=== PATIENT | male | born 1955 | race Caucasian/White ===

== ENCOUNTER 2021-11-28 10:53 | Outpatient (RCR) | payer OTHER, SELFPAY ==
--- NOTE | 2021-11-28 12:01 | HP.PTEVAL_ITS ---
"Patient's Visit Information PITER MOSS is a 66 year old M referred to Physical Therapy by YUKI GRANDA with a diagnosis of L hip pain. Date of Evaluation: 11/28/21 Physical Therapist: JOSE Gallo - Visit Plan Frequency: 2x /Week Duration: 3 Weeks Plan: 2X/ week for 3 weeks for L hip strengthening, L hip ROM, gait training with HEP. HEP: bridges, SLR, S/L hip abd, LAQ - Subjective Pt had X-ray of L HIP. He has no blood flow to the center of the hip bone. This has been going on for 4-5 months. L is progressive getting worse. Dr wants Pt for 4-5 visits and get blood work for surgery. They will do the surgery but he has to have A1C below 7.5 before they do surgery. His L hurts all the time. It hurts with sitting and standing. He has to try and weight shift onto the R leg to get pain out of the joint. He reports that he has weakness in the hip. He struggles to get out of a car and does better sliding out of a higher car like an e|tab. Stairs: he has a lot of pain doing the steps. If he has to go up the steps he uses a railing or a can and leads with his R leg. He has steps at home to get into the trailer with a railing. He does not sleep well at all due to the pain and up most of the night. He does not think that he got an hour sleep last night. He is on gabapetitin. Pt does not leave his trailor much because of the pain. He goes outside [facility] with a 3 weelher and can get around his trailor ok cause things are close. - Pain L hip pain Pain Intensity (Out of 10): 8 Comment: it can go up to 10 or greater - Objective Gait: pt had to sit on the way back to the treatment rooms twice due to pain in the L hip. He walks with decrease stance time on the L LE the stance time gets less and less on the L the farther he walks. Sit to stand: he needs to use his arms to be able to get out of a chair. L hip flex approx 120 degrees but painful. Pt also has limited IR and ER with pain. Pt has tight L HS and gastroc as well and struggles to lift his L leg up onto the mat table. Bridge: able to do 1/2 normal ROM bridge. LE MMT: L hip flex 3+/5 and R 4/5, L hip abd 3+/5 and R 4/5, Prone hip ext B 3-/5, L knee flex 4-/5 and R 4/5, L knee ext 4- /5 and R knee 4/5. Pt struggled with SLR, S/L hip abd, Bridges (could only tolerate 5-10 and the pain increased). - Balance/Special Test Scores Lower Extremity Functional Score: 8 - Goals Goal 1:: I HEP Goal Time Frame: 2-4 Weeks Goal 2:: Decrease L hip pain to 6/10 pain during the day with ADL's Goal Time Frame: 2-4 Weeks Goal 3:: Increase L hip strength by 1/2 muscle grade (at time of the eval: LE MMT: L hip flex 3+/5 and R 4/5, L hip abd 3+/5 and R 4/5, Prone hip ext B 3-/5, L knee flex 4-/5 and R 4/5, L knee ext 4-/5 and R knee 4/5). Goal Time Frame: 2-4 Weeks Goal 4:: Be able to walk back to the treatment room without having to stop (had to stop twice on the way back to the treatment room) Goal Time Frame: 2-4 Weeks - Rehabilitation Potential Rehabilitation Potential: Fair - Anticipated Interventions Patient/Client Instruction: Educate patient on: Condition, Plan of Care For the Purpose of:: To decrease pain, To increase ROM, To improve nutrient delivery to tissue, To improve muscle performance and motor function, To improve ability to perform ADL's, To increase tolerance to activity/condition/position, To improve performance and independence with ADL's, To decrease level of supervision to perform tasks, To improve ability of physical actions for home/community/work/leisure, To improve gait and locomotor functions, To improve health of tissue, To decrease soft tissue restriction, To increase flexibility/ROM Therapeutic Exercise to Include: Strength training, Body mechanics, Flexibilty training, Gait and locomotor training, Neuromotor development, Passive ROM, Active ROM For the Purpose of:: To decrease pain, To increase ROM, To improve nutrient delivery to tissue, To improve muscle performance and motor function, To improve ability to perform ADL's, To improve ability of physical actions for home/community/work/leisure, To improve gait and locomotor functions, To improve health of tissue, To decrease soft tissue restriction, To increase flexibility/ROM Functional Training to Include: Gait training For the Purpose of:: To improve gait and locomotor functions Thank you for the opportunity to evaluate your patient. For Medicare and Medicare HMO plans, please review the plan of care and approve it. It will need to be FAXED BACK to us at [phone] for Medicare purposes. For Medicare only, by signing this I certify the plan of care. Please let me know if there are questions or concerns regarding this plan of care. Physician Signature: Date: "
--- NOTE | 2022-04-18 08:36 | HP.PTDCSUM ---
It has been my pleasure to treat PITER MOSS referred by YUKI GRANDA, with the diagnosis of L hip pain for a total of 1 visit(s). Discharge Date: Please see the following information for a summary of their discharge status. L hip pain Pain Intensity (Out of 10): 8 Goal 1:: I HEP Goal 2:: Decrease L hip pain to 6/10 pain during the day with ADL's Goal 3:: Increase L hip strength by 1/2 muscle grade (at time of the eval: LE MMT: L hip flex 3+/5 and R 4/5, L hip abd 3+/5 and R 4/5, Prone hip ext B 3-/5, L knee flex 4-/5 and R 4/5, L knee ext 4-/5 and R knee 4/5). Goal 4:: Be able to walk back to the treatment room without having to stop (had to stop twice on the way back to the treatment room) Plan: 2X/ week for 3 weeks for L hip strengthening, L hip ROM, gait training with HEP. HEP: MAGO gallardo, S/L hip abd, LAQ If there are questions or concerns regarding this patient's physical therapy, please feel free to call me at [phone]. Thank you for the referral of this patient. Sincerely, Laurie Hilliard, JOSE Balance/Gait/Functional tests - Balance/Special Test Scores Lower Extremity Functional Score: 8
== END 2021-11-28 19:00 | disposition home or self-care (01) ==
LOC: PT 10:53
DX: M25.552 Pain in left hip (principal)
CPT/HCPCS: 97161

== ENCOUNTER → 2021-11-28 12:01 | Outpatient (CLI) | payer OTHER, SELFPAY ==
[2021-11-28 15:25] LABS: Hemoglobin A1c 8.2 % (3.8-5.6)
== END ==
DX: R73.09 Other abnormal glucose (principal)
CPT/HCPCS: 36415; 83036

== ENCOUNTER → 2022-08-11 | Outpatient (CLI) | payer OTHER, SELFPAY ==
--- NOTE | 2022-08-11 13:56 | CT_ITS ---
STUDY: CTA NECK WITH CONTRAST REASON FOR EXAM: Male, 67 years old. Mental status change, possible carotid stenosis RADIATION DOSAGE (If Supplied By Facility): CTDIvol = ( 17.92 ) mGy, DLP = ( 561.26 ) mGycm TECHNIQUE: CT angiography with multi-detector data acquisition was performed from the aortic arch to the skull base following intravenous administration of IV 100mL Isovue-370. MIP images were reconstructed from the axial data set. Post-processing of the angiographic images was performed, with multiplanar reformation and 3D reconstruction. Individualized dose optimization techniques were used for this CT. COMPARISON: None. FINDINGS: AORTIC ARCH: There is atherosclerotic calcific plaque formation of the aortic arch and great vessels arising from the aortic arch, without a hemodynamically significant stenosis. There is a normal origin of the brachiocephalic, left common carotid, and left subclavian arteries. Normal origins of the brachiocephalic, left common carotid, and left subclavian arteries. RIGHT CAROTID ARTERIES: Normal right common carotid artery (CCA). Normal right common carotid bulb. Normal origin of the right internal carotid (ICA) artery without a hemodynamically significant stenosis. Normal visualized cervical portion of the right internal carotid artery. Normal origin of the right external carotid artery (ECA). LEFT CAROTID ARTERIES: Normal left common carotid artery (CCA. There is a 70% stenosis due to noncalcified plaque in the common carotid artery bulb. There is extensive atherosclerotic plaque formation of the origin of the left internal carotid artery with an estimated stenosis of greater than 70%. Normal visualized cervical portion of the left internal carotid artery. Normal origin of the left external carotid artery (ECA). VERTEBRAL ARTERIES: There is enhancement within the bilateral vertebral arteries with a small right vertebral artery, and a dominant left vertebral artery. CT/CTA Neck W/WO Contrast IMPRESSION: Hemodynamically significant stenosis in the left common carotid artery bulb, and proximal left ICA. Stenosis in the common carotid artery bulb measured at 70%, stenosis in the proximal left ICA measured at 80%. No significant stenosis in the right CCA or ICA Small right vertebral artery along its entire course Electronically Signed: Canelo Buchanan MD at 15:21 EDT ,
[2022-08-14 08:35] LABS: CREATININE FINGERSTICK < 0.90 mg/dL (0.70-1.30); EGFR FINGERSTICK > 60 mL/min (>60)
== END | disposition home or self-care (01) ==
DX: I65.22 Occlusion and stenosis of left carotid artery (principal)
CPT/HCPCS: 70498; Q9967; A4216

== ENCOUNTER 2023-03-17 16:09 | Emergency (ER) | payer OTHER, SELFPAY ==
[2023-03-17 16:10] VITALS: BP 121/68; PULSE 76; RESP 17; TEMP 36.4; O2SAT 93; BMI 25.6
--- NOTE | 2023-03-17 16:21 | ED.VIS.CHEST ---
HPI History of Present Illness Chief Complaint: Chest Pain Informant: patient Onset/Context/Timing Onset: Days Activity at onset: gradual Timing: Continuous Quality: Positive for Aching and Burning Location: Left Chest Worsened By: Exertion Relieved By: Rest Associated Symptoms: Positive for Dyspnea and Lightheadedness; Negative for Nausea, Vomiting, Diaphoresis, Cough, Fever, Acid Reflux or Palpitations Narrative Narrative: Patient presents with chest pain and weakness that has been getting worse over the past few days. Patient states it has gradually gotten worse. Patient states that whenever he tries to stand up he feels real shaky and has to sit back down. Patient states that he has pain in his left upper chest when this occurs. Patient states it gets better with rest. Patient admits to some shortness of breath. Patient admits to some lightheadedness with this. Patient denies any cough or fever. Patient denies any nausea or vomiting. Patient denies any diaphoresis. Patient has a history of coronary artery disease with cardiac stents. Patient also has a history of peripheral vascular disease with femoral stents bilaterally. CVD Risk Factors: Positive for Hypertension and Diabetes; Negative for Hypercholesterolemia, Family History 1' </=55 or Smoking PE Risk Factors: Negative for Recent Travel/Surgery, Recent Immobilization, Prior DVT or PE, Cancer or OCP + Smoking + >/=35 PFSH PFSH Medical History Coronary artery disease Diabetes Hypertension Allergy/AdvReac Type Severity Reaction Status Date / Time No Known Allergies Allergy Verified 03/17/23 16:16 Surgical History History of coronary artery stent placement Social History (Updated 03/17/23 @ 16:[address] Pedro Gallardo DO) Smoking Status: Never smoker substance use type: marijuana ROS ROS ED Constitutional Constitutional ED: Denies chills or fever(s) Eyes Eyes: Denies blurry vision or change in vision ENT ENT ED: Reports rhinorrhea; Denies sore throat Cardiovascular Cardiovascular: Reports chest pain; Denies palpitations Respiratory/Chest Respiratory/Chest: Reports dyspnea; Denies cough Gastrointestinal Gastrointestinal: Denies abdominal pain, nausea or vomiting Genitourinary Genitourinary ED: Denies dysuria or hematuria Musculoskeletal Musculoskeletal: Denies back pain or neck pain Integumentary Denies abscess or rash Neurologic Neurologic: Reports weakness; Denies headache(s) Allergic/Immunologic Allergic/Immunologic ED: Denies mouth swelling or urticaria EXAM Physical Exam Const Vital Signs: 03/17/23 16:10 03/17/23 16:34 03/17/23 18:42 Temperature 97.6 F L Temperature Source Temporal Pulse Rate 76 89 Respiratory Rate 17 14 Blood Pressure 121/68 H 138/66 H Blood Pressure Mean 85 90 Pulse Ox 93 93 96 Oxygen Delivery Method Room Air Room Air Positive well nourished and well developed General Appearance ED: well developed and NAD HEENT normocephalic and atraumatic Eyes PERRL and EOMs intact bilaterally Neck supple and no JVD Chest Wall palpation of chest normal Resp normal respiratory effort and clear to auscultation bilaterally Effort and Inspection: Negative for respiratory distress Cardio regular rate and regular rhythm GI normal to inspection, nondistended, normoactive bowel sounds, soft to palpation, non-tender and non-distended Extremity normal to inspection General Extremety ED: Negative for edema or tenderness General Extremity: Negative for edema Neuro oriented x3, CN's II-XII intact bilaterally and no sensory deficits noted Sensorium / Orientation: awake and alert Motor Exam: strength 5/5 throughout Psych mental status grossly normal Heart Score History: Moderately Suspicious ECG: Nonspecific Repolarization Age: >/= 65 years Risk Factors: >/= 3 Risk Factors or History of CAD Troponin: </= Normal Limit Score: 6 MDM MDM MDM Narrative Medical decision making narrative: Functional diagnosis includes cardiac dysrhythmia, cardiac ischemia, pneumonia, pneumothorax, pulmonary embolism, and musculoskeletal pain. EKG will be obtained to assess for cardiac dysrhythmia and cardiac ischemia. Chest x-ray will be obtained to assess for pneumonia, pneumothorax, congestive heart failure. CBC will be obtained to assess for leukocytosis and anemia. Basic metabolic profile will be obtained to assess for electrolyte abnormality and renal function. High-sensitivity troponin will be obtained to assess for cardiac ischemia. D-dimer will be obtained to assess for pulmonary embolism. Lab Data Attestation: I reviewed the patient's lab results. Lab results narrative: CBC was reviewed and was within normal limits. Basic metabolic profile was reviewed and was normal. Initial high-sensitivity troponin was reviewed and was normal at 4. D-dimer was reviewed and was normal at 0.27. 2-hour repeat high-sensitivity troponin was reviewed and was normal at 6. Labs: Laboratory Results - last 24 hr 03/17/23 03/17/23 03/17/23 16:15 16:15 16:15 WBC 7.0 RBC 4.56 L Hgb 14.1 Hct 42.4 MCV 93.0 MCH 30.9 MCHC 33.3 RDW Std Deviation 45.7 H RDW Coeff of Rafa 13.4 Plt Count 148 L MPV 10.2 Immature Gran % (Auto) 0.600 Neut % (Auto) 50.1 Lymph % (Auto) 37.7 Pitt % (Auto) 8.3 Eos % (Auto) 2.9 Baso % (Auto) 0.4 Absolute Neuts (auto) 3.5 Absolute Lymphs (auto) 2.64 Nucleated RBC % 0 D-Dimer Quant (PE/DVT) 0.27 Sodium 138 Potassium 4.0 Chloride 108 H Carbon Dioxide 25.0 Anion Gap 5 BUN 11 Creatinine 0.86 Estim Creat Clear Calc 86.06 Est GFR (MDRD) Af Amer 113 Est GFR (MDRD) Non-Af 94 BUN/Creatinine Ratio 12.7 Glucose 110 H Calcium 8.9 Troponin I High Sens 4 03/17/23 18:35 WBC RBC Hgb Hct MCV MCH MCHC RDW Std Deviation RDW Coeff of Rafa Plt Count MPV Immature Gran % (Auto) Neut % (Auto) Lymph % (Auto) Pitt % (Auto) Eos % (Auto) Baso % (Auto) Absolute Neuts (auto) Absolute Lymphs (auto) Nucleated RBC % D-Dimer Quant (PE/DVT) Sodium Potassium Chloride Carbon Dioxide Anion Gap BUN Creatinine Estim Creat Clear Calc Est GFR (MDRD) Af Amer Est GFR (MDRD) Non-Af BUN/Creatinine Ratio Glucose Calcium Troponin I High Sens 6 Radiography Chest X-Ray - ED: 1 View, Read by ED Physician, Read by Radiologist and No Acute Disease Diagnostic Testing: Clinical Impression(s) from Imaging Studies Chest X-Ray 03/17/23 16:40 IMPRESSION: Normal x-ray examination of the chest. Electronically Signed: Keanu Roca MD at 17:37 EDT , Portable 1 view chest x-ray was obtained. On my independent interpretation, lung vaca are clear. There is normal cardiac silhouette. Bony thorax is normal. There is no acute process noted. Radiologist also interpreted the x-ray and agrees. EKG Initial EKG: Attestation: I personally reviewed and interpreted this EKG as follows: Interpretation: Sinus Rhythm (67) and Non-Specific ST Changes Comments: EKG was obtained. On my independent interpretation, it showed a normal sinus rhythm with a rate of 67 with an occasional PVC. OK interval, QRS interval, and QTc intervals were all normal. [place] was normal. There are no acute ST or T wave changes. Prior EKG tracings: not available for review Prior: No Prior Management Discussion w/another healthcare provider: Hospitalist Treatment and Re-Evaluation :: Patient was given aspirin here. Patient had no further episodes of pain here. Patient has a HEART score of 6. Patient states that it has been more than a few years since he has had a stress test. Because of this, I recommended admission to the hospital for further evaluation of his chest pain. Case was discussed with the hospitalist. She stated that the patient would not be able to get a stress test until Sunday or Sunday. She recommended obtaining a repeat troponin. If this is normal the patient can be discharged and follow-up as an outpatient for a stress test. If this is abnormal, the patient will need to be admitted as an inpatient. Patient stated he did not want to wait in the hospital until Sunday for the stress test. Therefore, we will proceed with delta troponin testing. Patient and spouse are agreeable with the plan. 2-hour repeat high-sensitivity troponin was normal at 6. Patient will be discharged home. Patient will be instructed to follow-up with his primary care physician for further evaluation. Patient understood and was agreeable with the plan. All questions were answered. Discharge Plan Triage Chief Complaint: Chest Pain ED Provider: Pedro Gallardo Dx/Rx/DC Orders Clinical Impression: Chest pain Instructions: ED Chest Pain, Uncertain Cause Other Ambulatory Orders: Nuclear Stress Test - Chemical (Routine) Timeframe: 3 Days Facility: [facility] - Location: [facility] Ordered By: Dr. Pedro Gallardo Primary Care Provider: [facility] [facility] [Primary Care Provider] - 3-5 Days Disposition Disposition: Home, Self Care
[2023-03-17 16:34] VITALS: O2SAT 93
--- NOTE | 2023-03-17 16:40 | RAD_ITS ---
STUDY: X-RAY CHEST REASON FOR EXAM: Male, 67 years old. chest pain TECHNIQUE: Single AP portable view of the chest. COMPARISON: None. FINDINGS: The lungs are clear and expanded. There is no demonstrated pleural abnormality. Normal size heart. Normal mediastinum and anish. Normal visualized pulmonary arteries. Normal visualized aortic arch and descending thoracic aorta. Normal visualized thoracic spine. Normal visualized ribs, clavicles, and shoulders. There is no demonstrated abnormality of the visualized soft tissue structures of the upper abdomen. RAD/Chest 1 View (Portable) IMPRESSION: Normal x-ray examination of the chest. Electronically Signed: Keanu Roca MD at 17:37 EDT ,
[2023-03-17 16:41] LABS: Absolute Lymphocyte Count 2.64 X10^3/uL (0.83-4.51); Absolute Neutrophil Count 3.5 X10^3/uL (2.0-7.7); Basophil# 0.03 X10^3/uL; Basophil% 0.4 % (0-1); Eosinophils% 2.9 % (0-5); Hematocrit 42.4 % (40-54); Hemoglobin 14.1 g/dL (13.0-16.5); Lymphocyte # 2.64 X10^3/ul (0.83-4.51); Lymphocyte % 37.7 % (19-41); Mean Corp Hgb Conc 33.3 g/dL (32-36); Mean Corpuscular Hgb 30.9 pg (27.0-32.0); Mean Platelet Vol. 10.2 fl (6.2-12.0); Monocyte# 0.58 X10^3/uL; Monocyte% 8.3 % (0-10); NRBC Flagged by Analyzer 0 % (0-5); Neutrophil # 3.51 X10^3/uL (2.7-7.7); Neutrophil % 50.1 % (47-70); Platelet Count 148 K/mm3 (150-450); RBC Distribution Width CV 13.4 % (11.6-14.6); RBC Distribution Width SD 45.7 fl (35.1-43.9); Red Blood Count 4.56 M/mm3 (4.6-6.2)
[2023-03-17 17:05] LABS: Anion Gap 5 (5-15); BUN 11 mg/dL (7-18); BUN/Creat Ratio 12.7 RATIO (10-20); Calcium,Total 8.9 mg/dL (8.5-10.1); Chloride 108 mmol/L (98-107); Creatinine, Serum 0.86 mg/dL (0.70-1.30); D-Dimer Quantitative (DVT/PE) 0.27 FEU/ug/m (0.27-0.49); EST Glomerular Filtration Rate 94 mL/min (>60); Est Glom Filt Rate - Afr Amer 113 mL/min (>60); Estimated Creatinine Clearance 86.06 ml/min; Glucose 110 mg/dL (74-106); Sodium Level 138 mmol/L (136-145); Troponin-I HS (w/2H Reflex) 4 pg/mL (3.0-78.0)
[2023-03-17 18:32] LABS: Reflex Troponin-HS? (from REC) Y
[2023-03-17 18:42] VITALS: BP 138/66; PULSE 89; RESP 14; O2SAT 96
[2023-03-17 19:01] LABS: Troponin-I HS 6 pg/mL (3.0-78.0)
[2023-03-17 19:33] VITALS: BP 138/67; PULSE 74; RESP 18; O2SAT 95
== END 2023-03-17 19:36 | disposition home or self-care (01) ==
PROVIDERS: Emergency Provider Emergency Medicine; Visit Provider Emergency Medicine
DX: R07.9 Chest pain, unspecified (principal); E11.51 Type 2 diabetes mellitus with diabetic peripheral angiopathy without gangrene; I73.9 Peripheral vascular disease, unspecified; I10 Essential (primary) hypertension; I25.10 Atherosclerotic heart disease of native coronary artery without angina pectoris; Z95.5 Presence of coronary angioplasty implant and graft; R06.00 Dyspnea, unspecified
CPT/HCPCS: 71045; 80048; 84484; 85025; 85379; 93005; 99285

== ENCOUNTER → 2023-05-04 | Outpatient (CLI) | payer MEDICARE, SELFPAY ==
--- NOTE | 2023-05-04 14:24 | STRESSREP ---
Stress Test Report Pharmacologic myocardial perfusion stress test. 68-year-old lady with history of chest pain Resting EKG demonstrates sinus bradycardia with a rate of 55 bpm. Resting blood pressure is 112/62 mmHg. 0.4 mg of regadenoson was infused per usual protocol followed by rapid intravenous saline flush injection. Continuous EKG monitoring was performed. The maximum heart rate was 111 bpm which was 73% of max impacted heart rate the maximum workload was 1 metabolic equivalent. At rest there were no ST or T wave changes noted to suggest ischemia and at peak infusion nonspecific ST changes were noted which did not meet the criteria for ischemia. No clinical angina is noted. The final blood pressure was 110/70 mmHg. Myocardial perfusion protocol. 11.7 mCi of technetium 99m sestamibi was injected at rest. 0.4 mg of regadenoson was infused per usual protocol. At peak infusion 34.2 mCi of technetium 99m sestamibi was injected stress images were obtained stress and rest images were reconstructed and compared in the short axis vertical long and horizontal long axis. Gated images were also obtained. Perfusion SPECT analysis: Review of the stress images demonstrate normal uptake of tracer noted in all areas of the myocardium. The resting images similar demonstrated normal uptake of tracer noted in all areas of the myocardium. No areas of reversibility are noted to suggest ischemia and no previous infarct is noted. Gated SPECT analysis: The gated ejection fraction is 66%. Conclusion: Normal pharmacologic myocardial perfusion stress test. Preserved ejection fraction.
== END | disposition home or self-care (01) ==
PROVIDERS: Referring Provider Emergency Medicine; Visit Provider Emergency Medicine
DX: R07.9 Chest pain, unspecified (principal)
CPT/HCPCS: 78452; 93017; A9500; A4216; J2785

== ENCOUNTER → 2025-03-20 | Outpatient (CLI) | payer OTHER, SELFPAY ==
--- NOTE | 2025-03-20 16:23 | CT_ITS ---
PROCEDURE: CTA HEAD AND NECK W/ CONTRAST 03/20/2025 REASON FOR EXAM: PERIPHERAL VASCULAR ANGIOPLASTY STATUS WITH IMPLANTS AND GRAFTS TECHNIQUE: CTA imaging of the head and neck from the aortic arch to the skull vertex with out contrast and with intravenous contrast. Multiplanar and multisequence images were obtained. CONTRAST: 75 cc Isovue One or more dose reduction techniques were used (e.g., Automated exposure control, adjustment of the mA and/or kV according to patient size, use of iterative reconstruction technique). COMPARISON: 08/11/2022 FINDINGS: Prior study is 08/11/2022. Prior study demonstrated significant stenosis of the left common carotid artery and left internal carotid artery. Initial noncontrast images of the brain demonstrate no abnormality. Angiographic study demonstrates normal caliber of the aortic arch. No proximal subclavian stenosis. No cervical vertebral narrowing. No distal vertebral dissection. No basilar stenosis. Patent basilar tip. There is no narrowing of the right common carotid artery or the right carotid bifurcation. On the left, there is irregular hypodense plaque of the left carotid bifurcation and this results in a significant degree of proximal left ICA stenosis. This is measured on the current study at 66%. This is improved in comparison to the prior study by measurement. Visually, the appearance is similar. Distal cervical internal carotid arteries are patent. Normal cavernous carotid vessels. Negative for intracranial aneurysm. Negative for large vessel occlusion. Negative for dural sinus thrombosis. CT/CTA Head AND Neck W/ Contrast IMPRESSION: Subjectively similar appearance to the prior study. However, on the current [facility], the proximal left ICA stenosis is measured approximately 66% Reading Location: [facility]
--- NOTE | 2025-03-20 16:23 | CT_ITS ---
PROCEDURE: CTA ABD W/RUNOFF W/WO CONTRAST 03/20/2025 REASON FOR EXAM: OCCLUSION AND STENOSIS OF LEFT CAROTID ARTERY TECHNIQUE: CTA imaging of the abdomen and pelvis with intravenous contrast. Multiplanar and multisequence images were obtained. CONTRAST: 75 cc Isovue 370 One or more dose reduction techniques were used (e.g., Automated exposure control, adjustment of the mA and/or kV according to patient size, use of iterative reconstruction technique). CONTRAST: 75 cc Isovue 370 FINDINGS: Fatty infiltration of the liver. Normal gallbladder. Normal spleen. No pancreatic abnormality. Distal thoracic aorta normal in caliber. Patent superior mesenteric artery. 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 Left and right renal arteries are patent with mild narrowing of the proximal left renal artery. Atherosclerotic irregularity of the distal abdominal aorta. On the right, patent external iliac artery, common femoral artery and superficial femoral artery. Atherosclerotic irregularity distal right SFA. Patent popliteal artery on the right. Three-vessel runoff initially. The contrast bolus becomes faint bilaterally at the level of the ankle. A repeat set of images was performed demonstrating three-vessel runoff proximally with two-vessel runoff distally. On the left, there is partial occlusion of the anterior tibial artery. No popliteal stenosis on the left. Patent left common iliac artery. Moderate irregular stenosis at the junction of the internal iliac and external iliac artery. Patent left superficial femoral artery and popliteal artery. No free-fluid. No free air. No bowel obstruction. CT/CTA Abd w/Runoff W/WO Contrast IMPRESSION: Mild infrapopliteal atherosclerosis. Mild superficial femoral artery atheroscl erosis without stenosis or occlusion. Atherosclerotic irregularity of the abdominal aorta as well as stenosis of the origin of the celiac artery Reading [facility]
[2025-03-20 16:56] LABS: CREATININE FINGERSTICK < 1.0 mg/dL (0.70-1.30); EGFR FINGERSTICK > 60.0000 mL/min (>60)
== END | disposition home or self-care (01) ==
LOC: CT 16:15
DX: Z95.820 Peripheral vascular angioplasty status with implants and grafts (principal); I65.22 Occlusion and stenosis of left carotid artery
CPT/HCPCS: 70496; 70498; 75635; Q9967; A4216

== ENCOUNTER → 2025-04-15 13:32 | Outpatient (CLI) | payer OTHER, SELFPAY ==
--- NOTE | 2025-04-15 14:02 | PCM.PR.HP ---
History of Present Illness General Arrival date:: 04/15/25 Arrival time:: 14:02 Date of Referral:: 03/23/25 Date of Evaluation: 04/15/25 Referring Physician: OVIDIO Primary Diagnosis: COPD History of Present Pulmonary Event [facility] Breathless Scale: When is the patient short of breath? Y/N Grade: Description of Breathlessness: 0 I only get breathless with strenuous exercise. 1 I get short of breath when hurrying on level ground or walking up a slight hill. 2 On level ground, I walk slower than people of the same age because of breathless, or have to stop for breath when walking at my own pace. 3 I stop for breath after walking 100 yards or after a few minutes on level ground. 4 I am too breathless to leave the house or I am breathless when dressing. Respiratory Problems: Yes Retain Secretions, Chest Pain, Fatigue, Wheezing, Dizziness, Hoarseness, Anxiety, Dyspnea at Rest, Dyspnea with Activity, Dyspnea Lying Down Flat and Cough with Secretions; No Limited Range of Motion, Able to Speak in Full Sentences, Ankle Swelling or Panic Allergies Allergies No Known Allergies Allergy (Verified 03/17/23 16:16) Secretions Thick:: Yes Amount/Day:: 2 TBSP (20 TBSP per pt.) AM: Yes PM: Yes Sleep Disorder Evaluation Hx of Sleep Apnea: No Do you snore loudly (louder than talking or can be heard through closed doors)?: No Do you often feel tired/ fatigued/ sleepy during daytime?: No Has anyone observed you stop breathing during sleep?: No History of Hypertension (for STOP score): Yes STOP Results: Negative Medical Utilization Medical Devices Do you use a peak flow meter at home?: No Do you use a spacer device with your inhalers?: No Medical Utilization Number of hospital visits in the last year?: 2 Number of emergency room visits in the last year?: 2 Do you see your physician on a regular schedule?: Yes How often?: 6-7 Advanced Directives Advanced Directives Do you have a Healthcare Power of Wet Chemistry Analyst?: Yes Living Will: Yes Advance Directives Information Provided: No Advance Directives on File: No DNR Order?:: No Past Medical History Covid-19 Screening Physicial Symptoms Other Clinical Concerns Exposure Risk Pertinent Comorbidities 65 years or older:: Yes Has a chronic lung disease or moderate to severe asthma:: Yes Diabetic:: Yes Medical History Medical History Coronary artery disease Diabetes Hypertension Surgical History Surgical History History of coronary artery stent placement Social History Smoking History Smoking Status: Former smoker Years Smokin Packs Smoked per Day: 1 (stopped when he was 21 yrs old) Alcohol Use Alcohol Usage: No Substance Abuse Hx Substance Use: No Occupation Occupation (List type of work in comments):: Retired Functioning ADL/IADL Current Ability Current Ability: Dependent: Ambulation and Dependent: Household tasks (e.g., light meal prep, laundry, shopping) and Independent: Self-Care (e.g.,grooming, dressing, & bathing) and Independent: Transfer Pt Functioning Prior to Problem Prior Functioning: Self-Care (e.g.,grooming, dressing, & bathing): Independent, Ambulation: Independent, Transfer: Independent and Household tasks (e.g., light meal prep, laundry, shopping): Independent Social Environment Status Marital Status: Current Living Arrangements Living Environment:: Spouse Children How many children do you have?: 4 Do any of your children live nearby?: Yes Safety Do you feel safe in your surroundings?: Yes Assistance Do you need any assistance at home?: no Review of Systems Review of Systems Review of Systems Respiratory: Reports Cough, Hemoptysis, Pleuritic Pain, SOB at Rest, SOB upon Exertion, Sputum production, Wheezing, Dizziness/Lightheadedness, Fatigue, PVD and Sleep, Normal; Denies Appetite, Normal or Sexual changes Pain Is Patient Pain Free?: No Pain Location: lower extremity Pain Level: 04/30 Risk Factor Assessment Chief Complaint Chief Complaint: COPD Vital Signs Pulse Rate: 63 Pulse Ox: 92 (on 3L) Blood Pressure: 110/56 Diabetes Diabetic History: Type II Obesity Height: 5 ft 10 in Weight:: 164 lb Weight in Pounds: 164.0 lbs Body Mass Index (BMI): 23.5 Physical Activity Physical Inactivity: None Risk Stratification Risk Guidelines: Moderate Risk: Risk Factor for Obesity and Highest Risk: Risk Factor for Smoking, Risk Factor for Dyslipidemia, Risk Factor for Diabetes, Risk Factor for Obesity, Risk Factor for Hypertension, Risk Factor for Sedentary Lifestyle and Risk Factor for Depression For Smoking Smoking Risk Guidelines For Dyslipidemia Dyslipidemia Risk Guidelines For Diabetes Mellitus Diabetes Risk Guidelines For Obesity/Overweight Obesity/Overweight Risk Guidelines For Hypertension Hypertension Risk Guidelines For Sedentary Lifestyle Sedentary Lifestyle Risk Guidelines For Depression Depression Risk Guidelines Motivation Motivation to Participate On a scale of 1 to 10, how prepared are you to commit to attending program?: 10 What do you see as barriers to successfully being able to complete the program?: nothing What do you see as the benefits of succesfully completing the program? In other words, what do you hope to get out of participating in the program?: more energy, less SOB Are there issues you are dealing with that will interfere with completing the program?: no Do you have a spouse or signficant other, family or friends who will help support you to complete the program?: yes Diagnostic Data Review Pulmonary Function Test FEV1:: 27
--- NOTE | 2025-04-15 14:12 | PCM.PR.TP ---
General Information2 General Information Admitting Diagnosis: COPD PFT FEV1:: 27 Personal Learning Style/Barriers Personal Learning Style:: Audio/Visual Barriers to Learning: None Stage of change r/t lifestyle modifications: Contemplation Education/Goals [place] Patient Goals: Increase muscle strength: Initial Assessment, Experience less dyspnea: Initial Assessment, Improve energy level: Initial Assessment, Participate in home exercise: Initial Assessment, Improve the ability to cope with ADLs: Initial Assessment, Improve knowledge of lung disease: Initial Assessment, Increase knowledge of oxygen use: Initial Assessment, Control panic/anxiety: Initial Assessment, Improve diet and nutrition: Initial Assessment and Other:: Initial Assessment Exercise - Initial Assessment Visit Date of Eval: 04/15/25 (initial eval ) Problem/Goals Problems: Deconditioning Goals:: Aerobic exercise 30-60 mins x 12 weeks [36 sessions] Physician Prescribed Exercise Modalities: Lisa Gore AD-7, SigmascreeningFit Stepper, Cliptone Pro-II Ergometer and Cliptone Lateral Director Of Elementary Education Frequency (days/week): 3 Duration (Minutes):: 30-45 Intensity: 60-80% of age predicted maximum heart rate reserve Current METSs:: 2 Target HR:: 113 (90-113) Minimum SpO2 with exercise: 92 (on 3L) Plan Plan and Plan to Review:: Benefits of exercise, Core components of exercise, How to measure dyspnea level, How to monitor dyspnea level, Exercise intensity, Home exercise guidelines and David: 3-4/11-13 Nutrition/Wt Mgmt - Initial Visit Date of Eval: 04/15/25 (initial eval ) Weight Management Admit Height:: 5 ft 10 in Admit Weight:: 164 lb Admit BMI:: 23.5 Intervention Referral to dietitian:: No Will attend diet classes:: Yes Intervention/Plan: Instruct on ideal BMI & set weight loss goal w/patient, Assist pt to ID & incorporate diet changes for weight loss by S9, Refer to Structured Weight Loss program as appropriate, Encourage goal of using 250-300dcal per session for weight loss and Other additional plan/interventions Plan Nutrition Plan: Yes: Review BMI or WC & identify target wt & strategies for wt control, Yes: Nutrition education class:, Yes: Medication education class [Prednisone]:, Yes: Weight control education class:, Yes: Education re: Need for ongoing weight monitoring, Yes: Food diary: and Yes: Physical activity log: Nutrition/Wt [facility] - 30-Day Weight Management Height: 5 ft 10 in Weight:: 164 lb BMI: 23.5 Nutrition/Wt Mgmt - 60-Day Weight Management Height: 5 ft 10 in Weight:: 164 lb BMI: 23.5 Nutrition/Wt Mgmt - 90-Day Weight Management Height: 5 ft 10 in Weight:: 164 lb BMI: 23.5 Nutrition/Wt Mgmt - Final Weight Management Height: 5 ft 10 in Weight:: 164 lb BMI: 23.5 Psychosocial - Initial Assess Visit Date of Eval: 04/15/25 (initial eval ) Problems/Goals History of Emotional Disorders: Anxious (Pt denies anxiety at this time.) Psychosocial Goals: 1. Patient is free from overwhelming symtoms of depression (or anxiety, 2. Identifies personal stressors & states the strategies for managing, 3. Identifies activities to decrease isolation and/or symptoms of, 4. Improved psychosocial coping skills., 5. Verbalizes coping strategies., 6. Adequate treatment of depression. and 7. Improved Q.O.L. Psychosocial Test Tool Used:: PHQ-9 Questionnaire PHQ-9 Score: 11 Referral to Behavioral Health PS - Interventions: Yes: Attend Stress Management Classes Intervention/Plan: See List Interventions/Plan:: Assess stressors,coping strategies & signs of derpression on admission, Instruct/assist pt to develop coping & personal stress Mgt strategies, Refer to Behavioral Health if appropriate, Refer to Physician if appropriate, Instruct patient to recognize signs & symptoms of depression and Instruct patient to recog Psychosocial - 30-Day Problems/Goals History of Emotional Disorders: Anxious (Pt denies anxiety at this time.) Psychosocial Goals: 1. Patient is free from overwhelming symtoms of depression (or anxiety, 2. Identifies personal stressors & states the strategies for managing, 3. Identifies activities to decrease isolation and/or symptoms of, 4. Improved psychosocial coping skills., 5. Verbalizes coping strategies., 6. Adequate treatment of depression. and 7. Improved Q.O.L. Psychosocial Test Tool Used:: PHQ-9 Questionnaire PHQ-9 Score: 11 Referral to Behavioral Health PS - Interventions: Yes: Attend Stress Management Classes Plan Interventions/Plan:: Assess stressors,coping strategies & signs of derpression on admission, Instruct/assist pt to develop coping & personal stress Mgt strategies, Refer to Behavioral Health if appropriate, Refer to Physician if appropriate, Instruct patient to recognize signs & symptoms of depression and Instruct patient to recog Psychosocial - 60-Day Problems/Goals History of Emotional Disorders: Anxious (Pt denies anxiety at this time.) Psychosocial Goals: 1. Patient is free from overwhelming symtoms of depression (or anxiety, 2. Identifies personal stressors & states the strategies for managing, 3. Identifies activities to decrease isolation and/or symptoms of, 4. Improved psychosocial coping skills., 5. Verbalizes coping strategies., 6. Adequate treatment of depression. and 7. Improved Q.O.L. Psychosocial Test Tool Used:: PHQ-9 Questionnaire PHQ-9 Score: 11 Referral to Behavioral [facility] PS - Interventions: Yes: Attend Stress Management Classes Plan Interventions/Plan:: Assess stressors,coping strategies & signs of derpression on admission, Instruct/assist pt to develop coping & personal stress Mgt strategies, Refer to Behavioral Health if appropriate, Refer to Physician if appropriate, Instruct patient to recognize signs & symptoms of depression and Instruct patient to recog Psychosocial - 90-Day Problems/Goals History of Emotional Disorders: Anxious (Pt denies anxiety at this time.) Psychosocial Goals: 1. Patient is free from overwhelming symtoms of depression (or anxiety, 2. Identifies personal stressors & states the strategies for managing, 3. Identifies activities to decrease isolation and/or symptoms of, 4. Improved psychosocial coping skills., 5. Verbalizes coping strategies., 6. Adequate treatment of depression. and 7. Improved Q.O.L. Psychosocial Test Tool Used:: PHQ-9 Questionnaire PHQ-9 Score: 11 Referral to Behavioral [facility] PS - Interventions: Yes: Attend Stress Management Classes Plan Interventions/Plan:: Assess stressors,coping strategies & signs of derpression on admission, Instruct/assist pt to develop coping & personal stress Mgt strategies, Refer to Behavioral Health if appropriate, Refer to Physician if appropriate, Instruct patient to recognize signs & symptoms of depression and Instruct patient to recog Psychosocial - Final Assess Problems/Goals History of Emotional Disorders: Anxious (Pt denies anxiety at this time.) Psychosocial Goals: 1. Patient is free from overwhelming symtoms of depression (or anxiety, 2. Identifies personal stressors & states the strategies for managing, 3. Identifies activities to decrease isolation and/or symptoms of, 4. Improved psychosocial coping skills., 5. Verbalizes coping strategies., 6. Adequate treatment of depression. and 7. Improved Q.O.L. Psychosocial Test Tool Used:: PHQ-9 Questionnaire PHQ-9 Score: 11 Referral to Behavioral Health PS - Interventions: Yes: Attend Stress Management Classes Plan Interventions/Plan:: Assess stressors,coping strategies & signs of derpression on admission, Instruct/assist pt to develop coping & personal stress Mgt strategies, Refer to Behavioral Health if appropriate, Refer to Physician if appropriate, Instruct patient to recognize signs & symptoms of depression and Instruct patient to recog Oxygen & Oxygen Titration Init Visit Date of Eval: 04/15/25 (initial eval ) Initial Assessment Oxygen on Admission: Continuous home use SpO2:: 92 (on 3L) Patient Reports:: Prod cough daily >1 Tbsp and Hospitalized in the past 12 months [list how many times] (2) Goal Oxygen & Oxygen Tritration Goals: Effective hypoxemia control and Uses O2 as Rx'd/safely Plans Plan: Monitor SpO2 rest & with exercise, Recommend appropriate FiO2 to Pt/MD, Assist to contact DME for O2, Train appropriate O2 use at rest, Train appropriate O2 use with exercise and Train O2 safety & systems Reviewed prescribed medications:: Purpose, Schedule, Side effects and Importance of compliance Instruct correct technique/timing & care:: MDI, DPI, Nebulizer and Return demo use of inhaler Bronchial Hygiene Plan: Controlled cough, CPT, Vibratory PEP device, VEST, Role of exercise in secretion clearance, NS Nasal spray, Hydration, Hand hygiene, Evaluate sputum, When to call MD, Signs/symptoms to report:, Influenza/Pneumovax vaccines and Cleaning of respiratory equipment Oxygen & Oxygen Titration 30D Reassessment SpO2:: 92 (on 3L) Oxygen & Oxygen Titration 60D Reassessment SpO2:: 92 (on 3L) Oxygen & Oxygen Titration 90D Reassessment SpO2:: 92 (on 3L) Oxygen & Oxygen Titration NEGAR Reassessment SpO2:: 92 (on 3L) Core Components - Initial Visit Date of Eval: 04/15/25 (initial eval ) Hypertension Hypertension Diagnosis:: Hypertension ICD-10 I10 BP: 110/56 [employer] Hypertension Guidelines Outcomes/Goals: Able to verbalize/achieve optimal blood pressure <130/80 and Incorporates diet changes & exercise for blood pressure control by DC Tobacco - Initial Assessment Tobacco Program Goals Stages of Change:: Contemplate Learning Barriers: Ready to Learn Do you have family support?: Yes Tobacco Use: Cigarettes How long ago did you quit using tobacco products?: Greater than or equal to 6 months ago (stopped when he was 21 yrs old) How many cigarettes do you smoke per day?: 20 Years Smokin Do you use smokeless tobacco?: No Smoking Cessation Referral:: No Individual Education/Counseling:: No Education Schedule Given:: Yes Gave Education Materials For:: Tobacco Triggers, Pulmonary Disease, Risk Factors, Breathing Techniques, Medical Compliance, Pulmonary A&P, Exacerbation Signs & Symptoms and Stress & Relaxation Exacerbation Mgmt & Airway Clearance Hypoxemia Goals:: Hypoxemia managed, Port system and Using O2 as Rx's safely Bronchial Hygiene Problems:: Ineffective secretion clearance and Respiratory infection Prevention/Management Goals: Pt demonstrates effective cough, effective secretion clearance. and Pt describes signs and symptoms of infection. Patient Reports:: Prod cough daily >1 Tbsp and Hospitalized in the past 12 months [list how many times] (2) Plan: Monitor SpO2 rest & with exercise, Recommend appropriate FiO2 to Pt/MD, Assist to contact DME for O2, Train appropriate O2 use at rest, Train appropriate O2 use with exercise and Train O2 safety & systems Instruct correct technique/timing & care:: MDI, DPI, Nebulizer and Return demo use of inhaler Bronchial Hygiene Plan: Controlled cough, CPT, Vibratory PEP device, VEST, Role of exercise in secretion clearance, NS Nasal spray, Hydration, Hand hygiene, Evaluate sputum, When to call MD, Signs/symptoms to report:, Influenza/Pneumovax vaccines and Cleaning of respiratory equipment Medication Interventions/plans: Instruct on medication effects & side effects, Review medication list w/patient every two weeks and Instruct importance of taking meds as ordered & assist problem solving Medication Goals: Adherence to prescribed medications and Correct technique/timing & care of MDI, DPI, nebulizer, and spacer. Does pt report taking home meds as prescribed?: Yes Medications: Yes: MDI, Yes: DPI and Yes: NEB Reviewed prescribed medications:: Purpose, Schedule, Side effects and Importance of compliance Diabetes Diabetes:: Yes Referral to dietitian:: No Will attend diet classes:: Yes Core Components - 30 DAYS Hypertension Hypertension Diagnosis:: Hypertension ICD-10 I10 Resting Blood Pressure:: 110/56 [employer] Hypertension Guidelines Outcomes/Goals: Able to verbalize/achieve optimal blood pressure <130/80 and Incorporates diet changes & exercise for blood pressure control by DC Tobacco - 30-Day Tobacco Program Goals Stages of Change:: Contemplate Do you have family support?: Yes Tobacco Use: Cigarettes How many cigarettes do you smoke per day?: 20 Do you use smokeless tobacco?: No Smoking Cessation Referral:: No Education Schedule Given:: Yes Gave Education Materials For:: Tobacco Triggers, Pulmonary Disease, Risk Factors, Breathing Techniques, Medical Compliance, Pulmonary A&P, Exacerbation Signs & Symptoms and Stress & Relaxation Diabetes Diabetes:: Yes Core Components - 60 DAYS Hypertension Hypertension Diagnosis:: Hypertension ICD-10 I10 Resting Blood Pressure:: 110/56 [employer] Hypertension Guidelines Outcomes/Goals: Able to verbalize/achieve optimal blood pressure <130/80 and Incorporates diet changes & exercise for blood pressure control by DC Tobacco - 60-Day Tobacco Program Goals Stages of Change:: Contemplate Do you have family support?: Yes Tobacco Use: Cigarettes How many cigarettes do you smoke per day?: 20 Do you use smokeless tobacco?: No Smoking Cessation Referral:: No Individual Education/Counseling:: No Education Schedule Given:: Yes Gave Education Materials For:: Tobacco Triggers, Pulmonary Disease, Risk Factors, Breathing Techniques, Medical Compliance, Pulmonary A&P, Exacerbation Signs & Symptoms and Stress & Relaxation Diabetes Diabetes:: Yes Core Components - 90 DAYS Hypertension Hypertension Diagnosis:: Hypertension ICD-10 I10 Resting Blood Pressure:: 110/56 [employer] Hypertension Guidelines Outcomes/Goals: Able to verbalize/achieve optimal blood pressure <130/80 and Incorporates diet changes & exercise for blood pressure control by DC Tobacco - 90-Day Tobacco Program Goals Stages of Change:: Contemplate Do you have family support?: Yes Tobacco Use: Cigarettes How many cigarettes do you smoke per day?: 20 Do you use smokeless tobacco?: No Smoking Cessation Referral:: No Individual Education/Counseling:: No Education Schedule Given:: Yes Gave Education Materials For:: Tobacco Triggers, Pulmonary Disease, Risk Factors, Breathing Techniques, Medical Compliance, Pulmonary A&P, Exacerbation Signs & Symptoms and Stress & Relaxation Diabetes Diabetes:: Yes Core Components - Final Hypertension Hypertension Diagnosis:: Hypertension ICD-10 I10 Resting Blood Pressure:: 110/56 [employer] Hypertension Guidelines Outcomes/Goals: Able to verbalize/achieve optimal blood pressure <130/80 and Incorporates diet changes & exercise for blood pressure control by DC Tobacco - Final Tobacco Program Goals Stages of Change:: Contemplate Do you have family support?: Yes Tobacco Use: Cigarettes How many cigarettes do you smoke per day?: 20 Do you use smokeless tobacco?: No Smoking Cessation Referral:: No Individual Education/Counseling:: No Education Schedule Given:: Yes Diabetes Diabetes:: Yes Patient Health Questionnaire PHQ-9 Screening Initial Assessment: 1. Little interest or pleasure in doing things: Not at all 2. Feeling down, depressed, or hopeless: Not at all 3. Trouble falling or staying asleep, or sleeping too much: More than half the days 4. Feeling tired or having little energy: Nearly every day 5. Poor appetite or overeating: More than half the days 6. Feeling bad about yourself -- or that you are a failure or have let yourself or your family down: Several days 7. Trouble concentrating on things, such as reading the newspaper or watching television: Nearly every day 8. Moving or speaking so slowly that other people could have noticed. Or the opposite - being so fidgety or restless that you have been moving around a lot more than usual: Not at all 9. Thoughts that you would be better off , or of hurting yourself in some way: Not at all How difficult have these problems made it for you to do your work, take care of things at home, or get along with other people?: Somewhat difficult Total Score: 11 Knowledge Questionaire (BCKQ) Information Information: [place] COPD Knowledge Questionnaire (BCKQ) This questionnaire is designed to find out what you know about your lung problem. It should be completed without help form anyone else. This usually takes between 10 and 20 minutes. Your answers will help us to find out what information you need to help you to understand and manage your lung condition. [place] which you think is the correct answer. Nutrition Survey Nutrition Survey Instructions Scoring Instructions
[2025-04-15 14:30] VITALS: BP 110/56; PULSE 63; O2SAT 92
[2025-04-15 14:48] VITALS: BP 110/56; O2SAT 92
[2025-04-15 15:15] VITALS: BMI 23.5
[2025-04-15 15:18] VITALS: BMI 23.5
== END ==
DX: J44.9 Chronic obstructive pulmonary disease, unspecified (principal)

== ENCOUNTER 2025-05-18 13:00 | Outpatient (RCR) | payer OTHER, SELFPAY ==
[2025-04-15 15:18] VITALS: BMI 23.5
--- NOTE | 2025-05-13 08:01 | PR.ITP_ITS ---
Exercise - Initial Assessment Visit Session Number:: 3 Physician Prescribed Exercise Modalities: [facility] [employer] [facility] [facility], mSilica Pro-II Ergometer and mSilica Lateral [employer] Current METSs:: 2.3 Target HR:: 113 (90-113) Current RPD:: 2-3 Maximum Exercise HR:: 85 Resting Blood Pressure: 120/64 Maximum Exercise Blood Pressure: 160/82 Minimum SpO2 with exercise: 89 (on 3 L with exercise) EKG Type: NSR with rare PVC's Nutrition/Wt Mgmt - Initial Visit Session Number:: 3 Weight Management Admit Height:: 5 ft 10 in Admit Weight:: 166 lb Admit BMI:: 23.8 Nutrition/Wt Mgmt - 30-Day Visit Date of Eval: 05/13/25 Session Number:: 3 Weight Management Height: 5 ft 10 in Weight:: 166 lb BMI: 23.8 Weight Goals Progress:: Progressing (Pt is scheduled to attend nutrition class. Low sodium heart healthy diet encouraged.) Nutrition/Wt Mgmt - 60-Day Visit Session Number:: 3 Weight Management Height: 5 ft 10 in Weight:: 166 lb BMI: 23.8 Nutrition/Wt Mgmt - 90-Day Visit Session Number:: 3 Weight Management Height: 5 ft 10 in Weight:: 166 lb BMI: 23.8 Nutrition/Wt Mgmt - Final Visit Session Number:: 3 Weight Management Height: 5 ft 10 in Weight:: 166 lb BMI: 23.8 Psychosocial - Initial Assess Visit Session Number:: 3 Problems/Goals History of Emotional Disorders: Anxious (Pt denies anxiety at this time.) Psychosocial Goals: 1. Patient is free from overwhelming symtoms of depression (or anxiety, 2. Identifies personal stressors & states the strategies for managing, 3. Identifies activities to decrease isolation and/or symptoms of, 4. Improved psychosocial coping skills., 5. Verbalizes coping strategies., 6. Adequate treatment of depression. and 7. Improved Q.O.L. Psychosocial Test PHQ-9 Score: 11 Referral to Behavioral Health PS - Interventions: Yes: Attend Stress Management Classes Intervention/Plan: See List Interventions/Plan:: Assess stressors,coping strategies & signs of derpression on admission, Instruct/assist pt to develop coping & personal stress Mgt strategies, Refer to Behavioral Health if appropriate, Refer to Physician if appropriate, Instruct patient to recognize signs & symptoms of depression and Instruct patient to recog Psychosocial - 30-Day Visit Date of Eval: 05/13/25 Session Number:: 3 Problems/Goals History of Emotional Disorders: Anxious (Pt denies anxiety at this time.) Psychosocial Goals: 1. Patient is free from overwhelming symtoms of depression (or anxiety, 2. Identifies personal stressors & states the strategies for managing, 3. Identifies activities to decrease isolation and/or symptoms of, 4. Improved psychosocial coping skills., 5. Verbalizes coping strategies., 6. Adequate treatment of depression. and 7. Improved Q.O.L. Psychosocial Test PHQ-9 Score: 11 Referral to Behavioral Health PS - Interventions: Yes: Attend Stress Management Classes Plan Interventions/Plan:: Assess stressors,coping strategies & signs of derpression on admission, Instruct/assist pt to develop coping & personal stress Mgt strategies, Refer to Behavioral Health if appropriate, Refer to Physician if appropriate, Instruct patient to recognize signs & symptoms of depression and Instruct patient to recog Psychosocial - 60-Day Visit Session Number:: 3 Problems/Goals History of Emotional Disorders: Anxious (Pt denies anxiety at this time.) Psychosocial Goals: 1. Patient is free from overwhelming symtoms of depression (or anxiety, 2. Identifies personal stressors & states the strategies for m anaging, 3. Identifies activities to decrease isolation and/or symptoms of, 4. Improved psychosocial coping skills., 5. Verbalizes coping strategies., 6. Adequate treatment of depression. and 7. Improved Q.O.L. Psychosocial Test PHQ-9 Score: 11 Referral to Behavioral Health PS - Interventions: Yes: Attend Stress Management Classes Plan Interventions/Plan:: Assess stressors,coping strategies & signs of derpression on admission, Instruct/assist pt to develop coping & personal stress Mgt strategies, Refer to Behavioral Health if appropriate, Refer to Physician if appropriate, Instruct patient to recognize signs & symptoms of depression and Instruct patient to recog Psychosocial - 90-Day Visit Session Number:: 3 Problems/Goals History of Emotional Disorders: Anxious (Pt denies anxiety at this time.) Psychosocial Goals: 1. Patient is free from overwhelming symtoms of depression (or anxiety, 2. Identifies personal stressors & states the strategies for managing, 3. Identifies activities to decrease isolation and/or symptoms of, 4. Improved psychosocial coping skills., 5. Verbalizes coping strategies., 6. Adequate treatment of depression. and 7. Improved Q.O.L. Psychosocial Test PHQ-9 Score: 11 Referral to Behavioral Health PS - Interventions: Yes: Attend Stress Management Classes Plan Interventions/Plan:: Assess stressors,coping strategies & signs of derpression on admission, Instruct/assist pt to develop coping & personal stress Mgt strategies, Refer to Behavioral Health if appropriate, Refer to Physician if appropriate, Instruct patient to recognize signs & symptoms of depression and Instruct patient to recog Psychosocial - Final Assess Visit Session Number:: 3 Problems/Goals History of Emotional Disorders: Anxious (Pt denies anxiety at this time.) Psychosocial Goals: 1. Patient is free from overwhelming symtoms of depression (or anxiety, 2. Identifies personal stressors & states the strategies for managing, 3. Identifies activities to decrease isolation and/or symptoms of, 4. Improved psychosocial coping skills., 5. Verbalizes coping strategies., 6. Adequate treatment of depression. and 7. Improved Q.O.L. Psychosocial Test PHQ-9 Score: 11 Referral to Behavioral Health PS - Interventions: Yes: Attend Stress Management Classes Plan Interventions/Plan:: Assess stressors,coping strategies & signs of derpression on admission, Instruct/assist pt to develop coping & personal stress Mgt strategies, Refer to Behavioral Health if appropriate, Refer to Physician if appropriate, Instruct patient to recognize signs & symptoms of depression and Instruct patient to recog Oxygen & Oxygen Titration Init Visit Session Number:: 3 Initial Assessment SpO2:: 89 (on 3 L with exercise) Oxygen & Oxygen Titration 30D Visit Date of Eval: 05/13/25 Session Number:: 3 Reassessment Reassessment- 30 Days: Demonstrate knowledge of O2 Rx at rest & w/exercise and Has home O2 as Rx'd SpO2:: 89 (on 3 L with exercise) Oxygen & Oxygen Titration 60D Visit Date of Eval: 05/13/25 Session Number:: 3 Reassessment SpO2:: 89 (on 3 L with exercise) Oxygen & Oxygen Titration 90D Visit Date of Eval: 05/13/25 Session Number:: 3 Reassessment SpO2:: 89 (on 3 L with exercise) Oxygen & Oxygen Titration NEGAR Visit Date of Eval: 05/13/25 Session Number:: 3 Reassessment SpO2:: 89 (on 3 L with exercise) Core Components - Initial Visit Session Number:: 3 Hypertension Hypertension Diagnosis:: Hypertension ICD-10 I10 BP: 120/64 [place] [employer] Hypertension Guidelines Blood Pressure: 160/82 Outcomes/Goals: Able to verbalize/achieve optimal blood pressure <130/80 and Incorporates diet changes & exercise for blood pressure control by DC Tobacco - Initial Assessment Tobacco Program Goals Tobacco Use: Non-smoker Education Schedule Given:: Yes Gave Education Materials For:: Tobacco Triggers, Pulmonary Disease, Risk Factors, Breathing Techniques, Medical Compliance, Pulmonary A&P, Exacerbation Signs & Symptoms and Stress & Relaxation Diabetes Diabetes:: Yes Core Components - 30 DAYS Visit Date of Eval: 05/13/25 Session Number:: 3 Hypertension Hypertension Diagnosis:: Hypertension ICD-10 I10 Resting Blood Pressure:: 120/64 [place] [employer] Hypertension Guidelines Peak Exercise Blood Pressure:: 160/82 Change in medication: No Outcomes/Goals: Able to verbalize/achieve optimal blood pressure <130/80 and Incorporates diet changes & exercise for blood pressure control by DC Interventions/plan: Instruct on optimal blood pressure, hypertension & medications, Instruct on effects of sodium, alcohol, stress, exercise &hypertension and Other additional plan/interventions 30 day Reassessments:: Progressing Reassessment Notes & Comments:: Pt's BP's are within AHA normal limits on most days. Will continue to monitor. Tobacco - 30-Day Tobacco Program Goals Tobacco Use: Non-smoker Education Schedule Given:: Yes Gave Education Materials For:: Tobacco Triggers, Pulmonary Disease, Risk Factors, Breathing Techniques, Medical Compliance, Pulmonary A&P, Exacerbation Signs & Symptoms and Stress & Relaxation 30-day Reassessments:: Met (Pt stopped smoking when he was 21.) Exacerbation Mgmt & Airway Clearance Reassessment: Demonstrates knowledge of O2 Rx at rest and Demonstrates knowledge of O2 Rx with exercise Medication Medication list reviewed:: Yes Taking medications 100% of the time:: Met Medication reassessment: Yes: Pt demonstrates correct technique timing for MDI, Yes: Pt demonstrates correct technique timing for DPI and Yes: Pt demonstrates correct technique timing for NEB Diabetes Diabetes:: Yes Non-Insulin Dependent?: Yes Core Components - 60 DAYS Visit Session Number:: 3 Hypertension Hypertension Diagnosis:: Hypertension ICD-10 I10 Resting Blood Pressure:: 120/64 [place] [employer] Hypertension Guidelines Peak Exercise Blood Pressure:: 160/82 Change in medication: No Outcomes/Goals: Able to verbalize/achieve optimal blood pressure <130/80 and Incorporates diet changes & exercise for blood pressure control by DC Interventions/plan: Instruct on optimal blood pressure, hypertension & medications, Instruct on effects of sodium, alcohol, stress, exercise &hypertension and Other additional plan/interventions 60 day Reassessments:: Progressing Reassessment Notes & Comments:: Pt's BP's are within AHA normal limits on most days. Will continue to monitor. Tobacco - 60-Day Tobacco Program Goals Tobacco Use: Non-smoker Education Schedule Given:: Yes Gave Education Materials For:: Tobacco Triggers, Pulmonary Disease, Risk Factors, Breathing Techniques, Medical Compliance, Pulmonary A&P, Exacerbation Signs & Symptoms and Stress & Relaxation 60-day Reassessments:: Met (Pt stopped smoking when he was 21.) Exacerbation Mgmt & Airway Clearance Reassessment: Demonstrates knowledge of O2 Rx at rest and Demonstrates knowledge of O2 Rx with exercise Medication Taking medications 100% of the time:: Met Medication reassessment: Yes: Pt demonstrates correct technique timing for MDI, Yes: Pt demonstrates correct technique timing for DPI and Yes: Pt demonstrates correct technique timing for NEB Diabetes Diabetes:: Yes Non-Insulin Dependent?: Yes Core Components - 90 DAYS Visit Session Number:: 3 Hypertension Hypertension Diagnosis:: Hypertension ICD-10 I10 Resting Blood Pressure:: 120/64 [place] [employer] Hypertension Guidelines Peak Exercise Blood Pressure:: 160/82 Outcomes/Goals: Able to verbalize/achieve optimal blood pressure <130/80 and Incorporates diet changes & exercise for blood pressure control by DC Interventions/plan: Instruct on optimal blood pressure, hypertension & medications, Instruct on effects of sodium, alcohol, stress, exercise &hypertension and Other additional plan/interventions 90 day Reassessments:: Progressing Reassessment Notes & Comments:: Pt's BP's are within AHA normal limits on most days. Will continue to monitor. Tobacco - 90-Day Tobacco Program Goals Tobacco Use: Non-smoker Education Schedule Given:: Yes Gave Education Materials For:: Tobacco Triggers, Pulmonary Disease, Risk Factors, Breathing Techniques, Medical Compliance, Pulmonary A&P, Exacerbation Signs & Symptoms and Stress & Relaxation 90-day Reassessments:: Met (Pt stopped smoking when he was 21.) Medication Medication reassessment: Yes: Pt demonstrates correct technique timing for MDI, Yes: Pt demonstrates correct technique timing for DPI and Yes: Pt demonstrates correct technique timing for NEB Diabetes Diabetes:: Yes Non-Insulin Dependent?: Yes Core Components - Final Visit Session Number:: 3 Hypertension Hypertension Diagnosis:: Hypertension ICD-10 I10 Resting Blood Pressure:: 120/64 [place] [employer] Hypertension Guidelines Peak Exercise Blood Pressure:: 160/82 Outcomes/Goals: Able to verbalize/achieve optimal blood pressure <130/80 and Incorporates diet changes & exercise for blood pressure control by DC Tobacco - Final Tobacco Program Goals Tobacco Use: Non-smoker Education Schedule Given:: Yes Medication Medication reassessment: Yes: Pt demonstrates correct technique timing for MDI, Yes: Pt demonstrates correct technique timing for DPI and Yes: Pt demonstrates correct technique timing for NEB Diabetes Diabetes:: Yes Non-Insulin Dependent?: Yes Knowledge Questionaire (BCKQ) Information Information: [place] COPD Knowledge Questionnaire (BCKQ) This questionnaire is designed to find out what you know about your lung problem. It should be completed without help form anyone else. This usually takes between 10 and 20 minutes. Your answers will help us to find out what information you need to help you to understand and manage your lung condition. [employer] [place] [employer] [place] which you think is the correct answer. Nutrition Survey Nutrition Survey Instructions Scoring Instructions
[2025-05-13 08:12] VITALS: BP 120/64; BP 160/82; O2SAT 89; BMI 23.8
== END 2025-05-21 23:59 ==
LOC: PR 13:00
DX: J44.9 Chronic obstructive pulmonary disease, unspecified (principal)
CPT/HCPCS: 97150; 94626

== ENCOUNTER 2025-05-22 09:40 | Outpatient (RCR) | payer OTHER, SELFPAY ==
[2025-05-13 08:12] VITALS: BMI 23.8
--- NOTE | 2025-06-11 08:14 | PCM.PR.TP ---
Exercise - Initial Assessment Visit Session Number:: 4 (Pt attended nutrition classes last week. Heart healthy low sodium diet encouraged.) Physician Prescribed Exercise Modalities: [employer] Stepper, [employer] Pro-II Ergometer and [employer] Lateral [employer] Target HR:: 113 (90-113) Nutrition/Wt Mgmt - Initial Visit Session Number:: 4 (Pt attended nutrition classes last week. Heart healthy low sodium diet encouraged.) Weight Management Admit Height:: 5 ft 10 in Admit Weight:: 166 lb Admit BMI:: 23.8 Nutrition/Wt Mgmt - 30-Day Visit Date of Eval: 06/11/25 Session Number:: 4 (Pt attended nutrition classes last week. Heart healthy low sodium diet encouraged.) Weight Management Height: 5 ft 10 in Weight:: 166 lb BMI: 23.8 Nutrition/Wt Mgmt - 60-Day Visit Date of Eval: 06/11/25 Session Number:: 4 (Pt attended nutrition classes last week. Heart healthy low sodium diet encouraged.) Weight Management Height: 5 ft 10 in Weight:: 166 lb BMI: 23.8 Nutrition/Wt Mgmt - 90-Day Visit Session Number:: 4 (Pt attended nutrition classes last week. Heart healthy low sodium diet encouraged.) Weight Management Height: 5 ft 10 in Weight:: 166 lb BMI: 23.8 Nutrition/Wt Mgmt - Final Visit Session Number:: 4 (Pt attended nutrition classes last week. Heart healthy low sodium diet encouraged.) Weight Management Height: 5 ft 10 in Weight:: 166 lb BMI: 23.8 Psychosocial - Initial Assess Visit Session Number:: 4 (Pt attended nutrition classes last week. Heart healthy low sodium diet encouraged.) Psychosocial Test Tool Used:: PHQ-9 Questionnaire Pulmonary QOL Score: 11 Referral to Behavioral Health PS - Interventions: Yes: Attend Stress Management Classes Intervention/Plan: See List Interventions/Plan:: Assess stressors,coping strategies & signs of derpression on admission, Instruct/assist pt to develop coping & personal stress Mgt strategies, Refer to Behavioral Health if appropriate, Refer to Physician if appropriate, Instruct patient to recognize signs & symptoms of depression and Instruct patient to recog Psychosocial - 30-Day Visit Date of Eval: 06/11/25 Session Number:: 4 (Pt attended nutrition classes last week. Heart healthy low sodium diet encouraged.) Psychosocial Test Tool Used:: PHQ-9 Questionnaire Pulmonary QOL Score: 11 Referral to Behavioral Health PS - Interventions: Yes: Attend Stress Management Classes Plan Interventions/Plan:: Assess stressors,coping strategies & signs of derpression on admission, Instruct/assist pt to develop coping & personal stress Mgt strategies, Refer to Behavioral Health if appropriate, Refer to Physician if appropriate, Instruct patient to recognize signs & symptoms of depression and Instruct patient to recog Psychosocial - 60-Day Visit Date of Eval: 06/11/25 Session Number:: 4 (Pt attended nutrition classes last week. Heart healthy low sodium diet encouraged.) Psychosocial Test Tool Used:: PHQ-9 Questionnaire Pulmonary QOL Score: 11 Referral to Behavioral Health PS - Interventions: Yes: Attend Stress Management Classes Plan Interventions/Plan:: Assess stressors,coping strategies & signs of derpression on admission, Instruct/assist pt to develop coping & personal stress Mgt strategies, Refer to Behavioral Health if appropriate, Refer to Physician if appropriate, Instruct patient to recognize signs & symptoms of depression and Instruct patient to recog Psychosocial - 90-Day Visit Session Number:: 4 (Pt attended nutrition classes last week. Heart healthy low sodium diet encouraged.) Psychosocial Test Tool Used:: PHQ-9 Questionnaire Pulmonary QOL Score: 11 Referral to Behavioral Health PS - Interventions: Yes: Attend Stress Management Classes Plan Interventions/Plan:: Assess stressors,coping strategies & signs of derpression on admission, Instruct/assist pt to develop coping & personal stress Mgt strategies, Refer to Behavioral Health if appropriate, Refer to Physician if appropriate, Instruct patient to recognize signs & symptoms of depression and Instruct patient to recog Psychosocial - Final Assess Visit Session Number:: 4 (Pt attended nutrition classes last week. Heart healthy low sodium diet encouraged.) Psychosocial Test Tool Used:: PHQ-9 Questionnaire Pulmonary QOL Score: 11 Referral to Behavioral Health PS - Interventions: Yes: Attend Stress Management Classes Plan Interventions/Plan:: Assess stressors,coping strategies & signs of derpression on admission, Instruct/assist pt to develop coping & personal stress Mgt strategies, Refer to Behavioral Health if appropriate, Refer to Physician if appropriate, Instruct patient to recognize signs & symptoms of depression and Instruct patient to recog Oxygen & Oxygen Titration Init Visit Session Number:: 4 (Pt attended nutrition classes last week. Heart healthy low sodium diet encouraged.) Oxygen & Oxygen Titration 30D Visit Date of Eval: 06/11/25 Session Number:: 4 (Pt attended nutrition classes last week. Heart healthy low sodium diet encouraged.) Oxygen & Oxygen Titration 60D Visit Date of Eval: 06/11/25 Session Number:: 4 (Pt attended nutrition classes last week. Heart healthy low sodium diet encouraged.) Oxygen & Oxygen Titration 90D Visit Date of Eval: 06/11/25 Session Number:: 4 (Pt attended nutrition classes last week. Heart healthy low sodium diet encouraged.) Oxygen & Oxygen Titration NEGAR Visit Date of Eval: 06/11/25 Session Number:: 4 (Pt attended nutrition classes last week. Heart healthy low sodium diet encouraged.) Core Components - Initial Visit Session Number:: 4 (Pt attended nutrition classes last week. Heart healthy low sodium diet encouraged.) Hypertension Hypertension Diagnosis:: Hypertension ICD-10 I10 [place] [employer] Hypertension Guidelines Outcomes/Goals: Able to verbalize/achieve optimal blood pressure <130/80 and Incorporates diet changes & exercise for blood pressure control by DC Core Components - 30 DAYS Visit Date of Eval: 06/11/25 Session Number:: 4 (Pt attended nutrition classes last week. Heart healthy low sodium diet encouraged.) Hypertension Hypertension Diagnosis:: Hypertension ICD-10 I10 [place] [employer] Hypertension Guidelines Outcomes/Goals: Able to verbalize/achieve optimal blood pressure <130/80 and Incorporates diet changes & exercise for blood pressure control by DC Interventions/plan: Instruct on optimal blood pressure, hypertension & medications and Instruct on effects of sodium, alcohol, stress, exercise &hypertension 30 day Reassessments:: Not Met Core Components - 60 DAYS Visit Date of Eval: 06/11/25 Session Number:: 4 (Pt attended nutrition classes last week. Heart healthy low sodium diet encouraged.) Hypertension Hypertension Diagnosis:: Hypertension ICD-10 I10 [place] [employer] Hypertension Guidelines Outcomes/Goals: Able to verbalize/achieve optimal blood pressure <130/80 and Incorporates diet changes & exercise for blood pressure control by DC Interventions/plan: Instruct on optimal blood pressure, hypertension & medications and Instruct on effects of sodium, alcohol, stress, exercise &hypertension 60 day Reassessments:: Not Met Core Components - 90 DAYS Visit Session Number:: 4 (Pt attended nutrition classes last week. Heart healthy low sodium diet encouraged.) Hypertension Hypertension Diagnosis:: Hypertension ICD-10 I10 [place] [employer] Hypertension Guidelines Outcomes/Goals: Able to verbalize/achieve optimal blood pressure <130/80 and Incorporates diet changes & exercise for blood pressure control by DC Interventions/plan: Instruct on optimal blood pressure, hypertension & medications and Instruct on effects of sodium, alcohol, stress, exercise &hypertension 90 day Reassessments:: Not Met Core Components - Final Visit Session Number:: 4 (Pt attended nutrition classes last week. Heart healthy low sodium diet encouraged.) Hypertension Hypertension Diagnosis:: Hypertension ICD-10 I10 [place] [employer] Hypertension Guidelines Outcomes/Goals: Able to verbalize/achieve optimal blood pressure <130/80 and Incorporates diet changes & exercise for blood pressure control by DC Knowledge Questionaire (BCKQ) Information Information: [place] COPD Knowledge Questionnaire (BCKQ) This questionnaire is designed to find out what you know about your lung problem. It should be completed without help form anyone else. This usually takes between 10 and 20 minutes. Your answers will help us to find out what information you need to help you to understand and manage your lung condition. [employer] [place] which you think is the correct answer. Nutrition Survey Nutrition Survey Instructions Scoring Instructions
[2025-06-11 08:20] VITALS: BMI 23.8
== END 2025-06-21 23:59 ==
LOC: PR 09:40
DX: J44.9 Chronic obstructive pulmonary disease, unspecified (principal)
CPT/HCPCS: 97150; 94626

== ENCOUNTER 2025-06-24 08:50 | Outpatient (RCR) | payer OTHER, SELFPAY ==
[2025-06-11 08:20] VITALS: BMI 23.8
== END 2025-07-21 23:59 ==
LOC: PR 08:50
DX: J44.9 Chronic obstructive pulmonary disease, unspecified (principal)
CPT/HCPCS: 97150; 94626

== ENCOUNTER 2025-10-18 19:01 | Emergency (ER) | payer OTHER, SELFPAY ==
[2025-06-11 08:20] VITALS: BMI 23.8
[2025-10-18 19:02] VITALS: BP 141/65; PULSE 59; RESP 20; TEMP 36.8; O2SAT 95
--- NOTE | 2025-10-18 19:34 | EKG12_ITS ---
Test Reason : DYSRHYTHMIA Blood Pressure : */* mmHG Vent. Rate : 58 BPM Atrial Rate : 58 BPM P-R Int : 170 ms QRS Dur : 104 ms QT Int : 422 ms P-R-T Axes : 52 50 80 degrees QTcB Int : 414 ms Sinus bradycardia Possible Septal infarct , age undetermined Abnormal ECG Nonspecific ST and T wave abnormality Confirmed by Stephen Shelton ([id number]), purchasing expeditor TIA MEEK ([id number]) on 10/20/2025 10:02:37 AM Referred By: KAMI Confirmed By: Stephen Shelton
--- NOTE | 2025-10-18 19:34 | RAD_ITS ---
PROCEDURE: CHEST PA AND LATERAL 10/18/2025 REASON FOR EXAM: CHEST PAIN TECHNIQUE: Procedure Code: RADCXR Modality: DX Procedure: CHEST PA AND LATERAL FINDINGS: No focal consolidation. No pleural effusion or pneumothorax. Cardiac silhouette is within normal limits. No acute fractures. RAD/Chest PA and Lateral IMPRESSION: No focal consolidations. Reading Location: [facility]
--- NOTE | 2025-10-18 19:40 | EDS_ITS ---
HPI History of Present Illness Chief Complaint: Shortness of Breath Informant: patient Onset/Context/Timing Onset: Today Activity at onset: sudden Timing: Intermittent Quality: Positive for Sharp Location: Left Chest Worsened By: Breathing Relieved By: Nothing Associated Symptoms: Positive for Dyspnea, Cough and Lightheadedness; Negative for Nausea, Vomiting, Diaphoresis, Fever, Acid Reflux or Palpitations Narrative Narrative: Patient presents with chest pain and shortness of breath that began today. Patient states it began rather suddenly. Patient states it has been intermittent. Patient states it is over the left upper chest. Patient states it radiates into his left scapular area. Patient states it is worse with breathing. Patient states nothing seems to help with it. Patient admits to a cough and some lightheadedness. Patient denies any sputum production. Patient denies any fevers or chills. CVD Risk Factors: Positive for Hypercholesterolemia; Negative for Hypertension, Diabetes, Family History 1' </=55 or Smoking PE Risk Factors: Negative for Recent Travel/Surgery, Recent Immobilization, Prior DVT or PE, Cancer or OCP + Smoking + >/=35 PFSH PFSH Medical History Personal history of colonic polyps High cholesterol SOB (shortness of breath) COPD (chronic obstructive pulmonary disease) Arthritis RLS (restless legs syndrome) PAD (peripheral artery disease) Hypertension Coronary artery disease Diabetes Home Medications ?Medication ?Instructions ?Recorded ?Last Taken ?Type albuterol sulfate 90 mcg/actuation 1 inh inhalation ON CE 05/25/25 Unknown History aerosol inhaler (Ventolin HFA) amlodipine 5 mg tablet 5 mg PO QDAY 05/25/25 Unknow n History aspirin 81 mg chewable tablet 81 mg PO QDAY 05/25/25 U nknown History atorvastatin 40 mg tablet (Lipitor) 40 mg PO QHS 05/25 Unknown History baclofen 20 mg tablet 20 mg PO TID 05/25/25 Unknow n History budesonide 160 mcg-glycopyr 9 2 inh inhalation BID 02/13 Unknown History mcg-formot 4.8 mcg/actuation HFA inhaler (Breztri Aerosphere) carvedilol 25 mg tablet 37.5 mg PO BID 05/25/25 Unkn own History diclofenac sodium 1 % topical gel 2 g topical ONCE 02/13 Unknown History (Arthritis Pain (diclofenac)) finasteride 5 mg tablet 5 mg PO QDAY 05/25/25 Unknow n History furosemide 20 mg tablet (Lasix) 20 mg PO DIRECTED P RN 05/25/25 Unknown History gabapentin 400 mg capsule 400 mg PO TID 05/25/25 Unkno wn History guaifenesin 400 mg tablet 400 mg PO Q4H 05/25/25 Unkno wn History ipratropium 0.5 mg-albuterol 3 mg 3 ml inhalation Q6H PRN 05/25/25 Unknown History (2.5 mg base)/3 mL nebulization soln isosorbide mononitrate 120 mg 120 mg PO QAM 05/25/25 U nknown History tablet,extended release 24 hr lidocaine 5 % topical patch 1 patch topical QDAY 05/25 Unknown History lisinopril 10 mg tablet 10 mg PO BID 05/25/25 Unknow n History metformin 500 mg tablet 500 mg PO BID 05/25/25 Unkno wn History nortriptyline 75 mg capsule PO BID 05/25/25 Unknown Hi story omeprazole 20 mg capsule,delayed 20 mg PO BID 05/25/25 Unknown History release pseudoephedrine HCl 30 mg capsule 30 mg PO BID PRN 02/13 Unknown History (abuse-resistant) rivaroxaban 2.5 mg tablet (Xarelto) 2.5 mg PO BID 02/13 Unknown History ropinirole 1 mg tablet 1 mg PO TID 05/25/25 Unknown History sennosides 8.6 mg tablet 8.6 mg PO BID 05/25/25 Unkno wn History simethicone 80 mg chewable tablet 80 mg PO TID-QID PRN 05/25/25 Unknown History (Gas Relief (simethicone)) tamsulosin 0.4 mg capsule 0.4 mg PO QDAY 05/25/25 Unkn own History Allergy/AdvReac Type Severity Reaction Status Date / Time No Known Allergies Allergy Verified 10/18/25 19:02 Surgical History S/P insertion of iliac artery stent History of coronary artery stent placement Social History Smoking Status: Former smoker substance use type: marijuana ROS ROS ED Constitutional Constitutional ED: Denies chills or fever(s) Eyes Eyes: Denies blurry vision or change in vision ENT ENT ED: Denies rhinorrhea or sore throat Cardiovascular Cardiovascular: Reports chest pain; Denies palpitations Respiratory/Chest Respiratory/Chest: Reports cough and dyspnea Gastrointestinal Gastrointestinal: Denies nausea or vomiting Genitourinary Genitourinary ED: Denies dysuria or hematuria Musculoskeletal Musculoskeletal: Reports back pain; Denies neck pain Integumentary Denies abscess or rash Neurologic Neurologic: Denies headache(s) or weakness Allergic/Immunologic Allergic/Immunologic ED: Denies mouth swelling or urticaria EXAM Physical Exam Const Vital Signs: 10/18/25 19:02 10/18/25 19:48 10/18/25 19:52 Temperature 98.2 F Temperature Source Oral Pulse Rate 59 L Respiratory Rate 20 H Respiratory Effort Normal Non-Labored Respiratory Depth Normal Respiratory Pattern Normal Blood Pressure 141/65 H Blood Pressure Mean 90 Pulse Ox 95 Oxygen Delivery Method Room Air Room Air Room Air 10/18/25 20:02 10/18/25 21:00 10/18/25 22:00 Temperature Temperature Source Pulse Rate 56 L 54 L 54 L Respiratory Rate 17 18 16 Respiratory Effort Respiratory Depth Respiratory Pattern Blood Pressure 145/84 H 139/80 H 140/85 H Blood Pressure Mean 104 99 103 Pulse Ox 96 100 94 Oxygen Delivery Method Room Air Room Air Room Air Positive well nourished and well developed Constitutional Narrative: BMI is 22.7. General Appearance ED: well developed and NAD HEENT Reports moist mucous membranes Neck supple and no JVD Chest Wall inspection of chest normal Resp normal respiratory effort and clear to auscultation bilaterally Cardio regular rate and regular rhythm GI soft to palpation, non-tender and non-distended Extremity normal to inspection General Extremety ED: Negative for edema or tenderness General Extremity: Negative for edema Neuro oriented x3, CN's II-XII intact bilaterally and no sensory deficits noted Sensorium / Orientation: awake and alert Motor Exam: strength 5/5 throughout Psych mental status grossly normal Heart Score History: Slightly/Non-Suspicious ECG: Nonspecific Repolarization Age: >/= 65 years Risk Factors: 1 or 2 Risk Factors Troponin: </= Normal Limit Score: 4 MDM MDM MDM Narrative Medical decision making narrative: Differential diagnosis includes cardiac dysrhythmia, cardiac ischemia, pneumonia, bronchitis, pneumothorax, pulmonary embolism, electrolyte abnormality, gastroesophageal reflux disease, and musculoskeletal pain. EKG will be obtained to assess for cardiac dysrhythmia and cardiac ischemia. Chest x-ray will be obtained to assess for pneumonia or bronchitis. D-dimer will be obtained to assess for pulmonary embolism. CBC will be obtained to assess for leukocytosis and anemia. Basic metabolic profile will be obtained to assess for electrolyte abnormality and renal function. High-sensitivity troponin will be obtained to assess for cardiac ischemia. 2-hour repeat high-sensitivity troponin will be obtained to assess for ongoing cardiac ischemia. Lab Data Attestation: I reviewed the patient's lab results. Lab results narrative: CBC was reviewed and was essentially within normal limits. Basic metabolic profile was reviewed and was within normal limits. Initial high-sensitivity troponin was reviewed and was normal at 9. D-dimer was reviewed and was 0.47. 2-hour repeat high-sensitivity troponin was reviewed and was 8. Labs: Laboratory Results - last 24 hr 10/18/25 10/18/25 19:48 21:40 WBC 6.7 RBC 4.32 L Hgb 13.1 Hct 38.9 L MCV 90.0 MCH 30.3 MCHC 33.7 RDW Std Deviation 44.3 H RDW Coeff of Rafa 13.5 Plt Count 123 L MPV 9.3 Immature Gran % (Auto) 0.300 Neut % (Auto) 46.2 L Lymph % (Auto) 42.1 H [place] % (Auto) 8.2 Eos % (Auto) 2.8 Baso % (Auto) 0.4 Absolute Neuts (auto) 3.1 Absolute Lymphs (auto) 2.82 Nucleated RBC % 0 Differential Comment SCANNED D-Dimer Quant (PE/DVT) 0.47 Sodium 137 Potassium 4.1 Chloride 103 Carbon Dioxide 24.4 Anion Gap 10 BUN 11 Creatinine 0.66 L Estim Creat Clear Calc 87.38 Est GFR (MDRD) Non-Af 101 BUN/Creatinine Ratio 15.9 Glucose 124 H Calcium 9.0 Troponin T High Sens 9 Troponin T Hi Sens 2 Hr 8 Radiography Chest X-Ray - ED: 2 View, Read by ED Physician, Read by Radiologist and No Acute Disease Diagnostic Testing: Clinical Impression(s) from Imaging Studies Chest X-Ray 10/18/25 19:34 IMPRESSION: No focal consolidations. Reading Location: [facility] [place] and lateral chest x-ray was obtained. There are 2 views. On my independent interpretation, lung vaca are clear. There is normal cardiac silhouette. Bony thorax is normal. There is no acute process noted. Radiologist also interpreted the x-ray and agrees. EKG Initial EKG: Attestation: I personally reviewed and interpreted this EKG as follows: Interpretation: Sinus Bradycardia (58) and Non-Specific ST Changes Comments: EKG was obtained. On my independent interpretation, it showed a sinus bradycardia with a rate of 58. AL interval, QRS interval, and QTc intervals were all normal. [place] was normal. There are nonspecific ST-T wave changes. Prior EKG tracings: available for review Prior: Unchanged (03/17/2023) Treatment and Re-Evaluation :: Patient was given aspirin. Patient feeling better on reevaluation. Patient was advised of his findings. Patient has a HEART score of 4. Patient was instructed to follow-up with his primary care physician in 5 to 7 days for further evaluation. Patient understood and was agreeable with plan. All questions were answered. Discharge Plan Triage Chief Complaint: Shortness of Breath ED Provider: Pedro Gallardo Dx/Rx/DC Orders Clinical Impression: Chest pain, SOB (shortness of breath) Instructions: ED Chest Pain, Uncertain Cause, ED Dyspnea Prescriptions: No Action ipratropium-albuterol 0.5 mg-3 mg(2.5 mg base)/3 mL solution for nebulization 3 ml inhalation Q6H PRN albuterol sulfate [Ventolin HFA] 90 mcg/actuation HFA aerosol inhaler 1 inh inhalation ONCE amlodipine 5 mg tablet 5 mg PO QDAY aspirin 81 mg tablet,chewable 81 mg PO QDAY atorvastatin [Lipitor] 40 mg tablet 40 mg PO QHS baclofen 20 mg tablet 20 mg PO TID Breztri Aerosphere 160-9-4.8 mcg/actuation HFA aerosol inhaler 2 inh inhalation BID carvedilol 25 mg tablet 37.5 mg PO BID Rx Instructions: must administer with a meal/food diclofenac sodium [Arthritis Pain (diclofenac)] 1 % gel 2 g topical ONCE Rx Instructions: apply to single elbow, wrist or hand; for hand includes palm/fingers/back of hand finasteride 5 mg tablet 5 mg PO QDAY furosemide [Lasix] 20 mg tablet 20 mg PO DIRECTED PRN Rx Instructions: take 1/2 tablet q m and fri gabapentin 400 mg capsule 400 mg PO TID guaifenesin 400 mg tablet 400 mg PO Q4H isosorbide mononitrate 120 mg tablet extended release 24 hr 120 mg PO QAM lidocaine 5 % adhesive patch,medicated 1 patch topical QDAY Rx Instructions: leave on most painful area for up to 12 hrs lisinopril 10 mg tablet 10 mg PO BID metformin 500 mg tablet 500 mg PO BID nortriptyline 75 mg capsule PO BID omeprazole 20 mg capsule,delayed release(DR/EC) 20 mg PO BID pseudoephedrine HCl 30 mg capsule (abuse-resistant) 30 mg PO BID PRN Rx Instructions: DNExceed 4 doses/24h rivaroxaban [Xarelto] 2.5 mg tablet 2.5 mg PO BID ropinirole 1 mg tablet 1 mg PO TID sennosides 8.6 mg tablet 8.6 mg PO BID simethicone [Gas Relief (simethicone)] 80 mg tablet,chewable 80 mg PO TID-QID PRN tamsulosin 0.4 mg capsule 0.4 mg PO QDAY [facility] [Primary Care Provider, None] - 3-5 Days Print Language: Slovak Disposition Disposition: Home, Self Care
[2025-10-18 19:58] VITALS: BMI 22.7
[2025-10-18 19:59] LABS: Hematocrit 38.9 % (40-54); Hemoglobin 13.1 g/dL (13.0-16.5); Immature Granulocytes Count 0.020 X10^3/uL (0.0-0.0); Mean Corp Hgb Conc 33.7 g/dL (32-36); Mean Corpuscular Volume 90.0 fL (80-94); Mean Platelet Vol. 9.3 fl (6.2-12.0); NRBC Flagged by Analyzer 0 % (0-5); POSITIVE COUNT YES; Platelet Count 123 K/mm3 (150-450); RBC Distribution Width CV 13.5 % (11.6-14.6); RBC Distribution Width SD 44.3 fl (35.1-43.9); Red Blood Count 4.32 M/mm3 (4.6-6.2); White Blood Count 6.7 K/mm3 (4.4-11.0)
[2025-10-18 20:02] VITALS: BP 145/84; PULSE 56; RESP 17; O2SAT 96
[2025-10-18 20:22] LABS: Differential Indicated SCAN CRITERIA MET
--- OUTSIDE RECORDS SUMMARY | 2025-10-18 20:26 | XMS RPT_ITS | CCD ---
Author Organization [facility] Care Team Providers Care Can Marker Name Role Phone Suppkarol DPM, Paramjit Perry Primary Care Provider SYSTEM, PROVIDER NOT IN Referring Unavaila ble SYSTEM, PROVIDER NOT IN Attending Unavaila ble PARAMJIT MCFADDEN [facility] Unavailabl e Suppan DPRosalino, Paramjit Perry Primary Care Provider [place], [place] Primary Care Provider Dr. Pedro Marr Referring Provider Dr. Pedro Gallardo Other Provider Dr. Ronny Felton Attending Provider [phone] PARAMJIT MCFADDEN [facility] UnavailMELCHOR Truong Admitting Unavailab MELCHOR Leblanc Attending Unavailab le SUPPKAROL PARAMJIT [facility] UnavailMELCHOR Truong Attending Unavailab MELCHOR Leblanc Referring Unavailab le SUPPPARAMJIT OSORIO [facility] UnavailMELCHOR Truong Admitting Unavailab le SUPPKAROL PARAMJIT [facility] Unavailabl e TAMIKO HOUSTON Attending Unavailable SUPPKAROL PAARMJIT [facility] UnavailTAMIKO Cantor Admitting Unavailable TAMIKO HOUSTON Referring Unavailable JONATAN SINGH Attending Unavailable SUPPPARAMJIT OSORIO MICHELLE [facility] UnavailJONATAN Toth Attending Unavailable SUPPAN, PARAMJIT [facility] Unavailabl e KHUSHI JONES Attending Unavailable SUPPPARAMJIT OSORIO [facility] Unavailabl e SUPPKAROL, PARAMJIT [facility] Unavailabl e KHUSHI JONES Attending Unavailable TAMIKO HOUSTON Attending Unavailable SUPPAN PARAMJIT MICHELLE Primary Care Unavailabl e MELCHOR COLLINS Referring Unavailab le DENNIS, MELCHOR NUNEZ Admitting Unavailab le YUE TANNER Attending Unavailable SUPPKAROL, PARAMJIT MICHELLE Primary Care Unavailabl e DENNIS, MELCHOR NUNEZ Attending Unavailab le SUPPAN, PARAMJIT PERRY Primary Care Unavailabl e SUPPAN, PARAMJIT PERRY Primary Care Unavailabl e DENNIS, MELCHOR NUNEZ Attending Unavailab le SUPPAN, PARAMJIT MICHELLE Primary Care Unavailabl e DENNIS, MELCHOR NUNEZ Attending Unavailab le DENNIS, MELCHOR NUNEZ Referring Unavailab le SUPPAN, PARAMJIT [facility] Care Unavailabl e DENNIS, MELCHOR NUNEZ Admitting Unavailab [place], [place] Primary Care Provider Unavailabl JEFF Onofre Attending Provider [id number] JEFF HENDRICKS Referring Provider [id number] TROY ROPER Attending Provider TROY ROPER Referring Provider [place], [place] [facility] [place] Referring Provider Unavailable Holli MENDOZA, Dr. Robin Guidry Attending Provider JARED IVAN Primary Care Unavailable JARED IVAN Attending Unavailable JEFFRY, REBECCA Consulting Unavailable JEFFRY, REBECCA Referring Unavailable JARED IVAN Admitting Unavailable PROVIDER, UNKNOWN Consulting Unavailable DOUG LOU MD Admitting Unavailable DOUG LOU MD Primary Care Unavailable DOUG LOU MD Attending Unavailable JEFFRY, REBECCA Consulting Unavailable JEFFRY, REBECCA Referring Unavailable PROVIDER, UNKNOWN Consulting Unavailable LYDIA VASQUES APRN Admitting Unavailable LYIDA VASQUES APRN Primary Care Unavailable LYDIA VASQUES APRN Attending Unavailable YARON MCFADDENQUELINE CHEMICAL PROCESSOR Consulting Unavailab le PROVIDER, UNKNOWN Consulting Unavailable JEFFRY, REBECCA Consulting Unavailable JEFFRY, REBECCA Referring Unavailable ARLYN BRYANT DO Admitting Unavailable ARLYN BRYANT DO Primary Care Unavailable ARLYN BRYANT DO Attending Unavailable PROVIDER, UNKNOWN Consulting Unavailable [facility] [place] Primary Care Physician UnavailTROY Goldman Attending Physician [phone] [facility] [place] Primary Care Physician UnavailDr. Robin Shanks MD Attending Physician [facility] [place] Referring Unavailable [facility] [place] Primary Care Unavailable Robin De La Garza Attending Unavailable GABE OJEDA Attending Unavailable [facility], [facility] Unavailable SZALKOWSKI, GABE Referring Unavailable SZALKOWSKI, GABE Attending Unavailable Hospital, [facility] Care Unavailable SZALKOWSKI, GABE Referring Unavailable [facility], [facility] Unavailable SZALKOWSKI, GABE Referring Unavailable SZALKOWSKI, GABE Attending Unavailable SZALKOWSKI, GABE Referring Unavailable Hospital, [facility] Unavailable SZALKOWSKI, GABE Attending Unavailable SZALKOWSKI, GABE Referring Unavailable [facility], [facility] Unavailable SZALKOWSKI, GABE Attending Unavailable SZALKOWSKI, GABE Attending Unavailable [facility], [facility] Unavailable SZALKOWSKI, GABE Referring Unavailable Allergies Allergy Classification Reported Allergen(s) Allergy Type Date of Onset Reaction(s) Facility (1 source) 05/20/2019 (-) MRSA SCREEN NARES; Translations: [05/20/2019 (-) MRSA SCREEN NARES] Propensity to adverse reactions (disorder) [facility] Repository Medications Current Medications Medication Drug Class(es) Dates Sig (Normalized) Sig (Original) acetaminophen 325 mg oral tablet (19 sources) take 2 tablets by mouth every six hours as needed for pain acetaminophen (TYLENOL) 325 MG tablet Take 2 (two) tablets (650 mg total) by mouth every 6 (six) hours as needed for pain . 0 Active acetaminophen 325 mg / HYDROcodone bitartrate 5 mg oral tablet (1 source) Opioid Agonist Start: 05-14-2023 End: 05-21-2023 HYDROcodone-acetami nophen (NORCO) 5-325 mg per tablet Indications: Status post total replacement of left hip Take 1 (one) tablet to 2 (two) tablets by mouth every 4 (four) hours as needed (Days supply per fill: 7) . 40 tablet 0 05/14/2023 05/21/2023 Active [id number] 200 actuat albuterol 0.09 mg/actuat metered dose inhaler (9 sources) beta2-Adrenergic Agonist Start: 05-25-2025 End: 04-18-2023 take 2.5 mg by inhalation every six hours as needed for wheezing albuterol (PROVENTIL) 2.5 mg /3 mL (0.083 %) nebulizer solution Take 3 mL (2.5 mg total) by nebulization every 6 (six) hours as needed for wheezing . 0 04/18/2023 Discontinued (Patient's Request) End: 04-18-2023 take 2 puff(s) by inhalation every six hours as needed for wheezing albuterol 90 mcg/actuation inhaler Inhale 2 (two) puffs every 6 (six) hours as needed for wheezing . 0 04/18/2023 Discontinued (Patient's Request) take 2.5 mg by inhal ation every six hours as needed for wheezing albuterol (PROVENTIL) 2.5 mg /3 mL (0.083 %) nebulizer solution Take 2.5 mg by nebulization every 6 (six) hours as needed for wheezing . 0 Active albuterol 0.833 mg/ml / ipratropium bromide 0.167 mg/ml inhalation solution (3 sources) Anticholinergic, beta2-Adrenergic Agonist Start: 05-25-2025 take 1 mL by inhalation every six hours as needed amLODIPine 5 mg oral tablet (3 sources) Dihydropyridine Calcium Channel Ronan Start: 05-25-2025 take 1 tablet by mouth once daily AMLODIPINE BENZOATE ORAL (19 sources) take 5 mg by mouth once daily AMLODIPINE BENZOATE ORAL Take 5 mg by mouth daily . 0 Active take 5 mg by mouth once daily AM LODIPINE BENZOATE ORAL Take 5 mg by mouth daily . 0 Suspended AMLODIPINE BENZO ATE ORAL Take by mouth . 0 Active aspirin 81 mg chewable tablet (16 sources) Platelet Aggregation Inhibitor, Nonsteroidal Anti-inflammatory Drug Start: 05-25-2025 take 1 tablet by mouth once daily Start: 05-14-2023 End: 05-30-2023 take 1 tablet by mouth twice daily aspirin 325 MG EC tablet Take 1 (one) tablet (325 mg total) by mouth 2 (two) times a day for 16 days . 32 tablet 0 05/14/2023 05/30/2023 End: 05-14-2023 aspirin 81 mg chewable table t Chew and Swallow 1 (one) tablet (81 mg total) daily . 0 05/14/2023 Discontinued (Stop Taking at Discharge) atorvastatin 40 mg oral tablet (20 sources) HMG-CoA Reductase Inhibitor Start: 05-25-2025 take 1 tablet by mouth at bedtime take 1 tablet by mouth once gurwinder y atorvastatin (LIPITOR) 40 MG tablet Take 1 (one) tablet (40 mg total) by mouth daily . 0 Active baclofen 20 mg oral tablet (20 sources) gamma-Aminobutyric Acid-ergic Agonist Start: 05-25-2025 take 1 tablet by mouth three times daily take 1 tablet by mouth three victorino es daily baclofen (LIORESAL) 20 MG tablet Take 1 (one) tablet (20 mg total) by mouth 3 (three) times a day . 0 Active Bfixaniuki-Hsxjefdb-Irnmdoid ol (3 sources) Corticosteroid, beta2-Adrenergic Agonist Start: 05-25-2025 Start: 05-25-2025 Budesonide-Gly copyr-Formoterol (Breztri Aerosphere) 160-9-4.8 mcg/actuation HFA aerosol inhaler Active 2 NMA INHALATION TWICE A DAY May 25, 2025 12:00am carvedilol 25 mg oral tablet (20 sources) alpha-Adrenergic Ronan, beta-Adrenergic Ronan Start: 05-25-2025 take 1 tablet by mouth twice adalgisa ly carvediloL (COREG) 25 MG tablet Take 1 (one) tablet (25 mg total) by mouth 2 (two) times a day . 0 Active cephalexin 500 mg oral capsule (1 source) Cephalosporin Antibacterial Start: 05-14-2023 End: 05-21-2023 take 1 capsule by mouth three times daily cephALEXin (KEFLEX) 500 MG capsule Take 1 (one) capsule (500 mg total) by mouth 3 (three) times a day for 7 days . 21 capsule 0 05/14/2023 05/21/2023 Active cyclobenzaprine hydrochloride 10 mg oral tablet (5 sources) Muscle Relaxant Start: 05-28-2023 End: 06-07-2023 take 1 tablet by mouth three times daily as needed for muscle spasms cyclobenzaprine (FLEXERIL) 10 MG tablet Indications: Status post total replacement of left hip Take 1 (one) tablet (10 mg total) by mouth 3 (three) times a day as needed for muscle spasms . 30 tablet 0 05/28/2023 06/07/2023 Active diclofenac sodium 0.01 mg/mg topical gel (4 sources) Nonsteroidal Anti-inflammatory Drug Start: 05-25-2025 diclofenac sodiu m 1 % Gel Apply topically . 0 Active finasteride 5 mg oral tablet (20 sources) 5-alpha Reductase Inhibitor Start: 05-25-2025 take 1 tablet by mouth once daily FINASTERIDE ORAL Take by mouth . 0 Suspended FINASTERIDE ORAL Take by mouth . 0 Active fluticasone (19 sources) Corticosteroid FLUTICASONE FURO ATE NASL Instill into each nostril . 0 Suspended FLUTICASONE FURO ATE NASL Instill into each nostril . 0 Active fluticasone / salmeterol (19 sources) Corticosteroid, beta2-Adrenergic Agonist take 1 puff(s) by inhalation twice daily fluticasone propion-salmeteroL (ADVAIR DISKUS) 250-50 mcg/dose diskus inhaler Inhale 1 (one) puff 2 (two) times a day . 0 Suspended take 1 puff(s) by in halation twice daily fluticasone propion-salmeteroL (ADVAIR DISKUS) 250-50 mcg/dose diskus inhaler Inhale 1 (one) puff 2 (two) times a day . 0 Active take 1 puff(s) by in halation twice daily fluticasone propion-salmeteroL (ADVAIR DISKUS) 250-50 mcg/dose diskus inhaler Inhale 1 puff 2 (two) times a day . 0 Active furosemide 20 mg oral tablet (20 sources) Loop Diuretic Start: 05-25-2025 take 0.5 tablet by mouth once take 1 tablet by mouth twice adalgisa ly furosemide (LASIX) 20 MG tablet Take 1 (one) tablet (20 mg total) by mouth 2 (two) times a day . 0 Active gabapentin 400 mg oral capsule (20 sources) Anti-epileptic Agent Start: 05-25-2025 take 1 capsule by mouth three times daily take 1 capsule by [facility] three times daily gabapentin (NEURONTIN) 400 MG capsule Ta ke 1 (one) capsule (400 mg total) by mouth 3 (three) times a day . 0 Active guaiFENesin 400 mg oral tablet (3 sources) Start: 05-25-2025 take 1 tablet by mouth every four hours hydrOXYzine hydrochloride 10 mg oral tablet (19 sources) Antihistamine take 1 tablet by mouth three times daily as needed hydrOXYzine (ATARAX) 10 MG tablet Take 1 (one) tablet (10 mg total) by mouth 3 (three) times a day as needed for itching . 0 Active 3 ml insulin glargine 100 unt/ml pen injector (18 sources) Insulin Analog inject 30 [IU] by subcutaneous injection once daily in the morning, then inject 30 [IU] by subcutaneous injection in the morning, then inject 10 [IU] by subcutaneous injection in the evening insulin glargine (LANTUS SOLOSTAR/BASAGLAR KWIKPEN) 100 unit/mL (3 mL) InPn Inject 30 (thirty) Units under the skin every morning 30 units in am and 10 units pm . 0 Active inject 30 [IU] by ortiz bcutaneous injection once daily in the morning, then inject 30 [IU] by subcutaneous injection in the morning, then inject 10 [IU] by subcutaneous injection in the evening insulin glargine (LANTUS SOLOSTAR/BASAGL AR KWIKPEN) 100 unit/mL (3 mL) InPn Inject 30 (thirty) Units under the skin every morning 30 units in am and 10 units pm . 0 Active 24 hr isosorbide mononitrate 120 mg extended release oral tablet (20 sources) Nitrate Vasodilator Start: 05-25-2025 take 1 tablet by jose th once daily in the morning, then take 1 tablet by mouth every twenty-four hours take 1 tablet by mouth once gurwinder y isosorbide mononitrate (IMDUR) 120 MG 24 hr tablet Take 1 (one) tablet (120 mg total) by mouth daily . 0 Active lidocaine 0.05 mg/mg medicated patch (20 sources) Antiarrhythmic, Amide Local Anesthetic Start: 05-25-2025 lidocaine (LMX) 4 % cream Apply topically as needed . 0 Active apply 1 dose transde rmal route once daily, then apply 1 dose transdermal route every twelve hours lidocaine (LIDODERM) 5 % patch Place 1 (one) patch on the skin daily Remove & Discard patch within 12 hours or as directed by MD . 0 Active lisinopril 10 mg oral tablet (3 sources) Angiotensin Converting Enzyme Inhibitor Start: 05-25-2025 take 1 tablet by mouth twice daily LISINOPRIL, BULK, MISC (19 sources) LISINOPRIL, BULK , MISC by Miscellaneous route . 0 Suspended LISINOPRIL, BULK , MISC by Miscellaneous route . 0 Active metFORMIN hydrochloride 500 mg oral tablet (3 sources) Biguanide Start: 05-25-2025 take 1 tablet by mouth twice daily naloxone hydrochloride 40 mg/ml nasal spray (11 sources) Opioid Antagonist Start: 05-14-2023 naloxone (NARCAN) 4 mg/actuation [place] Administer 1 spray into one nostril for known or suspected opioid overdose. If patient worsens or does not respond, may repeat in 2-3 minutes. . 2 each 0 05/14/2023 Active nitroglycerin 0.4 mg sublingual tablet (19 sources) Nitrate Vasodilator nitroGLYCERI N (NITROSTAT) 0.[address] 1 (one) tablet (0.4 mg total) under the tongue every 5 (five) minutes as needed for chest pain , if no relief after 3 doses call 911 . 0 Active nortriptyline 75 mg oral capsule (20 sources) Tricyclic Antidepressant Start: 05-25-2025 take 1 capsule by mouth twice daily take 50 mg by mouth once daily n ortriptyline HCl (NORTRIPTYLINE ORAL) Take 50 mg by mouth nightly . 0 Active nortriptyline HC l (NORTRIPTYLINE ORAL) Take by mouth . 0 Active omeprazole 20 mg delayed release oral capsule (20 sources) Proton Pump Inhibitor Start: 05-25-2025 take 1 capsule by mouth twice daily Start: 05-14-2023 End: 06-13-2023 take 1 capsule by mouth once daily omeprazole (PRILOSEC) 40 MG capsule Take 1 (one) capsule (40 mg total) by mouth daily . 30 capsule 0 05/14/2023 Active End: 05-14-2023 take 40 mg by mouth once daily OMEPRAZOLE ORAL Take 40 mg by mouth daily . 0 05/14/2023 Discontinued (Reorder (Suppress CancelRx Message to Pharmacy)) OMEPRAZOLE ORAL Take by mouth . 0 Active ondansetron 4 mg oral tablet (11 sources) Serotonin-3 Receptor Antagonist Start: 05-21-2023 take 1 tablet by mouth every six hours as needed for nausea and nausea and nausea ondansetron (Zofran) 4 MG tablet Indications: Nausea Take 1 (one) tablet (4 mg total) by mouth every 6 (six) hours as needed for nausea . 30 tablet 0 05/21/2023 Active polyethylene glycol 3350 09306 mg powder for oral solution (1 source) Osmotic Laxative Start: 05-14-2023 End: 05-21-2023 polyethylene glycol (GLYCOLAX) 17 gram/dose powder Dissolve one capful (17 grams) in 8oz of liquid and drink by mouth daily for 7 days . 119 g 0 05/14/2023 05/21/2023 Active pseudoephedrine hydrochloride 30 mg oral capsule (20 sources) alpha-Adrenergic Agonist Start: 05-25-2025 take 1 capsule by mouth twice daily as needed take 1 tablet by jose th every four hours as needed pseudoePHEDrine (SUDAFED) 30 MG tablet T heath 1 (one) tablet (30 mg total) by mouth every 4 (four) hours as needed for congestion . 0 Active rivaroxaban 2.5 mg oral tablet (17 sources) Factor Xa Inhibitor Start: 05-25-2025 take 1 tablet by mouth twice daily End: 05-14-2023 take 2.5 mg by mouth twice daily rivaroxaban (XARELTO) 10 mg tablet Take 2.5 mg by mouth 2 (two) times a day . 0 05/14/2023 Discontinued (Stop Taking at Discharge) take 1 tablet by jose th once daily rivaroxaban (XARELTO) 10 mg tablet Take 1 (one) tablet (10 mg total) by mouth daily . 0 Active rOPINIRole 1 mg oral tablet (20 sources) Nonergot Dopamine Agonist Start: 05-25-2025 take 1 tablet by mouth three times daily take 1 tablet by mouth three victorino es daily rOPINIRole (REQUIP) 1 MG tablet Take 1 (one) tablet (1 mg total) by mouth 3 (three) times a day . 0 Active salsalate 750 mg oral tablet (19 sources) take 1 tablet by mouth twice daily salsalate (DISALCID) 750 MG tablet Take 1 (one) tablet (750 mg total) by mouth 2 (two) times a day . 0 Active Sennosides 8.6 mg tablet (2 sources) Start: 05-25-2025 take 1 tablet by mouth twice daily Sennosides 8.6 mg tablet Active 8.6 mg PO TWICE A DAY May 25, 2025 12:00am sennosides, assisted 8.6 mg oral tablet (1 source) Start: 05-25-2025 take 1 tablet by mouth twice daily simethicone 80 mg chewable tablet (20 sources) Start: 05-25-2025 take 1 tablet by mouth three to four times daily as needed take 1 tablet by jose th every six hours as needed simethicone (MYLICON) 80 MG chewable tab let Chew and Swallow 1 (one) tablet (80 mg total) every 6 (six) hours as needed for flatulence . 0 Active tamsulosin hydrochloride 0.4 mg oral capsule (20 sources) alpha-Adrenergic Ronan Start: 05-25-2025 take 1 capsule by mouth once daily take 1 capsule by mouth once adalgisa ly tamsulosin (FLOMAX) 0.4 mg capsule Take 1 (one) capsule (0.4 mg total) by mouth daily . 0 Active traMADol hydrochloride 50 mg oral tablet (12 sources) Opioid Agonist Start: 06-28-2023 End: 07-05-2023 traMADol (ULTRAM) 50 mg tablet Indications: Status post total replacement of left hip Take 1 (one) tablet (50 mg total) by mouth every 6 (six) hours as needed for pain (Days supply per fill: 7) . 28 tablet 0 06/28/2023 07/05/2023 Active Start: 06-05-2023 End: 06-12-2023 traMADol (ULTRAM) 50 mg tabl et Indications: Status post total replacement of left hip Take 1 (one) tablet (50 mg total) by mouth every 6 (six) hours as needed for pain (Days supply per fill: 7) . 28 tablet 0 06/05/2023 06/12/2023 Active Start: 05-25-2023 End: 06-01-2023 traMADol (Ultram) 50 mg tabl et Indications: Status post total replacement of left hip Take 1 (one) tablet to 2 (two) tablets (50-100 mg total) by mouth every 6 (six) hours as needed for pain Take one pill every 6 hours as needed for pain . 40 tablet 0 05/25/2023 06/01/2023 End: 05-14-2023 take 1 tablet by mouth every four hours as needed for pain traMADol (ULTRAM) 50 mg tablet Take 1 (one) tablet (50 mg total) by mouth every 4 (four) hours as needed for pain . 0 05/14/2023 Discontinued Problems Active Problems Problem Classification Problem Date Documented Da te Episodic/Chronic Chronic obstructive pulmonary disease and bronchiectasis (4 sources) Chronic obstructive lung disease; Translations: [Chronic obstructive pulmonary disease, unspecified] Onset: 05-25-2025 05-25-2025 Chronic Coronary atherosclerosis and other heart disease (1 source) Presence of coronary angioplasty implant and graft; Translations: [Presence of coronary angioplasty implant and graft] Onset: 05-25-2025 Episodic Diabetes mellitus without complication (20 sources) Diabetes mellitus; Translations: [Type 2 diabetes mellitus without complications] Onset: 04-03-2023 04-03-2023 Chronic Disorders of lipid metabolism (3 sources) Hypercholesterolemia ; Translations: [Pure hypercholesterolemia , unspecified] 05-25-2025 Chronic Essential hypertension (7 sources) Hypertensive disorder; Translations: [Essential (primary) hypertension] Onset: 04-26-2023 04-26-2023 Chronic Nausea and vomiting (1 source) Nausea; Translations: [Nausea] 05-21-2023 Episodic Nonspecific chest pain (6 sources) Chest pain; Translations: [Chest pain, unspecified] 03-25-2023 Episodic Osteoarthritis (20 sources) Osteoarthritis of left hip joint; Translations: [Unilateral primary osteoarthritis, left hip] Onset: 04-10-2023 Chronic Other aftercare (2 sources) Encounter for follow-up examination after completed treatment for conditions other than malignant neoplasm; Translations: [Encounter for follow-up examination after completed treatment for conditions other than malignant neoplasm] Onset: 07-13-2023 Episodic Other and unspecified benign neoplasm (4 sources) History of polyp of colon; Translations: [History of colonic polyps] 05-25-2025 Episodic Other circulatory disease (1 source) Peripheral vascular angioplasty status with implants and grafts; Translations: [Peripheral vascular angioplasty status with implants and grafts] Onset: 03-24-2025 Chronic Other connective tissue disease (8 sources) History of total hip arthroplasty; Translations: [Presence of left artificial hip joint] 05-25-2023 Chronic Other connective tissue disease (4 sources) Presence of left artificial hip joint; Translations: [Presence of left artificial hip joint] Onset: 05-14-2023 Chronic Other connective tissue disease (1 source) History of repair of hip joint; Translations: [Presence of left artificial hip joint] 05-25-2023 Chronic Other hereditary and degenerative nervous system conditions (3 sources) Restless legs; Translations: [Restless legs syndrome] 05-25-2025 Chronic Other lower respiratory disease (3 sources) Dyspnea; Translations: [Shortness of breath] 05-25-2025 Episodic Peripheral and visceral atherosclerosis (3 sources) Peripheral vascular disease, unspecified; Translations: [Peripheral arterial disease] 05-25-2025 Chronic Residual codes; unclassified (4 sources) H/O: anticoagulant therapy; Translations: [Personal history of other drug therapy] 04-26-2023 Episodic Residual codes; unclassified (2 sources) Personal history of other drug therapy; Translations: [Personal history of other drug therapy] Onset: 04-26-2023 Episodic Sprains and strains (1 source) Strain of muscle, fascia and tendon at neck level, initial encounter; Translations: [Strain of muscle, fascia and tendon at neck level, initial encounter] Onset: 05-25-2025 Episodic Substance-related disorders (1 source) Cannabis use, unspecified, uncomplicated; Translations: [Cannabis use, unspecified, uncomplicated] Onset: 05-25-2025 Episodic Superficial injury; contusion (2 sources) Abrasion of left elbow, initial encounter; Translations: [Abrasion of left elbow, initial encounter] Onset: 05-25-2025 Episodic Past or Other Problems Problem Classification Problem Date Documented Da te Episodic/Chronic Diabetes mellitus without complication (3 sources) High hemoglobin A1c level; Translations: [Other abnormal glucose] Onset: 12-14-2022 Episodic Residual codes; unclassified (2 sources) Pain, unspecified; Translations: [Pain, unspecified] Onset: 12-14-2022 Episodic Results Test Name Value Interpretation Reference Range Facility [place] - Individual Treatment Pl anon 06-11-2025 [place] - Individual Treatment Plan [facility] [address] [place] [address] [place] - Individual Treatment Plan MR#: [id number] Acct: [id number] Name: PITER MOSS Rep #: [id number] : 1955 70 From: Victorino Fay BS, RVT PCP: [facility] Exercise - Initial Assessment Visit Session Number:: 4 (Pt attended nutrition classes last week. Heart healthy low sodium diet encouraged.) Physician Prescribed Exercise Modalities: SciFit Stepper, SciFit Pro-II Ergometer and SciFit Lateral Dequincy Target HR:: 113 (90-113) Nutrition/Wt Mgmt - Initial Visit Session Number:: 4 (Pt attended nutrition classes last week. Heart healthy low sodium diet encouraged.) Weight Management Admit Height:: 5 ft 10 in Admit Weight:: 166 lb Admit BMI:: 23.8 Nutrition/Wt Mgmt - 30-Day Visit Date of Eval: 06/11/25 Session Number:: 4 (Pt attended nutrition classes last week. Heart healthy low sodium diet encouraged.) Weight Management Height: 5 ft 10 in Weight:: 166 lb BMI: 23.8 Nutrition/Wt Mgmt - 60-Day Visit Date of Eval: 06/11/25 Session Number:: 4 (Pt attended nutrition classes last week. Heart healthy low sodium diet encouraged.) Weight Management Height: 5 ft 10 in Weight:: 166 lb BMI: 23.8 Nutrition/Wt Mgmt - 90-Day Visit Session Number:: 4 (Pt attended nutrition classes last week. Heart healthy low sodium diet encouraged.) Weight Management Height: 5 ft 10 in Weight:: 166 lb BMI: 23.8 Nutrition/Wt Mgmt - Final Visit Session Number:: 4 (Pt attended nutrition classes last week. Heart healthy low sodium diet encouraged.) Weight Management Height: 5 ft 10 in Weight:: 166 lb BMI: 23.8 Psychosocial - Initial Assess Visit Session Number:: 4 (Pt attended nutrition classes last week. Heart healthy low sodium diet encouraged.) Psychosocial Test Tool Used:: PHQ-9 Questionnaire Pulmonary QOL Score: 11 Referral to Behavioral Health PS - Interventions: Yes: Attend Stress Management Classes Intervention/Plan: See List Interventions/Plan:: Assess stressors,coping strategies signs of derpression on admission, Instruct/assist pt to develop coping personal stress Mgt strategies, Refer to Behavioral Health if appropriate, Refer to Physician if appropriate, Instruct patient to recognize signs symptoms of depression and Instruct patient to recog Psychosocial - 30-Day Visit Date of Eval: 06/11/25 Session Number:: 4 (Pt attended nutrition classes last week. Heart healthy low sodium diet encouraged.) Psychosocial Test Tool Used:: PHQ-9 Questionnaire Pulmonary QOL Score: 11 Referral to Behavioral Health PS - Interventions: Yes: Attend Stress Management Classes Plan Interventions/Plan:: Assess stressors,coping strategies signs of derpression on admission, Instruct/assist pt to develop coping personal stress Mgt strategies, Refer to Behavioral Health if appropriate, Refer to Physician if appropriate, Instruct patient to recognize signs symptoms of depression and Instruct patient to recog Psychosocial - 60-Day Visit Date of Eval: 08/21/25 Session Number:: 4 (Pt attended nutrition classes last week. Heart healthy low sodium diet encouraged.) Psychosocial Test Tool Used:: PHQ-9 Questionnaire Pulmonary QOL Score: 11 Referral to Behavioral Health PS - Interventions: Yes: Attend Stress Management Classes Plan Interventions/Plan:: Assess stressors,coping strategies signs of derpression on admission, Instruct/assist pt to develop coping personal stress Mgt strategies, Refer to Behavioral Health if appropriate, Refer to Physician if appropriate, Instruct patient to recognize signs symptoms of depression and Instruct patient to recog Psychosocial - 90-Day Visit Session Number:: 4 (Pt attended nutrition classes last week. Heart healthy low sodium diet encouraged.) Psychosocial Test Tool Used:: PHQ-9 Questionnaire Pulmonary QOL Score: 11 Referral to Behavioral Health PS - Interventions: Yes: Attend Stress Management Classes Plan Interventions/Plan:: Assess stressors,coping strategies signs of derpression on admission, Instruct/assist pt to develop coping personal stress Mgt strategies, Refer to Behavioral Health if appropriate, Refer to Physician if appropriate, Instruct patient to recognize signs symptoms of depression and Instruct patient to recog Psychosocial - Final Assess Visit Session Number:: 4 (Pt attended nutrition classes last week. Heart healthy low sodium diet encouraged.) Psychosocial Test Tool Used:: PHQ-9 Questionnaire Pulmonary QOL Score: 11 Referral to Behavioral Health PS - Interventions: Yes: Attend Stress Management Classes Plan Interventions/Plan:: Assess stressors,coping strategies signs of derpression on admission, Instruct/assist pt to develop coping personal stress Mgt strategies, Refer to Behavioral Health if appropriate, Refer to Physician if appropri (more content not included)... Normal [facility] ED MED ADMINISTRATION DETAIL on 05-26-2025 ED MED ADMINISTRATION DETAIL Technical Support Director Medication Administration Record [address] [address] [id number] 05/25/2025 Patient: PITER MOSS Sex: Male : 1955 Age: 70y MEASUREMENTS: Wt: 81.6 kg, Ht/Alexandro: 70.0 in, BMI: 25.83 ALLERGIES: No known drug allergies Medication Ordered Medication Administration Date/Time IV NS 0.9 % 1000 21:08 05/25 IV NS 0.9 % 1000 mL started in bag#1 1000 mL at Started mL at 999 mL/hr 999 mL/hr via Site# 1. Allergies verified and confirmed 5 rights. Via 21:08 05/25/2025 (NOW x1) dial-a-flow. IV patency established. IV site checked: no pain, Carlin Torres, R.N. redness, or swelling. IV flushed thoroughly pre-medication Stopped administration. Information reviewed with patient including reason 22:08 05/25/2025 for taking this medication. Verbalizes understanding. - 22:08 Valerie Gonzalez, R.N. Scanned 22:05/25 Medication Discontinued: bag #1 completed. Total amount infused: 1000 mL. IV patency established. IV site checked: no pain, redness, or swelling. IV flushed thoroughly post-medication administration. - 22:08 Carlin Macdonald R.N. 1 of 2 Technical Support Director Medication Ordered Medication Administration Date/Time IV NS 0.9 % 1000 22:05/25 IV NS 0.9 % 1000 mL started in bag#1 1000 mL at Started mL at 999 mL/hr 999 mL/hr via Site# 1. Allergies verified and confirmed 5 rights. Via 22:07 05/25/2025 (NOW x1) dial-a-flow. IV patency established. IV site checked: no pain, Carlin Torres, R.N. redness, or swelling. IV flushed thoroughly pre-medication Stopped administration. Information reviewed with patient including reason 00:36 05/26/2025 for taking this medication. Verbalizes understanding. - 22:07 Valerie Gonzalez R.N. Scanned 00:36 [id number] Medication Discontinued: bag #2 completed. Total amount infused: 1000 mL. IV patency established. IV site checked: no pain, redness, or swelling. IV flushed thoroughly post-medication administration. - 01:01 Carlin Macdonald R.N. Meclizine (Antivert) 22:07 05/25 Meclizine (Antivert) PO 25 mg given. Allergies verified Given PO 25 mg (NOW x1) and confirmed 5 rights. Information reviewed with patient including 22:05/25/2025 reason for taking this medication. Verbalizes understanding. - Carlin Macdonald R.N. 22:07 Carlin Macdonald R.N. Scanned 2 of 2 Normal [facility] ED NURSES CLINICAL NOTEon 08 -05-2025 ED NURSES CLINICAL NOTE Nurse Narrative Nurse Clinical Narrative [id number] [facility] [place] [address] [id number] 05/25/2025 19:35:00 Patient: PITER MOSS Sex: Male : 1955 Age: 70y Disposition: Discharge to Home Disposition Decision Time: 00:13 05/26/2025 Departure Time: 00:46 05/26/2025 TRIAGE Arrived by EMS. Historian: (patient). Primary physician ([place]). Triage time: 19:41 05/25/2025. Acuity: LEVEL 3. Chief Complaint: ALTERED MENTAL STATUS and CONFUSED. -- 19:46 05/25/25 EDT Rekha Langston R.N. 20:45 05/25/25. BP: 128/71 MAP: 97 mmHg. HR: 54 bpm. -- 21:14 05/25/25 EDT Carlin Macdonald R.N. 20:46 05/25/25. HR: 55 bpm. O2 saturation: 90%. -- 21:14 05/25/25 EDT Nato DwyerNDanna 20:49 05/25/25. RR: 18. Temperature: 98.2 F. Pain level now 0/10. -- 21:14 05/25/25 EDT Carlin Macdonald RDannaNDanna 21:15 05/25/25. SEPSIS SCREEN: NEGATIVE. SIRS criteria negative. No possible sources of infection. -- 21:15 05/25/25 EDT Carlin Macdonald R.N. Measurements: 19:45 05/25/25 Wt: 81.6 kg, Ht/Alexandro: 70.0 in, BMI: 25.83 -- 19:45 05/25/25 EDT Rekha Langston R.N. Medications: unable to obtain, pt states list is at home -- 22:25 05/25/25 EDT Carlin Macdonald R.N. 1 of 4 Nurse Narrative Allergies: no known drug allergies -- 19:42 05/25/25 АЛЕКСАНДРT Rekha Langston R.N. Problems: COPD - Chronic Obstructive Pulmonary Disease -- 19:44 05/25/25 JAYCE Langston R.N. Hypertension -- 19:44 05/25/25 JAYCE Langston R.N. Diabetes Mellitus -- 19:44 05/25/25 JAYCE Langston R.N. Surgeries: stents -- 19:44 05/25/25 JAYCE Langston R.N. History 19:41 05/25/25. SOCIAL HX: Never smoker. Heavy drug use: marijuana. No alcohol use. The patient has not traveled outside the [place] Infectious disease exposure: No infectious disease exposure. ABUSE ASSESSMENT: The patient answered yes to the question(s) Do you feel safe in your home? and no to the question(s) Are you afraid to go home?. SELF HARM ASSESSMENT: Self harm assessment was performed. The patient answered no to the question(s) Have you recently felt down, depressed, or hopeless? and Do you have thoughts of harming or killing yourself?. FALL RISK ASSESSMENT: Fall risk assessment completed. No risk factors identified. -- 19:46 05/25/25 JAYCE Langston R.N. Interventions 19:41 05/25/25. Identification band on patient. Advanced care plan (full code). -- 19:46 05/25/25 JAYCE Langston R.N. PHYSICAL ASSESSMENT 2 of 4 Nurse Narrative 21:05/25/25. To room via stretcher. ( ems states pt fell, injury to L elbow. Pt smells strongly of THC, is sleepy, able to be aroused, oriented x4). GENERAL / NEURO / PSYCH: Oriented X 4. Appears in no acute distress. Speech within normal limits. RESPIRATORY: Respirations not labored. -- 21:05/25/25 JAYCE Macdonald R.N. NURSING PROGRESS NOTES 21:05/25/25. IV NS 0.9 % 1000 mL started in bag#1 1000 mL at 999 mL/hr via Site# 1. Allergies verified and confirmed 5 rights. Via dial-a-flow. IV patency established. IV site checked: no pain, redness, or swelling. IV flushed thoroughly pre-medication administration. Information reviewed with patient including reason for taking this medication. Verbalizes understanding. -- 22:05/25/25 JAYCE Macdonald R.N. 21:29 05/25/25. Two patient identifiers checked. Call light placed in reach. Side rails up x 2. Bed placed in lowest position. Brakes of bed on. -- 21:54 05/25/25 [facility] Nato DwyerNDanna 21:30 05/25/25. Site #1 started in the right antecubital space with an 18g angiocath with aseptic technique and good blood return; 1 attempt. Blood drawn: rainbow set tube(s). Labeled in the presence of the patient and sent to the lab. Saline lock flushed with 5 mL saline. -- 21:55 05/25/25 [facility] Carlin Aaron Macdonald.NDanna 21:45 05/25/25. Patient transported to radiology by stretcher with general technician. -- 21:55 05/25/25 [facility] Nato DwyerNDanna 22:07 05/25/25. Meclizine (Antivert) PO 25 mg given. Allergies verified and confirmed 5 rights. Information reviewed with patient including reason for taking this medication. Verbalizes understanding. -- 22:05/25/25 [facility] Carlin Macdonald R.NDanna 22:05/25/25. IV NS 0.9 % 1000 mL started in bag#1 1000 mL at 999 mL/hr via Site# 1. Allergies verified and confirmed 5 rights. Via dial-a-flow. IV patency established. IV site checked: no pain, redness, or swelling. IV flushed thoroughly pre-medication administration. Information reviewed with patient including reason for taking this medication. Verbalizes understanding. -- 22:05/25/25 [facility] Aaron Dwyer.N. 22:05/25/25. IV NS 0.9 %: Medication Discontinued. bag #1 completed. Total amount infused: 1000 mL. IV patency established. IV site checked: no pain, redness, or swelling. IV flushed thoroughly post-medication administration. -- 22:05/25/25 [facility] Carlin Macdonald R.NDanna 00:38 05/26/25. Left forearm: dressing changed. Applied ad (more content not included)... Normal [facility] ED ORDER SHEET (CPOE ONLY)on 05-26-2025 ED ORDER SHEET (CPOE ONLY) Order Sheet Order Sheet [id number] [facility] [place] [address] [id number] 05/25/2025 Patient: PITER MOSS Sex: Male : 1955 Age: 70y MEASUREMENTS: Wt: 81.6 kg, Ht/Alexandro: 70.0 in, BMI: 25.83 ALLERGIES: No known drug allergies MEDICATION/IV/DRIP/F LUID ORDERS Order Description Priority Entered Acknowledged Completed IV NS 0.9 %1000 mL at 999 21:55 05/25/2025 21:55 21:58 mL/hr (NOW x1) Carlin Macdonald R.N. 05/25/2025 05/25/2025 Verbal Order, Auth by: Valerie Dwyer R.N. David Didur, D.O. Read back and verified IV NS 0.9 %1000 mL at 999 22:05 05/25/2025 22:07 mL/hr (NOW x1) Arlyn Bryant D.O. 05/25/2025 Carlin Macdonald R.N. Reason for ordering with alerts: Clinical consideration given --22:05 05/25/2025 Arlyn Bryant D.O. Meclizine (Antivert) PO25 mg 22:05 05/25/2025 22:07 (NOW x1) Arlyn Bryant D.O. 05/25/2025 Carlin Macdonald R.N. Ondansetron IVP4 mg (NOW x1) 22:10 05/25/2025 Cancelled: Verbal per Physician Arlyn Bryant D.O. 00:14 EDT Carlin Macdonald R.N. 1 of 3 Order Sheet Reason for ordering with alerts: Clinical consideration given --22:10 05/25/2025 Arlyn Bryant D.O. LAB ORDERS Order Description Priority Entered Acknowledged Collected Completed CBC w Diff Stat Stat 21:04 05/25/2025 21:04 05/25/2025 Nato DwyerNNato SinghNDanna Verbal Order, Auth by: Arlyn Bryant D.O. Read back and verified CMP Stat Stat 21:04 05/25/2025 21:04 05/25/2025 Nato DwyerNDanna Macdonald, R.N. Verbal Order, Auth by: Arlyn Bryant D.O. Read back and verified Lactate, Serum Stat Stat 21:04 05/25/2025 21:04 05/25/2025 Nato DwyerNDanna Macdonald, R.N. Verbal Order, Auth by: Arlyn Bryant D.O. Read back and verified Blood Alcohol - ETOH Stat 21:04 05/25/2025 21:04 05/25/2025 Stat Nato DwyerNDanna Macdonald, R.N. Verbal Order, Auth by: Arlyn Bryant D.O. Read back and verified Urinalysis Stat Stat 21:06 05/25/2025 21:09 05/25/2025 21:09 05/25/2025 2 of 3 Order Sheet Rosa Elena Miles R.N. Seth Lapp, R.NDanna Urine Drug Screen Stat Stat 21:06 05/25/2025 21:09 05/25/2025 21:09 05/25/2025 Rosa Elena Miles R.N. Seth Lapp, R.NDanna DIAGNOSTIC STUDY ORDERS Order Description Priority Entered Acknowledged Completed Elbow L Complete Stat Stat 21:04 05/25/2025 21:04 21:45 Carlin Macdonald R.N. 05/25/2025 05/25/2025 Verbal Order, Auth by: Valerie Dwyer R.NDanna Bryant D.O. Read back and verified Reason for Study: Elbow Injury CT Brain wo Cont Stat Stat 21:06 05/25/2025 21:09 21:45 Arlyn Bryant D.O. 05/25/2025 05/25/2025 Valerie Dwyer, R.NDanna Reason for Study: Trauma/Injury CT C-Spine wo Cont Stat Stat 21:06 05/25/2025 21:09 21:45 Arlyn Bryant D.O. 05/25/2025 05/25/2025 Valerie Dwyer R.N. Reason for Study: Trauma/Injury STAFF ORDERS Order Description Priority Entered Acknowledged Collected Completed [Electronically signed by Arlyn Bryant D.O. (05/26/2025 05:09 EDT)] 3 of 3 Normal [facility] ED PHYSICIAN CLINICAL REPORT on 05-26-2025 ED PHYSICIAN CLINICAL REPORT Narrative Physician Clinical Narrative [place] [id number] [place] [address] [id number] 05/25/2025 19:35:00 Patient: PITER MOSS Sex: Male : 1955 Age: 70y Disposition: Discharge to Home Disposition Decision Time: 00:13 05/26/2025 Departure Time: 00:46 05/26/2025 Measurements Wt: 81.6 kg, Ht/Alexandro: 70.0 in, BMI: 25.83 Initial Vital Sign Measured Time BP MAP HR RR O2Sat ETCO2 Temp Pain GCS RTS 20:45 05/25/2025 128/71 97 54 Time Seen: 20:55 05/25/2025. Arrived- By ambulance. Historian- patient. Independent historian- EMS personnel. HISTORY OF PRESENT ILLNESS Chief Complaint: FALL. The injury occurred today. Fell. Occurred at home. The patient complains of mild pain. REVIEW OF SYSTEMS SKIN: No laceration. GI: No nausea or vomiting. CVS: No chest pain. EYES: No loss of vision. NEUROLOGICAL: No numbness or weakness. The patient has had a headache. 1 of 12 Narrative PAST HISTORY See nurses notes. COPD - Chronic Obstructive Pulmonary Disease Diabetes Mellitus Hypertension Surgeries: stents Medications: unable to obtain, pt states list is at home Allergies: no known drug allergies SOCIAL HISTORY Never smoker. Drug use: marijuana. No alcohol use. ADDITIONAL NOTES The nursing notes have been reviewed. PHYSICAL EXAM Appearance: Alert. Oriented X3. No acute distress. Head: Vertex: mild tenderness and swelling of the posterior aspect of the vertex. No ecchymosis, petechiae, laceration, puncture wound or foreign body. No deformity. No avulsion. Eyes: Pupils equal, round and reactive to light. EOM intact. ENT: No dental injury. Pharynx normal. Neck: Mild pain in the lower posterior neck upon movement. CVS: Heart sounds normal. Pulses normal. Respiratory: Painless inspiration. Breath sounds normal. Chest nontender. Abdomen: No visible injury. Soft and nontender. Bowel sounds normal. No mass. Back: ROM normal. Skin: Skin warm and dry. Normal skin color. 2 of 12 Narrative Extremities: Normal inspection. Pelvis stable. Extremities atraumatic. No lower extremity edema. Neuro: Oriented X 3. No motor deficit. No sensory deficit. LABS, X-RAYS, AND EKG X-Rays: Left elbow negative. CT C-Spine: (Mild degenerative disc disease throughout the cervical spine with moderate degenerative changes at the C6-C7 level. Endplate and facet hypertrophic changes throughout the cervical spine. Normal thickness of the prevertebral soft tissues. Dextroconvex curvature at this her vehicle thoracic spine junction. No apical pneumothorax. No foreign body. No chronic compression fracture deformity.). The study was interpreted by the radiologist. Interpretation time: 23:53 05/26/2025. CT Head: No acute changes. (mild generalized brain volume loss consistent with age. No acute intracranial hemorrhage mass infarct or edema. Mild mucosal thickening in the paranasal sinuses. No fracture foreign body. Clear mastoid air cells. No scalp hematoma.). The study was interpreted by the radiologist. Interpretation time: 23:53 05/26/2025. Laboratory Tests: ALCOHOL-BLOOD MEDICAL Final RUT: 05/25/2025 21:00:00 EDT MsgRcvd: 05/25/2025 21:47 EDT Lab Test Result Reference Status Received Comments 05/25/2025 21:47 ALCOHOL 9 mg/dl 0 - 50 Final EDT CBC + DIFF Final RUT: 05/25/2025 21:00:00 EDT MsgRcvd: 05/25/2025 21:11 EDT Lab Test Result Reference Status Received Comments 05/25/2025 21:11 CBC-COMPLETE CBC + DIFF Final EDT BLOOD COUNT 05/25/2025 21:11 WBC 6.5 x 10/UL 4.5 - 10.8 Final EDT 3 of 12 Narrative Lab Test Result Reference Status Received Comments 4.02 x 10/UL 05/25/2025 21:11 RBC 4.50 - 6.00 Final Below low normal EDT 12.6 g/dl 05/25/2025 21:11 HEMOGLOBIN 13.0 - 17.5 Final Below low normal EDT 37.1 % 05/25/2025 21:11 HEMATOCRIT 40.0 - 52.0 Final Below low normal EDT 05/25/2025 21:11 MCV 92 fl 81 - 98 Final EDT 05/25/2025 21:11 MCH 31 pg 27 - 33 Final EDT 05/25/2025 21:11 MCHC 34 X10 3 32 - 36 Final EDT 05/25/2025 21:11 RDW/CV 14.0 % 12.0 - 15.6 Final EDT 05/25/2025 21:11 PLATELET 151 x10/UL 150 - 450 Final EDT 05/25/2025 21:11 AUTOMATED MPV 7.3 fl 6.4 - 10.5 Final EDT DIFFERENTIAL 05/25/2025 21:11 NEUT % 52.3 % 46.0 - 76.0 Final EDT 05/25/2025 21:11 LYMPH % 36.3 % 20.0 - 45.0 Final EDT 05/25/2025 21:11 MONOS % 8.5 % 0.0 - 10.0 Final EDT 05/25/2025 21:11 EO % 2.6 % 0.0 - 7.0 Final EDT 4 of 12 Narrative Lab Test Result Reference Status Received Comments 05/25/2025 21:11 BASO % 0.3 % 0.0 - 2.0 Final EDT 05/25/2025 21:11 Lymph # 2.35 x10/UL 0.80 - 2.80 Final EDT 05/25/2025 21:11 Neut # 3.39 x10/UL 1.50 - 7.10 Final EDT 05/25/2025 21:11 [place] # 0.55 x10/UL 0.20 - 1. (more content not included)... Normal [facility] ED SUPER BILLon 05-26-2025 ED SUPER BILL [facility] [address] [place] [address] [id number] 05/25/2025 Patient: PITER MOSS Sex: Male : 1955 Age: 70y Item Facility Professional Category Description Code Code Quantity Fee Total Drugs Normal Saline 706222 2 $0.00 $0.00 1000cc (029771) Nurse/E/M EMERGENCY 041314 1 $0.00 $0.00 DEPARTMENT VISIT HIGH/URGENT SEVERITY (76789-80) Nurse/IV/IM/Infusion s Hydration 429958 2 $0.00 $0.00 additional hour (80238) Nurse/IV/IM/Infusion s Hydration initial 070340 1 $0.00 $0.00 (85098) Nurse/Supplies Ox[employer]ensor [id number] 1 $0.00 $0.00 Adult ([id number]) Grand Total $0.00 Providers 1 of 2 [facility] Arlyn Bryant D.O. Chief Complaint FALL. Principal Diagnosis Minor closed head injury. Unknown whether a loss of consciousness occurred. Abrasion to the left elbow. Cervical strain. ICD-10 Codes S16.1xxA: Strain of muscle, fascia and tendon at neck level, initial encounter S50.312A: Abrasion of left elbow, initial encounter [address] [facility] ED VISIT SUMMARYon ED VISIT SUMMARY Visit Overview Visit Overview [address] [place] [address] [id number] 05/25/2025 Patient: PITER MOSS Sex: Male : 1955 Age: 70y 05/26/2025 05:09 AM EDT ED Arrival:19:35 05/25/2025 EDT Status: Recent Travel:no Language:eng Adv Directive: Isolation Status: Ethnicity:N Fall Risk:no risk Infectious Disease Exposure:no Measurements:5'10 / 177.8 Self-Harm Status:risk Sepsis Screen:negative cm 180.0 lb / 81.6 kg Chief Complaint:ALTERED MENTAL STATUS, CONFUSED, and ([place]) ALLERGIES No Known Drug Allergies HOME MEDICATIONS unable to obtain, pt states list is at home PAST MEDICAL HISTORY / PROBLEMS COPD - Chronic Obstructive Pulmonary Disease Diabetes Mellitus 1 of 3 Visit Overview Hypertension See nurses notes PAST SURGICAL HISTORY stents SOCIAL HISTORY Smoking status: No Alcohol use: No Drug use: Yes ED COURSE MEDICATIONS GIVEN IN EMERGENCY DEPARTMENT 21:08 05/25/25 IV NS 0.9 % 1000 mL 999 mL/hr 22:07 05/25/25 Meclizine (Antivert) PO 25 mg 22:07 05/25/25 IV NS 0.9 % 1000 mL 999 mL/hr IV SITE INFORMATION INTAKE OUTPUT REASSESMENT (most recent) 21:17 05/25/25. To room via stretcher. ( ems states pt fell, injury to L elbow. Pt smells strongly of THC, is sleepy, able to be aroused, oriented x4). GENERAL / NEURO / PSYCH: Oriented X 4. Appears in no acute distress. Speech within normal limits. RESPIRATORY: Respirations not labored. VITAL SIGNS First Vitals Last Vitals Temp 20:45 05/25/25 Temp 00:41 05/26/25 BP 20:45 05/25/25 128/71 BP 00:41 05/26/25 HR 20:45 05/25/25 54 HR 00:41 05/26/25 90 RR 20:45 05/25/25 RR 00:41 05/26/25 O2 Sat 20:45 05/25/25 O2 Sat 00:41 05/26/25 96% 2 of 3 Visit Overview First Vitals Last Vitals Pain 20:45 05/25/25 Pain 00:41 05/26/25 ETCO2 20:45 05/25/25 ETCO2 00:41 05/26/25 GCS 20:45 05/25/25 GCS 00:41 05/26/25 RTS 20:45 05/25/25 RTS 00:41 05/26/25 PROCEDURES NURSING INTERVENTIONS LABS / STUDIES LABS / STUDIES ORDERED Blood Alcohol - ETOH CBC w Diff CMP CT Brain wo Cont CT C-Spine wo Cont Elbow L Complete Lactate, Serum Urinalysis Urine Drug Screen CLINICAL IMPRESSION ABRASION TO THE LEFT ELBOW CERVICAL STRAIN MINOR CLOSED HEAD INJURY. UNKNOWN WHETHER A LOSS OF CONSCIOUSNESS OCCURRED 3 of 3 Normal [facility] ED VITALS FLOW SHEETon 05-26 ED VITALS FLOW SHEET Vitals Vital Sign Flow Sheet [facility] [address] [place] [address] [id number] 05/25/2025 Patient: PITER MOSS Sex: Male : 1955 Age: 70y Measurements Wt: 81.6 kg, Ht/Alexandro: 70.0 in, BMI: 25.83 Measured Time BP MAP HR RR O2Sat ETCO2 Temp Pain GCS RTS 00:41 05/26/2025 90 96% 00:36 05/26/2025 91 97% 00:31 05/26/2025 91 97% 00:26 05/26/2025 90 95% 00:21 05/26/2025 87 97% 00:16 05/26/2025 90 97% 00:11 05/26/2025 87 96% 00:06 05/26/2025 85 96% 00:01 05/26/2025 86 96% 23:56 05/25/2025 84 97% 23:51 05/25/2025 86 96% 23:46 05/25/2025 85 97% 23:41 05/25/2025 84 94% 23:36 05/25/2025 86 94% 23:31 05/25/2025 89 93% 1 of 3 Vitals Measured Time BP MAP HR RR O2Sat ETCO2 Temp Pain GCS RTS 23:26 05/25/2025 79 99% 23:21 05/25/2025 78 98% 23:16 05/25/2025 78 98% 23:11 05/25/2025 77 98% 23:06 05/25/2025 80 98% 23:01 05/25/2025 79 99% 22:56 05/25/2025 73 100% 22:51 05/25/2025 72 99% 22:46 05/25/2025 74 99% 22:41 05/25/2025 74 99% 22:36 05/25/2025 74 98% 22:31 05/25/2025 76 96% 22:26 05/25/2025 78 96% 22:21 05/25/2025 70 96% 22:16 05/25/2025 64 97% 22:11 05/25/2025 67 96% 22:06 05/25/2025 68 97% 22:01 05/25/2025 65 96% 21:56 05/25/2025 64 95% 21:31 05/25/2025 211/103 116 64 21:21 05/25/2025 53 98% 21:16 05/25/2025 56 98% 21:15 05/25/2025 155/79 104 52 21:11 05/25/2025 53 95% 21:06 05/25/2025 54 98% 2 of 3 Vitals Measured Time BP MAP HR RR O2Sat ETCO2 Temp Pain GCS RTS 21:00 05/25/2025 143/74 97 53 20:56 05/25/2025 54 97% 20:51 05/25/2025 54 96% 20:49 05/25/2025 18 98.2 F 0 20:46 05/25/2025 55 90% 20:45 05/25/2025 128/71 97 54 3 of 3 Normal [facility] ALCOHOL-BLOOD MEDICALon 08-0 Ethanol [Mass/Vol] 9 mg/dL Normal 0 - 50 [facility] Comment on above: Performed By: #### [id number] #### [facility],[address] [place] [id number] CBC + DIFFon 05-25-2025 Baso # 0.02 x10EE3/UL Normal 0.00 - 0.10 [facility] Comment on above: Performed By: #### [id number] #### [facility],[address] [place] [address] 90252 Basophils/100 WBC (Bld) 0.3 % Normal 0.0 - 2.0 [facility] Comment on above: Performed By: #### 2 30062 #### [facility],[address] [place] [address] 20929 CBC + DIFF Normal [facility] Comment on above: Result Comment: CBC- COMPLETE BLOOD COUNT Performed By: #### 2 25023 #### [facility],[address] [place] [address] 83698 EO # 0.17 x10EE3/UL Normal 0.00 - 0.50 [facility] Comment on above: Performed By: #### 2 12265 #### [facility],[address] [place] [address] 36585 Eosinophils/100 WBC (Bld) 2.6 % Normal 0.0 - 7.0 [facility] Comment on above: Performed By: #### 2 97146 #### [facility],[address] [place] [address] 11245 Erythrocyte distribution width (RBC) [Ratio] 14.0 % Normal 12.0 - 15.6 [facility] Comment on above: Performed By: #### 2 44313 #### [facility],[address] [place], [place] [id number] Hematocrit (Bld) [Volume fraction] 37.1 % Low 40.0 - 52.0 [facility] Comment on above: Performed By: #### 2 89960 #### [facility],[address] [place] [address] Hemoglobin (Bld) [Mass/Vol] 12.6 g/dL Low 13.0 - 17.5 [facility] Comment on above: Performed By: #### 2 15713 #### [place] [address] Lymph # 2.35 x10EE3/UL Normal 0.80 - 2.80 [facility] Comment on above: Performed By: #### 2 85960 #### [facility],[address] [place], [place] [address] Lymphocytes/100 WBC (Bld) 36.3 % Normal 20.0 - 45. 0 [facility] Comment on above: Performed By: #### 2 76469 #### [facility],[address] [place], [place] [address] MANUAL DIFF N/A Normal [facility] Comment on above: Performed By: #### 2 78623 #### [facility],[address] [place] [address] 61535 MCH (RBC) [Entitic mass] 31 pg Normal 27 - 33 [facility] Comment on above: Performed By: #### 2 01263 #### [facility],[address] [place] [address] 79532 MCHC 34 X10 3 Normal 32 - 36 [facility] Comment on above: Performed By: #### 2 92617 #### [facility],[address] [place] [address] 35676 MCV (RBC) [Entitic vol] 92 fL Normal 81 - 98 [facility] Comment on above: Performed By: #### 2 17029 #### [facility],[address] [place] [address] 38934 [place] # 0.55 x10EE3/UL Normal 0.20 - 1.00 [facility] Comment on above: Performed By: #### 2 37194 #### [facility],[address] [place] [address] 72335 MONOS % 8.5 % Normal 0.0 - 10.0 [facility] Comment on above: Performed By: #### 2 16289 #### [facility],[address] [place] [address] 10505 Morphology Christ (Bld) [Interp] N/A Normal [facility] Comment on above: Performed By: #### 2 75128 #### [facility],[address] [place] [address] 06672 Neut # 3.39 x10EE3/UL Normal 1.50 - 7.10 [facility] Comment on above: Performed By: #### 2 33677 #### [facility],[address] [place] [address] 07861 Neutrophils/100 WBC (Bld) 52.3 % Normal 46.0 - 76. 0 [facility] Comment on above: Performed By: #### 2 85662 #### [facility],[address] [place] [address] 51100 PLATELET 151 x10EE3/UL Normal 150 - 450 [facility] Comment on above: Performed By: #### 2 44427 #### [facility],[address] [place] [address] 72931 Platelet mean volume (Bld) [Entitic vol] 7.3 fL Normal 6.4 - 10.5 [facility] Comment on above: Result Comment: AUTO MATED DIFFERENTIAL Performed By: #### 2 58279 #### [facility],[address] [place] [address] 51788 RBC 4.02 x 10EE6/UL Low 4.50 - 6.00 [facility] Comment on above: Performed By: #### 2 12972 #### [facility],[address] [place] [address] 54904 WBC 6.5 x 10EE3/UL Normal 4.5 - 10.8 [facility] Comment on above: Performed By: #### 2 62241 #### [facility],[address] [place] [address] 14017 CMP with eGFRon 05-25-2025 AGE 70 years Normal [facility] Comment on above: Performed By: #### 2 91961 #### [facility],[address] [place] [address] 12515 Albumin [Mass/Vol] 3.1 g/dL Low 3.4 - 5.0 [facility] Comment on above: Performed By: #### 2 06781 #### [facility],[address] [place] [address] 94533 Albumin/Globulin [Mass ratio] 0.9 {ratio} Normal 0.9 - 1.6 [facility] Comment on above: Performed By: #### 2 42335 #### [facility],[address] [place] [address] 50142 ALK PHOS 168 U/L High 46 - 116 [facility] Comment on above: Performed By: #### 2 04801 #### [facility],[address] [place] [address] 16120 ALT [Catalytic activity/Vol] 25 U/L Normal 16 - 63 [facility] Comment on above: Performed By: #### 2 03233 #### [facility],[address] [place] [address] 56356 Anion gap [Moles/Vol] 9 mmol/L Low 10 - 20 [facility] Comment on above: Performed By: #### 2 18993 #### [facility],[address] [place] [address] 98278 AST [Catalytic activity/Vol] 17 U/L Normal 15 - 37 [facility] Comment on above: Performed By: #### 2 18416 #### [facility],[address] [place] [address] 23623 B/C RATIO 13 ratio Normal 0 - 30 [facility] Comment on above: Performed By: #### 2 41525 #### [facility],[address] [place] [address] 58260 Bilirubin [Mass/Vol] 0.4 mg/dL Normal 0.2 - 1.0 [facility] Comment on above: Performed By: #### 2 86864 #### [facility],[address] [place] [address] 29040 Calcium [Mass/Vol] 8.7 mg/dL Normal 8.5 - 10.1 [facility] Comment on above: Performed By: #### 2 51769 #### [facility],[address] [place] [address] 02493 Chloride [Moles/Vol] 102 mmol/L Normal 98 - 107 [facility] Comment on above: Performed By: #### 2 02226 #### [facility],[address] [place] [address] 22173 CMP with eGFR Normal [facility] Comment on above: Result Comment: COMP REHENSIVE METABOLIC PANEL Performed By: #### 2 52407 #### [facility],[address] [place] [address] 66862 CO2 [Moles/Vol] 31.3 mmol/L Normal 21.0 - 32.0 [facility] Comment on above: Performed By: #### 2 12605 #### [facility],[address] [place] [address] 69373 Creatinine [Mass/Vol] 0.79 mg/dL Normal 0.70 - 1.[address] [facility] Comment on above: Performed By: #### 2 93510 #### [facility],[address] [place] [address] 64897 GFR/1.73 sq M.predicted among non-blacks MDRD (S/P/Bld) [Vol rate/Area] mL/min/{1.73_m2} Normal 60 - 999 [facility] Comment on above: Performed By: #### 2 27467 #### [facility],[address] [place], [place] [address] Result Comment: ACCO RDING TO THE NATIONAL KIDNEY DISEASE EDUCATION PROGRAM(NKDE), A NORMAL eGFR IS A VALUE GREATER THAN OR EQUAL TO 60 ML/MIN/1.73 SQ METERS. CHRONIC KIDNEY DISEASE: <60mL/MIN/1.73 SQ METERS KIDNEY FAILURE: <15mL/MIN/1.73 SQ METERS THIS TEST SHOULD ONLY BE USED FOR PATIENTS 18 YEARS OF AGE AND OLDER. Globulin (S) [Mass/Vol] 3.5 g/dL Normal 1.5 - 3.8 [facility] Comment on above: Performed By: #### 2 52571 #### [facility],[address] [place] [address] 87767 Glucose [Mass/Vol] 86 mg/dL Normal 74 - 106 [facility] Comment on above: Performed By: #### 2 35478 #### [facility],[address] [place] [address] 68118 Potassium [Moles/Vol] 3.7 mmol/L Normal 3.5 - 5.1 [facility] Comment on above: Performed By: #### 2 46587 #### [facility],[address] [place] [address] 74950 Protein [Mass/Vol] 6.6 g/dL Normal 6.4 - 8.2 [facility] Comment on above: Performed By: #### 2 62499 #### [facility],[address] [place] [address] 46122 Sodium [Moles/Vol] 139 mmol/L Normal 136 - 145 [facility] Comment on above: Performed By: #### 2 96669 #### [facility],[address] [place] [address] Urea nitrogen [Mass/Vol] 10 mg/dL Normal 7 - 18 [facility] Comment on above: Performed By: #### 2 40806 #### [facility],[address] [place] [address] CT BRAIN W/O CONTRASTon 08-0 CT BRAIN W/O CONTRAST [place] [address] Patient: PITER MOSS Phone#: : 1955 Age: 70 Gender: M Pt. Type: ER Account: [id number] Location: [facility] Ordering: ARLYN BRYANT Exam Date: 05/25/2025/21:35 Family Phys: REBECCA TERAN Charge Code: [id number] Physician: [place] Order #: [id number] Dose#: 57.5 mgy PROCEDURE: CT BRAIN WITHOUT CONTRAST COMPARISON: [facility], CT, BRAIN W/O CON, 06/11/2023, 16:14. INDICATIONS: Fall. TECHNIQUE: CT images were obtained without contrast material. All CT scans at this facility use dose modulation, iterative reconstruction, and/or weight based dosing when appropriate to reduce radiation dose to as low as reasonably achievable. IV CONTRAST: No IV contrast used,ml TOTAL DOSE: 57.5 CTDIvol(mGy) FINDINGS: CEREBRUM: Age-appropriate atrophy is present, without visible acute hemorrhage or lesion. CEREBELLUM: No edema, hemorrhage, mass, acute infarction, or inappropriate atrophy. BRAINSTEM: No edema, hemorrhage, mass, acute infarction, or inappropriate atrophy. CSF SPACES: Ventricles, cisterns, and sulci are appropriate for age. No hydrocephalus, subarachnoid hemorrhage, or mass. SKULL: No mass or other significant visible lesion. SINUSES: Limited views demonstrate no significant mucosal thickening or fluid. ORBITS: Limited views are unremarkable. OTHER: Negative. CONCLUSION: 1. There is no evidence of acute intracranial abnormality. Dictated by: Zabrina Sanchez MD on 05/26/2025 at 6:40 Approved by: Zabrina Sanchez MD on 05/26/2025 at 6:44 Normal [facility] CT CERVICAL W/O CONTRASTon 0 05-25-2025 CT CERVICAL W/O CONTRAST [address] [address] Patient: PITER MOSS Phone#: : 1955 Age: 70 Gender: M Pt. Type: ER Account: [id number] Location: [facility] Ordering: ARLYN BRYANT Exam Date: 05/25/2025/21:35 Family Phys: REBECCA TERAN Charge Code: [id number] Physician: [place] Order #: [id number] Dose#: 9.8 mgy PROCEDURE: CT CERVICAL WITHOUT CONTRAST COMPARISON: None. INDICATIONS: Fall. TECHNIQUE: Multi-planar CT images were created without intravenous contrast. All CT scans at this facility use dose modulation, iterative reconstruction, and/or weight-based dosing when appropriate to reduce radiation dose to as low as reasonably achievable. IV CONTRAST: No IV contrast used,ml TOTAL DOSE: 9.8 CTDIvol(mGy) FINDINGS: CRANIOCERVICAL AREA: Normal foramen magnum with no Chiari malformation. PARASPINAL AREA: Normal with no visible mass. BONES: No fracture, pars defect, or osseous lesion. CERVICAL DISC LEVELS: C2-C3: There is mild disc space narrowing. Bony hypertrophy is present with mild foraminal narrowing. C3-C4: Bony hypertrophy is present at the articular facettes. There is bilateral foraminal narrowing. C4-C5: Bony hypertrophy is present at the articular facettes. There is bilateral foraminal narrowing. C5-C6: Disc space narrowing is present. Bony hypertrophy is present with narrowing of the foramina bilaterally. C6-C7: Disc space narrowing is present. Bony hypertrophy is present at vertebral body endplates and articular facettes with severe bilateral foraminal narrowing. C7-T1: No significant disc/facet abnormality, spinal stenosis, or foraminal stenosis. CONCLUSION: 1. Multilevel degenerative change but most marked at the C6-7 level. 2. There is no evidence of acute fracture or subluxation. Continued Report - Page 2 of 2 Patient: PITER MOSS Phone#: : 1955 Age: 70 Gender: M Pt. Type: ER Account: [id number] Location: [facility] Ordering: ARLYN BRYANT Exam Date: 05/25/2025/21:35 Family Phys: REBECCA TERAN Charge Code: [id number] Physician: [place] Order #: [id number] Dose#: 9.8 mgy Dictated by: Zabrina Sanchez MD on 05/26/2025 at 6:53 Approved by: Zabrina Sanchez MD on 05/26/2025 at 6:59 Normal [facility] DRUG SCREEN URINE MEDICon AMPHETAMINES Negative [facility] Comment on above: Performed By: #### 2 86247 #### [facility],[address] [place] [address] 78530 B-DIAZEPINES Negative [facility] Comment on above: Performed By: #### 2 22399 #### [facility],[address] [place] [address] 35515 BARBITURATES Negative [facility] Comment on above: Performed By: #### 2 69396 #### [facility],[address] [place] [address] 72605 COCAINE Negative [facility] Comment on above: Performed By: #### 2 29662 #### [facility],[address] [place] [address] 18117 DRUG SCREEN URINE MEDIC Normal [facility] Comment on above: Result Comment: DRUG SCREEN - URINE Performed By: #### 2 32176 #### [facility],[address] [place] [address] 21100 M[address]AD[address] Negative [facility] Comment on above: Performed By: #### 2 77972 #### [facility],[address] [place] [address] 16585 OPIATES Negative Normal [facility] Comment on above: Performed By: #### 2 95506 #### [facility],[address] [place] [address] 50058 PCP Negative Normal [facility] Comment on above: Performed By: #### 2 03387 #### [facility],[address] [place] [address] 14400 THC Positive Normal [facility] Comment on above: Result Comment: RAY ENTS RECEIVING PROTON PUMP INHIBITORS MAY DEMONSTRATE FALSE POSITIVE THC/CANNABINOID RESULTS. AN ALTERNATIVE CONFIRMATORY METHOD SHOULD BE CONSIDERED TO VERIFY POSITIVE RESULTS. Performed By: #### 2 12045 #### [facility],[address] [place] [address] 99477 ELBOW COMPLETE LTon 05-25-20 25 ELBOW COMPLETE LT [place] [address] Patient: PITER MOSS Phone#: : 1955 Age: 70 Gender: M Pt. Type: ER Account: [id number] Location: [facility] Ordering: ARLYN BRYANT Exam Date: 05/25/2025/21:40 Family Phys: REBECCA JEFFRY Charge Code: [id number] Physician: [place] Order #: [id number] Dose#: PROCEDURE: X-RAY ELBOW LT MIN 3 VIEWS COMPARISON: None. INDICATIONS: Fall. FINDINGS: BONES: Degenerative changes are present. There is remote avulsion at the olecranon process. SOFT TISSUES: Negative. No visible soft tissue swelling. EFFUSION: None visible. OTHER: Negative. CONCLUSION: 1. There is no evidence of acute bone abnormality. Dictated by: Zabrina Sanchez MD on 05/26/2025 at 8:57 Approved by: Zabrina Sanchez MD on 05/26/2025 at 9:02 Normal [facility] LACTATEon 05-25-2025 Lactate [Moles/Vol] 1.8 mmol/L Normal 0.4 - 2.0 [facility] Comment on above: Performed By: #### 2 98730 #### [facility],[address] [place] [id number] Surgery Visit Reporton 05-25 Surgery Visit Report [facility] [address] [place] [id number] OFFICE VISIT Date of Service: 05/25/25 MR#: [id number] Acct: [id number] Name: PITER MOSS Rep #: [id number] : 1955 Provider: Dr. Robin roberts MD Age/Sex: 70/M Location: [facility] Status: Signed Intake Vital Signs 05/13/25 08:12 05/25/25 09:28 Height 5 ft 10 in 5 ft 10 in Weight: 180 lb BMI 25.8 BP 108/66 Blood Pressure Location Rt brachial Position Sitting Respiration 16 Intake Visit Reasons: COLONOSCOPY Chief Complaint: c-scope [employer] Required: No Is patient in pain?: No Allergies No Known Allergies Allergy (Verified 05/25/25 09:29) Medications ???Medication ???Instructions ???Recorded ???Confirmed ???Type albuterol sulfate 90 mcg/actuation 1 inh inhalation ONCE 05/25/25 0 05/25/25 History aerosol inhaler (Ventolin HFA) amlodipine 5 mg tablet 5 mg PO QDAY 05/25/25 05/25/25 His tory aspirin 81 mg chewable tablet 81 mg PO QDAY 05/25/25 05/25/25 Hi story atorvastatin 40 mg tablet (Lipitor) 40 mg PO QHS 05/25/25 05/25/25 History baclofen 20 mg tablet 20 mg PO TID 05/25/25 05/25/25 His tory budesonide 160 mcg-glycopyr 9 2 inh inhalation BID 05/25/2502/13 History mcg-formot 4.8 mcg/actuation HFA inhaler (Breztri Aerosphere) carvedilol 25 mg tablet 37.5 mg PO BID 05/25/25 05/25/25 H istory diclofenac sodium 1 % topical gel 2 g topical ONCE 05/25/25 5 History (Arthritis Pain (diclofenac)) finasteride 5 mg tablet 5 mg PO QDAY 05/25/25 05/25/25 His tory furosemide 20 mg tablet (Lasix) 20 mg PO DIRECTED PRN 05/25/25 05/25/25 History gabapentin 400 mg capsule 400 mg PO TID 05/25/25 05/25/25 Hi story guaifenesin 400 mg tablet 400 mg PO Q4H 05/25/25 05/25/25 Hi story ipratropium 0.5 mg-albuterol 3 mg 3 ml inhalation Q6H PRN 05/25/25 05/25/25 History (2.5 mg base)/3 mL nebulization soln isosorbide mononitrate 120 mg 120 mg PO QAM 05/25/25 05/25/25 Hi story tablet,extended release 24 hr lidocaine 5 % topical patch 1 patch topical QDAY 05/25/2502/13 History lisinopril 10 mg tablet 10 mg PO BID 05/25/25 05/25/25 His tory metformin 500 mg tablet 500 mg PO BID 05/25/25 05/25/25 Hi story nortriptyline 75 mg capsule PO BID 05/25/25 05/25/25 History omeprazole 20 mg capsule,delayed 20 mg PO BID 05/25/25 05/25/25 His tory release pseudoephedrine HCl 30 mg capsule 30 mg PO BID PRN 05/25/25 5 History (abuse-resistant) rivaroxaban 2.5 mg tablet (Xarelto) 2.5 mg PO BID 05/25/25 05/25/25 History ropinirole 1 mg tablet 1 mg PO TID 05/25/25 05/25/25 Hist ory sennosides 8.6 mg tablet 8.6 mg PO BID 05/25/25 05/25/25 Hi story simethicone 80 mg chewable tablet 80 mg PO TID-QID PRN 05/25/2502/13 History (Gas Relief (simethicone)) tamsulosin 0.4 mg capsule 0.4 mg PO QDAY 05/25/25 05/25/25 H istory Have you fallen in the past year?: No [facility] Medical History (Updated 05/25/25 @ 09:[address] Robin De La Garza MD) Personal history of colonic polyps High cholesterol SOB (shortness of breath) COPD (chronic obstructive pulmonary disease) Arthritis RLS (restless legs syndrome) PAD (peripheral artery disease) Hypertension Coronary artery disease Diabetes Surgical History (Updated 05/25/25 @ 09:28 by Sindi Chirinos) S/P insertion of iliac artery stent History of coronary artery stent placement Social History (Updated 03/17/23 @ 16:[address] Pedro Gallardo, DO) Smoking Status: Former smoker substance use type: marijuana HPI HPI HPI: The patient is a 70-year-old male who is being seen today to schedule a surveillance colonoscopy. Patient has a history of colon polyps. His last colonoscopy was in 2019. He was recommended to have a follow-up colonoscopy in about 5 years. He denies any new GI issues or problems. He denies constipation or diarrhea. No blood in his stools. No black or tarry stools. Patient does have multiple medical problems including peripheral vascular disease. He is on blood thinners as he has had numerous cardiac stents as well as peripheral vascular stents. Patient had a stent placed in one of his lower extremities just 2 weeks ago. Initially he was not sure when or where this was performed however we found a card in his wallet that showed that he had a stent placed on May 04, [address] Parikh through the [facility]. Patient is unsure if he is able to come off of blood thinners given the recent stent ROS General General: Yes weight change and fatigue; No appetite, colon cancer, breast cancer or weakness HEENT HEENT: No difficulty swallowing, eye injury, eye surgery, swollen glands or hoarseness Endo Endocrine: Yes diabetes mellitus; No thyroid disease, th (more content not included)... Normal [facility] URINALYSISon 05-25-2025 Bilirubin Ql (U) Negative Normal NORMAL: NEGATIVE [facility] Comment on above: Performed By: #### 2 59830 #### [facility],[address] [place] [address] Clarity (U) clear Normal NORMAL: CLEAR [facility] Comment on above: Performed By: #### 2 69282 #### [facility],[address],[place] [address] Color (U) yellow Normal NORMAL: YELLOW [facility] Comment on above: Performed By: #### 2 42750 #### [facility],[address] [place] [address] 55466 Glucose Ql (U) NORM Normal NORMAL: NORMAL [facility] Comment on above: Performed By: #### 2 12884 #### [facility],[address] [place] [address] 13430 Hemoglobin Ql (U) Negative Normal NORMAL: NEGATIVE [facility] Comment on above: Performed By: #### 2 04011 #### [facility],[address] [place] [address] 71160 Ketone Negative Normal NORMAL: NEGATIVE [facility] Comment on above: Performed By: #### 2 94157 #### [facility],[address] [place] [address] 17416 Leukocytes Negative Normal NORMAL: NEGATIVE [facility] Comment on above: Performed By: #### 2 51162 #### [facility],[address] [place] [address] 85224 Nitrite Ql (U) Negative Normal NORMAL: NEGATIVE [facility] Comment on above: Performed By: #### 2 10036 #### [facility],[address] [place] [address] 63142 pH (U) 6.5 [pH] Normal NORMAL: 5.0-8.0 [facility] Comment on above: Performed By: #### 2 04925 #### [facility],[address] [place] [address] 17482 Protein Ql (U) Negative Normal NORMAL: NEGATIVE [facility] Comment on above: Performed By: #### 2 23747 #### [facility],[address] [place] [address] 55012 Sp Craig 1.010 Normal NORMAL: 1.010-1.030 [facility] Comment on above: Performed By: #### 2 79698 #### [facility],[address] [place] [address] Specimen Type R Normal [facility] Comment on above: Performed By: #### 2 [id number] #### [facility],[address] [place], [place] [id number] Urinalysis dipstick W Reflex Microscopic panel (U) NOT INDICATED Normal [facility] Comment on above: Performed By: #### 2 [id number] #### [facility],[address] [place], [place] [id number] Urobilinog NORM Normal NORMAL: NORMAL [facility] Comment on above: Performed By: #### 2 [id number] #### [facility],[address] [place] [address] AL - Individual Treatment Pl anon 05-13-2025 AL - Individual Treatment Plan [facility] Pulmonary Rehab Reports [address] [place] [address] AL - Individual Treatment Plan MR#: [id number] Acct: [id number] Name: PITER MOSS Rep #: [id number] : 1955 70 From: Victorino Fay BS, RVT PCP: [facility] Exercise - Initial Assessment Visit Session Number:: 3 Physician Prescribed Exercise Modalities: SciFit Stepper, [employer] BVFit Pro-II Ergometer and [place] [employer] Lateral Certified Medicine Aide Current METSs:: 2.3 Target HR:: 113 (90-113) Current RPD:: 2-3 Maximum Exercise HR:: 85 Resting Blood Pressure: 120/64 Maximum Exercise Blood Pressure: 160/82 Minimum SpO2 with exercise: 89 (on 3 L with exercise) EKG Type: NSR with rare PVC's Nutrition/Wt Mgmt - Initial Visit Session Number:: 3 Weight Management Admit Height:: 5 ft 10 in Admit Weight:: 166 lb Admit BMI:: 23.8 Nutrition/Wt Mgmt - 30-Day Visit Date of Eval: 05/13/25 Session Number:: 3 Weight Management Height: 5 ft 10 in Weight:: 166 lb BMI: 23.8 Weight Goals Progress:: Progressing (Pt is scheduled to attend nutrition class. Low sodium heart healthy diet encouraged.) Nutrition/Wt Mgmt - 60-Day Visit Session Number:: 3 Weight Management Height: 5 ft 10 in Weight:: 166 lb BMI: 23.8 Nutrition/Wt Mgmt - 90-Day Visit Session Number:: 3 Weight Management Height: 5 ft 10 in Weight:: 166 lb BMI: 23.8 Nutrition/Wt Mgmt - Final Visit Session Number:: 3 Weight Management Height: 5 ft 10 in Weight:: 166 lb BMI: 23.8 Psychosocial - Initial Assess Visit Session Number:: 3 Problems/Goals History of Emotional Disorders: Anxious (Pt denies anxiety at this time.) Psychosocial Goals: 1. Patient is free from overwhelming symtoms of depression (or anxiety, 2. Identifies personal stressors states the strategies for managing, 3. Identifies activities to decrease isolation and/or symptoms of, 4. Improved psychosocial coping skills., 5. Verbalizes coping strategies., 6. Adequate treatment of depression. and 7. Improved Q.O.L. Psychosocial Test PHQ-9 Score: 11 Referral to Behavioral Health PS - Interventions: Yes: Attend Stress Management Classes Intervention/Plan: See List Interventions/Plan:: Assess stressors,coping strategies signs of derpression on admission, Instruct/assist pt to develop coping personal stress Mgt strategies, Refer to Behavioral Health if appropriate, Refer to Physician if appropriate, Instruct patient to recognize signs symptoms of depression and Instruct patient to recog Psychosocial - 30-Day Visit Date of Eval: 05/13/25 Session Number:: 3 Problems/Goals History of Emotional Disorders: Anxious (Pt denies anxiety at this time.) Psychosocial Goals: 1. Patient is free from overwhelming symtoms of depression (or anxiety, 2. Identifies personal stressors states the strategies for managing, 3. Identifies activities to decrease isolation and/or symptoms of, 4. Improved psychosocial coping skills., 5. Verbalizes coping strategies., 6. Adequate treatment of depression. and 7. Improved Q.O.L. Psychosocial Test PHQ-9 Score: 11 Referral to Behavioral Health PS - Interventions: Yes: Attend Stress Management Classes Plan Interventions/Plan:: Assess stressors,coping strategies signs of derpression on admission, Instruct/assist pt to develop coping personal stress Mgt strategies, Refer to Behavioral Health if appropriate, Refer to Physician if appropriate, Instruct patient to recognize signs symptoms of depression and Instruct patient to recog Psychosocial - 60-Day Visit Session Number:: 3 Problems/Goals History of Emotional Disorders: Anxious (Pt denies anxiety at this time.) Psychosocial Goals: 1. Patient is free from overwhelming symtoms of depression (or anxiety, 2. Identifies personal stressors states the strategies for managing, 3. Identifies activities to decrease isolation and/or symptoms of, 4. Improved psychosocial coping skills., 5. Verbalizes coping strategies., 6. Adequate treatment of depression. and 7. Improved Q.O.L. Psychosocial Test PHQ-9 Score: 11 Referral to Behavioral Health PS - Interventions: Yes: Attend Stress Management Classes Plan Interventions/Plan:: Assess stressors,coping strategies signs of derpression on admission, Instruct/assist pt to develop coping personal stress Mgt strategies, Refer to Behavioral Health if appropriate, Refer to Physician if appropriate, Instruct patient to recognize signs symptoms of depression and Instruct patient to recog Psychosocial - 90-Day Visit Session Number:: 3 Problems/Goals History of Emotional Disorders: Anxious (Pt denies anxiety at this time.) Psychosocial Goals: 1. Patient is free from overwhelming symtoms of depression (or anxiety, 2. Identifies personal stressors states the strategies for managing, 3. Identifies activities to decrease isolation and/or symptoms of, 4. Improved psychosocial coping skills., 5. Verb (more content not included)... Normal [facility] AL - History AND Physicalon 04-15-2025 AL - History & Physical [facility] Pulmonary Rehab Reports [address] [place] [address] AL - History Physical MR#: [id number] Acct: [id number] Name: PITER MOSS Rep #: [id number] : 1955 69 From: Victorino Fay BS, RVT PCP: [facility] History of Present Illness General Arrival date:: 04/15/25 Arrival time:: 14:02 Date of Referral:: 03/23/25 Date of Evaluation: 04/15/25 Referring Physician: AK Primary Diagnosis: COPD History of Present Pulmonary Event mMRC Breathless Scale: When is the patient short of breath? Y/N Grade: Description of Breathlessness: 0 I only get breathless with strenuous exercise. 1 I get short of breath when hurrying on level ground or walking up a slight hill. 2 On level ground, I walk slower than people of the same age because of breathless, or have to stop for breath when walking at my own pace. 3 I stop for breath after walking 100 yards or after a few minutes on level ground. 4 I am too breathless to leave the house or I am breathless when dressing. Respiratory Problems: Yes Retain Secretions, Chest Pain, Fatigue, Wheezing, Dizziness, Hoarseness, Anxiety, Dyspnea at Rest, Dyspnea with Activity, Dyspnea Lying Down Flat and Cough with Secretions; No Limited Range of Motion, Able to Speak in Full Sentences, Ankle Swelling or Panic Allergies Allergies No Known Allergies Allergy (Verified 03/17/23 16:16) Secretions Thick:: Yes Amount/Day:: 2 TBSP (20 TBSP per pt.) AM: Yes PM: Yes Sleep Disorder Evaluation Hx of Sleep Apnea: No Do you snore loudly (louder than talking or can be heard through closed doors)?: No Do you often feel tired/ fatigued/ sleepy during daytime?: No Has anyone observed you stop breathing during sleep?: No History of Hypertension (for STOP score): Yes STOP Results: Negative Medical Utilization Medical Devices Do you use a peak flow meter at home?: No Do you use a spacer device with your inhalers?: No Medical Utilization Number of hospital visits in the last year?: 2 Number of emergency room visits in the last year?: 2 Do you see your physician on a regular schedule?: Yes How often?: 6-7 Advanced Directives Advanced Directives Do you have a Healthcare Power of Elevator Starter?: Yes Living Will: Yes Advance Directives Information Provided: No Advance Directives on File: No DNR Order?:: No Past Medical History Covid-19 Screening Physicial Symptoms Other Clinical Concerns Exposure Risk Pertinent Comorbidities 65 years or older:: Yes Has a chronic lung disease or moderate to severe asthma:: Yes Diabetic:: Yes Medical History Medical History Coronary artery disease Diabetes Hypertension Surgical History Surgical History History of coronary artery stent placement Social History Smoking History Smoking Status: Former smoker Years Smokin Packs Smoked per Day: 1 (stopped when he was 21 yrs old) Alcohol Use Alcohol Usage: No Substance Abuse Hx Substance Use: No Occupation Occupation (List type of work in comments):: Retired Functioning ADL/IADL Current Ability Current Ability: Dependent: Ambulation and Dependent: Household tasks (e.g., light meal prep, laundry, shopping) and Independent: Self-Care (e.g.,grooming, dressing, bathing) and Independent: Transfer Pt Functioning Prior to Problem Prior Functioning: Self-Care (e.g.,grooming, dressing, bathing): Independent, Ambulation: Independent, Transfer: Independent and Household tasks (e.g., light meal prep, laundry, shopping): Independent Social Environment Status Marital Status: Current Living Arrangements Living Environment:: Spouse Children How many children do you have?: 4 Do any of your children live nearby?: Yes Safety Do you feel safe in your surroundings?: Yes Assistance Do you need any assistance at home?: no Review of Systems Review of Systems Review of Systems Respiratory: Reports Cough, Hemoptysis, Pleuritic Pain, SOB at Rest, SOB upon Exertion, Sputum production, Wheezing, Dizziness/Lightheade dness, Fatigue, PVD and Sleep, Normal; Denies Appetite, Normal or Sexual changes Pain Is Patient Pain Free?: No Pain Location: lower extremity Pain Level: 04/30 Risk Factor Assessment Chief Complaint Chief Complaint: COPD Vital Signs Pulse Rate: 63 Pulse Ox: 92 (on 3L) Blood Pressure: 110/56 Diabetes Diabetic History: Type II Obesity Height: 5 ft 10 in Weight:: 164 lb Weight in Pounds: 164.0 lbs Body Mass Index (BMI): 23.5 Physical Activity Physical Inactivity: None Risk Stratification Risk Guidelines: Moderate Risk: Risk Factor for Obesity and Highest Risk: Risk Factor for Smoking, Risk Factor for Dyslipidemia, Risk Factor for Diabetes, Risk Factor for Obesity, Risk Factor f (more content not included)... Normal [facility] AL - Individual Treatment Pl anon 04-15-2025 AL - Individual Treatment Plan [facility] Pulmonary Rehab Reports [address] [place] [address] AL - Individual Treatment Plan MR#: [id number] Acct: [id number] Name: AJAYPITER E Rep #: [id number] : 1955 69 From: Victorino Fay BS, RVT PCP: [facility] General Information2 General Information Admitting Diagnosis: COPD PFT FEV1:: 27 Personal Learning Style/Barriers Personal Learning Style:: Audio/Visual Barriers to Learning: None Stage of change r/t lifestyle modifications: Contemplation Education/Goals AL Patient Goals: Increase muscle strength: Initial Assessment, Experience less dyspnea: Initial Assessment, Improve energy level: Initial Assessment, Participate in home exercise: Initial Assessment, Improve the ability to cope with ADLs: Initial Assessment, Improve knowledge of lung disease: Initial Assessment, Increase knowledge of oxygen use: Initial Assessment, Control panic/anxiety: Initial Assessment, Improve diet and nutrition: Initial Assessment and Other:: Initial Assessment Exercise - Initial Assessment Visit Date of Eval: 04/15/25 (initial eval ) Problem/Goals Problems: Deconditioning Goals:: Aerobic exercise 30-60 mins x 12 weeks [36 sessions] Physician Prescribed Exercise Modalities: [place] AD-7, [employer] Stepper, [employer] Pro-II Ergometer and [employer] Lateral Certified Medicine Aide Frequency (days/week): 3 Duration (Minutes):: 30-45 Intensity: 60-80% of age predicted maximum heart rate reserve Current METSs:: 2 Target HR:: 113 (90-113) Minimum SpO2 with exercise: 92 (on 3L) Plan Plan and Plan to Review:: Benefits of exercise, Core components of exercise, How to measure dyspnea level, How to monitor dyspnea level, Exercise intensity, Home exercise guidelines and David: 3-4/11-13 Nutrition/Wt Mgmt - Initial Visit Date of Eval: 04/15/25 (initial eval ) Weight Management Admit Height:: 5 ft 10 in Admit Weight:: 164 lb Admit BMI:: 23.5 Intervention Referral to dietitian:: No Will attend diet classes:: Yes Intervention/Plan: Instruct on ideal BMI set weight loss goal w/patient, Assist pt to ID incorporate diet changes for weight loss by S9, Refer to Structured Weight Loss program as appropr iate, Encourage goal of using 250-300dcal per session for weight loss and Other additional plan/interventions Plan Nutrition Plan: Yes: Review BMI or WC identify target wt strategies for wt control, Yes: Nutrition education class:, Yes: Medication education class [Prednisone]:, Yes: Weight control education class:, Yes: Education re: Need for ongoing weight monitoring, Yes: Food diary: and Yes: Physical activity log: Nutrition/Wt Mgmt - 30-Day Weight Management Height: 5 ft 10 in Weight:: 164 lb BMI: 23.5 Nutrition/Wt Mgmt - 60-Day Weight Management Height: 5 ft 10 in Weight:: 164 lb BMI: 23.5 Nutrition/Wt Mgmt - 90-Day Weight Management Height: 5 ft 10 in Weight:: 164 lb BMI: 23.5 Nutrition/Wt Mgmt - Final Weight Management Height: 5 ft 10 in Weight:: 164 lb BMI: 23.5 Psychosocial - Initial Assess Visit Date of Eval: 04/15/25 (initial eval ) Problems/Goals History of Emotional Disorders: Anxious (Pt denies anxiety at this time.) Psychosocial Goals: 1. Patient is free from overwhelming symtoms of depression (or anxiety, 2. Identifies personal stressors states the strategies for managing, 3. Identifies activities to decrease isolation and/or symptoms of, 4. Improved psychosocial coping skills., 5. Verbalizes coping strategies., 6. Adequate treatment of depression. and 7. Improved Q.O.L. Psychosocial Test Tool Used:: PHQ-9 Questionnaire PHQ-9 Score: 11 Referral to Behavioral Health PS - Interventions: Yes: Attend Stress Management Classes Intervention/Plan: See List Interventions/Plan:: Assess stressors,coping strategies signs of derpression on admission, Instruct/assist pt to develop coping personal stress Mgt strategies, Refer to Behavioral Health if appropriate, Refer to Physician if appropriate, Instruct patient to recognize signs symptoms of depression and Instruct patient to recog Psychosocial - 30-Day Problems/Goals History of Emotional Disorders: Anxious (Pt denies anxiety at this time.) Psychosocial Goals: 1. Patient is free from overwhelming symtoms of depression (or anxiety, 2. Identifies personal stressors states the strategies for managing, 3. Identifies activities to decrease isolation and/or symptoms of, 4. Improved psychosocial coping skills., 5. Verbalizes coping strategies., 6. Adequate treatment of depression. and 7. Improved Q.O.L. Psychosocial Test Tool Used:: PHQ-9 Questionnaire PHQ-9 Score: 11 Referral to Behavioral Health PS - Interventions: Yes: Attend Stress Management Classes Plan Interventions/Plan:: Assess stressors,coping strategies signs of derpression on admission, Instruct/assist pt to develop coping personal stress Mgt strategies, Refer to Be (more content not included)... Normal [facility] CREATININE FINGERSTICKon CREATININE WB < 1.0 Normal 0.70-1.30 [facility] Comment on above: Performed By: #### L 9100.0200 #### [facility] Laboratory [address] [place], [address] EGFR WB > 60.0000 Normal >60 [facility] Comment on above: Performed By: #### L 9100.0200 #### [facility] [address] [place], [address] CTA Abd w/Runoff W/WO Contra ston 03-20-2025 CTA Abd w/Runoff W/WO Contrast [facility] Imaging Services [address] [place] [address] CTA Abd w/Runoff W/WO Contrast MR#: [id number] Acct: [id number] Name: PITER MOSS Rep #: [id number] : 1955 M 69 From: Leroy Burger MD PCP: [facility] Status: REG CLI Study: CTA Abd w/Runoff W/WO Contrast Date of Exam: 0 03/20/25 Exam# [id number] Ordering Dr: JEFF HENDRICKS PROCEDURE: CTA ABD W/RUNOFF W/WO CONTRAST 03/20/2025 REASON FOR EXAM: OCCLUSION AND STENOSIS OF LEFT CAROTID ARTERY TECHNIQUE: CTA imaging of the abdomen and pelvis with intravenous contrast. Multiplanar and multisequence images were obtained. CONTRAST: 75 cc Isovue 370 One or more dose reduction techniques were used (e.g., Automated exposure control, adjustment of the mA and/or kV according to patient size, use of iterative reconstruction technique). CONTRAST: 75 cc Isovue 370 FINDINGS: Fatty infiltration of the liver. Normal gallbladder. Normal spleen. No pancreatic abnormality. Distal thoracic aorta normal in caliber. Patent superior mesenteric artery. 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 Left and right renal arteries are patent with mild narrowing of the proximal left renal artery. Atherosclerotic irregularity of the distal abdominal aorta. On the right, patent external iliac artery, common femoral artery and superficial femoral artery. Atherosclerotic irregularity distal right SFA. Patent popliteal artery on the right. Three-vessel runoff initially. The contrast bolus becomes faint bilaterally at the level of the ankle. A repeat set of images was performed demonstrating three- vessel runoff proximally with two-vessel runoff distally. On the left, there is partial occlusion of the anterior tibial artery. No popliteal stenosis on the left. Patent left common iliac artery. Moderate irregular stenosis at the junction of the internal iliac and external iliac artery. Patent left superficial femoral artery and popliteal artery. No free-fluid. No free air. No bowel obstruction. CT/CTA Abd w/Runoff W/WO Contrast IMPRESSION: Mild infrapopliteal atherosclerosis. Mild superficial femoral artery atherosclerosis without stenosis or occlusion. Atherosclerotic irregularity of the abdominal aorta as well as stenosis of the origin of the celiac artery Reading [facility] CC: JEFF HENDRICKS; [facility] Dinkey Locomotive Operator: Signed Normal [facility] CTA Head AND Neck W/ Contras ton 03-20-2025 CTA Head AND Neck W/ Contrast [facility] Imaging Services [address] [place], [place] [id number] CTA Head AND Neck W/ Contrast MR#: [id number] Acct: [id number] Name: PITER MOSS Rep #: [id number] : 1955 M 69 From: Leroy Burger MD PCP: [facility] Status: REG CLI Study: CTA Head AND Neck W/ Contrast Date of Exam: Exam# [id number] Ordering Dr: JEFF HENDRICKS PROCEDURE: CTA HEAD AND NECK W/ CONTRAST 03/20/2025 REASON FOR EXAM: PERIPHERAL VASCULAR ANGIOPLASTY STATUS WITH IMPLANTS AND GRAFTS TECHNIQUE: CTA imaging of the head and neck from the aortic arch to the skull vertex with out contrast and with intravenous contrast. Multiplanar and multisequence images were obtained. CONTRAST: 75 cc Isovue One or more dose reduction techniques were used (e.g., Automated exposure control, adjustment of the mA and/or kV according to patient size, use of iterative reconstruction technique). COMPARISON: 08/11/2022 FINDINGS: Prior study is 08/11/2022. Prior study demonstrated significant stenosis of the left common carotid artery and left internal carotid artery. Initial noncontrast images of the brain demonstrate no abnormality. Angiographic study demonstrates normal caliber of the aortic arch. No proximal subclavian stenosis. No cervical vertebral narrowing. No distal vertebral dissection. No basilar stenosis. Patent basilar tip. There is no narrowing of the right common carotid artery or the right carotid bifurcation. On the left, there is irregular hypodense plaque of the left carotid bifurcation and this results in a significant degree of proximal left ICA stenosis. This is measured on the current study at 66%. This is improved in comparison to the prior study by measurement. Visually, the appearance is similar. Distal cervical internal carotid arteries are patent. Normal cavernous carotid vessels. Negative for intracranial aneurysm. Negative for large vessel occlusion. Negative for dural sinus thrombosis. CT/CTA Head AND Neck W/ Contrast IMPRESSION: Subjectively similar appearance to the prior study. However, on the current study, the proximal left ICA stenosis is measured approximately 66% Reading Location: [facility] CC: JEFF HENDRICKS; [facility] Dinkey Locomotive Operator: Signed Normal [facility] EGFRon 03-20-2025 GFR/1.73 sq M.predicted among non-blacks MDRD (S/P/Bld) [Vol rate/Area] mL/min/{1.73_m2} >60 [facility] CBC + DIFFon 03-08-2025 Baso # 0.02 x10EE3/UL Normal 0.00 - 0.10 [facility] Comment on above: Performed By: #### 2 [address]71 #### [place] [address] Basophils/100 WBC (Bld) 0.2 % Normal 0.0 - 2.0 [facility] Comment on above: Performed By: #### 2 86432 #### [facility],[address] [place] [address] CBC + DIFF Normal [facility] Comment on above: Result Comment: CBC- COMPLETE BLOOD COUNT Performed By: #### 2 95061 #### [facility],[address] [place] [address] EO # 0.09 x10EE3/UL Normal 0.00 - 0.50 [facility] Comment on above: Performed By: #### 2 94880 #### [facility],[address] [place] [address] Eosinophils/100 WBC (Bld) 0.9 % Normal 0.0 - 7.0 [facility] Comment on above: Performed By: #### 2 93259 #### [facility],[address] [place] [address] Erythrocyte distribution width (RBC) [Ratio] 13.9 % Normal 12.0 - 15.6 [facility] Comment on above: Performed By: #### 2 24556 #### [facility],[address] [place] [address] Hematocrit (Bld) [Volume fraction] 37.5 % Low 40.0 - 52.0 [facility] Comment on above: Performed By: #### 2 44549 #### [facility],[address] [place] [address] Hemoglobin (Bld) [Mass/Vol] 12.6 g/dL Low 13.0 - 17.5 [facility] Comment on above: Performed By: #### 2 21881 #### [facility],[address] [place], [place] [id number] Lymph # 1.79 x10EE3/UL Normal 0.80 - 2.80 [facility] Comment on above: Performed By: #### 2 95626 #### [facility],[address] [place], [place] [id number] Lymphocytes/100 WBC (Bld) 17.2 % Low 20.0 - 45. 0 [facility] Comment on above: Performed By: #### 2 52592 #### [place] [id number] MANUAL DIFF N/A Normal [facility] Comment on above: Performed By: #### 2 27319 #### [facility],[address] [place], [place] [id number] MCH (RBC) [Entitic mass] 32 pg Normal 27 - 33 [facility] Comment on above: Performed By: #### 2 30177 #### [facility],[address] [place] [address] MCHC 34 X10 3 Normal 32 - 36 [facility] Comment on above: Performed By: #### 2 72667 #### [facility],[address] [place] [address] MCV (RBC) [Entitic vol] 94 fL Normal 81 - 98 [facility] Comment on above: Performed By: #### 2 23113 #### [facility],[address] [place] [address] [place] # 0.78 x10EE3/UL Normal 0.20 - 1.00 [facility] Comment on above: Performed By: #### 2 81396 #### [facility],[address] [place] [address] MONOS % 7.5 % Normal 0.0 - 10.0 [facility] Comment on above: Performed By: #### 2 [id number] #### [facility],[address] [place] [address] 77342 Morphology Christ (Bld) [Interp] N/A Normal [facility] Comment on above: Performed By: #### 2 04478 #### [facility],[address] [place] [address] 30072 Neut # 7.71 x10EE3/UL High 1.50 - 7.10 [facility] Comment on above: Performed By: #### 2 63984 #### [facility],[address] [place] [address] 75997 Neutrophils/100 WBC (Bld) 74.2 % Normal 46.0 - 76. 0 [facility] Comment on above: Performed By: #### 2 68421 #### [facility],[address] [place] [address] 58616 PLATELET 179 x10EE3/UL Normal 150 - 450 [facility] Comment on above: Performed By: #### 2 01624 #### [facility],[address] [place] [address] 59338 Platelet mean volume (Bld) [Entitic vol] 7.9 fL Normal 6.4 - 10.5 [facility] Comment on above: Result Comment: AUTO MATED DIFFERENTIAL Performed By: #### 2 59191 #### [facility],[address] [place] [address] 29719 RBC 4.01 x 10EE6/UL Low 4.50 - 6.00 [facility] Comment on above: Performed By: #### 2 47228 #### [facility],[address] [place] [address] 72251 WBC 10.4 x 10EE3/UL Normal 4.5 - 10.8 [facility] Comment on above: Performed By: #### 2 47874 #### [facility],[address] [place] [address] 66276 CHEST 1 VIEWon 03-08-2025 CHEST 1 VIEW [place] [address] Patient: PITER MOSS Phone#: : 1955 Age: 69 Gender: M Pt. Type: ER Account: [id number] Location: [facility] Ordering: JARED IVAN Exam Date: 03/08/2025/11:14 Family Phys: REBECCA JEFFRY Charge Code: 302614 Physician: [place] Order #: [id number] Dose#: PROCEDURE: X-RAY CHEST 1 VIEW COMPARISON: [facility], , CHEST 2 VIEWS, 01/23/2025, 14:21. INDICATIONS: Cough. FINDINGS: LUNGS: Mild increase right infrahilar density possible chronic interstitial change. No significant pulmonary parenchymal abnormalities. VASCULATURE: Normal. Unremarkable pulmonary vasculature. CARDIAC: Normal. No cardiac silhouette abnormality or cardiomegaly. MEDIASTINUM: Normal. No visible mass or adenopathy. PLEURA: Normal. No effusion or pleural thickening. BONES: Normal. No fracture or visible bony lesion. OTHER: Negative. CONCLUSION: No acute disease. No significant change has occurred. Dictated by: Zabrina Sanchez MD on 03/08/2025 at 17:47 Approved by: Zabrina Sanchez MD on 03/08/2025 at 17:51 Normal [facility] CMP with eGFRon 03-08-2025 AGE 69 years Normal [facility] Comment on above: Performed By: #### 2 56856 #### [facility],[address] [place] [address] 79439 Albumin [Mass/Vol] 3.1 g/dL Low 3.4 - 5.0 [facility] Comment on above: Performed By: #### 2 93926 #### [facility],[address] [place] [address] 33747 Albumin/Globulin [Mass ratio] 0.7 {ratio} Low 0.9 - 1.6 [facility] Comment on above: Performed By: #### 2 36925 #### [facility],[address] [place] [address] 17032 ALK PHOS 159 U/L High 46 - 116 [facility] Comment on above: Performed By: #### 2 94791 #### [facility],[address] [place] [address] 25952 ALT [Catalytic activity/Vol] 14 U/L Low 16 - 63 [facility] Comment on above: Performed By: #### 2 38567 #### [facility],[address] [place] [address] 20077 Anion gap [Moles/Vol] 12 mmol/L Normal 10 - 20 [facility] Comment on above: Performed By: #### 2 43734 #### [facility],[address] [place] [address] 57375 AST [Catalytic activity/Vol] 13 U/L Low 15 - 37 [facility] Comment on above: Performed By: #### 2 86344 #### [facility],[address] [place] [address] 50027 B/C RATIO 15 ratio Normal 0 - 30 [facility] Comment on above: Performed By: #### 2 76654 #### [facility],[address] [place] [address] 85146 Bilirubin [Mass/Vol] 0.9 mg/dL Normal 0.2 - 1.0 [facility] Comment on above: Performed By: #### 2 97902 #### [facility],[address] [place] [address] 89645 Calcium [Mass/Vol] 8.9 mg/dL Normal 8.5 - 10.1 [facility] Comment on above: Performed By: #### 2 26074 #### [facility],[address] [place] [address] 29995 Chloride [Moles/Vol] 98 mmol/L Normal 98 - 107 [facility] Comment on above: Performed By: #### 2 90540 #### [facility],[address] [place] [address] 67997 CMP with eGFR Normal [facility] Comment on above: Result Comment: COMP REHENSIVE METABOLIC PANEL Performed By: #### 2 96872 #### [facility],[address] [place] [address] 35526 CO2 [Moles/Vol] 26.1 mmol/L Normal 21.0 - 32.0 [facility] Comment on above: Performed By: #### 2 11283 #### [facility],[address] [place] [address] 76138 Creatinine [Mass/Vol] 0.95 mg/dL Normal 0.70 - 1.[address] [facility] Comment on above: Performed By: #### 2 87650 #### [facility],[address] [place] [address] 92345 GFR/1.73 sq M.predicted among non-blacks MDRD (S/P/Bld) [Vol rate/Area] mL/min/{1.73_m2} Normal 60 - 999 [facility] Comment on above: Performed By: #### 2 43369 #### [facility],[address] [place] [address] 12500 Result Comment: ACCO RDING TO THE NATIONAL KIDNEY DISEASE EDUCATION PROGRAM(NKDE), A NORMAL eGFR IS A VALUE GREATER THAN OR EQUAL TO 60 ML/MIN/1.73 SQ METERS. CHRONIC KIDNEY DISEASE: <60mL/MIN/1.73 SQ METERS KIDNEY FAILURE: <15mL/MIN/1.73 SQ METERS THIS TEST SHOULD ONLY BE USED FOR PATIENTS 18 YEARS OF AGE AND OLDER. Globulin (S) [Mass/Vol] 4.3 g/dL High 1.5 - 3.8 [facility] Comment on above: Performed By: #### 2 57169 #### [facility],[address] [place] [address] 46565 Glucose [Mass/Vol] 178 mg/dL High 74 - 106 [facility] Comment on above: Performed By: #### 2 03363 #### [facility],[address] [place] [address] 08730 Potassium [Moles/Vol] 4.4 mmol/L Normal 3.5 - 5.1 [facility] Comment on above: Performed By: #### 2 14591 #### [facility],[address] [place] [address] 48163 Protein [Mass/Vol] 7.4 g/dL Normal 6.4 - 8.2 [facility] Comment on above: Performed By: #### 2 24726 #### [facility],[address] [place] [address] 75704 Sodium [Moles/Vol] 132 mmol/L Low 136 - 145 [facility] Comment on above: Performed By: #### 2 30261 #### [facility],[address] [place] [address] 08127 Urea nitrogen [Mass/Vol] 14 mg/dL Normal 7 - 18 [facility] Comment on above: Performed By: #### 2 73758 #### [facility],[address] [place] [address] 97948 CULTURE BLOOD [NOAH]on Microscopic examination of blood, culture CULTURE BLOOD [NOAH] _BLOOD CULTURE_ GO TO [facility] REPORTS AND ATTACHMENTS FOR SCANNED REPORT 03/17/25.1228.DNP.CO MPLETE Normal [facility] Comment on above: Performed By: #### 2 19207 #### [facility],[address] [place] [address] 31972 ED MED ADMINISTRATION DETAIL on 03-08-2025 ED MED ADMINISTRATION DETAIL Technical Support Director Medication Administration Record [address] [place] [address] [id number] 03/08/2025 Patient: PITER MOSS Sex: Male : 1955 Age: 69y MEASUREMENTS: Wt: 81.6 kg, Ht/Alexandro: 70.0 in, BMI: 25.83 ALLERGIES: No known drug allergies Medication Ordered Medication Administration Date/Time IV NS 0.9 % 1000 11:57 03/08 IV NS 0.9 % 1000 mL started in bag#1 1000 mL at Started mL at 999 mL/hr 999 mL/hr via Site# 1. Allergies verified and confirmed 5 rights. IV 11:57 03/08/2025 (NOW x1) patency established. IV site checked: no pain, redness, or swelling. Khari Ceballos R.N. IV flushed thoroughly pre-medication administration. Information Stopped reviewed with patient. Verbalizes understanding. - 11:57 Khari 13:16 03/08/2025 Valerie Ceballos R.N. Scanned 13:16 03/08 Medication Discontinued: bag #1 infused. Total amount infused: 1000 mL. IV patency established. IV site checked: no pain, redness, or swelling. IV flushed thoroughly post-medication administration. - 13:16 Khari Ceballos R.N. Albuterol-Ipratropiu 11:13 03/08 Albuterol-Ipratropiu m (DuoNeb) 3mg/0.5mg Neb Tx 3 Given m (DuoNeb) mL given. - 11:14 Nato WeinsteinRDannaT. 11:13 03/08/2025 3mg/0.5mg Neb Tx Lanie WeinsteinTDanna 3 mL (NOW x1) Scanned 1 of 1 Normal [facility] ED NURSES CLINICAL NOTEon ED NURSES CLINICAL NOTE Nurse Narrative Nurse Clinical Narrative [place] [address] [place] [address] [phone] 03/08/2025 10:56:00 Patient: PITER MOSS Sex: Male : 1955 Age: 69y Disposition: Discharge Disposition Decision Time: 13:53 03/08/2025 Departure Time: 14:03 03/08/2025 TRIAGE Arrived by private vehicle. Historian: (patient). Accompanied by family. Patient has a primary care physician. [place] Triage time: 11:00 03/08/2025. Acuity: LEVEL 3. Chief Complaint: WEAKNESS. ( pt checked his blood pressure this morning after taking his BP meds and was found to have low blood pressure. pt states he feels weak but no other symptoms). SEPSIS SCREEN: NEGATIVE. SIRS criteria negative. No possible sources of infection. -- :03/08/25 EDT Khari Ceballos R.N. 11:03/08/25. BP: 85/43 MAP: 57. HR: 65. RR: 18. O2 saturation: 95% Temperature: 98.6 F. Pain level now 03/31. -- 11:03/08/25 EDT Khari Ceballos R.N. Measurements: 11:03/08/25 Wt: 81.6 kg, Ht/Alexandro: 70.0 in, BMI: 25.83 -- 11:03/08/25 EDT Khari Ceballos R.N. Medications: unable to obtain, pt states list is at home -- 11:03/08/25 EDT Khari Ceballos R.N. 1 of 4 Nurse Narrative Allergies: no known drug allergies -- 11:03/08/25 JAYCE Ceballos R.N. Problems: COPD - Chronic Obstructive Pulmonary Disease -- 11:03/08/25 JAYCE Ceballos R.N. Hypertension -- 11:03/08/25 АЛЕКСАНДРT Khari Ceballos R.N. Diabetes Mellitus -- 11:03/08/25 АЛЕКСАНДРT Khari Ceballos R.N. Surgeries: no known surgical history -- 11:03/08/25 JAYCE Ceballos R.N. History 11:03/08/25. SOCIAL HX: Former smoker. Drug use: marijuana. (daily). No alcohol use. The patient has not traveled outside the [place] Infectious disease exposure: No infectious disease exposure. ABUSE ASSESSMENT: Abuse denied. SELF HARM ASSESSMENT: Self harm assessment was performed. The patient answered no to the question(s) Do you have thoughts of harming or killing yourself? and Do you have a plan for harming or killing yourself?. FALL RISK ASSESSMENT: Fall risk assessment completed. Risk factors identified include patient age greater than 65 years. -- 11:03/08/25 JAYCE Ceballos R.N. Interventions 11:03/08/25. Advanced care plan discussed with patient. Patient does not have advanced directive. -- 03/08/25 JAYCE Ceballos R.N. PHYSICAL ASSESSMENT 2 of 4 Nurse Narrative 11:03/08/25. Ambulatory to room. GENERAL / NEURO / PSYCH: Oriented X 4. Appears in no acute distress. Alert. Speech within normal limits. RESPIRATORY: Wheezes diffusely over both lungs; rhonchi right lung base posteriorly; left lung base posteriorly. Respirations not labored. CVS: Capillary refill less than 2 seconds. GI / : Abdomen soft and nontender. SKIN: Skin is warm and dry. -- 03/08/25 JAYCE Ceballos R.N. NURSING PROGRESS NOTES 11:03/08/25. Albuterol-Ipratropiu m (DuoNeb) 3mg/0.5mg Neb Tx 3 mL given. -- 11:14 03/08/25 АЛЕКСАНДРT Main [place] R.R.T. 11:17 03/08/25. Site #1 started via IV in the right forearm with a 20g angiocath with aseptic technique and good blood return; 1 attempt. Blood drawn: rainbow set and briones tube(s) and cultures x 1. Labeled in the presence of the patient and sent to the lab. Saline lock flushed with 5 mL saline. -- 11:17 03/08/25 JAYCE Ceballos R.N. 11:57 03/08/25. IV NS 0.9 % 1000 mL started in bag#1 1000 mL at 999 mL/hr via Site# 1. Allergies verified and confirmed 5 rights. IV patency established. IV site checked: no pain, redness, or swelling. IV flushed thoroughly pre-medication administration. Information reviewed with patient. Verbalizes understanding. -- 11:57 03/08/25 JAYCE Ceballos R.N. 13:16 03/08/25. IV NS 0.9 %: Medication Discontinued. bag #1 infused. Total amount infused: 1000 mL. IV patency established. IV site checked: no pain, redness, or swelling. IV flushed thoroughly post-medication administration. -- 13:16 03/08/25 АЛЕКСАНДРT Khari Ceballos R.N. Respiratory Therapy Flowsheet 11:13 03/08/25. Respiratory treatment performed. Pre assessment. O2 saturation- 97 (FIO2-3 liter/min nasal cannula). Heart rate: (64). Respiratory rate: (18). No respiratory distress. Respirations not labored. (exp wheezes bilat through out). -- 11:15 03/08/25 АЛЕКСАНДРT [facility] [place] R.R.T. 11:19 03/08/25. Post assessment. O2 saturation- 96 (FIO2-3 liter/min nasal cannula). Heart rate: (65). Respiratory rate: (18). No respiratory distress. Respirations not labored. (exp wheezes bilat through out). -- 11:03/08/25 JAYCE [place]on R.R.T. DISPOSITION / DISCHARGE 13:54 03/08/25. BP: 125/59 MAP: 77 mmHg. HR: 57 bpm. -- 14:02 03/08/25 JAYCE Ceballos R.N. 13:56 03/08/25. HR: 57 bpm. O2 saturation: 95%. -- 14:02 03/08/25 EDT Khari Ceballos R.N. 14:02 (more content not included)... Normal [facility] ED ORDER SHEET (CPOE ONLY)on 03-08-2025 ED ORDER SHEET (CPOE ONLY) Order Sheet Order Sheet [address] [id number] 03/08/2025 Patient: PITER MOSS Sex: Male : 1955 Age: 69y MEASUREMENTS: Wt: 81.6 kg, Ht/Alexandro: 70.0 in, BMI: 25.83 ALLERGIES: No known drug allergies MEDICATION/IV/DRIP/F LUID ORDERS Order Description Priority Entered Acknowledged Completed IV NS 0.9 %1000 mL at 999 11:05 03/08/2025 11:16 11:57 mL/hr (NOW x1) Jared Ivan, 03/08/2025 03/08/2025 Khari Matthews R.N. R.N. Albuterol-Ipratropiu m (DuoNeb) 11:05 03/08/2025 11:14 3mg/0.5mg Neb Tx3 mL (NOW Jared Ivan, 03/08/2025 x1) Nato SamuelsRAkosua LAB ORDERS Order Description Priority Entered Acknowledged Collected Completed EKG - ED Stat Stat 11:05 03/08/2025 11:15 03/08/2025 11:55 03/08/2025 Khari Hauser Lemasters, D.O. R.N. R.N. Troponin-I Stat Stat 11:05 03/08/2025 11:15 03/08/2025 11:15 03/08/2025 Khari Hauser, 1 of 3 Order Sheet Rosa Elena IvanN. R.N. Lactate, Serum Stat Stat 11:05 03/08/2025 11:15 03/08/2025 11:15 03/08/2025 Khari Hauser Lemasters, D.O. R.NDanna R.N. CBC w Diff Stat Stat 11:05 03/08/2025 11:15 03/08/2025 11:15 03/08/2025 Khari Hauser Lemasters, D.O. R.NDanna R.N. CMP Stat Stat 11:05 03/08/2025 11:15 03/08/2025 11:15 03/08/2025 Khari Hauser Lemasters, D.O. R.N. R.N. Blood Culture Stat 11:05 03/08/2025 11:15 03/08/2025 11:15 03/08/2025 [Noah] # 1 Stat Khari Hauser Lemasters, D.O. R.NDanna R.NDanna Blood Culture Stat 11:03/08/2025 11:15 03/08/2025 [Noah] # 2 Stat Kandi Hauser D.O. R.Camacho Urinalysis Stat Stat 11:03/08/2025 11:15 03/08/2025 Kandi Hauser D.O. R.Camacho DIAGNOSTIC STUDY ORDERS Order Description Priority Entered Acknowledged Completed Chest 1V Stat Stat 11:03/08/2025 11:16 11:55 Jared Ivan, 03/08/2025 03/08/2025 Khari Matthews, 2 of 3 Order Sheet R.N. R.N. Reason for Study: Cough STAFF ORDERS Order Description Priority Entered Acknowledged Collected Completed Ntfy if Abnml Vitals 11:05 03/08/2025 11:16 03/08/2025 12:01 03/08/2025 Khari Hauser Lemasters, D.O. R.N. R.N. Screen Printing Inspector 11:05 03/08/2025 11:15 03/08/2025 11:15 03/08/2025 Khari Hauser Lemasters, D.O. R.N. RDannaNDanna IO 11:05 03/08/2025 11:15 03/08/2025 11:55 03/08/2025 Khari Hauser Lemasters, D.O. R.N. RDannaNDanna [Electronically signed by Jared Ivan D.O. (03/08/2025 13:54 EDT)] 3 of 3 Normal [facility] ED PHYSICIAN CLINICAL REPORT on 03-08-2025 ED PHYSICIAN CLINICAL REPORT Narrative Physician Clinical Narrative [place] [address] [place] [address] [id number] 03/08/2025 10:56:00 Patient: PITER MOSS Sex: Male : 1955 Age: 69y Disposition: Discharge Disposition Decision Time: 13:53 03/08/2025 Measurements Wt: 81.6 kg, Ht/Alexandro: 70.0 in, BMI: 25.83 Initial Vital Sign Measured Time BP MAP HR RR O2Sat ETCO2 Temp Pain GCS RTS 11:01 03/08/2025 63 97% Time Seen: 10:58 03/08/2025. Arrived- By private vehicle. Historian- patient. Independent historian- family. HISTORY OF PRESENT ILLNESS Chief Complaint: hypotension. This started yesterday. The patient has had fatigue. (Patient presents with his with concern for low blood pressure. Feeling weak since yesterday. Persistent cough however patient is oxygen dependent COPD. Denies any fever, chills, nausea, vomiting, diarrhea, abdominal pain, urinary symptoms.). REVIEW OF SYSTEMS CONSTITUTIONAL: No fever or chills. GI: No abdominal pain, nausea, vomiting or diarrhea. : No difficulty with urination. PAST HISTORY 1 of 10 Narrative COPD - Chronic Obstructive Pulmonary Disease Diabetes Mellitus Hypertension Surgeries: no known surgical history Medications: unable to obtain, pt states list is at home Allergies: no known drug allergies SOCIAL HISTORY Former smoker. No alcohol use or drug use. ADDITIONAL NOTES The nursing notes have been reviewed. PHYSICAL EXAM Vital Signs: Have been reviewed. Appearance: Alert. No acute distress. Eyes: Pupils equal, round and reactive to light. Eyes normal inspection. ENT: Nose normal. Pharynx normal. Neck: Normal inspection. Neck supple. CVS: Normal heart rate and rhythm. Heart sounds normal. Pulses normal. Respiratory: No respiratory distress. Mild bilateral wheezes present. Abdomen: No visible injury. Soft and nontender. Skin: Skin warm and dry. Normal skin color. Extremities: No lower extremity edema. Neuro: No motor deficit. No sensory deficit. LABS, X-RAYS, AND EKG 2 of 10 Narrative 12-LEAD EKG: EKG time: 11:38 03/08/2025. Normal sinus rhythm. Rate: 61. Normal P waves. Normal QRS complex. Non-specific ST segment / T wave abnormalities. The study has been interpreted contemporaneously by me. Interpretation time: 11:40 03/08/2025. Chest X-ray: No acute disease. The X-rays were interpreted contemporaneously by me. Laboratory Tests: CBC + DIFF Final RUT: 03/08/2025 11:15:00 EDT MsgRcvd: 03/08/2025 11:49 EDT Lab Test Result Reference Status Received Comments 03/08/2025 11:49 CBC-COMPLETE CBC + DIFF Final EDT BLOOD COUNT 03/08/2025 11:49 WBC 10.4 x 10/UL 4.5 - 10.8 Final EDT 4.01 x 10/UL 03/08/2025 11:49 RBC 4.50 - 6.00 Final Below low normal EDT 12.6 g/dl 03/08/2025 11:49 HEMOGLOBIN 13.0 - 17.5 Final Below low normal EDT 37.5 % 03/08/2025 11:49 HEMATOCRIT 40.0 - 52.0 Final Below low normal EDT 03/08/2025 11:49 MCV 94 fl 81 - 98 Final EDT 03/08/2025 11:49 MCH 32 pg 27 - 33 Final EDT 03/08/2025 11:49 MCHC 34 X10 3 32 - 36 Final EDT 03/08/2025 11:49 RDW/CV 13.9 % 12.0 - 15.6 Final EDT 3 of 10 Narrative Lab Test Result Reference Status Received Comments 03/08/2025 11:49 PLATELET 179 x10/UL 150 - 450 Final EDT 03/08/2025 11:49 AUTOMATED MPV 7.9 fl 6.4 - 10.5 Final EDT DIFFERENTIAL 03/08/2025 11:49 NEUT % 74.2 % 46.0 - 76.0 Final EDT 17.2 % 03/08/2025 11:49 LYMPH % 20.0 - 45.0 Final Below low normal EDT 03/08/2025 11:49 MONOS % 7.5 % 0.0 - 10.0 Final EDT 03/08/2025 11:49 EO % 0.9 % 0.0 - 7.0 Final EDT 03/08/2025 11:49 BASO % 0.2 % 0.0 - 2.0 Final EDT 03/08/2025 11:49 Lymph # 1.79 x10/UL 0.80 - 2.80 Final EDT 7.71 x10/UL 03/08/2025 11:49 Neut # 1.50 - 7.10 Final Above high normal EDT 03/08/2025 11:49 [place] # 0.78 x10/UL 0.20 - 1.00 Final EDT 03/08/2025 11:49 EO # 0.09 x10/UL 0.00 - 0.50 Final EDT 03/08/2025 11:49 Baso # 0.02 x10/UL 0.00 - 0.10 Final EDT 03/08/2025 11:49 MANUAL DIFF N/A New Order EDT 4 of 10 Narrative Lab Test Result Reference Status Received Comments 03/08/2025 11:49 MORPHOLOGY N/A New Order EDT CMP with eGFR Final RUT: 03/08/2025 11:15:00 EDT MsgRcvd: 03/08/2025 12:07 EDT Lab Test Result Reference Status Received Comments COMPREHENSIVE 03/08/2025 CMP with eGFR Final METABOLIC 12:07 EDT PANEL 132 mmol/l 03/08/2025 SODIUM 136 - 145 Final Below low normal 12:07 EDT 03/08/2025 POTASSIUM 4.4 mmol/L 3.5 - 5.1 Final 12:07 EDT 03/08/2025 CHLORIDE 98 mmol/L 98 - 107 Final 12:07 EDT 03/08/2025 CO2 26.1 mmol/L 21.0 - 32.0 Final 12:07 EDT 178 mg/dl 03/08/2025 GLUCOSE Above high 74 - 106 Final 12:07 EDT normal 03/08/2025 BUN 14 mg/dl 7 - 18 (more content not included)... Normal [facility] ED SUPER BILLon 03-08-2025 ED [place] [address] [facility] [place] [address] [phone] 03/08/2025 Patient: PITER MOSS Sex: Male : 1955 Age: 69y Item Facility Professional Category Description Code Code Quantity Fee Total Drugs Normal Saline 976863 1 $0.00 $0.00 1000cc (267435) Nurse/E/M EMERGENCY 381341 1 $0.00 $0.00 DEPARTMENT VISIT HIGH/URGENT SEVERITY (87425-19) Nurse/IV/IM/Infusion s Hydration initial 517121 1 $0.00 $0.00 (50754) Nurse/Procedures Respiratory 705330 1 $0.00 $0.00 therapy - inhalation (45435) Grand Total $0.00 Providers Jared Ivan D.O. 1 of 2 [facility] Chief Complaint hypotension. Principal Diagnosis Transient, hypotension. Acute exacerbation of COPD. ICD-10 Codes I95.89: Other hypotension J44.1: Chronic obstructive pulmonary disease with (acute) exacerbation [address] [facility] ED VISIT SUMMARYon ED VISIT SUMMARY Visit Overview Visit Overview [address] [place] [address] [id number] 03/08/2025 Patient: PITER MOSS Sex: Male : 1955 Age: 69y 03/08/2025 05:04 PM EDT ED Arrival:10:56 03/08/2025 EDT Status: Recent Travel: Language:eng Adv Directive: Isolation Status: Ethnicity:N Fall Risk: Infectious Disease Exposure: Measurements:5'10 / 177.8 Self-Harm Status: Sepsis Screen: cm 180.0 lb / 81.6 kg Chief Complaint: ALLERGIES No Known Drug Allergies HOME MEDICATIONS unable to obtain, pt states list is at home PAST MEDICAL HISTORY / PROBLEMS COPD - Chronic Obstructive Pulmonary Disease Diabetes Mellitus Hypertension 1 of 3 Visit Overview PAST SURGICAL HISTORY No Surgeries SOCIAL HISTORY ED COURSE MEDICATIONS GIVEN IN EMERGENCY DEPARTMENT 11:13 03/08/25 Albuterol-Ipratropiu m (DuoNeb) 3mg/0.5mg Neb Tx 3 mL 11:57 03/08/25 IV NS 0.9 % 1000 mL 999 mL/hr IV SITE INFORMATION INTAKE OUTPUT REASSESMENT (most recent) VITAL SIGNS First Vitals Last Vitals Temp 11:01 03/08/25 Temp 13:56 03/08/25 BP 11:01 03/08/25 BP 13:56 03/08/25 HR 11:01 03/08/25 63 HR 13:56 03/08/25 57 RR 11:01 03/08/25 RR 13:56 03/08/25 O2 Sat 11:01 03/08/25 97% O2 Sat 13:56 03/08/25 95% Pain 11:01 03/08/25 Pain 13:56 03/08/25 ETCO2 11:01 03/08/25 ETCO2 13:56 03/08/25 GCS 11:01 03/08/25 GCS 13:56 03/08/25 RTS 11:01 03/08/25 RTS 13:56 03/08/25 PROCEDURES NURSING INTERVENTIONS LABS / STUDIES LABS / STUDIES ORDERED Blood Culture [Noah] # 1 Blood Culture [Noah] # 2 2 of 3 Visit Overview CBC w Diff Chest 1V CMP EKG - ED Lactate, Serum Troponin-I Urinalysis CLINICAL IMPRESSION ACUTE EXACERBATION OF COPD TRANSIENT, HYPOTENSION 3 of 3 Normal [facility] ED VITALS FLOW SHEETon 03-08 ED VITALS FLOW SHEET Vitals Vital Sign Flow Sheet [address] [place] [address] [phone] 03/08/2025 Patient: PITER MOSS Sex: Male : 1955 Age: 69y Measurements Wt: 81.6 kg, Ht/Alexandro: 70.0 in, BMI: 25.83 Measured Time BP MAP HR RR O2Sat ETCO2 Temp Pain GCS RTS 13:56 03/08/2025 57 95% 13:54 03/08/2025 125/59 77 57 13:51 03/08/2025 64 96% 13:46 03/08/2025 58 97% 13:41 03/08/2025 59 96% 13:39 03/08/2025 120/59 71 59 13:36 03/08/2025 59 96% 13:31 03/08/2025 58 95% 13:26 03/08/2025 59 94% 13:24 03/08/2025 109/57 76 61 13:21 03/08/2025 61 94% 13:16 03/08/2025 60 94% 13:11 03/08/2025 63 95% 13:10 03/08/2025 122/64 77 62 13:06 03/08/2025 61 94% 1 of 3 Vitals Measured Time BP MAP HR RR O2Sat ETCO2 Temp Pain GCS RTS 13:01 03/08/2025 59 95% 12:56 03/08/2025 59 96% 12:54 03/08/2025 107/57 80 62 12:51 03/08/2025 62 96% 12:46 03/08/2025 62 97% 12:41 03/08/2025 66 97% 12:40 03/08/2025 133/68 77 63 12:36 03/08/2025 58 97% 12:31 03/08/2025 61 97% 12:26 03/08/2025 62 96% 12:24 03/08/2025 122/63 75 61 12:21 03/08/2025 60 95% 12:16 03/08/2025 63 96% 12:11 03/08/2025 60 95% 12:10 03/08/2025 123/63 72 59 12:06 03/08/2025 59 96% 12:01 03/08/2025 59 95% 11:56 03/08/2025 62 94% 11:54 03/08/2025 104/58 68 62 11:51 03/08/2025 59 95% 11:46 03/08/2025 60 96% 11:41 03/08/2025 60 96% 11:39 03/08/2025 97/58 68 61 11:36 03/08/2025 62 97% 11:31 03/08/2025 59 96% 2 of 3 Vitals Measured Time BP MAP HR RR O2Sat ETCO2 Temp Pain GCS RTS 11:27 03/08/2025 105/58 67 60 11:26 03/08/2025 61 95% 11:21 03/08/2025 62 97% 11:16 03/08/2025 69 85% 11:11 03/08/2025 63 97% 11:06 03/08/2025 65 96% 11:02 03/08/2025 85/43 57 65 18 95% 98.6 F 6 11:01 03/08/2025 63 97% 3 of 3 Normal [facility] LACTATEon 03-08-2025 Lactate [Moles/Vol] 1.3 mmol/L Normal 0.4 - 2.0 [facility] Comment on above: Performed By: #### 2 40236 #### [facility],[address] [place], [place] [id number] Lactate [Moles/Vol] 2.1 mmol/L High 0.4 - 2.0 [facility] Comment on above: Result Comment: LACT ATE 3 HR NOTIFIED TO: _TIFF 03/08/25.1200.MKY. . . LACTATE 3 HR NOTIFIED BY: _MKY 03/08/25.1200.MKY. . . Performed By: #### 2 17855 #### [facility],[address] [place] [address] 98971 TROPONINon 03-08-2025 HS TROPONIN 4.3 pg/mL Normal 0.0 - 76.2 [facility] Comment on above: Performed By: #### 2 89894 #### [facility],[address] [place] [address] 32353 URINALYSISon 03-08-2025 Bilirubin Ql (U) Negative Normal NORMAL: NEGATIVE [facility] Comment on above: Performed By: #### 2 68154 #### [facility],[address] [place] [address] 42760 Clarity (U) clear Normal NORMAL: CLEAR [facility] Comment on above: Performed By: #### 2 30459 #### [facility],[address] [place] [address] 94842 Color (U) yellow Normal NORMAL: YELLOW [facility] Comment on above: Performed By: #### 2 39007 #### [facility],[address] [place] [address] 87760 Glucose Ql (U) NORM Normal NORMAL: NORMAL [facility] Comment on above: Performed By: #### 2 84787 #### [facility],[address] [place] [address] 79849 Hemoglobin Ql (U) Negative Normal NORMAL: NEGATIVE [facility] Comment on above: Performed By: #### 2 54689 #### [facility],[address] [place] [address] 79755 Ketone Negative Normal NORMAL: NEGATIVE [facility] Comment on above: Performed By: #### 2 09779 #### [facility],[address] [place] [address] 09018 Leukocytes Negative Normal NORMAL: NEGATIVE [facility] Comment on above: Performed By: #### 2 81118 #### [facility],[address] [place] [address] 19073 Nitrite Ql (U) Negative Normal NORMAL: NEGATIVE [facility] Comment on above: Performed By: #### 2 27031 #### [facility],[address] [place] [address] 22662 pH (U) 7 [pH] Normal NORMAL: 5.0-8.0 [facility] Comment on above: Performed By: #### 2 96386 #### [facility],[address] [place] [address] 59359 Protein Ql (U) 15 Abnormal NORMAL: NEGATIVE [facility] Comment on above: Performed By: #### 2 20418 #### [facility],[address] [place] [address] Sp Craig 1.010 Normal NORMAL: 1.010-1.030 [facility] Comment on above: Performed By: #### 2 60991 #### [facility],[address] [place] [address] Specimen Type R Normal [facility] Comment on above: Performed By: #### 2 33814 #### [facility],[address] [place] [address] Urinalysis dipstick W Reflex Microscopic panel (U) NOT INDICATED Normal [facility] Comment on above: Performed By: #### 2 90195 #### [facility],[address] [place] [address] Urobilinog 4 Abnormal NORMAL: NORMAL [facility] Comment on above: Performed By: #### 2 63657 #### [facility],[address] [place] [address] BMP with eGFRon 01-26-2025 AGE 69 years Normal [facility] Comment on above: Performed By: #### 2 84426 #### [facility],[address] [place] [address] Anion gap [Moles/Vol] 8 mmol/L Low 10 - 20 [facility] Comment on above: Performed By: #### 2 99717 #### [facility],[address] [place] [address] BMP with eGFR Normal [facility] Comment on above: Result Comment: BASI C METABOLIC PANEL Performed By: #### 2 65696 #### [facility],[address] [place], [place] [id number] Calcium [Mass/Vol] 8.4 mg/dL Low 8.5 - 10.1 [facility] Comment on above: Performed By: #### 2 47123 #### [facility],[address] [place] [address] Chloride [Moles/Vol] 94 mmol/L Low 98 - 107 [facility] Comment on above: Performed By: #### 2 49689 #### [facility],[address] [place] [address] CO2 [Moles/Vol] 31.5 mmol/L Normal 21.0 - 32.0 [facility] Comment on above: Performed By: #### 2 13347 #### [facility],[address] [place], [place] [address] Creatinine [Mass/Vol] 0.85 mg/dL Normal 0.70 - 1.[address] [facility] Comment on above: Performed By: #### 2 27468 #### [facility],[address] [place] [address] GFR/1.73 sq M.predicted among non-blacks MDRD (S/P/Bld) [Vol rate/Area] mL/min/{1.73_m2} Normal 60 - 999 [facility] Comment on above: Performed By: #### 2 84340 #### [facility],[address] [place] [address] Result Comment: ACCO RDING TO THE NATIONAL KIDNEY DISEASE EDUCATION PROGRAM(NKDE), A NORMAL eGFR IS A VALUE GREATER THAN OR EQUAL TO 60 ML/MIN/1.73 SQ METERS. CHRONIC KIDNEY DISEASE: <60mL/MIN/1.73 SQ METERS KIDNEY FAILURE: <15mL/MIN/1.73 SQ METERS THIS TEST SHOULD ONLY BE USED FOR PATIENTS 18 YEARS OF AGE AND OLDER. Glucose [Mass/Vol] 242 mg/dL High 74 - 106 [facility] Comment on above: Performed By: #### 2 88163 #### [facility],[address] [place], [place] [id number] Potassium [Moles/Vol] 3.9 mmol/L Normal 3.5 - 5.1 [facility] Comment on above: Performed By: #### 2 06754 #### [facility],[address],[place] [address] Sodium [Moles/Vol] 130 mmol/L Low 136 - 145 [facility] Comment on above: Performed By: #### 2 86331 #### [facility],[address] [place] [address] 31503 Urea nitrogen [Mass/Vol] 29 mg/dL High 7 - 18 [facility] Comment on above: Performed By: #### 2 75729 #### [facility],[address] [place] [address] 31980 CBC + DIFFon 01-26-2025 Baso # 0.02 x10EE3/UL Normal 0.00 - 0.10 [facility] [place] Comment on above: Performed By: #### 2 50575 #### [facility],[address] [place] [address] 59401 Basophils/100 WBC (Bld) 0.2 % Normal 0.0 - 2.0 [facility] Comment on above: Performed By: #### 2 82954 #### [facility],[address] [place] [address] 44466 CBC + DIFF Normal [facility] Comment on above: Result Comment: CBC- COMPLETE BLOOD COUNT Performed By: #### 2 40561 #### [facility],[address] [place] [address] 20742 EO # 0.04 x10EE3/UL Normal 0.00 - 0.50 [facility] [place] Comment on above: Performed By: #### 2 05925 #### [facility],[address] [place] [address] 97858 Eosinophils/100 WBC (Bld) 0.3 % Normal 0.0 - 7.0 [facility] Comment on above: Performed By: #### 2 37939 #### [facility],[address] [place] [address] 83332 Erythrocyte distribution width (RBC) [Ratio] 13.1 % Normal 12.0 - 15.6 [facility] Comment on above: Performed By: #### 2 56576 #### [facility],[address] [place] [address] 71038 Hematocrit (Bld) [Volume fraction] 43.3 % Normal 40.0 - 52.0 [facility] Comment on above: Performed By: #### 2 65247 #### [facility],[address] [place] [address] 90431 Hemoglobin (Bld) [Mass/Vol] 14.8 g/dL Normal 13.0 - 17.5 [facility] Comment on above: Performed By: #### 2 40438 #### [facility],[address] [place] [address] 96376 Lymph # 0.86 x10EE3/UL Normal 0.80 - 2.80 [facility] [place] Comment on above: Performed By: #### 2 31550 #### [facility],[address] [place] [address] 57384 Lymphocytes/100 WBC (Bld) 8.1 % Low 20.0 - 45. 0 [facility] Comment on above: Performed By: #### 2 01026 #### [facility],[address] [place] [address] 12859 MANUAL DIFF N/A Normal [facility] Comment on above: Performed By: #### 2 79336 #### [facility],[address] [place] [address] 65072 MCH (RBC) [Entitic mass] 31 pg Normal 27 - 33 [facility] Comment on above: Performed By: #### 2 02936 #### [facility],[address] [place] [address] 91579 MCHC 34 X10 3 Normal 32 - 36 [facility] Comment on above: Performed By: #### 2 21669 #### [facility],[address] [place] [address] 11986 MCV (RBC) [Entitic vol] 91 fL Normal 81 - 98 [facility] Comment on above: Performed By: #### 2 15596 #### [facility],[address] [place] [address] 42236 [place] # 0.51 x10EE3/UL Normal 0.20 - 1.00 [facility] [place] Comment on above: Performed By: #### 2 17568 #### [facility],[address] [place] [address] 69912 MONOS % 4.8 % Normal 0.0 - 10.0 [facility] Comment on above: Performed By: #### 2 36613 #### [facility],[address] [place] [address] 43164 Morphology Christ (Bld) [Interp] N/A Normal [facility] Comment on above: Performed By: #### 2 40851 #### [facility],[address] [place] [address] 84112 Neut # 9.19 x10EE3/UL High 1.50 - 7.10 [facility] [place] Comment on above: Performed By: #### 2 30373 #### [facility],[address] [place] [address] 26503 Neutrophils/100 WBC (Bld) 86.5 % High 46.0 - 76. 0 [facility] Comment on above: Performed By: #### 2 17120 #### [facility],[address] [place] [address] 12697 PLATELET 114 x10EE3/UL Low 150 - 450 [facility] Comment on above: Performed By: #### 2 99811 #### [facility],[address] [place] [address] 63663 Platelet mean volume (Bld) [Entitic vol] 7.6 fL Normal 6.4 - 10.5 [facility] Comment on above: Result Comment: AUTO MATED DIFFERENTIAL Performed By: #### 2 68690 #### [facility],[address] [place] [address] 48076 RBC 4.74 x 10EE6/UL Normal 4.50 - 6.00 [facility] Comment on above: Performed By: #### 2 09575 #### [facility],[address] [place] [address] 70451 WBC 10.6 x 10EE3/UL Normal 4.5 - 10.8 [facility] [place] Comment on above: Performed By: #### 2 16795 #### [facility],[address] [place] [address] 95921 BMP with eGFRon 01-25-2025 AGE 69 years Normal [facility] Comment on above: Performed By: #### 2 17310 #### [facility],[address] [place] [address] 91729 Anion gap [Moles/Vol] 11 mmol/L Normal 10 - 20 [facility] Comment on above: Performed By: #### 2 40826 #### [facility],[address] [place] [address] 73373 BMP with eGFR Normal [facility] Comment on above: Result Comment: BASI C METABOLIC PANEL Performed By: #### 2 50655 #### [facility],[address] [place] [address] 16001 Calcium [Mass/Vol] 8.3 mg/dL Low 8.5 - 10.1 [facility] Comment on above: Performed By: #### 2 03091 #### [facility],[address] [place] [address] 86733 Chloride [Moles/Vol] 92 mmol/L Low 98 - 107 [facility] Comment on above: Performed By: #### 2 75851 #### [facility],[address] [place] [address] 11266 CO2 [Moles/Vol] 31.0 mmol/L Normal 21.0 - 32.0 [facility] Comment on above: Performed By: #### 2 08546 #### [facility],[address] [place] [address] 99114 Creatinine [Mass/Vol] 1.05 mg/dL Normal 0.70 - 1.[address] [facility] Comment on above: Performed By: #### 2 34028 #### [facility],[address] [place], [place] [address] GFR/1.73 sq M.predicted among non-blacks MDRD (S/P/Bld) [Vol rate/Area] mL/min/{1.73_m2} Normal 60 - 999 [facility] Comment on above: Performed By: #### 2 60160 #### [facility],[address] [place] [address] Result Comment: ACCO RDING TO THE NATIONAL KIDNEY DISEASE EDUCATION PROGRAM(NKDE), A NORMAL eGFR IS A VALUE GREATER THAN OR EQUAL TO 60 ML/MIN/1.73 SQ METERS. CHRONIC KIDNEY DISEASE: <60mL/MIN/1.73 SQ METERS KIDNEY FAILURE: <15mL/MIN/1.73 SQ METERS THIS TEST SHOULD ONLY BE USED FOR PATIENTS 18 YEARS OF AGE AND OLDER. Glucose [Mass/Vol] 215 mg/dL High 74 - 106 [facility] Comment on above: Performed By: #### 2 65646 #### [place] [id number] Potassium [Moles/Vol] 3.5 mmol/L Normal 3.5 - 5.1 [facility] Comment on above: Performed By: #### 2 07845 #### [facility],[address] [place], [place] [address] Sodium [Moles/Vol] 130 mmol/L Low 136 - 145 [facility] Comment on above: Performed By: #### 2 57253 #### [place] [id number] Urea nitrogen [Mass/Vol] 47 mg/dL High 7 - 18 [facility] Comment on above: Performed By: #### 2 12724 #### [facility],[address] [place] [address] 35055 CBC + DIFFon 01-25-2025 Baso # 0.02 x10EE3/UL Normal 0.00 - 0.10 [facility] [place] Comment on above: Performed By: #### 2 90079 #### [facility],[address] [place] [address] 56603 Basophils/100 WBC (Bld) 0.2 % Normal 0.0 - 2.0 [facility] Comment on above: Performed By: #### 2 18285 #### [facility],[address] [place] [address] CBC + DIFF Normal [facility] Comment on above: Result Comment: CBC- COMPLETE BLOOD COUNT Performed By: #### 2 83580 #### [facility],[address] [place] [address] EO # 0.03 x10EE3/UL Normal 0.00 - 0.50 [facility] [place] Comment on above: Performed By: #### 2 99416 #### [facility],[address] [place] [address] Eosinophils/100 WBC (Bld) 0.3 % Normal 0.0 - 7.0 [facility] Comment on above: Performed By: #### 2 85022 #### [facility],[address] [place] [address] Erythrocyte distribution width (RBC) [Ratio] 13.2 % Normal 12.0 - 15.6 [facility] Comment on above: Performed By: #### 2 83540 #### [facility],[address] [place] [address] Hematocrit (Bld) [Volume fraction] 41.5 % Normal 40.0 - 52.0 [facility] Comment on above: Performed By: #### 2 44281 #### [facility],[address] [place], [place] [address] Hemoglobin (Bld) [Mass/Vol] 14.5 g/dL Normal 13.0 - 17.5 [facility] Comment on above: Performed By: #### 2 01373 #### [facility],[address] [place] [address] 43882 Lymph # 0.85 x10EE3/UL Normal 0.80 - 2.80 [facility] [place] Comment on above: Performed By: #### 2 59650 #### [facility],[address] [place] [address] 51933 Lymphocytes/100 WBC (Bld) 6.9 % Low 20.0 - 45. 0 [facility] Comment on above: Performed By: #### 2 11320 #### [facility],[address] [place] [address] 31129 MANUAL DIFF N/A Normal [facility] Comment on above: Performed By: #### 2 13423 #### [facility],[address] [place], [place] [phone] MCH (RBC) [Entitic mass] 32 pg Normal 27 - 33 [facility] Comment on above: Performed By: #### 2 52878 #### [facility],[address] [place] [address] 15511 MCHC 35 X10 3 Normal 32 - 36 [facility] Comment on above: Performed By: #### 2 85921 #### [facility],[address] [place] [address] 77439 MCV (RBC) [Entitic vol] 91 fL Normal 81 - 98 [facility] Comment on above: Performed By: #### 2 45599 #### [facility],[address] [place] [address] 92954 [place] # 0.55 x10EE3/UL Normal 0.20 - 1.00 [facility] [place] Comment on above: Performed By: #### 2 06919 #### [facility],[address] [place] [address] 26553 MONOS % 4.5 % Normal 0.0 - 10.0 [facility] Comment on above: Performed By: #### 2 10696 #### [facility],[address] [place] [address] 16490 Morphology Christ (Bld) [Interp] N/A Normal [facility] Comment on above: Performed By: #### 2 83422 #### [facility],[address] [place] [address] 87900 Neut # 10.94 x10EE3/UL High 1.50 - 7.10 [facility] Comment on above: Performed By: #### 2 27700 #### [facility],[address] [place] [address] 85471 Neutrophils/100 WBC (Bld) 88.2 % High 46.0 - 76. 0 [facility] Comment on above: Performed By: #### 2 52474 #### [facility],[address] [place] [address] 59925 PLATELET 139 x10EE3/UL Low 150 - 450 [facility] Comment on above: Performed By: #### 2 92960 #### [facility],[address] [place] [address] 31070 Platelet mean volume (Bld) [Entitic vol] 8.1 fL Normal 6.4 - 10.5 [facility] Comment on above: Result Comment: AUTO MATED DIFFERENTIAL Performed By: #### 2 21970 #### [facility],[address] [place] [address] 03769 RBC 4.55 x 10EE6/UL Normal 4.50 - 6.00 [facility] Comment on above: Performed By: #### 2 51773 #### [facility],[address] [place] [address] 51862 WBC 12.4 x 10EE3/UL High 4.5 - 10.8 [facility] [place] Comment on above: Performed By: #### 2 80148 #### [facility],[address] [place] [address] 86746 MAGNESIUMon 01-25-2025 Magnesium [Mass/Vol] 2.2 mg/dL Normal 1.8 - 2.4 [facility] Comment on above: Performed By: #### 2 00234 #### [facility],[address] [place] [address] 53883 C-REACTIVE PROTEINon 025 CRP 15.45 mg/dl High 0.00 - 0.90 [facility] Comment on above: Performed By: #### 2 78295 #### [facility],[address] [place], [place] [id number] CBC + DIFFon 01-24-2025 Baso # 0.01 x10EE3/UL Normal 0.00 - 0.10 [facility] [place] Comment on above: Performed By: #### 2 26670 #### [facility],[address] [place] [address] 00311 Basophils/100 WBC (Bld) 0.1 % Normal 0.0 - 2.0 [facility] Comment on above: Performed By: #### 2 33267 #### [facility],[address] [place] [address] CBC + DIFF Normal [facility] Comment on above: Result Comment: CBC- COMPLETE BLOOD COUNT Performed By: #### 2 61593 #### [facility],[address] [place] [address] 38456 EO # 0.04 x10EE3/UL Normal 0.00 - 0.50 [facility] [place] Comment on above: Performed By: #### 2 39322 #### [facility],[address] [place] [address] 88084 Eosinophils/100 WBC (Bld) 0.4 % Normal 0.0 - 7.0 [facility] Comment on above: Performed By: #### 2 78992 #### [facility],[address] [place] [address] 80130 Erythrocyte distribution width (RBC) [Ratio] 13.7 % Normal 12.0 - 15.6 [facility] Comment on above: Performed By: #### 2 76525 #### [facility],[address] [place], [place] [id number] Hematocrit (Bld) [Volume fraction] 47.9 % Normal 40.0 - 52.0 [facility] Comment on above: Performed By: #### 2 40436 #### [facility],[address] [place] [address] Hemoglobin (Bld) [Mass/Vol] 16.3 g/dL Normal 13.0 - 17.5 [facility] Comment on above: Performed By: #### 2 81288 #### [facility],[address] [place], [place] [address] Lymph # 0.80 x10EE3/UL Normal 0.80 - 2.80 [facility] Comment on above: Performed By: #### 2 34125 #### [facility],[address] [place] [address] Lymphocytes/100 WBC (Bld) 8.2 % Low 20.0 - 45. 0 [facility] Comment on above: Performed By: #### 2 57755 #### [facility],[address] [place] [address] MANUAL DIFF N/A Normal [facility] Comment on above: Performed By: #### 2 70115 #### [facility],[address] [place], [place] [id number] MCH (RBC) [Entitic mass] 31 pg Normal 27 - 33 [facility] Comment on above: Performed By: #### 2 08024 #### [facility],[address] [place], [place] [id number] MCHC 34 X10 3 Normal 32 - 36 [facility] Comment on above: Performed By: #### 2 25685 #### [facility],[address] [place], [place] [id number] MCV (RBC) [Entitic vol] 92 fL Normal 81 - 98 [facility] Comment on above: Performed By: #### 2 40656 #### [facility],[address] [place] [address] 34731 [place] # 0.32 x10EE3/UL Normal 0.20 - 1.00 [facility] Comment on above: Performed By: #### 2 34146 #### [facility],[address] [place] [address] 85540 MONOS % 3.3 % Normal 0.0 - 10.0 [facility] Comment on above: Performed By: #### 2 84170 #### [facility],[address] [place], [place] [id number] Morphology Christ (Bld) [Interp] N/A Normal [facility] Comment on above: Performed By: #### 2 27594 #### [facility],[address] [place] [address] Neut # 8.58 x10EE3/UL High 1.50 - 7.10 [facility] Comment on above: Performed By: #### 2 24666 #### [facility],[address] [place] [address] Neutrophils/100 WBC (Bld) 88.0 % High 46.0 - 76. 0 [facility] Comment on above: Performed By: #### 2 15772 #### [facility],[address] [place], [place] [id number] PLATELET 119 x10EE3/UL Low 150 - 450 [facility] Comment on above: Performed By: #### 2 92873 #### [facility],[address] [place] [address] 92233 Platelet mean volume (Bld) [Entitic vol] 7.9 fL Normal 6.4 - 10.5 [facility] Comment on above: Result Comment: AUTO MATED DIFFERENTIAL Performed By: #### 2 07613 #### [facility],[address] [place] [address] 35799 RBC 5.24 x 10EE6/UL Normal 4.50 - 6.00 [facility] Comment on above: Performed By: #### 2 23637 #### [facility],[address] [place] [address] 78185 WBC 9.8 x 10EE3/UL Normal 4.5 - 10.8 [facility] Comment on above: Performed By: #### 2 58745 #### [facility],[address] [place] [address] 64755 CMP with eGFRon 01-24-2025 AGE 69 years Normal [facility] Comment on above: Performed By: #### 2 62211 #### [facility],[address] [place] [address] 80390 Albumin [Mass/Vol] 3.4 g/dL Normal 3.4 - 5.0 [facility] Comment on above: Performed By: #### 2 64646 #### [facility],[address] [place] [address] 05935 Albumin/Globulin [Mass ratio] 0.7 {ratio} Low 0.9 - 1.6 [facility] Comment on above: Performed By: #### 2 29412 #### [facility],[address] [place] [address] 12771 ALK PHOS 171 U/L High 46 - 116 [facility] Comment on above: Performed By: #### 2 43258 #### [facility],[address] [place] [address] 55568 ALT [Catalytic activity/Vol] 28 U/L Normal 16 - 63 [facility] Comment on above: Performed By: #### 2 64461 #### [facility],[address] [place] [address] 42841 Anion gap [Moles/Vol] 9 mmol/L Low 10 - 20 [facility] Comment on above: Performed By: #### 2 70495 #### [facility],[address] [place] [address] 30673 AST [Catalytic activity/Vol] 47 U/L High 15 - 37 [facility] Comment on above: Performed By: #### 2 30689 #### [facility],[address] [place] [address] 24338 B/C RATIO 31 ratio High 0 - 30 [facility] Comment on above: Performed By: #### 2 71915 #### [facility],[address] [place] [address] 79225 Bilirubin [Mass/Vol] 1.0 mg/dL Normal 0.2 - 1.0 [facility] Comment on above: Performed By: #### 2 75568 #### [facility],[address] [place] [address] 53691 Calcium [Mass/Vol] 8.9 mg/dL Normal 8.5 - 10.1 [facility] Comment on above: Performed By: #### 2 57498 #### [facility],[address] [place] [address] 90781 Chloride [Moles/Vol] 96 mmol/L Low 98 - 107 [facility] Comment on above: Performed By: #### 2 81363 #### [facility],[address] [place] [address] 57884 CMP with eGFR Normal [facility] Comment on above: Result Comment: COMP REHENSIVE METABOLIC PANEL Performed By: #### 2 51313 #### [facility],[address] [place] [address] 89887 CO2 [Moles/Vol] 32.2 mmol/L High 21.0 - 32.0 [facility] Comment on above: Performed By: #### 2 25484 #### [facility],[address] [place] [address] 88097 Creatinine [Mass/Vol] 0.95 mg/dL Normal 0.70 - 1.[address] [facility] Comment on above: Performed By: #### 2 87306 #### [facility],[address] [place] [address] 77983 GFR/1.73 sq M.predicted among non-blacks MDRD (S/P/Bld) [Vol rate/Area] mL/min/{1.73_m2} Normal 60 - 999 [facility] Comment on above: Performed By: #### 2 83139 #### [facility],[address] [place] [address] 35032 Result Comment: ACCO RDING TO THE NATIONAL KIDNEY DISEASE EDUCATION PROGRAM(NKDE), A NORMAL eGFR IS A VALUE GREATER THAN OR EQUAL TO 60 ML/MIN/1.73 SQ METERS. CHRONIC KIDNEY DISEASE: <60mL/MIN/1.73 SQ METERS KIDNEY FAILURE: <15mL/MIN/1.73 SQ METERS THIS TEST SHOULD ONLY BE USED FOR PATIENTS 18 YEARS OF AGE AND OLDER. Globulin (S) [Mass/Vol] 5.2 g/dL High 1.5 - 3.8 [facility] Comment on above: Performed By: #### 2 21376 #### [facility],[address] [place] [address] 48432 Glucose [Mass/Vol] 208 mg/dL High 74 - 106 [facility] Comment on above: Performed By: #### 2 74243 #### [facility],[address] [place] [address] 10433 Potassium [Moles/Vol] 4.3 mmol/L Normal 3.5 - 5.1 [facility] Comment on above: Performed By: #### 2 00644 #### [facility],[address] [place] [address] 06603 Protein [Mass/Vol] 8.6 g/dL High 6.4 - 8.2 [facility] Comment on above: Performed By: #### 2 78344 #### [facility],[address] [place] [address] 21560 Sodium [Moles/Vol] 133 mmol/L Low 136 - 145 [facility] Comment on above: Performed By: #### 2 97490 #### [facility],[address] [place] [address] 88333 Urea nitrogen [Mass/Vol] 29 mg/dL High 7 - 18 [facility] Comment on above: Performed By: #### 2 59255 #### [facility],[address] [place] [address] 48437 BMP with eGFRon 01-23-2025 AGE 69 years Normal [facility] Comment on above: Performed By: #### 2 86605 #### [facility],[address] [place] [address] 59005 Anion gap [Moles/Vol] 13 mmol/L Normal 10 - 20 [facility] Comment on above: Performed By: #### 2 10844 #### [facility],[address] [place] [address] 98011 BMP with eGFR Normal [facility] Comment on above: Result Comment: BASI C METABOLIC PANEL Performed By: #### 2 69607 #### [facility],[address] [place] [address] 54437 Calcium [Mass/Vol] 8.9 mg/dL Normal 8.5 - 10.1 [facility] Comment on above: Performed By: #### 2 17355 #### [facility],[address] [place] [address] 05323 Chloride [Moles/Vol] 92 mmol/L Low 98 - 107 [facility] Comment on above: Performed By: #### 2 81978 #### [facility],[address] [place] [address] 78313 CO2 [Moles/Vol] 27.9 mmol/L Normal 21.0 - 32.0 [facility] Comment on above: Performed By: #### 2 13131 #### [facility],[address] [place] [address] 90889 Creatinine [Mass/Vol] 0.90 mg/dL Normal 0.70 - 1.[address] [facility] Comment on above: Performed By: #### 2 42855 #### [facility],[address] [place] [address] 80828 GFR/1.73 sq M.predicted among non-blacks MDRD (S/P/Bld) [Vol rate/Area] mL/min/{1.73_m2} Normal 60 - 999 [facility] Comment on above: Performed By: #### 2 37261 #### [facility],[address] [place] [address] 46565 Result Comment: ACCO RDING TO THE NATIONAL KIDNEY DISEASE EDUCATION PROGRAM(NKDE), A NORMAL eGFR IS A VALUE GREATER THAN OR EQUAL TO 60 ML/MIN/1.73 SQ METERS. CHRONIC KIDNEY DISEASE: <60mL/MIN/1.73 SQ METERS KIDNEY FAILURE: <15mL/MIN/1.73 SQ METERS THIS TEST SHOULD ONLY BE USED FOR PATIENTS 18 YEARS OF AGE AND OLDER. Glucose [Mass/Vol] 221 mg/dL High 74 - 106 [facility] Comment on above: Performed By: #### 2 78630 #### [facility],[address] [place] [address] 14917 Potassium [Moles/Vol] 3.9 mmol/L Normal 3.5 - 5.1 [facility] Comment on above: Performed By: #### 2 75956 #### [facility],[address] [place] [address] 15175 Sodium [Moles/Vol] 129 mmol/L Low 136 - 145 [facility] Comment on above: Performed By: #### 2 39974 #### [facility],[address] [place] [address] 94553 Urea nitrogen [Mass/Vol] 16 mg/dL Normal 7 - 18 [facility] Comment on above: Performed By: #### 2 50173 #### [facility],[address] [place] [address] 88810 CBC + DIFFon 01-23-2025 Baso # 0.02 x10EE3/UL Normal 0.00 - 0.10 [facility] Comment on above: Performed By: #### 2 74854 #### [facility],[address] [place] [address] 98925 Basophils/100 WBC (Bld) 0.2 % Normal 0.0 - 2.0 [facility] Comment on above: Performed By: #### 2 55652 #### [facility],[address] [place] [address] CBC + DIFF Normal [facility] Comment on above: Result Comment: CBC- COMPLETE BLOOD COUNT Performed By: #### 2 82831 #### [facility],[address] [place] [address] EO # 0.01 x10EE3/UL Normal 0.00 - 0.50 [facility] Comment on above: Performed By: #### 2 52131 #### [facility],[address] [place] [address] Eosinophils/100 WBC (Bld) 0.1 % Normal 0.0 - 7.0 [facility] Comment on above: Performed By: #### 2 74842 #### [facility],[address] [place] [address] Erythrocyte distribution width (RBC) [Ratio] 13.3 % Normal 12.0 - 15.6 [facility] Comment on above: Performed By: #### 2 10694 #### [facility],[address] [place] [address] Hematocrit (Bld) [Volume fraction] 48.7 % Normal 40.0 - 52.0 [facility] Comment on above: Performed By: #### 2 74075 #### [facility],[address] [place] [address] Hemoglobin (Bld) [Mass/Vol] 16.4 g/dL Normal 13.0 - 17.5 [facility] Comment on above: Performed By: #### 2 78023 #### [facility],[address] [place] [address] Lymph # 0.73 x10EE3/UL Low 0.80 - 2.80 [facility] Comment on above: Performed By: #### 2 87548 #### [place] [id number] Lymphocytes/100 WBC (Bld) 7.2 % Low 20.0 - 45. 0 [facility] Comment on above: Performed By: #### 2 96013 #### [facility],[address] [place] [address] MANUAL DIFF N/A Normal [facility] Comment on above: Performed By: #### 2 61399 #### [place] [address] MCH (RBC) [Entitic mass] 31 pg Normal 27 - 33 [facility] Comment on above: Performed By: #### 2 69482 #### [place] [address] MCHC 34 X10 3 Normal 32 - 36 [facility] Comment on above: Performed By: #### 2 81395 #### [place] [address] MCV (RBC) [Entitic vol] 91 fL Normal 81 - 98 [facility] Comment on above: Performed By: #### 2 87325 #### [place] [address] [place] # 0.79 x10EE3/UL Normal 0.20 - 1.00 [facility] Comment on above: Performed By: #### 2 81324 #### [place] [address] MONOS % 7.8 % Normal 0.0 - 10.0 [facility] Comment on above: Performed By: #### 2 23746 #### [facility],[address] [place] [address] 96314 Morphology Christ (Bld) [Interp] N/A Normal [facility] Comment on above: Performed By: #### 2 36858 #### [facility],[address] [place] [address] 79759 Neut # 8.56 x10EE3/UL High 1.50 - 7.10 [facility] Comment on above: Performed By: #### 2 97706 #### [address] [address] Neutrophils/100 WBC (Bld) 84.7 % High 46.0 - 76. 0 [facility] Comment on above: Performed By: #### 2 70955 #### [place] [id number] PLATELET 108 x10EE3/UL Low 150 - 450 [facility] Comment on above: Performed By: #### 2 21910 #### [place] [address] Platelet mean volume (Bld) [Entitic vol] 7.3 fL Normal 6.4 - 10.5 [facility] Comment on above: Result Comment: AUTO MATED DIFFERENTIAL Performed By: #### 2 83118 #### [address] [address] RBC 5.33 x 10EE6/UL Normal 4.50 - 6.00 [facility] Comment on above: Performed By: #### 2 04726 #### [place] [id number] WBC 10.1 x 10EE3/UL Normal 4.5 - 10.8 [facility] Comment on above: Performed By: #### 2 07928 #### [address] [address] CHEST 2 VIEWSon 01-23-2025 CHEST 2 VIEWS [place] [address] Patient: PITER MOSS Phone#: : [phone] Age: 69 Gender: M Pt. Type: Out Account: [id number] Location: 010 Ordering: KENA GUARDADO Exam Date: 01/23/2025/14:21 Family Phys: REBECCA TERAN Charge Code: [id number] Physician: [place] Order #: [id number] Dose#: PROCEDURE: X-RAY CHEST 2 VIEWS COMPARISON: [facility], , CHEST 1 VIEW, 01/21/2025, 20:22. INDICATIONS: Pneumonia. FINDINGS: LUNGS: Increased density in the right middle lobe is consistent with infiltrate and or atelectasis. VASCULATURE: Normal. Unremarkable pulmonary vasculature. CARDIAC: Normal. No cardiac silhouette abnormality or cardiomegaly. MEDIASTINUM: Normal. No visible mass or adenopathy. PLEURA: Normal. No effusion or pleural thickening. BONES: Normal. No fracture or visible bony lesion. OTHER: Negative. CONCLUSION: 1. Lungs are hyperinflated. 2. Streaky right middle lobe infiltrate. Dictated by: Zabrina Sanchez MD on 01/23/2025 at 14:52 Approved by: Zabrina Sanchez MD on 01/23/2025 at 14:54 Normal [facility] MAGNESIUMon 01-23-2025 Magnesium [Mass/Vol] 1.8 mg/dL Normal 1.8 - 2.4 [facility] Comment on above: Performed By: #### 2 90063 #### [facility],[address] [place] [address] TROPONIN I, HIGH SENSITIVITY on 01-23-2025 HS TROPONIN 14.5 pg/mL Normal 0.0 - 76.2 [facility] Comment on above: Performed By: #### 2 91547 #### [facility],[address] [place] [address] BMP with eGFRon 01-22-2025 AGE 69 years Normal [facility] Comment on above: Performed By: #### 2 38297 #### [facility],[address] [place] [address] Anion gap [Moles/Vol] 11 mmol/L Normal 10 - 20 [facility] Comment on above: Performed By: #### 2 57469 #### [facility],[address] [place] [address] 27534 BMP with eGFR Normal [facility] Comment on above: Result Comment: BASI C METABOLIC PANEL Performed By: #### 2 58424 #### [facility],[address] [place] [address] 58259 Calcium [Mass/Vol] 8.7 mg/dL Normal 8.5 - 10.1 [facility] Comment on above: Performed By: #### 2 30030 #### [facility],[address] [place], [place] [id number] Chloride [Moles/Vol] 97 mmol/L Low 98 - 107 [facility] Comment on above: Performed By: #### 2 61827 #### [facility],[address] [place], [place] [id number] CO2 [Moles/Vol] 27.5 mmol/L Normal 21.0 - 32.0 [facility] Comment on above: Performed By: #### 2 56491 #### [facility],[address] [place], [place] [id number] Creatinine [Mass/Vol] 0.84 mg/dL Normal 0.70 - 1.[address] [facility] Comment on above: Performed By: #### 2 95339 #### [facility],[address] [place], [place] [address] GFR/1.73 sq M.predicted among non-blacks MDRD (S/P/Bld) [Vol rate/Area] mL/min/{1.73_m2} Normal 60 - 999 [facility] Comment on above: Performed By: #### 2 07339 #### [facility],[address] [place] [address] Result Comment: ACCO RDING TO THE NATIONAL KIDNEY DISEASE EDUCATION PROGRAM(NKDE), A NORMAL eGFR IS A VALUE GREATER THAN OR EQUAL TO 60 ML/MIN/1.73 SQ METERS. CHRONIC KIDNEY DISEASE: <60mL/MIN/1.73 SQ METERS KIDNEY FAILURE: <15mL/MIN/1.73 SQ METERS THIS TEST SHOULD ONLY BE USED FOR PATIENTS 18 YEARS OF AGE AND OLDER. Glucose [Mass/Vol] 189 mg/dL High 74 - 106 [facility] Comment on above: Performed By: #### 2 69932 #### [facility],[address] [place] [address] Potassium [Moles/Vol] 4.0 mmol/L Normal 3.5 - 5.1 [facility] Comment on above: Performed By: #### 2 67596 #### [place] [address] Sodium [Moles/Vol] 131 mmol/L Low 136 - 145 [facility] Comment on above: Performed By: #### 2 84076 #### [place] [address] Urea nitrogen [Mass/Vol] 11 mg/dL Normal 7 - 18 [facility] Comment on above: Performed By: #### 2 41076 #### [place] [address] CBC + DIFFon 01-22-2025 Baso # 0.03 x10EE3/UL Normal 0.00 - 0.10 [facility] Comment on above: Performed By: #### 2 99591 #### [place] [address] Basophils/100 WBC (Bld) 0.5 % Normal 0.0 - 2.0 [facility] Comment on above: Performed By: #### 2 91733 #### [place] [address] CBC + DIFF Normal [facility] Comment on above: Result Comment: CBC- COMPLETE BLOOD COUNT Performed By: #### 2 68374 #### [place] [address] EO # 0.04 x10EE3/UL Normal 0.00 - 0.50 [facility] Comment on above: Performed By: #### 2 68550 #### [facility],[address] [place] [address] 29121 Eosinophils/100 WBC (Bld) 0.7 % Normal 0.0 - 7.0 [facility] Comment on above: Performed By: #### 2 21450 #### [facility],[address] [place] [address] 51991 Erythrocyte distribution width (RBC) [Ratio] 13.2 % Normal 12.0 - 15.6 [facility] Comment on above: Performed By: #### 2 90499 #### [facility],[address] [place] [address] 84809 Hematocrit (Bld) [Volume fraction] 45.8 % Normal 40.0 - 52.0 [facility] Comment on above: Performed By: #### 2 69987 #### [facility],[address] [place] [address] 34461 Hemoglobin (Bld) [Mass/Vol] 15.8 g/dL Normal 13.0 - 17.5 [facility] Comment on above: Performed By: #### 2 34139 #### [facility],[address] [place] [address] 51619 Lymph # 0.96 x10EE3/UL Normal 0.80 - 2.80 [facility] Comment on above: Performed By: #### 2 61954 #### [facility],[address] [place] [address] 03126 Lymphocytes/100 WBC (Bld) 15.3 % Low 20.0 - 45. 0 [facility] Comment on above: Performed By: #### 2 76291 #### [facility],[address] [place] [address] 22606 MANUAL DIFF N/A Normal [facility] Comment on above: Performed By: #### 2 85194 #### [facility],[address] [place] [address] MCH (RBC) [Entitic mass] 32 pg Normal 27 - 33 [facility] Comment on above: Performed By: #### 2 06493 #### [facility],[address] [place] [address] MCHC 35 X10 3 Normal 32 - 36 [facility] Comment on above: Performed By: #### 2 46775 #### [facility],[address] [place] [address] MCV (RBC) [Entitic vol] 92 fL Normal 81 - 98 [facility] Comment on above: Performed By: #### 2 73613 #### [facility],[address] [place] [address] [place] # 0.68 x10EE3/UL Normal 0.20 - 1.00 [facility] Comment on above: Performed By: #### 2 28024 #### [facility],[address] [place] [address] MONOS % 10.9 % High 0.0 - 10.0 [facility] Comment on above: Performed By: #### 2 20972 #### [facility],[address] [place], [place] [id number] Morphology Christ (Bld) [Interp] N/A Normal [facility] Comment on above: Performed By: #### 2 64375 #### [facility],[address] [place] [address] Neut # 4.54 x10EE3/UL Normal 1.50 - 7.10 [facility] Comment on above: Performed By: #### 2 82208 #### [facility],[address] [place] [address] Neutrophils/100 WBC (Bld) 72.6 % Normal 46.0 - 76. 0 [facility] Comment on above: Performed By: #### 2 21010 #### [facility] [facility],[address] [place] [address] [id number] PLATELET 128 x10EE3/UL Low 150 - 450 [facility] Comment on above: Performed By: #### [id number] #### [facility],[address] [place] [address] [id number] Platelet mean volume (Bld) [Entitic vol] 7.6 fL Normal 6.4 - 10.5 [facility] Comment on above: Result Comment: AUTO MATED DIFFERENTIAL Performed By: #### 2 [id number] #### [facility],[address] [place] [address] 23586 RBC 4.99 x 10EE6/UL Normal 4.50 - 6.00 [facility] Comment on above: Performed By: #### 2 [id number] #### [facility],[address] [place] [address] 99213 WBC 6.3 x 10EE3/UL Normal 4.5 - 10.8 [facility] Comment on above: Performed By: #### 2 [id number] #### [facility],[address] [place] [address]7811 CV ECHO [facility] CV ECHO COMPLETE [address] [address] Patient: PITER MOSS Phone#: : 1955 Age: 69 Gender: M Pt. Type: Out Account: [id number] Location: [facility] Ordering: DOUG LOU Exam Date: 01/22/2025/7:21 Family Phys: REBECCA TERAN Charge Code: 110318 Physician: [place] Order #: [id number] Dose#: PROCEDURE: ECHOCARDIOGRAM WITH DOPPLER AND COLOR FLOW HISTORY: Patient 69-year-old male with dyspnea INDICATIONS: Patient 69-year-old male with dyspnea COMPARISON: None. TECHNIQUE: A 2-D ultrasound, color spectral Doppler and M-mode evaluation of the heart and great vessels. PATIENT MEASUREMENTS: Height (in.): 70 BSA: 1.97 Weight (lbs.): 175 BP: 146/70 Overedger: BOAZ M MODE 2D MEASUREMENTS AND CALCULATIONS: LVIDd: 5.31 cm LVIDs: 3.03 cm IVSd: 0.78 cm LVPWd: 0.72 cm LVOT diam: 2.2 cm FS: 42.99 % Ao Root diam: 3.44 cm LA diam: 2.6 cm LA Volume Index: 10 mL/m2 LA A4 Area: 8.70 cm2 RA A4 Area: 7.7 cm RVDd: 4.26 cm TAPSE: 22 mm DOPPLER MEASUREMENTS AND CALCULATIONS MITRAL MV E MAX belle: 0.59 m/s MV A MAX belle: 0.84 m/s MV E-A ratio: 0.71 MV V2 max: 0.83 m/s MV max P.79 mm[Hg] MV V2 mean: 0.58 m/s Continued Report - Page 2 of 3 Patient: PITER MOSS Phone#: : 1955 Age: 69 Gender: M Pt. Type: Out Account: [id number] Location: [facility] Ordering: DOUG LOU Exam Date: 01/22/2025/7:21 Family Phys: REBECCA TERAN Charge Code: [id number] Physician: [place] Order #: [id number] Dose#: MV mean P.43 mm[Hg] MV V2 VTI: 20.62 cm Lat Peak E' Belle 6 cm/sec Septal Peak E' BELLE 6 cm/sec E/E' lateral 10 E/E' medial 10.15 AORTIC Ao V2 max: 1.34 m/s Ao max P.18 mm[Hg] Ao V2 mean: 1.01 m/s Ao mean P.34 mm[Hg] Ao V2 VTI: 25.41 cm LV V1 Max 1.01 m/s LV V1 Max PG 4.10 mm[Hg] LV V1 Mean PG 2.41 mm[Hg] LV V1 mean 0.75 m/s LV V1 VTI 17.44 cm PULMONIC PA V2 Max 1.34 m/s PA Max PG 7.19 mm[Hg] TRICUSPID TR Max Belle TR max PG RVSP 2D/M-MODE AND COLOR FLOW LEFT VENTRICLE: Left ventricle is normal in size and thickness. Systolic ejection fraction is 60-65%. There are no regional wall motion abnormality seen. There is grade 1 diastolic dysfunction seen. WALL MOTION: 1 - Basal anterior: Normal. 7 - Mid anterior: Normal. 13 - Apical anterior: Normal. 2 - Basal anteroseptal: Normal. 8 - Mid anteroseptal: Normal. 14 - Apical septal: Normal. 3 - Basal inferoseptal: Normal. 9 - Mid inferoseptal: Normal. 15 - Apical inferior: Normal. 4 - Basal inferior: Normal. 10-Mid inferior: Normal. 16 - Apical lateral: Normal. 5 - Basal inferolateral: Normal. 11-Mid inferolateral: Normal. 6 - Basal anterolateral: Normal. 12-Mid anterolateral: Normal. RIGHT VENTRICLE: Right ventricle is normal size and systolic function LEFT ATRIUM: Left atrium is normal size. RIGHT ATRIUM: Right atrium is normal size. Continued Report - Page 3 of 3 Patient: PITER MOSS Phone#: : 1955 Age: 69 Gender: M Pt. Type: Out Account: [id number] Location: [facility] Ordering: DOUG LOU Exam Date: 01/22/2025/7:21 Family Phys: REBECCA TERAN Charge Code: [id number] Physician: [place] Order #: [id number] Dose#: ATRIAL SEPTUM: There is no large interatrial shunt seen. PFO was not assessed. There is lipomatous hypertrophy of the interatrial septum. MITRAL VALVE: Mitral valve appears normal structure. There is trivial regurgitation no stenosis seen. TRICUSPID VALVE: Tricuspid valve is inadequately visualized. Doppler shows no significant regurgitation or stenosis. AORTIC VALVE: Aortic valve is probably trileaflet. Doppler shows no significant regurgitation or stenosis. PULMONIC VALVE: Pulmonic valve is inadequately visualized. AORTIC ROOT: Aortic root is normal size. AORTIC ARCH: Inadequately visualized. DESC THORACIC AORTA: Inadequately visualized. IVC/SVC: IVC is dilated with more than 50% collapse of inspiration. Estimated atrial pressure is 8 mm Hg PULMONARY VEINS: Inadequate Doppler. PERICARDIUM: There is no pericardial effusion seen. CONCLUSION: 1. Left ventricle is normal in size and thickness. Systolic ejection fraction is 60-65% with normal wall motion. 2. There are no significant valvular dysfunction seen. 3. Right ventricle is normal in size and systolic function. 4. TR velocity is inadequate to calculate for right ventricular systolic pressure. Dictated by: MEHUL CROFT MD on 01/22/2025 at 10:34 Approved by: MEHUL CROFT MD on 01/22/2025 at 10:50 Normal [facility] ED MED ADMINISTRATION DETAIL on 01-22-2025 ED MED ADMINISTRATION DETAIL Technical Support Director Medication Administration Record [place] [id number] [facility] [place] [address] [id number] 01/21/2025 Patient: PITER MOSS Sex: Male : 1955 Age: 69y MEASUREMENTS: Wt: 81.6 kg, Ht/Alexandro: 70.0 in, BMI: 25.83 ALLERGIES: No known drug allergies Medication Ordered Medication Administration Date/Time Aspirin PO Chew 19:01/21 Aspirin PO Chew 324 mg given. Allergies verified and Given 324 mg (NOW x1) confirmed 5 rights. Information reviewed with patient including 19:01/21/2025 reason for taking this medication. Verbalizes understanding. - Tico Gaytan R.N. 19:23 Tico Gaytan R.N. Scanned Heparin Drip IV 19:01/21 Heparin Drip IV (CARDIAC) 09572mhlme/250ml Premix Started (CARDIAC) 77903 unit started in bag#1 250 mL at 979.76 unit/hr over 1 hour(s) :01/21/2025 57094qooum/250ml via Site# 1. Allergies verified and confirmed 5 rights. IV patency Tico Gaytan R.N. Premix 64630 unit established. IV site checked: no pain, redness, or swelling. IV Stopped at 12 unit/kg/hr flushed thoroughly pre-medication administration. Information 23:01/21/2025 (979.76 unit/hr) reviewed with patient including reason for taking this medication. Tico Gaytan R.N. (refer to heparin Verbalizes understanding. Completed per protocol. - 19:35 Tico Clarke nomogram/titrationLukas R.N. HIGH ALERT MEDICATION, NOW 1901/21 Medication Co-sign: Verified dosage, concentration x1) and rate. - 19:35 Bety Mullins R.N. 23:34 04 Medication Discontinued: IV discontinued. Total amount infused: 40 mL. IV patency established. IV site checked: no pain, redness, or swelling. IV flushed thoroughly post-medication administration. - 00:22 Tico Gaytan R.N. 1 of 3 Technical Support Director Medication Ordered Medication Administration Date/Time Order Comments: 19:12 01/21/2025 (Max initial rate 1000 units/hr Round to nearest 50-100 units) Lawrence Dominguez D.O. Heparin IVP 4000 19:30 01/21 Heparin IVP 4000 Given unit (NOW x1, Refer unit given over 1 minute(s) via 19:30 01/21/2025 to Heparin Site# 1. Allergies verified and Tico Gaytan R.N. Nomogram for confirmed 5 rights. IV patency Scanned Dosing/Titration, established. IV site checked: no HIGH ALERT pain, redness, or swelling. IV MEDICATION, flushed thoroughly Round to nearest pre-medication administration. 50-100 units) IVP given by nurse. Information reviewed with patient including reason for taking this medication. Verbalizes understanding. Medication Wastage: 1000 unit wasted. - 19:32 Tico Gaytan R.N. 19:30 01/21 Medication Co-sign: Verified dosage, concentration and rate. - 19:32 Bety Mullins R.N. Order Comments: 19:12 01/21/2025 (Cardiac Max dose 4000 units DVT/PE Max dose 8750 units) Lawrence Dominguez D.O. 2 of 3 Technical Support Director Medication Ordered Medication Administration Date/Time MORPHine IVP 4 20:14 01/21 MORPHine IVP 4 Given mg (NOW x1, HIGH mg given via Site# 1. Allergies 20:14 01/21/2025 ALERT verified and confirmed 5 rights. Tico Gaytan R.N. MEDICATION) IV patency established. IV site Scanned checked: no pain, redness, or swelling. IV flushed thoroughly pre-medication administration. IVP given by nurse. Information reviewed with patient including reason for taking this medication. Verbalizes understanding. (07/01). - 20:15 Tico Gaytan R.N. 3 of 3 Normal [facility] ED NURSES CLINICAL NOTEon ED NURSES CLINICAL NOTE Nurse Narrative Nurse Clinical [facility] [address] [place] [address] [phone] 01/21/2025 [facility]: [facility]ITER [facility]OSS [id number] Sex: Male : 1955 Age: 69y Disposition: Observation to Med/Surg Disposition Decision Time: 22:07 01/21/2025 Departure Time: 22:55 01/21/2025 TRIAGE Arrived by private vehicle. Historian: (patient). Patient has a primary care physician. [facility] [place] Triage time: 18:54 01/21/2025. Acuity: LEVEL 3. Chief Complaint: CHEST PAIN. Alert. No acute distress. Onset. (about 2 days). The patient has had difficulty breathing and a cough. SEPSIS SCREEN: NEGATIVE. SIRS criteria negative. No possible sources of infection. -- 18:58 01/21/25 EDT Nato GallardoNDanna 18:57 01/21/25. BP: 140/52 MAP: 81. HR: 72. RR: 18. O2 saturation: 90% on room air. Temperature: 98.2 F. Pain level now 8/10. -- 18:58 01/21/25 EDT Vaibhav Agosto R.N. Measurements: 18:57 01/21/25 Wt: 81.6 kg, Ht/Alexandro: 70.0 in, BMI: 25.83 -- 18:57 01/21/25 EDT Vaibhav Agosto R.N. Medications: unable to obtain home medications -- 18:55 01/21/25 EDT Vaibhav Agosto R.N. 1 of 5 Nurse Narrative 18:54 01/21/25. Preferred Pharmacy: ([facility]). -- 18:58 01/21/25 EDT Vaibhav Agosto R.N. Allergies: no known drug allergies -- 18:55 01/21/25 EDT Vaibhav Agosto R.N. Problems: COPD - Chronic Obstructive Pulmonary Disease -- 18:55 01/21/25 EDT Vaibhav Agosto R.N. Hypertension -- 18:55 01/21/25 EDT Vaibhav Agosto R.N. Diabetes Mellitus -- 18:55 01/21/25 EDT Vaibhav Agosto R.N. ADDITIONAL SURGERIES: no known surgical history -- 18:55 01/21/25 EDT Vaibhav Agosto R.N. History 18:54 01/21/25. SOCIAL HX: Never smoker. Occasional drug use: marijuana. No alcohol use. The patient has not traveled outside the [place] Infectious disease exposure: No infectious disease exposure. ABUSE ASSESSMENT: The patient answered yes to the question(s) Do you feel safe in your home? and no to the question(s) Are you afraid to go home?. SELF HARM ASSESSMENT: Self harm assessment was performed. The patient answered no to the question(s) Have you recently felt down, depressed, or hopeless? and Do you have thoughts of harming or killing yourself?. FALL RISK ASSESSMENT: Fall risk assessment completed. Risk factors identified include patient age greater than 65 years. Fall interventions initiated. Bed in low position. Brakes on. -- 18:58 01/21/25 EDT Vaibhav Agosto R.N. Interventions 18:54 01/21/25. Identification band on patient. -- 18:58 01/21/25 EDT Vaibhav Agosto R.N. 18:58 01/21/25. Advanced care plan (Full Code). -- 18:58 01/21/25 EDT Vaibhav Agosto R.N. 2 of 5 Nurse Narrative PHYSICAL ASSESSMENT 19:41 01/21/25. GENERAL / NEURO / PSYCH: Alert. Oriented X 4. Appears in no acute distress. ( cp/sob and productive cough since yesterday, cp is pressure6/10, on and off, radiates to right shoulder intermittently). RESPIRATORY: Respirations not labored. CVS: Normal sinus rhythm noted. Cardiac rhythm: normal sinus rhythm. GI / : Abdominal distention (non-tender, normal for pt.). Abdomen soft and nontender. No nausea noted. No abdominal tenderness. No emesis noted. EXTREMITIES: No lower extremity edema. SKIN: Skin is warm and dry. -- 19:41 01/21/25 EDT Tico Gaytan R.N. NURSING PROGRESS NOTES 18:55 01/21/25. 12-LEAD EKG: EKG time: (18:55 01/21/2025). 12-Lead EKG was performed by me and shown to the ED physician. -- 19:01/21/25 EDT Francisca Vannleodan 19:19 01/21/25. Aspirin PO Chew 324 mg given. Allergies verified and confirmed 5 rights. Information reviewed with patient including reason for taking this medication. Verbalizes understanding. -- 19:01/21/25 EDT Tico Gaytan R.N. 19:30 01/21/25. Heparin IVP 4000 unit given over 1 minute(s) via Site# 1. Allergies verified and confirmed 5 rights. IV patency established. IV site checked: no pain, redness, or swelling. IV flushed thoroughly pre-medication administration. IVP given by nurse. Information reviewed with patient including reason for taking this medication. Verbalizes understanding. Medication Wastage: 1000 unit wasted. -- 19:01/21/25 EDT Tico Gaytan R.N. 19:30 01/21/25. Heparin IVP: Medication Co-sign. Verified dosage, concentration and rate. -- :01/21/25 EDT Bety Mullins R.N. 19:01/21/25. Site #1 started via IV in the right forearm with an 18g angiocath with aseptic technique and good blood return; 1 attempt. Blood drawn: rainbow set tube(s). Labeled in the presence of the patient and sent to the lab. Saline lock flushed with 3 mL saline. -- 19:01/21/25 EDT Tico Gaytan R.N. 19:34 01/21/25. Heparin Drip IV (CARDIAC) 84792pgmvi/250ml Premix 20905 unit started in bag#1 250 mL at 979.76 unit/hr over 1 hour(s) via Site# 1. Allergies verified and confirmed 5 rights. IV patency established. I (more content not included)... Normal [facility] ED ORDER SHEET (CPOE ONLY)on 01-22-2025 ED ORDER SHEET (CPOE ONLY) Order Sheet Order Sheet [facility] [address] [place] [address] [id number] 01/21/2025 Patient: PITER MOSS Sex: Male : 1955 Age: 69y MEASUREMENTS: Wt: 81.6 kg, Ht/Alexandro: 70.0 in, BMI: 25.83 ALLERGIES: No known drug allergies MEDICATION/IV/DRIP/F LUID ORDERS Order Description Priority Entered Acknowledged Completed Aspirin PO [id number] mg (NOW 19:12 01/21/2025 19:23 x1) Lawrence Dominguez, 01/21/2025 Aaron Zapien.NDanna Heparin Drip IV (CARDIAC) 19:12 01/21/2025 19:33 19:35 19051rzfvx/250ml [id number] Lawrence Dominguez, 01/21/2025 01/21/2025 unit at 12 unit/kg/hr (979.76 D.OTico Azul, unit/hr) (refer to heparin R.N. R.N. nomogram/titration, HIGH ALERT MEDICATION, NOW x1) Order Comments: 19:12 01/21/2025: (Max initial rate 1000 units/hr Round to nearest 50-100 units) Lawrence Dominguez D.O. Heparin [id number] unit (NOW x1, 19:12 01/21/2025 19:32 Refer to Heparin Nomogram for Lawrence Dominguez, 01/21/2025 Dosing/Titration, HIGH ALERT Rosa Elena Gaytan, MEDICATION, Round to nearest R.N. 50-100 units) Order Comments: 19:12 01/21/2025: (Cardiac Max dose 4000 units DVT/PE Max dose 8750 units) Lawrence Dominguez D.O. 1 of 4 Order Sheet MORPHine IVP4 mg (NOW x1, 20:10 01/21/2025 20:11 20:15 HIGH ALERT MEDICATION) Lawrence Dominguez, 01/21/2025 01/21/2025 Tico Zapien R.N. R.N. LAB ORDERS Order Description Priority Entered Acknowledged Collected Completed CBC w Diff Stat Stat 19:12 01/21/2025 19:14 01/21/2025 19:42 01/21/2025 Tico Canchola Charles Wilbur, D.O. R.N. R.N. BNP Stat Stat 19:12 01/21/2025 19:14 01/21/2025 19:42 01/21/2025 Tico Canchola Charles Wilbur, D.O. R.N. R.N. CMP Stat Stat 19:12 01/21/2025 19:14 01/21/2025 19:42 01/21/2025 Tico Canchola Charles Wilbur, D.O. R.N. R.N. PT with INR Stat Stat 19:12 01/21/2025 19:14 01/21/2025 19:42 01/21/2025 Tico Canchola Charles Wilbur, D.O. R.N. R.N. PTT Stat Stat 19:12 01/21/2025 19:14 01/21/2025 19:42 01/21/2025 Tico Canchola Charles Wilbur, D.O. R.N. R.N. Troponin-I Protocol Stat 19:12 01/21/2025 19:14 01/21/2025 00:21 01/22/2025 (STAT 1hr) (Sched: q1h Tico Canchola, Tico Gaytan, X2); Stat 1 of 2 D.O. R.N. R.N. Troponin-I Protocol Stat 19:12 01/21/2025 00:21 01/22/2025 00:21 01/22/2025 2 of 4 Order Sheet (STAT 1hr) (Sched: q1h Tico Canchola Charles Wilbur, X2); Stat 2 of 2 D.O. R.N. R.N. D-Dimer Stat Stat 19:12 01/21/2025 19:14 01/21/2025 19:42 01/21/2025 Tico Canchola Charles Wilbur, D.O. R.N. R.N. EKG - ED Stat Stat 19:12 01/21/2025 19:14 01/21/2025 19:42 01/21/2025 Tico Canchola Charles Wilbur, D.O. R.N. R.N. EKG - ED Stat Stat 20:20 01/21/2025 00:21 01/22/2025 00:21 01/22/2025 Tico Canchola Charles Wilbur, D.O. R.NDanna RLinda DIAGNOSTIC STUDY ORDERS Order Description Priority Entered Acknowledged Completed Chest 1V Stat Stat 19:12 01/21/2025 19:14 19:42 Lawrence Dominugez, 01/21/2025 01/21/2025 Tico Zapien R.N. R.NDanna Reason for Study: Chest Pain CT Chest PE Study Stat Stat 21:03 01/21/2025 00:21 00:21 Lawrence Dominguez, 01/22/2025 01/22/2025 Tico Zapien, R.N. R.NDanna Reason for Study: Pulmonary Disease STAFF ORDERS Order Description Priority Entered Acknowledged Collected Completed Obtain Old EKG 19:12 01/21/2025 19:14 01/21/2025 19:42 01/21/2025 Tico Canchola Charles Wilbur, 3 of 4 Order Sheet Jayne.Elliot Walker.N. R.N. Oxygen titrate to 92% 19:12 01/21/2025 19:14 01/21/2025 19:42 01/21/2025 Tico Canchola Charles Wilbur, D.O. R.N. R.NDanna Screen Printing Inspector 19:12 01/21/2025 19:14 01/21/2025 19:42 01/21/2025 Tico Canchola Charles Wilbur, D.O. R.N. R.NDanna Vital signs every 15 19:12 01/21/2025 19:14 01/21/2025 19:42 01/21/2025 minutes Tico Canchola Charles Wilbur, D.O. R.N. R.N. IV Saline Lock 19:12 01/21/2025 19:14 01/21/2025 19:42 01/21/2025 Tico Canchola Charles Wilbur, D.O. R.N. R.NDanna [Electronically signed by Lawrence Dominguez D.O. (01/22/2025 13:59 EDT)] 4 of 4 Normal [facility] ED PHYSICIAN CLINICAL REPORT on 01-22-2025 ED PHYSICIAN CLINICAL REPORT Narrative Physician Clinical Narrative [facility] [address] [place] [address] [phone] 01/21/2025 18:51:00 Patient: PITER MOSS [facility] [id number] Sex: Male : 1955 Age: 69y Disposition: Observation to Med/Surg Disposition Decision Time: 22:07 01/21/2025 Departure Time: 22:55 01/21/2025 Measurements Wt: 81.6 kg, Ht/Alexandro: 70.0 in, BMI: 25.83 Initial Vital Sign Measured Time BP MAP HR RR O2Sat ETCO2 Temp Pain GCS RTS 18:57 01/21/2025 140/52 81 72 18 90% RA 98.2 F 8 Time Seen: 18:58 01/21/2025. Arrived- By private vehicle. Historian- patient. Independent historian- family. HISTORY OF PRESENT ILLNESS Chief Complaint: CHEST PAIN. It is described as pressure, burning and sharp and it is described as located in the central chest area. (Patient has been having chest discomfort for 3 days. Says pain is a 8/10 it is a constant stabbing burning pain it is better when he rests in his still it is worse when he moves or exerts himself. His has oxygen at home he has been using his oxygen he also feels short of breath occasionally gets sweats he does have diabetes and hypertension he says he has not had a stress test in many years ever had a heart catheterization. It is constant pain he was not smoke or drink he does have a family history with his father having a heart disease. He presents to the emergency department with his .). Is still present. REVIEW OF SYSTEMS ENDO/HEME/LYMPH: No enlarged lymph nodes. SKIN: No skin rash. GI: No abdominal pain or black stools. THROAT: No sore throat. NEUROLOGICAL: No fainting episodes. CONSTITUTIONAL: No fever. 1 of 12 Narrative PAST HISTORY See nurses notes. COPD - Chronic Obstructive Pulmonary Disease Diabetes Mellitus Hypertension Surgeries: no known surgical history Medications: unable to obtain home medications Allergies: no known drug allergies SOCIAL HISTORY Former smoker. Drug use: marijuana. ADDITIONAL NOTES The nursing notes have been reviewed. PHYSICAL EXAM Appearance: Alert. Oriented X3. No acute distress. Eyes: Pupils equal, round and reactive to light. Eyes normal inspection. ENT: Nose normal. Pharynx normal. Neck: Normal inspection. Neck supple. CVS: Normal heart rate and rhythm. Heart sounds normal. Respiratory: No respiratory distress. Breath sounds normal. Chest nontender. Abdomen: Soft and nontender. Skin: Skin warm and dry. Normal skin color. Normal skin turgor. Neuro: Oriented X 3. No motor deficit. 2 of 12 Narrative LABS, X-RAYS, AND EKG 12-LEAD EKG: EKG time: 18:50 01/21/2025. Abnormal EKG. Acute process present. Rate: 80. Normal axis. Marked ST depression in lead II, III, aVF, V4, V5 and V6- consistent with ischemia. Changes present when compared to prior EKG. (Jun 10). The study has been interpreted contemporaneously by me. Interpretation time: 19:00 01/21/2025. 12-LEAD EKG #2: EKG time: 20:31 01/21/2025. Rate: 70. Normal axis. ST depression in lead II, III, aVF, V4, V5 and V6. Interpretation time: 20:34 01/21/2025. Laboratory Tests: CBC + DIFF Final RUT: 01/21/2025 19:21:00 EDT MsgRcvd: 01/21/2025 19:43 EDT Lab Test Result Reference Status Received Comments 01/21/2025 19:43 CBC-COMPLETE CBC + DIFF Final EDT BLOOD COUNT 01/21/2025 19:43 WBC 6.6 x 10/UL 4.5 - 10.8 Final EDT 01/21/2025 19:43 RBC 4.68 x 10/UL 4.50 - 6.00 Final EDT 01/21/2025 19:43 HEMOGLOBIN 14.4 g/dl 13.0 - 17.5 Final EDT 01/21/2025 19:43 HEMATOCRIT 42.9 % 40.0 - 52.0 Final EDT 01/21/2025 19:43 MCV 92 fl 81 - 98 Final EDT 01/21/2025 19:43 MCH 31 pg 27 - 33 Final EDT 01/21/2025 19:43 MCHC 34 X10 3 32 - 36 Final EDT 3 of 12 Narrative Lab Test Result Reference Status Received Comments 01/21/2025 19:43 RDW/CV 12.9 % 12.0 - 15.6 Final EDT 128 x10/UL 01/21/2025 19:43 PLATELET 150 - 450 Final Below low normal EDT 01/21/2025 19:43 AUTOMATED MPV 7.1 fl 6.4 - 10.5 Final EDT DIFFERENTIAL 01/21/2025 19:43 NEUT % 68.0 % 46.0 - 76.0 Final EDT 18.9 % 01/21/2025 19:43 LYMPH % 20.0 - 45.0 Final Below low normal EDT 10.4 % 01/21/2025 19:43 MONOS % 0.0 - 10.0 Final Above high normal EDT 01/21/2025 19:43 EO % 2.3 % 0.0 - 7.0 Final EDT 01/21/2025 19:43 BASO % 0.4 % 0.0 - 2.0 Final EDT 01/21/2025 19:43 Lymph # 1.24 x10/UL 0.80 - 2.80 Final EDT 01/21/2025 19:43 Neut # 4.46 x10/UL 1.50 - 7.10 Final EDT 01/21/2025 19:43 [place] # 0.68 x10/UL 0.20 - 1.00 Final EDT 01/21/2025 19:43 EO # 0.15 x10/UL 0.00 - 0.50 Final EDT 01/21/2025 19:43 Baso # 0.03 x10/UL 0.00 - 0.10 Final EDT 4 of 12 Narrative Lab Test Result Reference Status Received Comments 01/21/2025 19:43 MANUAL DIFF N/A New Order EDT 01/21/2025 19:43 MORPHOLOGY N/A New Order EDT (more content not included)... Normal [facility] ED SUPER BILLon 01-22-2025 ED SUPER BILL [facility] [address] [place] [address] [phone] 01/21/2025 Patient: PITER MOSS Sex: Male : 1955 Age: 69y Facility Professional Category Item Description Code Code Quantity Fee Total Nurse/E/M EMERGENCY 411750 1 $0.00 $0.00 DEPT VISIT HIGH SEVERITYFUNCJ (71654-15) Nurse/IV/IM/Infusion s Drip/IVPB 461166 3 $0.00 $0.00 additional hour (93877) Nurse/IV/IM/Infusion s Drip/IVPB initial 025020 1 $0.00 $0.00 (87183) Nurse/IV/IM/Infusion s IVP additional 043448 2 $0.00 $0.00 push (53251) Nurse/Supplies Oxygen in the ED 509824 1 $0.00 $0.00 (709433) Grand $0.00 Total Providers Lawrence Dominguez D.O. 1 of 2 Superbil Chief Complaint CHEST PAIN. Principal Diagnosis Chest pain characterized as discomfort, pressure and tightness. Acute dyspnea. ICD-10 Codes R07.89: Other chest pain R06.09: Other forms of dyspnea 2 of 2 Normal [facility] ED VISIT SUMMARYon ED VISIT SUMMARY Visit Overview Visit Overview [address] [address] [phone] 01/21/2025 Patient: PITER MOSS Sex: Male : 1955 Age: 69y 01/22/2025 01:59 PM EDT ED Arrival:18:51 01/21/2025 EDT Status: Recent Travel:no Language:eng Adv Directive: Isolation Status: Ethnicity:N Fall Risk:risk Infectious Disease Exposure:no Measurements:5'10 / 177.8 Self-Harm Status:risk Sepsis Screen:negative cm 180.0 lb / 81.6 kg Chief Complaint:CHEST PAIN, (about 2 days), and ([place]) ALLERGIES No Known Drug Allergies HOME MEDICATIONS Unable To Obtain PAST MEDICAL HISTORY / PROBLEMS COPD - Chronic Obstructive Pulmonary Disease Diabetes Mellitus Hypertension 1 of 3 Visit Overview See nurses notes PAST SURGICAL HISTORY No Surgeries SOCIAL HISTORY Smoking status: No Alcohol use: No Drug use: Yes ED COURSE MEDICATIONS GIVEN IN EMERGENCY DEPARTMENT 19:19 01/21/25 Aspirin PO Chew 324 mg 19:30 01/21/25 Heparin IVP 4000 unit over 1 minute(s) Heparin Drip IV (CARDIAC) 16638hpxow/250ml Premix 76934 unit 979.76 unit/hr over 1 19:34 01/21/25 hour(s) 20:14 01/21/25 MORPHine IVP 4 mg IV SITE INFORMATION 19:32 01/21/25 Site #1 right forearm, 18g. Saline lock. INTAKE OUTPUT REASSESMENT (most recent) 21:48 01/21/25. The patient is calm and resting quietly. Patient waiting for disposition and admit bed. VITAL SIGNS First Vitals Last Vitals Temp 18:57 01/21/25 98.2 F Temp 22:55 01/21/25 BP 18:57 01/21/25 140/52 BP 22:55 01/21/25 HR 18:57 01/21/25 72 HR 22:55 01/21/25 RR 18:57 01/21/25 18 RR 22:55 01/21/25 16 O2 Sat 18:57 01/21/25 90% RA O2 Sat 22:55 01/21/25 2 of 3 Visit Overview First Vitals Last Vitals Pain 18:57 01/21/25 8 Pain 22:55 01/21/25 2 ETCO2 18:57 01/21/25 ETCO2 22:55 01/21/25 GCS 18:57 01/21/25 GCS 22:55 01/21/25 RTS 18:57 01/21/25 RTS 22:55 01/21/25 PROCEDURES NURSING INTERVENTIONS LABS / STUDIES LABS / STUDIES ORDERED BNP CBC w Diff Chest 1V CMP CT Chest PE Study D-Dimer EKG - ED EKG - ED PT with INR PTT Troponin-I Protocol (STAT 1hr) Troponin-I Protocol (STAT 1hr) CLINICAL IMPRESSION ACUTE DYSPNEA CHEST PAIN CHARACTERIZED DISCOMFORT, PRESSURE AND TIGHTNESS 3 of 3 Normal [facility] ED VITALS FLOW SHEETon 01-22 ED VITALS FLOW SHEET Vitals Vital Sign Flow Sheet [address] [address] [id number] 01/21/2025 Patient: PITER MOSS Sex: Male : 1955 Age: 69y Measurements Wt: 81.6 kg, Ht/Alexandro: 70.0 in, BMI: 25.83 Measured Time BP MAP HR RR O2Sat ETCO2 Temp Pain GCS RTS 22:55 01/21/2025 16 2 22:46 01/21/2025 72 94% 22:45 01/21/2025 142/69 93 73 22:41 01/21/2025 76 95% 22:36 01/21/2025 67 94% 22:31 01/21/2025 70 95% 22:30 01/21/2025 141/83 112 71 22:26 01/21/2025 76 94% 22:21 01/21/2025 71 95% 22:16 01/21/2025 70 94% 22:15 01/21/2025 141/83 102 70 22:11 01/21/2025 74 93% 22:06 01/21/2025 77 94% 22:02 01/21/2025 154/77 102 87 21:56 01/21/2025 71 94% 1 of 3 Vitals Measured Time BP MAP HR RR O2Sat ETCO2 Temp Pain GCS RTS 21:51 01/21/2025 72 94% 21:46 01/21/2025 75 93% 21:45 01/21/2025 146/78 117 72 21:41 01/21/2025 74 95% 21:36 01/21/2025 72 96% 21:31 01/21/2025 77 95% 21:26 01/21/2025 68 94% 21:19 01/21/2025 76 96% 21:14 01/21/2025 81 90% 21:14 01/21/2025 201/98 116 74 21:09 01/21/2025 69 92% 21:04 01/21/2025 72 91% 20:59 01/21/2025 69 90% 20:57 01/21/2025 145/71 108 68 20:54 01/21/2025 72 91% 20:49 01/21/2025 72 90% 20:44 01/21/2025 69 90% 20:42 01/21/2025 142/75 113 68 20:39 01/21/2025 69 90% 20:34 01/21/2025 71 90% 20:29 01/21/2025 73 90% 20:27 01/21/2025 137/89 105 74 20:24 01/21/2025 74 91% 20:19 01/21/2025 77 91% 20:12 01/21/2025 148/71 96 77 2 of 3 Vitals Measured Time BP MAP HR RR O2Sat ETCO2 Temp Pain GCS RTS 20:04 01/21/2025 76 89% 19:59 01/21/2025 79 93% 19:59 01/21/2025 144/69 83 76 19:54 01/21/2025 81 94% 19:49 01/21/2025 78 93% 19:44 01/21/2025 73 91% 18:57 01/21/2025 140/52 81 72 18 90% RA 98.2 F 8 3 of 3 Normal [facility] HEMOGLOBIN A1C (POM)on 01-22 Glucose [Mass/Vol] 214.5 mg/dL High 0.0 - 0.0 [facility] Comment on above: Result Comment: Do HEMOGLOBIN A1C REFERENCE RANGESBLDo Suggested Diagnosis HbA1c(%) HbA1C (mmol/mol Diabetic >/=6.5 >/=48 Prediabetes 5.7 - 6.4 39 - 47 Normal <5.7 <39 Performed By: #### 2 60503 #### [facility],[address] [place] [address] HbA1c (Bld) [Mass fraction] 9.1 % High 0.0 - 6.5 [facility] Comment on above: Performed By: #### 2 90987 #### [facility],[address] [place], [place] [address] TROPONIN I, HIGH SENSITIVITY on 01-22-2025 HS TROPONIN 6.0 pg/mL Normal 0.0 - 76.2 [facility] Comment on above: Performed By: #### 2 23668 #### [facility],[address] [place], [place] [address] APTTon 01-21-2025 aPTT Coag (Bld) [Time] 34.2 s Normal 25.4 - 38.4 [facility] Comment on above: Performed By: #### 2 71456 #### [facility],[address] [place] [address] 11387 CBC + DIFFon 01-21-2025 Baso # 0.03 x10EE3/UL Normal 0.00 - 0.10 [facility] Comment on above: Performed By: #### 2 72458 #### [facility],[address] [place] [address] 66086 Basophils/100 WBC (Bld) 0.4 % Normal 0.0 - 2.0 [facility] Comment on above: Performed By: #### 2 27917 #### [facility],[address] [place] [address] 51682 CBC + DIFF Normal [facility] Comment on above: Result Comment: CBC- COMPLETE BLOOD COUNT Performed By: #### 2 15553 #### [facility],[address] [place] [address] 27135 EO # 0.15 x10EE3/UL Normal 0.00 - 0.50 [facility] Comment on above: Performed By: #### 2 85315 #### [facility],[address] [place] [address] 59035 Eosinophils/100 WBC (Bld) 2.3 % Normal 0.0 - 7.0 [facility] Comment on above: Performed By: #### 2 02202 #### [facility],[address] [place] [address] 59898 Erythrocyte distribution width (RBC) [Ratio] 12.9 % Normal 12.0 - 15.6 [facility] Comment on above: Performed By: #### 2 71033 #### [facility],[address] [place] [address] 34961 Hematocrit (Bld) [Volume fraction] 42.9 % Normal 40.0 - 52.0 [facility] Comment on above: Performed By: #### 2 99588 #### [facility],[address] [place] [address] 85409 Hemoglobin (Bld) [Mass/Vol] 14.4 g/dL Normal 13.0 - 17.5 [facility] Comment on above: Performed By: #### 2 85564 #### [facility],[address] [place] [address] Lymph # 1.24 x10EE3/UL Normal 0.80 - 2.80 [facility] Comment on above: Performed By: #### 2 68134 #### [facility],[address] [place] [address] Lymphocytes/100 WBC (Bld) 18.9 % Low 20.0 - 45. 0 [facility] Comment on above: Performed By: #### 2 71693 #### [facility],[address] [place] [address] MANUAL DIFF N/A Normal [facility] Comment on above: Performed By: #### 2 54739 #### [facility],[address] [place] [address] MCH (RBC) [Entitic mass] 31 pg Normal 27 - 33 [facility] Comment on above: Performed By: #### 2 69320 #### [facility],[address] [place] [address] MCHC 34 X10 3 Normal 32 - 36 [facility] Comment on above: Performed By: #### 2 19323 #### [facility],[address] [place] [address] MCV (RBC) [Entitic vol] 92 fL Normal 81 - 98 [facility] Comment on above: Performed By: #### 2 52011 #### [place] [address] [place] # 0.68 x10EE3/UL Normal 0.20 - 1.00 [facility] Comment on above: Performed By: #### 2 62143 #### [facility],[address] [place] [address] MONOS % 10.4 % High 0.0 - 10.0 [facility] Comment on above: Performed By: #### 2 54400 #### [facility],[address] [place] [address] 95190 Morphology Christ (Bld) [Interp] N/A Normal [facility] Comment on above: Performed By: #### 2 10430 #### [facility],[address] [place] [address] 33811 Neut # 4.46 x10EE3/UL Normal 1.50 - 7.10 [facility] Comment on above: Performed By: #### 2 96047 #### [facility],[address] [place] [address] 66418 Neutrophils/100 WBC (Bld) 68.0 % Normal 46.0 - 76. 0 [facility] Comment on above: Performed By: #### 2 39336 #### [facility],[address] [place] [address] 33880 PLATELET 128 x10EE3/UL Low 150 - 450 [facility] Comment on above: Performed By: #### 2 77207 #### [facility],[address] [place] [address] 42528 Platelet mean volume (Bld) [Entitic vol] 7.1 fL Normal 6.4 - 10.5 [facility] Comment on above: Result Comment: AUTO MATED DIFFERENTIAL Performed By: #### 2 26273 #### [facility],[address] [place] [address] 91774 RBC 4.68 x 10EE6/UL Normal 4.50 - 6.00 [facility] Comment on above: Performed By: #### 2 14349 #### [facility],[address] [place] [address] 88758 WBC 6.6 x 10EE3/UL Normal 4.5 - 10.8 [facility] Comment on above: Performed By: #### 2 68673 #### [facility],[address] [place] [address] 10695 CHEST 1 VIEWon 01-21-2025 CHEST 1 VIEW [place] [address] Patient: PITER MOSS Phone#: : 1955 Age: 69 Gender: M Pt. Type: ER Account: [id number] Location: 010 Ordering: LAWRENCE DOMINGUEZ Exam Date: 01/21/2025/20:22 Family Phys: REBECCA TERAN Charge Code: [id number] Physician: [place] Order #: [id number] Dose#: PROCEDURE: X-RAY CHEST 1 VIEW COMPARISON: [facility], XR, CHEST 2 VIEWS, 06/10/2023, 16:26. INDICATIONS: Shortness of breath. FINDINGS: LUNGS: Normal. No significant pulmonary parenchymal abnormalities. VASCULATURE: Normal. Unremarkable pulmonary vasculature. CARDIAC: Normal. No cardiac silhouette abnormality or cardiomegaly. MEDIASTINUM: Normal. No visible mass or adenopathy. PLEURA: Normal. No effusion or pleural thickening. BONES: Degenerative changes of the spine OTHER: Monitoring leads project across the thorax CONCLUSION: No acute disease. No significant change has occurred. Dictated by: Cindy Campbell MD on 01/22/2025 at 8:34 Approved by: Cindy Campbell MD on 01/22/2025 at 8:35 Normal [facility] CMP with eGFRon 01-21-2025 AGE 69 years Normal [facility] Comment on above: Performed By: #### 2 91058 #### [facility],[address] [place] [address] 35137 Albumin [Mass/Vol] 3.4 g/dL Normal 3.4 - 5.0 [facility] Comment on above: Performed By: #### 2 83860 #### [facility],[address] [place] [address] 01785 Albumin/Globulin [Mass ratio] 0.9 {ratio} Normal 0.9 - 1.6 [facility] Comment on above: Performed By: #### 2 19878 #### [facility],[address] [place] [address] 47753 ALK PHOS 194 U/L High 46 - 116 [facility] Comment on above: Performed By: #### 2 95859 #### [facility],[address] [place] [address] 23637 ALT [Catalytic activity/Vol] 31 U/L Normal 16 - 63 [facility] Comment on above: Performed By: #### 2 76354 #### [facility],[address] [place] [address] 91042 Anion gap [Moles/Vol] 13 mmol/L Normal 10 - 20 [facility] Comment on above: Performed By: #### 2 74561 #### [facility],[address] [place] [address] 58451 AST [Catalytic activity/Vol] 20 U/L Normal 15 - 37 [facility] Comment on above: Performed By: #### 2 88257 #### [facility],[address] [place] [address] 83122 B/C RATIO 10 ratio Normal 0 - 30 [facility] Comment on above: Performed By: #### 2 19471 #### [facility],[address] [place] [address] 93431 Bilirubin [Mass/Vol] 1.2 mg/dL High 0.2 - 1.0 [facility] Comment on above: Performed By: #### 2 79738 #### [facility],[address] [place] [address] 56645 Calcium [Mass/Vol] 8.6 mg/dL Normal 8.5 - 10.1 [facility] Comment on above: Performed By: #### 2 13417 #### [facility],[address] [place] [address] 32228 Chloride [Moles/Vol] 96 mmol/L Low 98 - 107 [facility] Comment on above: Performed By: #### 2 96649 #### [facility],[address] [place] [address] 05107 CMP with eGFR Normal [facility] Comment on above: Result Comment: COMP REHENSIVE METABOLIC PANEL Performed By: #### 2 47180 #### [facility],[address] [place] [address] 25575 CO2 [Moles/Vol] 27.8 mmol/L Normal 21.0 - 32.0 [facility] Comment on above: Performed By: #### 2 43563 #### [facility],[address] [place] [address] 75392 Creatinine [Mass/Vol] 0.87 mg/dL Normal 0.70 - 1.[address] [facility] Comment on above: Performed By: #### 2 50145 #### [facility],[address] [place] [address] GFR/1.73 sq M.predicted among non-blacks MDRD (S/P/Bld) [Vol rate/Area] mL/min/{1.73_m2} Normal 60 - 999 [facility] Comment on above: Performed By: #### 2 37956 #### [facility],[address] [place], [place] [address] Result Comment: ACCO RDING TO THE NATIONAL KIDNEY DISEASE EDUCATION PROGRAM(NKDE), A NORMAL eGFR IS A VALUE GREATER THAN OR EQUAL TO 60 ML/MIN/1.73 SQ METERS. CHRONIC KIDNEY DISEASE: <60mL/MIN/1.73 SQ METERS KIDNEY FAILURE: <15mL/MIN/1.73 SQ METERS THIS TEST SHOULD ONLY BE USED FOR PATIENTS 18 YEARS OF AGE AND OLDER. Globulin (S) [Mass/Vol] 4.0 g/dL High 1.5 - 3.8 [facility] Comment on above: Performed By: #### 2 54150 #### [facility],[address] [place] [address] 92333 Glucose [Mass/Vol] 176 mg/dL High 74 - 106 [facility] Comment on above: Performed By: #### 2 58250 #### [facility],[address] [place] [address] 38188 Potassium [Moles/Vol] 3.8 mmol/L Normal 3.5 - 5.1 [facility] Comment on above: Performed By: #### 2 06145 #### [facility],[address] [place] [address] 88937 Protein [Mass/Vol] 7.4 g/dL Normal 6.4 - 8.2 [facility] Comment on above: Performed By: #### 2 97986 #### [facility],[address] [place] [address] 98559 Sodium [Moles/Vol] 133 mmol/L Low 136 - 145 [facility] Comment on above: Performed By: #### 2 27912 #### [facility],[address] [place] [address] 44032 Urea nitrogen [Mass/Vol] 9 mg/dL Normal 7 - 18 [facility] Comment on above: Performed By: #### 2 98539 #### [facility],[address] [place] [address] CHEST (PE PROTOCOL)on CT CHEST (PE PROTOCOL) [place] [id number] Patient: PITER MOSS Phone#: : 1955 Age: 69 Gender: M Pt. Type: ER Account: [id number] Location: [facility] Ordering: LAWRENCE DOMINGUEZ Exam Date: 01/21/2025/21:33 Family Phys: REBECCA TERAN Charge Code: [id number] Physician: [place] Order #: [id number] Dose#: 32.8 PROCEDURE: CT CHEST WITH CONTRAST FOR PE COMPARISON: [facility], CT, CHEST PE W CON, 06/10/2023, 17:30. INDICATIONS: Shortness of breath. TECHNIQUE: After obtaining the patient's consent, CT images were obtained with non-ionic intravenous contrast material. Multi-planar images were created to optimize visualization of vascular anatomy with MPR/MIPS and 3D imaging. All CT scans at this facility use dose modulation, iterative reconstruction, and/or weight based dosing when appropriate to reduce radiation dose to as low as reasonably achievable. IV CONTRAST: Omnipaque 350,80ml TOTAL DOSE: 32.8 CTDIvol(mGy) FINDINGS: VASCULATURE: No pulmonary embolism. AORTA: No aortic aneurysm. There are calcified noncalcified plaques of the descending thoracic aorta with luminal irregularity. There is approximately 50% narrowing at the origin of the brachiocephalic artery, series 7, image 71. Greater than 90% stenosis at the origin of the celiac artery, series 7, image 66. LUNGS: There are emphysematous changes. There is respiratory motion limiting the evaluation. Scarring in the lingula. CHAPM: Normal. No mass or adenopathy. MEDIASTINUM: Normal. No mass or adenopathy. CARDIAC: Normal. No enlargement, pericardial thickening, or significant calcification. PLEURA: Normal. No mass or effusion. CHEST WALL: Normal. No mass or axillary adenopathy. LIMITED ABDOMEN: Gallbladder is present. Pancreatic atrophy. BONES: Degenerative changes of the lower cervical spine. OTHER: Negative. CONCLUSION: 1. No pulmonary embolism Continued Report - Page 2 of 2 Patient: PITER MOSS Phone#: : 1955 Age: 69 Gender: M Pt. Type: ER Account: [id number] Location: [facility] Ordering: LAWRENCE DOMINGUEZ Exam Date: 01/21/2025/21:33 Family Phys: REBECCA TERAN Charge Code: [id number] Physician: [place] Order #: [id number] Dose#: 32.8 2. 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 Dictated by: Cindy Campbell MD on 01/22/2025 at 10:35 Approved by: Cindy Campbell MD on 01/22/2025 at 10:43 Normal [facility] D-DIMER, QUANTITATIVEon 04-0 D-DIMER QUANT 469 ng/ml High 0 - 230 [facility] Comment on above: Performed By: #### 2 88943 #### [facility],[address] [place] [address] D-DIMER, QUANTITATIVE Normal [facility] Comment on above: Result Comment: CASSANDRA T D-DIMER Performed By: #### 2 58869 #### [facility],[address] [place] [address] NT-proBNPon 01-21-2025 Natriuretic peptide B (Bld) [Mass/Vol] 346 pg/mL High 0 - 125 [facility] Comment on above: Performed By: #### 2 07758 #### [facility],[address] [place] [address] PROTHROMBIN TIME AND INRon 0 01-21-2025 INR Coag (PPP) [Relative time] 1.4 {INR} High 0.8 - 1.2 [facility] Comment on above: Result Comment: T HE HEMOSIL THROMBOPLASTIN REAGENT USED IN THE PROTHROMBIN TIME TEST INTERACTS WITH THE DRUG CUBICIN (DAPTOMYCIN) AND WILL RESULT IN FALSELY ELEVATED PT / INR RESULTS INR INTERPRETATION INR INDICATION PREVENTION AND TREATMENT OF THROMBOEMBOLISM ASSOCIATED WITH: 2.0 - 3.0 ATRIAL FIBRILLATION, BIOPROSTHETIC HEART VALVES, PULMONARY EMBOLISM, VENOUS THROMBOSIS, SYSTEMIC EMBOLISM POST MYOCARDIAL INFARCTION 2.5 - 3.5 MECHANICAL HEART VALVES Performed By: #### 2 21317 #### [facility],[address] [place] [address] PROTHROMBIN TIME AND INR Normal [facility] Comment on above: Result Comment: PROT HROMBIN TIME AND INR Performed By: #### 2 13851 #### [facility],[address] [place], [place] [id number] PT-COUMADIN 15.0 sec High 9.3 - 14.1 [facility] Comment on above: Performed By: #### 2 45341 #### [facility],[address] [place], [place] [address] TROPONINon 01-21-2025 HS TROPONIN 6.8 pg/mL Normal 0.0 - 76.2 [facility] Comment on above: Performed By: #### 2 45780 #### [facility],[address] [place] [address] 94323 HS TROPONIN 6.3 pg/mL Normal 0.0 - 76.2 [facility] Comment on above: Performed By: #### 2 21181 #### [facility],[address] [place] [address] 22397 XR HIP LEFT 2-3 VIEWS (ROUTI NE)on 07-13-2023 XR HIP LEFT 2-3 VIEWS (ROUTINE) EXAMINATION: XR HIP LEFT 2-3 VIEWS (ROUTINE) HISTORY: Follow-up exam Z09 (postop THR). COMPARISON: 05/14/2023 left hip. TECHNIQUE: AP and external rotation views. FINDINGS: No fracture, dislocation, or prominent degenerative changes are seen. Previous left hip replacement is present and has a stable satisfactory appearance. No evidence of loosening is seen. IMPRESSION: No acute left hip. Stable appearance of previous left hip replacement without evidence of loosening. RWA/lab Workstation ID: [id number] Dictated by: HERNAN CORTES on SunJul 13, 2023 2:09:25 PM EDT Transcribed by: LAUREN TURNER on SunJul 13, 2023 2:38:39 PM EDT Finalized by: HERNAN CORTES on SunJul 13, 2023 2:54:12 PM EDT Normal [facility] Comment on above: Order Comment: Injur y/Trauma or Illness?:Illness/Other How long have you had these symptoms (acute/chronic)?:Acute Reason for exam?:POST OP THR History of cancer?:u Surgeries, chemotherapy, or radiation?:u Type of Exam?:Subsequent/Follow-up Additional signs and symptoms?:NO XR HIP LEFT 2-3 VIEWS (ROUTI NE)on 05-14-2023 XR HIP LEFT 2-3 VIEWS (ROUTINE) EXAMINATION: XR HIP LEFT 2-3 VIEWS (ROUTINE) HISTORY: ORDERING SYSTEM PROVIDED HISTORY: ARTHOPLASTY, LEFT TOTAL HIP TECHNOLOGIST PROVIDED HISTORY: Illness/Other Reason for exam: ARTHOPLASSTY Cancer History: Not given. Surgery, Radiation history: Left total hip arthroplasty Type: Subsequent/Follow-up Additional signs and symptoms: LT HIP PAIN ORDERING SYSTEM PROVIDED DIAGNOSIS CODES: M16.12 Osteoarthritis of left hip, unspecified osteoarthritis type TECHNIQUE: Intraoperative images were obtained under direction, supervision and review of the surgeon. COMPARISON: Left hip studies 12/14/2022, 11/09/2021. FINDINGS: Two views of the left hip. Since most recent left hip study 12/14/2022, a left total hip metal arthroplasty is noted status post femoral head osteotomy. Hemispherical acetabular metal component appears well seated within the bony acetabulum. Proximal femoral intramedullary jc also appears well seated within the proximal femoral intramedullary canal. No metal arthroplasty dislocation is identified. No malalignment or metal hardware complication is identified. Intraoperative imaging does not show entire metal arthroplasty in both orthogonal planes. No finding of displaced acute osseous or metallic fatigue fracture. Lateral greater than medial left hip soft tissue diffuse increased density suggests soft tissue swelling, expected intraoperatively. Typical postsurgical changes also include minimal subcutaneous emphysema. IMPRESSION: Limited intraoperative study without complete visualization of the left total hip metal arthroplasty in both orthogonal planes. Clinical correlation and close clinical follow-up recommended. No finding of acute displaced osseous or metallic fatigue fracture or arthroplasty dislocation seen completely in only a single AP view or traumatic malalignment. Clinical correlation recommended. P/r Workstation ID: [id number] Dictated by: JOSEPH SMITH on SunMay 14, 2023 10:46:19 PM EDT Transcribed by: AUBREY VENTURA on SunMay 14, 2023 10:48:32 PM EDT Finalized by: JOSEPH SMITH on SunMay 14, 2023 11:08:[address] [facility] Comment on above: Order Comment: Injur y/Trauma or Illness?:Illness/Other How long have you had these symptoms (acute/chronic)?:Unknown Reason for exam?:ARTHOPLASSTY History of cancer?:u Surgeries, chemotherapy, or radiation?:u Type of Exam?:Subsequent/Follow-up Additional signs and symptoms?:LT HIP PAIN Laboratory - Microbiology an d Antimicrobial susceptibilityOrdered By: Maira García on 04-27-2023 MRSA isol Org specific cx Ql (Unsp spec) Negative [facility] MRSA isol Org specific cx Ql (Unsp spec)Ordered By: Maira García on 04-27-2023 Interpretation and review of laboratory results Normal [facility] Basic metabolic 2000 panelon 04-26-2023 Anion gap [Moles/Vol] 6 mmol/L Low 10 - 2 0 mmol/L [facility] Calcium [Mass/Vol] 8.8 mg/dL 8.4 - 10. 2 mg/dL [facility] Chloride [Moles/Vol] 106 mmol/L 98 - 10 8 mmol/L [facility] Creatinine [Mass/Vol] 0.96 mg/dL 0.80 - 1.30 mg/dL [facility] GFR/1.73 sq M.predicted CKD-EPI (S/P/Bld) [Vol rate/Area] 87 - PINF [facility] Comment on above: Estimated GFR was ca lculated using the 2020 CKD-EPI creatinine equation. Glucose [Mass/Vol] 207 mg/dL High 65 - 99 mg/dL [facility] HCO3 [Moles/Vol] 29 mmol/L 21 - 32 mmol/L [facility] Interpretation and review of laboratory results Abnormal [facility] Potassium [Moles/Vol] 4.0 mmol/L 3.5 - 5.1 mmol/L [facility] Sodium [Moles/Vol] 137 mmol/L 135 - 145 mmol/L [facility] Urea nitrogen [Mass/Vol] 12 mg/dL 8 - 25 mg/d L [facility] Urea nitrogen/Creatinine [Mass ratio] 12.5 mg/mg 10.0 - 20.0 [facility] Laboratory Services has implemented the eGFR calculation approach that does not have a coefficient for race that conforms to the NKF-ASN Task Force Recommendations. [facility] CT HIP LEFT WITHOUT CONTRAST on 04-26-2023 CT HIP LEFT WITHOUT CONTRAST EXAMINATION: CT HIP LEFT WITHOUT CONTRAST HISTORY: ORDERING SYSTEM PROVIDED HISTORY: Hip surgical planning, TECHNOLOGIST PROVIDED HISTORY: Illness/Other [facility] for exam[facility] Encounter Type: Ongoing Additional signs and symptoms: ORDERING SYSTEM PROVIDED DIAGNOSIS CODES: M16.12 Osteoarthritis of left hip, unspecified osteoarthritis type COMPARISON: 12/14/2022 left hip radiograph TECHNIQUE: Axial CT imaging of the pelvis and knees without contrast. [facility] protocol. Dose reduction techniques were achieved by using automated exposure control and/or adjustment of mA and/or kV according to patient size and/or use of iterative reconstruction technique. FINDINGS: Pelvis: No acute osseous abnormality. Bilateral femoral head avascular necrosis without subchondral collapse. Bilateral hip joint space narrowing with osteophytic spurring. Severe discogenic disease of L4-5. Severe facet arthropathy of lower lumbar spine. Moderate osteophytic spurring at the sacroiliac joints. Muscle bulk of the pelvis appears normal. Knees: No acute osseous abnormality. Mild tricompartmental symmetric osteophytic spurring. Significant joint effusions. Muscle bulk appears normal. 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 ST/klb Workstation ID: [id number] Dictated by: ABBY TURNER on SunApr 26, 2023 3:54:06 PM EDT Transcribed by: ORTEGA JOHNSON on SunApr 26, 2023 4:19:03 PM EDT Finalized by: ABBY TURNER on SunApr 26, 2023 9:48:[address] [facility] Comment on above: Order Comment: Pleas e only schedule at [facility]. Do not schedule Ct scan appointment with patient. Ordering Doctor's office will call to schedule Ct scan appointment. Injury/Trauma or Illness?:Illness/Other How long have you had these symptoms (acute/chronic)?:Chronic Reason for exam?:jacky left knee Type of Exam?:Ongoing Additional signs and symptoms?: HbA1c (Bld) [Mass fraction]O rdered By: Codi Gonzalez on 04-26-2023 Average glucose Estimated from glycated hemoglobin (Bld) [Mass/Vol] 140 mg/dL High 68 - 114 mg/dL [facility] Interpretation and review of laboratory results Abnormal [facility] Normal: 4.0% - 5.6% Increased risk for diabetes: 5.7% - 6.4% Diabetes: >= 6.5% Pediatrics: No established reference range Estimated average glucose: 68-114 mg/dL [facility] INR Coag (PPP) [Relative victorino e]on 04-26-2023 Interpretation and review of laboratory results Abnormal [facility] PT Coag (PPP) [Time] 14.4 s High [facility] During the induction phase of oral anticoagulation, the INR may not reflect the anticoagulation status of the patient. Therapeutic ranges for INR's are: Most clinical situations: INR 2.0-3.0 Mechanical Prosthetic Valve: INR 2.5-3.5 Critical: INR >5.0 [facility] Laboratory - Coagulationon 0 04-26-2023 INR Coag (PPP) [Relative time] 1.1 {INR} 0.8 - 1.1 [facility] Laboratory - Hematology and Cell countsOrdered By: Codi Gonzalez on 04-26-2023 HbA1c (Bld) [Mass fraction] 6.5 % High 4.0 - 5.6 % [facility] Laboratory - Hematology and Cell countson 04-26-2023 Basophils (Bld) [#/Vol] 0.03 10*3/uL [facility] Basophils/100 WBC (Bld) 0.5 % [facility] Eosinophils (Bld) [#/Vol] 0.13 10*3/uL [facility] Eosinophils/100 WBC (Bld) 2.3 % [facility] Erythrocyte distribution width (RBC) [Entitic vol] 13.8 % 11.6 - 14.8 % [facility] Hematocrit (Bld) [Volume fraction] 48.1 % 41.0 - 53.0 % [facility] Hemoglobin (Bld) [Mass/Vol] 15.5 g/dL 13.5 - 17.5 g/dL [facility] Immature granulocytes (Bld) [#/Vol] 0.04 10*3/uL [facility] Immature granulocytes/100 WBC (Bld) 0.70 % [facility] Comment on above: The IG parameter is the percentage of metamyelocytes, myelocytes and promyelocytes. An immature granulocyte count (IG) of 1% or more suggests the possibility of infection, an IG count of 3% is very likely related to an infection. Lymphocytes (Bld) [#/Vol] 1.87 10*3/uL [facility] Lymphocytes/100 WBC (Bld) 33.4 % [facility] MCH (RBC) [Entitic mass] 31.0 pg 26. 0 - 34.0 pg [facility] MCHC (RBC) [Mass/Vol] 32.2 g/dL 31.0 - 37.0 g/dL [facility] MCV (RBC) [Entitic vol] 96.2 fL 80.0 - 100.0 fL [facility] Monocytes (Bld) [#/Vol] 0.34 10*3/uL [facility] Monocytes/100 WBC (Bld) 6.1 % [facility] Neutrophils (Bld) [#/Vol] 3.19 10*3/uL [facility] Neutrophils/100 WBC (Bld) 57.0 % [facility] Nucleated RBC (Bld) [#/Vol] 0.00 10*3/uL [facility] Nucleated RBC/100 WBC (Bld) [Ratio] 0.0 % [facility] Platelet mean volume (Bld) [Entitic vol] 10.0 fL 9.4 - 12.4 fL [facility] Platelets (Bld) [#/Vol] 150 10*3/uL [facility] RBC (Bld) [#/Vol] 5.00 10*6/uL [facility] ealth WBC (Bld) [#/Vol] 5.60 10*3/uL [facility] No Panel Informationon 04-26 [facility] ECG 12 LeadOrdered By: Natasha Tanner on 04-18-2023 Atrial Rate [facility] Work Phone: P Jay [facility] Work Phone: P-R Interval [facility] Work Phone: Q-T Interval [facility] Work Phone: Q-T Interval (corrected) [facility] Work Phone: QRS Duration [facility] Work Phone: QTC Calculation (Bezet) [facility] Work Phone: R Jay [facility] Work Phone: T Jay [facility] Work Phone: Ventricular Rate [facility] Work Phone: [facility] Work Phone: Absolute lymphocyte countOrd ered By: Pedro Gallardo on 03-17-2023 Lymphocytes Auto (Unsp spec) [#/Vol] 2.64 10*3/uL 0.83-4.51 [facility] Basophil percentageOrdered B y: Pedro Gallardo on 03-17-2023 Basophils/100 WBC (Bld) 0.4 % 0-1 [facility] Chloride [Moles/Vol] 108 mmol/L 98-107 [facility] Eosinophils/100 WBC (Bld) 2.9 % 0-5 [facility] Glucose [Mass/Vol] 110 mg/dL 74-106 [facility] Comment on above: Fasting Glucose resu lt from 100 to 125 mg/dL suggests IMPAIRED HOMEOSTASIS per A.D.A. criteria. Neutrophils (Bld) [#/Vol] 3.5 10*3/uL 2.0-7.7 [facility] Neutrophils/100 WBC (Bld) 50.1 % 47-70 [facility] Potassium [Moles/Vol] 4.0 mmol/L 3.5-5.1 [facility] Sodium [Moles/Vol] 138 mmol/L 136-145 [facility] WBC (Bld) [#/Vol] 7.0 10*3/uL 4.4-11.0 [facility] Blood erythrocytes count (nu mber/volume)Ordered By: Pedro Gallardo on 03-17-2023 RBC (Bld) [#/Vol] 4.56 10*6/uL 4.6-6.2 [facility] Blood hemoglobin measurement (mass/volume)Ordered By: Pedro Gallardo on 03-17-2023 Hemoglobin (Bld) [Mass/Vol] 14.1 g/dL 13.0-16.5 [facility] Blood lymphocytes/100 leukoc ytesOrdered By: Pedro Gallardo on 03-17-2023 Lymphocytes/100 WBC (Bld) 37.7 % 19-41 [facility] Blood monocytes/100 leukocyt esOrdered By: Pedro Gallardo on 03-17-2023 Monocytes/100 WBC (Bld) 8.3 % 0-10 [facility] Blood platelet mean volumeOr dered By: Pedro Gallardo on 03-17-2023 Platelet mean volume (Bld) [Entitic vol] 10.2 fL 6.2-12.0 [facility] Determination of erythrocyte mean corpuscular volume (MCV)Ordered By: Pedro Gallardo on 03-17-2023 MCV (RBC) [Entitic vol] 93.0 fL 80-94 [facility] Hematocrit Auto (Bld) [Volum e fraction]Ordered By: Pedro Gallardo on 03-17-2023 Hematocrit (Bld) [Volume fraction] 42.4 % 40-54 [facility] Laboratory - Chemistry and C hemistry - challengeOrdered By: Pedro Gallardo on 03-17-2023 CO2 [Moles/Vol] 25.0 mmol/L 21.0-32.0 [facility] Urea nitrogen/Creatinine [Mass ratio] 12.7 mg/mg 10-20 [facility] Laboratory - Hematology and Cell countsOrdered By: Pedro Gallardo on 03-17-2023 Erythrocyte distribution width (RBC) [Entitic vol] 45.7 fL 35.1-43.9 [facility] Erythrocyte distribution width (RBC) [Ratio] 13.4 % 11.6-14.6 [facility] Immature granulocytes/100 WBC (Bld) 0.600 % 0.0-0.9 [facility] Comment on above: IG% - Immature Granu locytes (promyelocytes, myelocytes and metamyelocytes) > 1% indicates that a LEFT SHIFT is Present. MCH (RBC) [Entitic mass] 30.9 pg 27.0-32.0 [facility] Nucleated RBC/100 WBC (Bld) [Ratio] 0 % 0-5 [facility] MCHC Auto (RBC) [Mass/Vol]Or dered By: Pedro Gallardo on 03-17-2023 MCHC (RBC) [Mass/Vol] 33.3 g/dL 32-36 [facility] No Panel InformationOrdered By: Pedro Gallardo on 03-17-2023 Troponin I High Sensitivity 6 pg/mL 3.0-78.0 [facility] Comment on above: Please Note: New Mayra t Units and Gender Specific Reference Ranges. For more information see Policy Stat Procedure [place] High Sensitivity Troponin (TNIH) and attachments. D-Dimer Quantitative (PE/DVT) 0.27 FEU/ug/m 0.27-0.49 [facility] Comment on above: NORMAL D-Dimer level (<0.50) indicates no DVT or PE. Estimated Creatinine Clearance Calc 86.06 ml/min [facility] Estimated GFR (MDRD) Amer 113 mL/min >60 [facility] Comment on above: GFR Calc Estimated GFR (MDRD) Non-Af Amer 94 mL/min >60 [facility] Comment on above: Non- GFR Calc Platelets bldOrdered By: Kanwal Gallardo on 03-17-2023 Platelets (Bld) [#/Vol] 148 10*3/uL 150-450 [facility] Serum or plasma calcium cesia urement (mass/volume)Ordered By: Pedro Gallardo on 03-17-2023 Calcium [Mass/Vol] 8.9 mg/dL 8.5-10.1 [facility] Serum or plasma creatinine m easurement (mass/volume)Ordered By: Pedro Gallardo on 03-17-2023 Creatinine [Mass/Vol] 0.86 mg/dL 0.70-1.30 [facility] Comment on above: The validity of the calculated GFR & GFRAA in patients over 70 years has not been determined. Clinical correlation is essential. Serum or plasma urea nitroge n measurement (mass/volume)Ordered By: Pedro Gallardo on 03-17-2023 Urea nitrogen [Mass/Vol] 11 mg/dL 7-18 [facility] Thin prep Papanicolaou smear with manual screeningOrdered By: Pedro Gallardo on 03-17-2023 Thin prep Papanicolaou smear with manual screening 5 5-15 [facility] XR HIP LEFT 2-3 VIEWS (ROUTI NE)on 12-14-2022 XR HIP LEFT 2-3 VIEWS (ROUTINE) EXAMINATION: XR HIP LEFT 2-3 VIEWS (ROUTINE) 12/14/2022 1:38 pm HISTORY: ORDERING SYSTEM PROVIDED HISTORY: Pain, TECHNOLOGIST PROVIDED HISTORY: Illness/Other Reason for exam: left hip pain worsening Cancer History: u Surgery, RadiationHistory: u Encounter Type: Ongoing Additional signs and symptoms: no ORDERING SYSTEM PROVIDED DIAGNOSIS CODES: R52 Pain COMPARISON: Left hip radiographs dated 11/09/2021 FINDINGS: Two views. No fractures. Redemonstration of serpiginous sclerosis involving the weight-bearing left femoral head compatible with avascular necrosis. No definite collapse or flattening. Mild degenerative narrowing of the left femoroacetabular joint. No aggressive osseous lesions or bony demineralization. Advanced degenerative changes of the lower lumbar spine. Endovascular stenting projects over the pelvis. 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 Advanced lower lumbar spondylosis, partially imaged. STEPHANIE/chadwickb Workstation ID: [id number] Dictated by: IDANIA CARPIO on Sat Dec 16, 2022 10:51:17 AM EST Transcribed by: ORTEGA JOHNSON on Sat Dec 16, 2022 10:52:23 AM EST Finalized by: IDANIA CARPIO on Sat Dec 16, 2022 11:42:15 AM EST Normal [facility] Comment on above: Order Comment: Injur y/Trauma or Illness?:Illness/Other How long have you had these symptoms (acute/chronic)?:Chronic Reason for exam?:left hip pain worsening History of cancer?:u Surgeries, chemotherapy, or radiation?:u Type of Exam?:Ongoing Additional signs and symptoms?:no Basophil percentageon 2021 Basophil percentage < 0.90 mg/dL 0.70-1.30 [facility] No Panel Informationon 08-11 Bedside Estimated GFR (eGFR) > 60 mL/min >60 [facility] Hemoglobin A1con 01-02-2021 HbA1c (Bld) [Mass fraction] 8.0 % High 4.3-5.6 [facility] Comment on above: Performed By: #### H BA1C #### [facility] Routine Lab [address], [place] [address] HbA1c (Bld) [Mass fraction] 183 mg/dL Normal [facility] Comment on above: Performed By: #### H BA1C #### [facility] Routine Lab [address], [place] [address] Vital Signs Date Time Vital Sign Value Performing Clinician Facility 06-11-2025 08:20-0400 Body height 177.8 cm [facility] 06-11-2025 08:20-0400 Body mass index (BMI) [Ratio] 23.8 kg/m2 [facility] 06-11-2025 08:20-0400 Body weight 75.29 kg [facility] 05-25-2025 09:28-0400 Body height 177.8 cm [facility] 05-25-2025 09:28-0400 Body mass index (BMI) [Ratio] 25.8 kg/m2 [facility] 05-25-2025 09:28-0400 Body weight 81.64 kg [facility] 05-25-2025 09:28-0400 Diastolic blood pressure 66 mm[Hg] [facility] 05-25-2025 09:28-0400 Respiratory rate 16 /min [facility] 05-25-2025 09:28-0400 Systolic blood pressure 108 mm[Hg] [facility] 05-13-2025 08:12-0400 Body height 177.8 cm [facility] 05-13-2025 08:12-0400 Body mass index (BMI) [Ratio] 23.8 kg/m2 [facility] 05-13-2025 08:12-0400 Body weight 75.29 kg [facility] 04-15-2025 15:18-0400 Body mass index (BMI) [Ratio] 23.5 kg/m2 [facility] 04-15-2025 14:30-0400 Diastolic blood pressure 56 mm[Hg] [facility] 04-15-2025 14:30-0400 Heart rate 63 /min [facility] 04-15-2025 14:30-0400 SaO2% (BldA) [Mass fraction] 92 % [facility] 04-15-2025 14:30-0400 Systolic blood pressure 110 mm[Hg] [facility] 04-15-2025 14:17-0400 Body weight 74.38 kg [facility] 04-27-2023 14:02-0400 Diastolic blood pressure 43 mm[Hg] Melchor Collins MD Work Phone: [facility] 04-27-2023 14:02-0400 Heart rate 60 /min Melchor Collins MD Work Phone: [facility] 04-27-2023 14:02-0400 Systolic blood pressure 83 mm[Hg] Melchor Collins MD Work Phone: [facility] 04-26-2023 10:00-0400 Body height 177.8 cm [facility] 04-26-2023 10:00-0400 Body mass index (BMI) [Ratio] 25.68 kg/m2 [facility] 04-26-2023 10:00-0400 Body weight 81.19 kg [facility] 04-26-2023 10:00-0400 Diastolic blood pressure 65 mm[Hg] [facility] 04-26-2023 10:00-0400 Heart rate 69 /min [facility] 04-26-2023 10:00-0400 SaO2% (BldA) [Mass fraction] 92 % [facility] 04-26-2023 10:00-0400 Systolic blood pressure 105 mm[Hg] [facility] 04-18-2023 09:39-0400 Body height 177.8 cm Yue Tanner MD Work Phone: [facility] 04-18-2023 09:39-0400 Body mass index (BMI) [Ratio] 26.11 kg/m2 Yue Tanner MD Work Phone: [facility] 04-18-2023 09:39-0400 Body weight 82.56 kg Yue Tanner MD Work Phone: [facility] 04-18-2023 09:39-0400 Diastolic blood pressure 67 mm[Hg] Yue Tanner MD Work Phone: [facility] 04-18-2023 09:39-0400 Heart rate 65 /min Yue Tanner MD Work Phone: [facility] 04-18-2023 09:39-0400 SaO2% (BldA) [Mass fraction] 92 % Yue Tanner MD Work Phone: [facility] 04-18-2023 09:39-0400 Systolic blood pressure 118 mm[Hg] Yue Tanner MD Work Phone: [facility] 03-17-2023 19:33-0400 Diastolic blood pressure 67 mm[Hg] [facility] 03-17-2023 19:33-0400 Heart rate 74 /min [facility] 03-17-2023 19:33-0400 Respiratory rate 18 /min [facility] 03-17-2023 19:33-0400 SaO2% (BldA) [Mass fraction] 95 % [facility] 03-17-2023 19:33-0400 Systolic blood pressure 138 mm[Hg] [facility] 03-17-2023 16:10-0400 Body height 177.8 cm [facility] 03-17-2023 16:10-0400 Body mass index (BMI) [Ratio] 25.6 kg/m2 [facility] 03-17-2023 16:10-0400 Body temperature 97.6 [degF] [facility] 03-17-2023 16:10-0400 Body weight 81.1 kg [facility] 11-09-2021 08:48-0500 Body height 177.8 cm Tamiko Houston [employer] Work Phone: [facility] 11-09-2021 08:48-0500 Body mass index (BMI) [Ratio] 25.83 kg/m2 Tamiko Hosuton [employer] Work Phone: [facility] 11-09-2021 08:48-0500 Body weight 81.65 kg Tamiko Houston [employer] Work Phone: [facility] Encounters Encounter Date Encounter Type Care Provider Facility Start: 08-01-2025 ambulatory GABE Izaguirre ty:[facility] Start: 06-24-2025 End: 07-21-2025 Discharged Recurring [facility] Work Phone: Start: 06-24-2025 End: 07-21-2025 ambulatory [facility] Start: 05-25-2025 End: 05-26-2025 Emergency department patient visit REBECCA TERAN [facility] Start: 05-25-2025 End: 05-25-[address] Robin De La Garza MD [facility] Work Phone: Start: 05-25-2025 End: 05-25-2025 ambulatory [facility] Start: 05-22-2025 End: 06-21-2025 Discharged Recurring [facility] Work Phone: Start: 05-22-2025 Registered Rec[facility]ring [facility] Work Phone: Start: 05-22-2025 End: 06-21-2025 ambulatory [facility] Start: 05-18-2025 End: 05-21-2025 ambulatory [facility] Start: 05-18-2025 End: 05-21-2025 Discharged Recurring [facility] Work Phone: Start: 04-15-2025 Patient encounter procedure [facility] Work Phone: Start: 04-15-2025 ambulatory GABE LYNETTE Facili ty:[facility] Start: 03-20-2025 End: 03-20-2025 ambulatory [facility] Work Phone: Start: 03-20-2025 End: 03-20-2025 Patient encounter procedure [facility] Work Phone: Start: 03-20-2025 End: 03-20-2025 ambulatory GABE OJEDA Facility:[facility] Start: 03-08-2025 End: 03-08-2025 Emergency department patient visit JARED IVAN [facility] Start: 01-23-2025 End: 01-26-2025 Evaluation and management of inpatient DOUG LOU [facility] Start: 07-10-2024 ambulatory LYDIA VASQUES [facility] Start: 07-13-2023 End: 07-17-2023 ambulatory MELCHOR COLLINS [facility] Start: 07-13-2023 End: 07-13-2023 Postop follow up visit related to original px Melchor Collins MD Work Phone: [facility] Comment on above: 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) Start: 06-28-2023 Refill Melchor Collins MD Work Phone: [facility] Comment on above: 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) Status post left hip replacement (Primary Dx) Start: 05-21-2023 Refill Khushi funez LPN [facility] Comment on above: Nausea (Primary Dx) Start: 05-14-2023 End: 05-14-2023 ambulatory [facility] Start: 05-04-2023 Non-patient / Non-visit [facility] Start: 05-04-2023 End: 05-04-2023 ambulatory [facility] Work Phone: Start: 05-04-2023 End: 05-04-2023 Patient encounter procedure [facility] Work Phone: Start: 04-27-2023 End: 04-27-2023 ambulatory MELCHOR COLLINS [facility] Start: 04-27-2023 End: 04-27-2023 Office outpatient visit 15 minutes Melchor Collins MD Work Phone: [facility] Comment on above: Osteoarthritis of le ft hip, unspecified osteoarthritis type (Primary Dx) Start: 04-26-2023 End: 04-30-2023 ambulatory [facility] Start: 04-26-2023 End: 04-26-2023 Patient encounter procedure Melchor Collins MD Work Phone: [facility] Preadmission Testing Comment on above: Osteoarthritis of le ft hip, unspecified osteoarthritis type; Hypertension, unspecified type; Type 2 diabetes mellitus without complication, unspecified whether superintendent container terminal insulin use (HCC); Hx of superintendent container terminal use of blood thinners Start: 04-18-2023 End: 04-18-2023 ambulatory MELCHOR COLLINS [facility] Start: 04-18-2023 End: 04-18-2023 Encounter for preprocedural cardiovascular examination YUE TANNER [facility] Start: 04-18-2023 End: 04-18-2023 Office outpatient new 45 minutes Melchor Collins MD Work Phone: [facility] Comment on above: Pre-operative cardio vascular examination (Primary Dx); Osteoarthritis of left hip, unspecified osteoarthritis type Start: 04-18-2023 End: 04-18-2023 Patient encounter status Melchor Collins MD Work Phone: [facility] Start: 04-02-2023 End: 04-02-2023 ambulatory T[facility]IKO [facility] Start: 03-17-2023 End: 03-17-2023 Emergency department patient visit [facility] Work Phone: Start: 03-12-2023 ambulatory [facility]AN [facility] Start: 12-18-2022 [facility] Comment on above: Osteoarthritis of le ft hip, unspecified osteoarthritis type (Primary Dx) Start: 12-14-2022 End: 12-18-2022 [facility] Start: 11-24-2022 ambulatory PARAMJIT PERRY [facility] Ambulatory Start: 08-11-2022 End: 08-11-2022 ambulatory [facility] Work Phone: Start: 08-11-2022 End: 08-11-2022 Patient encounter procedure [facility] [place], [facility] Start: 11-09-2021 End: 11-10-2021 ambulatory PROVIDER NOT IN SYSTEM [facility] Start: 11-09-2021 End: 11-09-2021 Office outpatient new 30 minutes Tamiko Houston CNP Work Phone: [facility] Comment on above: Osteoarthritis of le ft hip, unspecified osteoarthritis type (Primary Dx); Elevated hemoglobin A1c Procedures Date Procedure Procedure Detail Performing Clinician Start: 05-25-2025 Urinalysis JARED TERRELL Comment on above: Result Comment: URIN ALYSIS Performed By: #### [id number] #### [facility],[address] [place] [id number] Start: 03-20-2025 [facility] blood [facility] Start: 03-20-2025 CT angiography of he ad and neck [facility] Start: 03-20-2025 CT of abdominal aort a with contrast [facility] Start: 03-08-2025 Urinalysis JARED TERRELL Comment on above: Result Comment: URIN ALYSIS Performed By: #### [id number] #### [facility],[address] [place], [place] [id number] Start: 05-04-2023 Cardiovascular stres s test using pharmacologic stress agent [facility] Start: 04-26-2023 Basic metabolic pane l calcium total Melchor Collins MD Work Phone: Start: 04-26-2023 Cul prsmptv pthgnc o rganism scrn w/colony estimj Melchor Collins MD Work Phone: Start: 04-18-2023 Ecg routine ecg w/le ast 12 lds w/i&r Yue Tanner MD Work Phone: Start: 04-02-2023 Follow-up visit Follow-up TAMIKO CHAVARRIACOCK Start: 03-17-2023 Plain chest X-ray [facility] Start: 08-11-2022 CT angiography of ne ck vessels Plan of Treatment Date Care Activity Detail Author Start: 07-02-2030 Tetanus vaccination Tetanus: Every 1 0yrs [facility] Start: 10-27-2023 Hemoglobin A1c measurement A1C [facility] Start: 07-13-2023 End: 07-13-2023 Follow-up encounter 07/13/2023 1:45 PM EDT Follow-Up [facility] [address] [place] [address] Melchor Collins MD [address] [place] [address] [facility] Start: 06-29-2023 End: 06-29-2023 Follow-up encounter 06/29/2023 2:00 PM EDT Follow-Up [facility] [address] [address] Melchor Collins MD [address] [facility] [place] [address] [facility] Start: 06-22-2023 Influenza vaccination [facility] Start: 06-13-2023 Hemoglobin A1c measurement A1C [facility] Start: 06-01-2023 End: 06-01-2023 Follow-up encounter 06/01/2023 2:45 PM EDT Follow-Up [facility] [address] [place] [address] Melchor Collins MD [address] [facility] [place] [address] [facility] Start: 05-14-2023 End: 05-14-2023 Admission to same day surgery center 05/14/2023 2:22 PM EDT - 05/14/2023 4:52 PM EDT Surgery [facility] [address] [place] [address] Melchor Collins MD [address] [place] [address] Left total hip replacement Robotic [facility] Comment on above: Left total hip repla cement Robotic Start: 05-14-2023 End: 05-14-2023 ARTHROPLASTY HIP ROBOTIC ARTHROPLASTY HIP ROBOTIC Osteoarthritis of left hip, unspecified osteoarthritis type 05/14/2023 2:22 PM EDT [facility] Start: 05-14-2023 Subsequent hospital visit by physician 05/14/2023 2:22 PM EDT Hospital Encounter [facility] [address] [place] [address] Melchor Collins MD [address] [place] [address] [facility] Start: 05-14-2023 End: 05-14-2023 ARTHROPLASTY HIP ROBOTIC ARTHROPLASTY HIP ROBOTIC Osteoarthritis of left hip, unspecified osteoarthritis type 05/14/2023 7:48 AM EDT [facility] Start: 04-27-2023 End: 04-27-2023 Patient encounter procedure 04/27/2023 1:45 PM EDT Surgical Consult [facility] [address] [id number] Melchor Collins MD [address] [id number] [facility] Start: 04-26-2023 End: 04-26-2023 Patient encounter procedure [facility] Preadmission Testing Start: 03-17-2023 [facility] Start: 06-22-2021 Influenza vaccination Sequenti al Influenza Vaccine (#1) [facility] Start: 2020 Fall risk assessment Falls Risk Asse ssment [facility] Start: 2020 Pneumococcal Vaccine : Age 65+ (1 of 1 - PPSV23) Pneumococcal Vaccine: Age 65+ (1 of 1 - PPSV23) [facility] Start: 2005 Administration of he rpes zoster vaccine Zoster Vaccines (1 of 2) [facility] Start: 2005 Screening for malign ant neoplasm of colon [facility] Start: 1973 Hepatitis C screening Hepatitis C Sc reening [facility] Start: 1967 Depression screening using PHQ-9 (Patient Health Questionnaire 9) score Depression Screening (PHQ-2/9) [facility] Start: 1965 Diabetic foot examination Foot Exam [facility] Start: 1965 Glaucoma screening Diabetic Eye Exam [facility] Start: 1965 Urine screening for protein Urine Microalbumin [facility] Start: 1961 Pneumococcal Vaccine : Age 65+ (1 - PCV) Pneumococcal Vaccine: Age 65+ (1 - PCV) [facility] Start: 1960 COVID-19 Vaccine (1) COVID-19 Vaccin e (1) [facility] Start: 1958 History and physical examination, annual for health maintenance Wellness Visit [facility] Start: 1955 COVID-19 Vaccine (#1) COVID-19 Vacci ne (#1) [facility] Start: 1955 Prostate specific antigen measurement PSA Level [facility] Start: 1955 Screening for malign ant neoplasm of colon [facility] Start: 1955 Tetanus vaccination Tetanus: Every 1 0yrs [facility] End: 05-09-2022 Hemoglobin A1c/Hemoglobin.total in Blood Hemoglobin A1c Lab Routine Elevated hemoglobin A1c 1 Occurrences starting 11/09/2021 until 05/09/2022 [facility] Work Phone: Comment on above: 1 Occurrences starti ng 11/09/2021 until 05/09/2022 Methicillin resistan t Staphylococcus aureus [Presence] in Unspecified specimen by Organism specific culture MRSA Culture Microbiology Routine Osteoarthritis of left hip, unspecified osteoarthritis type 04/26/2023 9:11 AM EDT [facility] Work Phone: Patient Education ED Chest Pain, Uncertain Cause [facility] Work Phone: Patient referral [facility] Work Phone: Payers Date Payer Category Payer Unknown [id number] 2025 Self-pay [id number] 2024 Unknown [id number] 1955 Unknown [id number] 2.0.1.519624.3.579.2.900 1955 Unknown [id number] 2.840.1.038815.3.579.2.903 1955 Unknown [id number] 2.840.1.704929.3.579.2.903 1955 Unknown [id number] 2..840.1.420701.3.579.2.903 1955 Unknown [id number] 2.840.1.747528.3.579.2.3 1955 Unknown [id number] 2.16.840.1.920023.3.579.2. 1955 Unknown [id number] 2.16.840.1.990178.3.579.2. 1955 Unknown [id number] 2.16.840.1.939459.3.579.2. 1955 Unknown [id number] 2.16.840.1.172053.3.579.2. 1955 Unknown [id number] 2.16.840.1.774045.3.579.2. 1955 Unknown [id number] 2.16.840.1.780567.3.579.2. 1955 Unknown [id number] 2.16.840.1.212920.3.579.2. 1955 Unknown [id number] 2.16.840.1.280144.3.579.2. 1955 Unknown [id number] 2.16.840.1.714770.3.579.2. 1955 Unknown [id number] 2.16.840.1.496082.3.579.2. 1955 Unknown [id number] 2.16.840.1.481912.3.579.2. 1955 Unknown [id number] 2.16.840.1.376034.3.579.2.651 1955 Unknown [id number] 2.16.840.1.030165.3.579.2.651 1955 Unknown [id number] 2.16.840.1.833946.3.579.2.651 1955 Unknown [id number] 2.16.840.1.368465.3.579.2.651 Medicare [id number] Medicare [id number] Medicare [id number] Unknown [place] [employer] [id number] Effective for all dates [phone] [address] [place] [address] 1.2.840.440304.1.13.385.2.7.3. [id number] Unknown [id number] 2.16.840.1.855040.3.579.2.462 Unknown [id number] 2.16.840.1.237081.3.579.2.462 Unknown [id number] 2.16.840.1.308144.3.579.2.462 Unknown [id number] 2.16.840.1.435948.3.579.2.462 Unknown [id number] 2.16.840.1.718763.3.579.2.462 Unknown [id number] 2.16.840.1.918136.3.579.2.462 Unknown [id number] 2.16.840.1.660600.3.579.2.462 Social History Date Type Detail Facility Start: 11-09-2021 End: 03-17-2023 Tobacco smoking status NHIS Never smoked tobacco [facility] Start: 11-09-2021 Tobacco use and exposure User of smokeless tobacco [facility] Start: 11-09-2021 End: 12-14-2022 Alcohol intake Ex-drinker (finding) [facility] Start: 1955 Sex Assigned At Not on file [facility] Start: 12-04-2022 End: 12-14-2022 Exposure to SARS-CoV-2 (event) Not sure [facility] Start: 1955 Sex Assigned At Male [facility] Start: 04-03-2023 End: 07-13-2023 History of Social function [facility] Start: 04-03-2023 End: 07-13-2023 Tobacco use panel [facility] Start: 05-30-2021 Gender identity Identifies as male gender (finding) [facility] Start: 11-01-2021 Sexual orientation Heterosexual (finding) [facility] Start: 03-17-2023 Tobacco smoking status NHIS Unknown if ever smoked [facility] Start: 04-15-2025 Tobacco smoking status NHIS Ex-smoker (finding) [facility] Medical Equipment Procedure Code Equipment Code Equipment Origin al Text Equipment Identifier Dates Head 36mm/+0 Fem V40 Biolox Delta - [id number] [id number] , [id number] FDA Start: 05-14-2023 Mental Status Date Assessment Result Facility 03-17-2023 Cognitive function Level Of Cons ciousness Awake;Alert;Appropriate;Follow s Commands [facility] Work Phone: Clinical Notes 11-09-2021 to 05-25-2025 Note Date & Type Note Facility 05-25-2025 Evaluation note Diagnosis Onset Date Resolution Personal history of colonic polyps acute May 25, 2025 9:05am [facility] Work Phone: 1(965) 558-823006-01-2025 Radiology Diagnostic study note [facility] Imaging Services [address] [place], [place] [address] CTA Abd w/Runoff W/WO Contrast MR#: [id number] Acct: [id number] Name: PITER MOSS Rep #: [id number] : 1955 M 69 From: Nicolette Burger MD PCP: [facility] Status: REG CLI Study:CTA Abd w/Runoff W/WO Contrast Date of Exam: 03/20/25 Exam# [id number] Ordering Dr: JEFF YANCEY PROCEDURE: CTA ABD W/RUNOFF W/WO CONTRAST 03/20/2025 REASON FOR EXAM: OCCLUSION AND STENOSIS OF LEFT CAROTID ARTERY TECHNIQUE: CTA imaging of the abdomen and pelvis with intravenous contrast. Multiplanar andmultisequence images were obtained. CONTRAST: 75 cc Isovue 370 One or more dose reduction techniques were used (e.g., Automated exposure control, adjustment of the mA and/or kV according to patient size, use of iterative reconstruction technique). CONTRAST: 75 cc Isovue 370 FINDINGS: Fatty infiltration of the liver. Normal gallbladder. Normal spleen. No pancreatic abnormality. Distal thoracic aorta normal in caliber. Patent superior mesenteric artery. 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 Left and right renal arteries are patent with mild narrowing of the proximal left renal artery. Atherosclerotic irregularity of the distal abdominal aorta. On the right, patent external iliac artery, common femoral artery and superficial femoral artery. Atherosclerotic irregularity distal right SFA. Patent popliteal artery on the right. Three-vessel runoff initially. The contrastbolus becomes faint bilaterally at the level of the ankle. A repeat set of images was performed demonstrating three-vessel runoff proximally with two-vessel runoff distally. On the left, there is partial occlusion of the anterior tibial artery. No popliteal stenosis on the left. Patent left common iliac artery. Moderate irregular stenosis at the junction ofthe internal iliac and external iliac artery. Patent left superficial femoral artery and popliteal artery. No free-fluid. No free air. No bowel obstruction. CT/CTA Abd w/Runoff W/WO Contrast IMPRESSION: Mild infrapopliteal atherosclerosis. Mild superficial femoral artery atherosclerosis without stenosis or occlusion. Atherosclerotic irregularity of the abdominal aorta as well as stenosis of the origin of the celiacartery Reading Location: [facility] CC: JEFF HENDRICKS; [facility] ~ Dinkey Locomotive Operator: Signed [facility]05-30-2025 Radiology Diagnostic study note [facility] Imaging Services [address] [place] [address] CTA Head AND Neck W/ Contrast MR#: [id number] Acct: [id number] Name: PITER MOSS Rep #: [id number] : 1955 M 69 From: Nicolette Burger MD PCP: [facility] Status: REG CLI Study:CTA Head AND Neck W/ Contrast Date of E xam: 03/20/25 Exam# [id number] Ordering Dr: JEFF YANCEY PROCEDURE: CTA HEAD AND NECK W/ CONTRAST 03/20/2025 REASON FOR EXAM: PERIPHERAL VASCULAR ANGIOPLASTY STATUS WITH IMPLANTS AND GRAFTS TECHNIQUE: CTA imaging of the head and neck from the aortic arch to the skull vertex with out contrast and with intravenous contrast. Multiplanar and multisequence images were obtained. CONTRAST: 75 cc Isovue One or more dose reduction techniques were used (e.g., Automated exposure control, adjustment of the mA and/or kV according to patient size, use of iterative reconstruction technique). COMPARISON: 08/11/2022 FINDINGS: Prior study is 08/11/2022. Prior study demonstrated significant stenosis of theleft common carotid artery and left internal carotid artery. Initial noncontrast images of the brain demonstrate no abnormality. Angiographic study demonstrates normal caliber of the aortic arch. No proximal subclavian stenosis.No cervical vertebral narrowing. No distal vertebral dissection. No basilar stenosis. Patent basilar tip. There is no narrowing of the right common carotid artery or the right carotid bifurcation. On the left, there is irregular hypodense plaque of the left carotid bifurcationand this results noam significant degree of proximal left ICA stenosis. This is measured on the current study at 66%. Thisis improved in comparison to the prior study by measurement. Visually, the appearance is similar. Distal cervical internal carotid arteries are patent. Normal cavernous carotid vessels. Negative for intracranial aneurysm. Negative for large vessel occlusion. Negative for dural sinus thrombosis. CT/CTA Head AND Neck W/ Contrast IMPRESSION: Subjectively similar appearance to the prior study. However, on the current study, the proximal left ICA stenosis is measured approximately 66% Reading Location: [facility] CC: JEFF HENDRICKS; [facility] ~ Dinkey Locomotive Operator: Signed [facility]05-23-2025 Note. MICRO - Microbiology PROCEDURE: Blood Culture (bacterial) [O1 *1] SOURCE: Blood BODY SITE: COLLECTED DATE/TIME: 03/08/2025 11:15 EDT RECEIVED DATE/TIME: 03/08/2025 18:50 EDT START DATE/TIME: 03/08/2025 18:51 EDT FREE TEXT SOURCE: FINAL REPORTS Final Report [] Verified Date/Time/Personnel: 03/13/2025 18:59 EDT Blood Culture: No Growth at 5 days. PRELIMINARY REPORTS Preliminary Report [] Verified Date/Time/Personnel: 03/08/2025 19:59 EDT Culture has been received in lab and is no growth to date. Routine cultures are held for 5 days. Order Comments O1: Blood Culture (bacterial) [id number] Performing Locations *1: This test was performed at: [facility], [address] [place] [address], [id number] , [facility] [id number] [facility] NOTE NAME ACCOUNT SEX AGE ADMIT DISCHARGE PT MED. RECORD# NUMBER DATE DATE TYPE AJAY, [id number] M 69 01/23/25 1 PITER Sandoval [id number] [place] [facility] [place] OF [place] 1955 DICTATING PHYSICIAN: Kena Guardado DATE OF SERVICE: January 25, 2025 SUBJECTIVE: Mr. Moss continues to improve. At this point, he is down to 3 liters of oxygen. OBJECTIVE: VITAL SIGNS: Oxygen saturation is 91-93%. Heart rate is 77. Blood pressure is 151/85. NECK: Neck is supple. LUNGS: Lungs reveal fairly clear lung vaca with good air exchange. HEART: The heart was regular. ABDOMEN: The abdomen is soft. EXTREMITIES: Extremities revealed no edema. DIAGNOSTIC DATA: Laboratory data revealed a white count of 12.4, sodium 130, potassium 3.5, BUN 47, and creatinine 1.05. ASSESSMENT: 1. Hypoxia, most likely secondary to COPD with acute exacerbation on chronic COPD. The patient has been treated for this with some improvement, especially with mobility and incentive spirometry. 2. Coronary artery disease, asymptomatic. The patient's chest pain is subsiding but did not go away. I do believe most of his chest pain is non-cardiac. In fact, it could be related to the COPD itself. The way he described it was that his heart breathes. He did have a dull ache earlier which he was evaluated for, and all of his cardiac markers were negative as well as his echocardiogram did not reveal any segmental wall motion. PLAN: We will continue the current treatment. Continue monitoring of his glucose. His glucose has gone up some. Hopefully this is mostly steroid related. Dictated By: Kena Guardado MD 01/25/25 18:17 JOB #: [id number] Transcribed By: enma 01/25/25 20:39 Electronically signed by: E-Sign: KENA GUARDADO MD 02/11/25 13:34 Page 1 of 1 PITER MOSS [facility] 02-11-2025 [facility] NOTE NAME ACCOUNT SEX AGE ADMIT DISCHARGE PT MED. RECORD# NUMBER DATE DATE TYPE AJAY [id number] Rosalino 69 01/23/25 1 PITER Sandoval [id number] ROOM: [facility] DATE OF : 1955 DICTATING PHYSICIAN: Kena Guardado DATE OF SERVICE: January 24, 2025 SUBJECTIVE: Mr. Moss has had significant improvement since yesterday. He has less chest pain and shortness of breath. His oxygen demand has dropped to 5 liters after reaching 8 liters. OBJECTIVE: VITAL SIGNS: Oxygen saturation is 94% on 5 liters. He is afebrile. HEENT: Unremarkable. NECK: Neck was supple. LUNGS: Lungs reveal bilateral wheezes with reduced air exchange. HEART: The heart was distant. ABDOMEN: Abdomen is soft. EXTREMITIES: Extremities revealed no edema. DIAGNOSTIC DATA: White count is 9.8, hemoglobin 16.3, sodium 133, potassium 4.3, BUN 29, and creatinine 0.95. ASSESSMENT: 1. Acute hypoxia, likely multifactorial and most related to COPD exacerbation. 2. Coronary artery disease. The patient did have persistent chest pain. The likelihood is that this is unrelated and non-coronary. His cardiac markers and other testing remain negative. 3. Hypertension, on treatment. 4. Benign prostatic hypertrophy, stable. PLAN: We will continue the current measures. The patient was continued to be encouraged to move around and use his incentive spirometry. He is trying to do that, which hopefully will continue to improve. Dictated By: Kena Guardado MD 01/24/25 12:50 JOB #: [id number] Transcribed By: enma 01/24/25 18:13 Electronically signed by: E-Sign: KENA GUARDADO MD 02/11/25 13:33 Page 1 of 1 PITER MOSS [facility] 02-11-2025 [facility] PROGRESS NOTE NAME ACCOUNT SEX AGE ADMIT DISCHARGE PT MED. RECORD# NUMBER DATE DATE TYPE AJAY [id number] Rosalino 69 01/23/25 1 PITER Sandoval [id number] ROOM: [facility] DATE OF : 1955 DICTATING PHYSICIAN: Kena Guardado DATE OF SERVICE: January 23, 2025 SUBJECTIVE: Mr. Moss continues to have episodes of chest pain and shortness of breath. It is associated with elevated episodes of blood pressure, and he has had an increase in his oxygen requirement. When I examined him, I noted him to be laying in a sideways position. I discussed with him sitting up and moving around to improve his lung capacity, and he understood that. Also, I explained to him the importance of incentive spirometry and lung expansion. OBJECTIVE: VITAL SIGNS: Vital signs are stable other than for significant hypoxia. Blood pressure was as high as 169/103. LUNGS: Lung examination did reveal bilateral crackles. HEART: The heart was regular. ABDOMEN: Abdomen is soft. EXTREMITIES: Extremities revealed no edema. DIAGNOSTIC DATA: I did order a repeat chest x-ray today, and now there is streaky right middle lobe infiltrate, and the lungs are hyperinflated. The echocardiogram revealed a sustained ejection fraction without any abnormalities. ASSESSMENT/PLAN: 1. Significant dyspnea, most likely multifactorial. I believe this is more related to a pulmonary nature despite the lack of such evidence on presentation. 2. Pneumonia. We will proceed to place the patient on a combination of doxycycline and Rocephin for coverage. Continue with oxygen support. I encouraged patient mobility and to use expansion therapy. 3. Coronary artery disease, asymptomatic. Echocardiogram is negative. The chest pain has been persistent for days, which makes it less likely to be related to coronary disease, and the troponins remain negative. 4. Hypertension with elevated blood pressure. We will initiate the patient on his antihypertensive and cardiac medications. Dictated By: Kena Guardado MD 01/23/25 15:49 JOB #: [id number] Transcribed By: enma 01/23/25 16:15 Electronically signed by: E-Sign: KENA GUARDADO MD 02/11/25 13:32 Page 1 of 1 AJAY, PITER E [facility] 02-11-2025 [facility] PROGRESS NOTE NAME ACCOUNT SEX AGE ADMIT DISCHARGE PT MED. RECORD# NUMBER DATE DATE TYPE AJAY [id number] Rosalino 69 01/21/25 2 PITER Sandoval [id number] ROOM: [facility] DATE OF : 1955 DICTATING PHYSICIAN: Kena Guardado DATE OF SERVICE: January 22, 2025 SUBJECTIVE: Mr. Moss has been admitted. Since then, he has continued to have pain. He denies any other complaints. He does have shortness of breath. The patient did complain to me about some cough, and he is on cough suppressants. He does have persistent pain. He is on a PPI. OBJECTIVE: VITAL SIGNS: Blood pressure is 139/63 and heart rate 93. He is afebrile. HEENT: Unremarkable. NECK: Neck was supple. LUNGS: Lungs revealed reduced air exchange, otherwise clear lung vaca. HEART: The heart was regular. ABDOMEN: Abdomen was soft. EXTREMITIES: Extremities revealed minimal edema. ASSESSMENT: 1. Chest pain of unclear etiology, persistent. The patient has been evaluated. So far, all troponins have been negative. He does have some EKG changes. We will await Cardiology evaluation. 2. Shortness of breath of unclear etiology, whether it is reactive airway disease, COPD or related to his heart. Echocardiogram is pending. 3. Acid reflux disease, on treatment. 4. Hypertension, on treatment. 5. Multiple medications for back spasm as well as NSAIDs. PLAN: The patient will be placed in the hospital. He will be treated symptomatically, awaiting Cardiology consult and reassess the echocardiogram results and the rest of his diagnoses. The patient had an elevated BUN and creatinine, which could reflect dehydration. The patient also had dizziness, most likely related to orthostasis. Dictated By: Kena Guardado MD 01/22/25 17:42 JOB #: [id number] Transcribed By: enma 01/22/25 19:54 Electronically signed by: E-Sign: KENA GUARDADO MD 02/11/25 13:32 Page 1 of 1 PITER MOSS [facility] 01-22-2025 NoteDischarge Instructions Discharge Summary [address] [address] [id number] 01/21/2025 Patient: PITER MOSS Sex: Male : 1955 Age: 69y Thank you for visiting [facility]. You have been evaluated today by Lawrence Dominguez D.O. for the following condition(s): Principal Diagnosis Chest pain characterized as discomfort, pressure and tightness. Acute dyspnea. Patient Signature Facility Past[employer] Finisher Date/Time General Instructions with ExitWriter [facility] [address] [place] [address] [id number] 01/21/2025 Patient: PITER MOSS Sex: Male : 1955 Age: 69y Thank you for visiting [facility]. You have been evaluated today by Lawrence Dominguez D.O. for the following condition(s): 1 of 2 Discharge Instructions Principal Diagnosis Chest pain characterized as discomfort, pressure and tightness. Acute dyspnea. 2 of 2Joel [facility]09-07-2023 Telephone encounter Note* Telephone Encounter - Charlette Damico LPN - 06/28/2023 11:52 AM EDT Patient requested refill for pain medication. Surgery 05/14 left THR, last fill 06/05. [id number] Miscellaneous Notes* Telephone Encounter - Charlette Damico LPN - 06/28/2023 11:52 AM EDT Patient requested refill for pain medication. Surgery 05/14 left THR, last fill 06/05. documented in this [id number] Note. MICRO - Microbiology PROCEDURE: Blood Culture (bacterial) [*1] SOURCE: Blood BODY SITE: COLLECTED DATE/TIME: 06/10/2023 16:03 EDT RECEIVED DATE/TIME: 06/11/2023 15:56 EDT START DATE/TIME: 06/11/2023 15:56 EDT FREE TEXT SOURCE: FINAL REPORTS Final Report [] Verified Date/Time/Personnel: 06/16/2023 15:59 EDT Blood Culture: No Growth at 5 days. PRELIMINARY REPORTS Preliminary Report [] Verified Date/Time/Personnel: 06/11/2023 16:59 EDT Culture has been received in lab and is no growth to date. Routine cultures are held for 5 days. Performing Locations *1: This test was performed at: [facility], [address] [place] [address], [id number] , Formerly [facility], later [facility] ([place])06-05-2023 Telephone encounter Note* Telephone Encounter - Charlette Damico LPN - 06/05/2023 8:30 AM EDT Patient requested refill for pain medication. Surgery 05/14 left THR last fill 05/25 [id number] Miscellaneous Notes* Telephone Encounter - Charlette Damico LPN - 06/05/2023 8:30 AM EDT Patient requested refill for pain medication. Surgery 05/14 left THR last fill 05/25 documented in this [id number] Telephone encounter Note* Telephone Encounter - Charlette Damico LPN - 05/25/2023 12:21 PM EDT Patient requested refill for pain medication. Surgery 05/14 left THR, last fill 05/14. Would like tramadol. [place] is to strong. [id number] Miscellaneous Notes* Telephone Encounter - Charlette Damico LPN - 05/25/2023 12:21 PM EDT Patient requested refill for pain medication. Surgery 05/14 left THR, last fill 05/14. Would like tramadol. [place] is to strong. documented in this [id number] Note* Quick Note - Di Massey RN - 04/26/2023 11:10 AM EDT Patient established Goals at [facility]. Short term Goals: Get back to normal. Residential Goals: Get back to normal. Pain Goal: 7-8/10 [id number] Note* Quick Note - Di Massey RN - 04/26/2023 11:10 AM EDT Patient established Goals at [facility]. Short term Goals: Get back to normal. Residential Goals: Get back to normal. Pain Goal: 7-8/10 [id number] Note* Quick Note - Di Massey RN - 04/26/2023 11:10 AM EDT Patient established Goals at [facility]. Short term Goals: Get back to normal. Residential Goals: Get back to normal. Pain Goal: 7-8/ [id number] Note* Quick Note - Di Massey RN - 04/26/2023 11:10 AM EDT Patient established Goals at [facility]. Short term Goals: Get back to normal. Manufacturer'S Representative Goals: Get back to normal. Pain Goal: 7-8/10 [id number] Miscellaneous Notes* Quick Note - Di Massey RN - 04/26/2023 11:10 AM EDT Patient established Goals at [facility]. Short term Goals: Get back to normal. Residential Goals: Get back to normal. Pain Goal: 7-8/10 * Pre-Procedure Instructions - Annel Montalvo RN - 04/26/2023 10:12 AM EDT Preoperative Medication Instructions In preparation for surgery please continue all of your current medications with the following changes: Active Home Medications Medication Sig Take Last Dose On Take Morning of Surgery Comment(s) acetaminophen (TYLENOL) 325 MG tablet Take 2 (two) tablets (650 mg total) by mouth every 6 (six) hours as needed for pain . AMLODIPINE BENZOATE ORAL Take by mouth . aspirin 81 mg chewable tablet Chew and Swallow 1 (one) tablet (81 mg total) daily . atorvastatin (LIPITOR) 40 MG tablet Take 1 (one) tablet (40 mg total) by mouth daily . baclofen (LIORESAL) 20 MG tablet Take 1 (one) tablet (20 mg total) by mouth 3 (three) times a day . carvediloL (COREG) 25 MG tablet Take 1 (one) tablet (25 mg total) by mouth 2 (two) times a day . FINASTERIDE ORAL Take by mouth . FLUTICASONE FUROATE NASL Instill into each nostril . fluticasone propion-salmeteroL (ADVAIR DISKUS) 250-50 mcg/dose diskus inhaler Inhale 1 (one) puff 2(two) times a day . furosemide (LASIX) 20 MG tablet Take 1 (one) tablet (20 mg total) by mouth 2 (two) times a day . gabapentin (NEURONTIN) 400 MG capsule Take 1 (one) capsule (400 mg total) by mouth 3 (three) times a day . hydrOXYzine (ATARAX) 10 MG tablet Take 1 (one) tablet (10 mg total) by mouth 3 (three) times a day as needed for itching . insulin glargine (LANTUS SOLOSTAR/BASAGLAR KWIKPEN) 100 unit/mL (3 mL) InPn Inject 30 (thirty) Units under the skin every morning 30 units in am and 10 units pm . isosorbide mononitrate (IMDUR) 120 MG 24 hr tablet Take 1 (one) tablet (120 mg total) by mouth daily . lidocaine (LIDODERM) 5 % patch Place 1 (one) patch on the skin daily Remove & Discard patch within 12 hours or as directed by MD . lidocaine (LMX) 4 % cream Apply topically as needed . LISINOPRIL, BULK, MISC by Miscellaneous route . nitroGLYCERIN (NITROSTAT) 0.[address] 1 (one) tablet (0.4 mg total) under the tongue every 5 (five) minutes as needed for chest pain , if no relief after 3 doses call 911 . nortriptyline HCl (NORTRIPTYLINE ORAL) Take by mouth . OMEPRAZOLE ORAL Take by mouth . pseudoePHEDrine (SUDAFED) 30 MG tablet Take 1 (one) tablet (30 mg total) by mouth every 4 (four) hours as needed for congestion . rivaroxaban (XARELTO) 10 mg tablet Take 2.5 mg by mouth 2 (two) times a day . rOPINIRole (REQUIP) 1 MG tablet Take 1 (one) tablet (1 mg total) by mouth 3 (three) times a day . salsalate (DISALCID) 750 MG tablet Take 1 (one) tablet (750 mg total) by mouth 2 (two) times a day . simethicone (MYLICON) 80 MG chewable tablet Chew and Swallow 1 (one) tablet (80 mg total) every 6 (six) hours as needed for flatulence . tamsulosin (FLOMAX) 0.4 mg capsule Take 1 (one) capsule (0.4 mg total) by mouth daily . traMADol (ULTRAM) 50 mg tablet Take 1 (one) tablet (50 mg total) by mouth every 4 (four) hours as needed for pain . STOP ( medications that contain aspirin, such as Savi [place], Pepto-Bismol, Anacin), antiinflammatory medications such as Advil, Motrin, Ibuprofen, Naproxen, Aleve, Savi [place], Pepto-Bismol, Anacin, Diclofenac, Voltaren, Daypro, Etodolac, Ketoprofen, Piroxicam, Relafen, Nabumetone, etc. Also disc ontinue Vitamin C, Vitamin E, [place]-3 Fatty Acid, Fish Oil or Lovaza, and all herbal medications ASDIRECTED BY SURGEON. Tylenol (acetaminophen) is acceptable(unless you have an allergy to this medication ), but be careful to follow the label directions and do not use with other pain medications. On the morning of surgery, with as little water as possible, ONLY take the medications listed abovein the column Take the morning of surgery. If you are using Eye Drops or Inhalers, please bring them to the hospital. Patient Instructions for [facility]: Prior to surgery: Surgeon's office will contact you with the scheduled time of your surgery. You may use the [employer] parking available at the Main Entrance One family member may accompany you back into the Pre-Op Area. Do not eat or drink anything after midnight or as directed, including gum, mints, and cough drops. No smoking after midnight. No chewing tobacco after midnight. No alcohol 24 hours prior to your surgery. Please take any medications you have been instructed to take the morning of your surgery with smallsips of water. Please be sure to wear comfortable, appropriate clothing. Please remove all jewelry and piercing's, including wedding rings. Leave all valuable items at home. Shower using anti-bacterial soap or as advised by your Surgeon's office Do not apply any makeup or lotions. Remove all nail haitian for surgeries involving extremities. Please remember to bring both your insurance card and a photo ID with you on the day of surgery. After your surgery: If you are having outpatient surgery - you must have a licensed local city driver to take you home. The expectation is that this local city driver will remain at the hospital for the duration of your procedure. You are advised to have a family member with you for at least 24 hours after being under Anesthesia. If you have sleep apnea and have a CPAP/BIPAP mask, please bring it with you the day of surgery. If you have sleep apnea and have a CPAP/BIPAP mask, please bring it with you the day of surgery.Pt does not report any of the following: Ascites Fluid restriction: CHF, ESRD, [place]'s, Insulin pump for blood glucose control difficulty swallowing Neurological disease NPO due to alternative nutrition or IV nutrition Achalasia Severe gastroparesis Hiatal Hernia Severe GERD Partial or Total gastrectomy Gastric resection History of whipple procedure requiring jejunostomy tube placement Pt is a candidate for carb loading drink process. 3-8 oz Boost bottles given with instructions documented in this [id number] Instructions* Patient Instructions* Annel Montalvo RN - 04/26/2023 10:15 AM EDT Preoperative Medication Instructions In preparation for surgery please continue all of your current medications with the following changes: Active Home Medications Medication Sig Take Last Dose On Take Morning of Surgery Comment(s) acetaminophen (TYLENOL) 325 MG tablet Take 2 (two) tablets (650 mg total) by mouth every 6 (six) hours as needed for pain . AMLODIPINE BENZOATE ORAL Take by mouth . aspirin 81 mg chewable tablet Chew and Swallow 1 (one) tablet (81 mg total) daily . atorvastatin (LIPITOR) 40 MG tablet Take 1 (one) tablet (40 mg total) by mouth daily . baclofen (LIORESAL) 20 MG tablet Take 1 (one) tablet (20 mg total) by mouth 3 (three) times a day . carvediloL (COREG) 25 MG tablet Take 1 (one) tablet (25 mg total) by mouth 2 (two) times a day . FINASTERIDE ORAL Take by mouth . FLUTICASONE FUROATE NASL Instill into each nostril . fluticasone propion-salmeteroL (ADVAIR DISKUS) 250-50 mcg/dose diskus inhaler Inhale 1 (one) puff 2(two) times a day . furosemide (LASIX) 20 MG tablet Take 1 (one) tablet (20 mg total) by mouth 2 (two) times a day . gabapentin (NEURONTIN) 400 MG capsule Take 1 (one) capsule (400 mg total) by mouth 3 (three) times a day . hydrOXYzine (ATARAX) 10 MG tablet Take 1 (one) tablet (10 mg total) by mouth 3 (three) times a day as needed for itching . insulin glargine (LANTUS SOLOSTAR/BASAGLAR KWIKPEN) 100 unit/mL (3 mL) InPn Inject 30 (thirty) Units under the skin every morning 30 units in am and 10 units pm . isosorbide mononitrate (IMDUR) 120 MG 24 hr tablet Take 1 (one) tablet (120 mg total) by mouth daily . lidocaine (LIDODERM) 5 % patch Place 1 (one) patch on the skin daily Remove & Discard patch within 12 hours or as directed by MD . lidocaine (LMX) 4 % cream Apply topically as needed . LISINOPRIL, BULK, MISC by Miscellaneous route . nitroGLYCERIN (NITROSTAT) 0.[address] 1 (one) tablet (0.4 mg total) under the tongue every 5 (five) minutes as needed for chest pain , if no relief after 3 doses call 911 . nortriptyline HCl (NORTRIPTYLINE ORAL) Take by mouth . OMEPRAZOLE ORAL Take by mouth . pseudoePHEDrine (SUDAFED) 30 MG tablet Take 1 (one) tablet (30 mg total) by mouth every 4 (four) hours as needed for congestion . rivaroxaban (XARELTO) 10 mg tablet Take 2.5 mg by mouth 2 (two) times a day . rOPINIRole (REQUIP) 1 MG tablet Take 1 (one) tablet (1 mg total) by mouth 3 (three) times a day . salsalate (DISALCID) 750 MG tablet Take 1 (one) tablet (750 mg total) by mouth 2 (two) times a day . simethicone (MYLICON) 80 MG chewable tablet Chew and Swallow 1 (one) tablet (80 mg total) every 6 (six) hours as needed for flatulence . tamsulosin (FLOMAX) 0.4 mg capsule Take 1 (one) capsule (0.4 mg total) by mouth daily . traMADol (ULTRAM) 50 mg tablet Take 1 (one) tablet (50 mg total) by mouth every 4 (four) hours as needed for pain . STOP ( medications that contain aspirin, such as Savi [place], Pepto-Bismol, Anacin), antiinflammatory medications such as Advil, Motrin, Ibuprofen, Naproxen, Aleve, Savi [place], Pepto-Bismol, Anacin, Diclofenac, Voltaren, Daypro, Etodolac, Ketoprofen, Piroxicam, Relafen, Nabumetone, etc. Also disc ontinue Vitamin C, Vitamin E, [place]-3 Fatty Acid, Fish Oil or Lovaza, and all herbal medications ASDIRECTED BY SURGEON. Tylenol (acetaminophen) is acceptable(unless you have an allergy to this medication ), but be careful to follow the label directions and do not use with other pain medications. If you are using Eye Drops or Inhalers, please bring them to the hospital. Patient Instructions for [facility]: Prior to surgery: Surgeon's office will contact you with the scheduled time of your surgery. You may use the [employer] parking available at the Main Entrance One family member may accompany you back into the Pre-Op Area. Do not eat or drink anything after midnight or as directed, including gum, mints, and cough drops. No smoking after midnight. No chewing tobacco after midnight. No alcohol 24 hours prior to your surgery. Please take any medications you have been instructed to take the morning of your surgery with smallsips of water. Please be sure to wear comfortable, appropriate clothing. Please remove all jewelry and piercing's, including wedding rings. Leave all valuable items at home. Shower using anti-bacterial soap or as advised by your Surgeon's office Do not apply any makeup or lotions. Remove all nail haitian for surgeries involving extremities. Please remember to bring both your insurance card and a photo ID with you on the day of surgery. After your surgery: If you are having outpatient surgery - you must have a licensed local city driver to take you home. The expectation is that this local city driver will remain at the hospital for the duration of your procedure. You are advised to have a family member with you for at least 24 hours after being under Anesthesia. If you have sleep apnea and have a CPAP/BIPAP mask, please bring it with you the day of surgery. documented in this [id number] Note* Pre-Procedure Instructions - Annel Montalvo RN - 04/26/2023 10:12 AM EDT Preoperative Medication Instructions In preparation for surgery please continue all of your current medications with the following changes: Active Home Medications Medication Sig Take Last Dose On Take Morning of Surgery Comment(s) acetaminophen (TYLENOL) 325 MG tablet Take 2 (two) tablets (650 mg total) by mouth every 6 (six) hours as needed for pain . AMLODIPINE BENZOATE ORAL Take by mouth . aspirin 81 mg chewable tablet Chew and Swallow 1 (one) tablet (81 mg total) daily . atorvastatin (LIPITOR) 40 MG tablet Take 1 (one) tablet (40 mg total) by mouth daily . baclofen (LIORESAL) 20 MG tablet Take 1 (one) tablet (20 mg total) by mouth 3 (three) times a day . carvediloL (COREG) 25 MG tablet Take 1 (one) tablet (25 mg total) by mouth 2 (two) times a day . FINASTERIDE ORAL Take by mouth . FLUTICASONE FUROATE NASL Instill into each nostril . fluticasone propion-salmeteroL (ADVAIR DISKUS) 250-50 mcg/dose diskus inhaler Inhale 1 (one) puff 2(two) times a day . furosemide (LASIX) 20 MG tablet Take 1 (one) tablet (20 mg total) by mouth 2 (two) times a day . gabapentin (NEURONTIN) 400 MG capsule Take 1 (one) capsule (400 mg total) by mouth 3 (three) times a day . hydrOXYzine (ATARAX) 10 MG tablet Take 1 (one) tablet (10 mg total) by mouth 3 (three) times a day as needed for itching . insulin glargine (LANTUS SOLOSTAR/BASAGLAR KWIKPEN) 100 unit/mL (3 mL) InPn Inject 30 (thirty) Units under the skin every morning 30 units in am and 10 units pm . isosorbide mononitrate (IMDUR) 120 MG 24 hr tablet Take 1 (one) tablet (120 mg total) by mouth daily . lidocaine (LIDODERM) 5 % patch Place 1 (one) patch on the skin daily Remove & Discard patch within 12 hours or as directed by MD . lidocaine (LMX) 4 % cream Apply topically as needed . LISINOPRIL, BULK, MISC by Miscellaneous route . nitroGLYCERIN (NITROSTAT) 0.[address] 1 (one) tablet (0.4 mg total) under the tongue every 5 (five) minutes as needed for chest pain , if no relief after 3 doses call 911 . nortriptyline HCl (NORTRIPTYLINE ORAL) Take by mouth . OMEPRAZOLE ORAL Take by mouth . pseudoePHEDrine (SUDAFED) 30 MG tablet Take 1 (one) tablet (30 mg total) by mouth every 4 (four) hours as needed for congestion . rivaroxaban (XARELTO) 10 mg tablet Take 2.5 mg by mouth 2 (two) times a day . rOPINIRole (REQUIP) 1 MG tablet Take 1 (one) tablet (1 mg total) by mouth 3 (three) times a day . salsalate (DISALCID) 750 MG tablet Take 1 (one) tablet (750 mg total) by mouth 2 (two) times a day . simethicone (MYLICON) 80 MG chewable tablet Chew and Swallow 1 (one) tablet (80 mg total) every 6 (six) hours as needed for flatulence . tamsulosin (FLOMAX) 0.4 mg capsule Take 1 (one) capsule (0.4 mg total) by mouth daily . traMADol (ULTRAM) 50 mg tablet Take 1 (one) tablet (50 mg total) by mouth every 4 (four) hours as needed for pain . STOP ( medications that contain aspirin, such as Savi [place], Pepto-Bismol, Anacin), antiinflammatory medications such as Advil, Motrin, Ibuprofen, Naproxen, Aleve, Savi [place], Pepto-Bismol, Anacin, Diclofenac, Voltaren, Daypro, Etodolac, Ketoprofen, Piroxicam, Relafen, Nabumetone, etc. Also disc ontinue Vitamin C, Vitamin E, [place]-3 Fatty Acid, Fish Oil or Lovaza, and all herbal medications ASDIRECTED BY SURGEON. Tylenol (acetaminophen) is acceptable(unless you have an allergy to this medication ), but be careful to follow the label directions and do not use with other pain medications. On the morning of surgery, with as little water as possible, ONLY take the medications listed abovein the column Take the morning of surgery. If you are using Eye Drops or Inhalers, please bring them to the hospital. Patient Instructions for [facility]: Prior to surgery: Surgeon's office will contact you with the scheduled time of your surgery. You may use the [employer] parking available at the Main Entrance One family member may accompany you back into the Pre-Op Area. Do not eat or drink anything after midnight or as directed, including gum, mints, and cough drops. No smoking after midnight. No chewing tobacco after midnight. No alcohol 24 hours prior to your surgery. Please take any medications you have been instructed to take the morning of your surgery with smallsips of water. Please be sure to wear comfortable, appropriate clothing. Please remove all jewelry and piercing's, including wedding rings. Leave all valuable items at home. Shower using anti-bacterial soap or as advised by your Surgeon's office Do not apply any makeup or lotions. Remove all nail haitian for surgeries involving extremities. Please remember to bring both your insurance card and a photo ID with you on the day of surgery. After your surgery: If you are having outpatient surgery - you must have a licensed local city driver to take you home. The expectation is that this local city driver will remain at the hospital for the duration of your procedure. You are advised to have a family member with you for at least 24 hours after being under Anesthesia. If you have sleep apnea and have a CPAP/BIPAP mask, please bring it with you the day of surgery. If you have sleep apnea and have a CPAP/BIPAP mask, please bring it with you the day of surgery.Pt does not report any of the following: Ascites Fluid restriction: CHF, ESRD, [place]'s, Insulin pump for blood glucose control difficulty swallowing Neurological disease NPO due to alternative nutrition or IV nutrition Achalasia Severe gastroparesis Hiatal Hernia Severe GERD Partial or Total gastrectomy Gastric resection History of whipple procedure requiring jejunostomy tube placement Pt is a candidate for carb loading drink process. 3-8 oz Boost bottles given with instructions [id number] Note* Pre-Procedure Instructions - Annel Montalvo RN - 04/26/2023 10:12 AM EDT Preoperative Medication Instructions In preparation for surgery please continue all of your current medications with the following changes: Active Home Medications Medication Sig Take Last Dose On Take Morning of Surgery Comment(s) acetaminophen (TYLENOL) 325 MG tablet Take 2 (two) tablets (650 mg total) by mouth every 6 (six) hours as needed for pain . AMLODIPINE BENZOATE ORAL Take by mouth . aspirin 81 mg chewable tablet Chew and Swallow 1 (one) tablet (81 mg total) daily . atorvastatin (LIPITOR) 40 MG tablet Take 1 (one) tablet (40 mg total) by mouth daily . baclofen (LIORESAL) 20 MG tablet Take 1 (one) tablet (20 mg total) by mouth 3 (three) times a day . carvediloL (COREG) 25 MG tablet Take 1 (one) tablet (25 mg total) by mouth 2 (two) times a day . FINASTERIDE ORAL Take by mouth . FLUTICASONE FUROATE NASL Instill into each nostril . fluticasone propion-salmeteroL (ADVAIR DISKUS) 250-50 mcg/dose diskus inhaler Inhale 1 (one) puff 2(two) times a day . furosemide (LASIX) 20 MG tablet Take 1 (one) tablet (20 mg total) by mouth 2 (two) times a day . gabapentin (NEURONTIN) 400 MG capsule Take 1 (one) capsule (400 mg total) by mouth 3 (three) times a day . hydrOXYzine (ATARAX) 10 MG tablet Take 1 (one) tablet (10 mg total) by mouth 3 (three) times a day as needed for itching . insulin glargine (LANTUS SOLOSTAR/BASAGLAR KWIKPEN) 100 unit/mL (3 mL) InPn Inject 30 (thirty) Units under the skin every morning 30 units in am and 10 units pm . isosorbide mononitrate (IMDUR) 120 MG 24 hr tablet Take 1 (one) tablet (120 mg total) by mouth daily . lidocaine (LIDODERM) 5 % patch Place 1 (one) patch on the skin daily Remove & Discard patch within 12 hours or as directed by MD . lidocaine (LMX) 4 % cream Apply topically as needed . LISINOPRIL, BULK, MISC by Miscellaneous route . nitroGLYCERIN (NITROSTAT) 0.[address] 1 (one) tablet (0.4 mg total) under the tongue every 5 (five) minutes as needed for chest pain , if no relief after 3 doses call 911 . nortriptyline HCl (NORTRIPTYLINE ORAL) Take by mouth . OMEPRAZOLE ORAL Take by mouth . pseudoePHEDrine (SUDAFED) 30 MG tablet Take 1 (one) tablet (30 mg total) by mouth every 4 (four) hours as needed for congestion . rivaroxaban (XARELTO) 10 mg tablet Take 2.5 mg by mouth 2 (two) times a day . rOPINIRole (REQUIP) 1 MG tablet Take 1 (one) tablet (1 mg total) by mouth 3 (three) times a day . salsalate (DISALCID) 750 MG tablet Take 1 (one) tablet (750 mg total) by mouth 2 (two) times a day . simethicone (MYLICON) 80 MG chewable tablet Chew and Swallow 1 (one) tablet (80 mg total) every 6 (six) hours as needed for flatulence . tamsulosin (FLOMAX) 0.4 mg capsule Take 1 (one) capsule (0.4 mg total) by mouth daily . traMADol (ULTRAM) 50 mg tablet Take 1 (one) tablet (50 mg total) by mouth every 4 (four) hours as needed for pain . STOP ( medications that contain aspirin, such as Savi [place], Pepto-Bismol, Anacin), antiinflammatory medications such as Advil, Motrin, Ibuprofen, Naproxen, Aleve, Savi [place], Pepto-Bismol, Anacin, Diclofenac, Voltaren, Daypro, Etodolac, Ketoprofen, Piroxicam, Relafen, Nabumetone, etc. Also disc ontinue Vitamin C, Vitamin E, [place]-3 Fatty Acid, Fish Oil or Lovaza, and all herbal medications ASDIRECTED BY SURGEON. Tylenol (acetaminophen) is acceptable(unless you have an allergy to this medication ), but be careful to follow the label directions and do not use with other pain medications. On the morning of surgery, with as little water as possible, ONLY take the medications listed abovein the column Take the morning of surgery. If you are using Eye Drops or Inhalers, please bring them to the hospital. Patient Instructions for [facility]: Prior to surgery: Surgeon's office will contact you with the scheduled time of your surgery. You may use the [employer] parking available at the Main Entrance One family member may accompany you back into the Pre-Op Area. Do not eat or drink anything after midnight or as directed, including gum, mints, and cough drops. No smoking after midnight. No chewing tobacco after midnight. No alcohol 24 hours prior to your surgery. Please take any medications you have been instructed to take the morning of your surgery with smallsips of water. Please be sure to wear comfortable, appropriate clothing. Please remove all jewelry and piercing's, including wedding rings. Leave all valuable items at home. Shower using anti-bacterial soap or as advised by your Surgeon's office Do not apply any makeup or lotions. Remove all nail haitian for surgeries involving extremities. Please remember to bring both your insurance card and a photo ID with you on the day of surgery. After your surgery: If you are having outpatient surgery - you must have a licensed local city driver to take you home. The expectation is that this local city driver will remain at the hospital for the duration of your procedure. You are advised to have a family member with you for at least 24 hours after being under Anesthesia. If you have sleep apnea and have a CPAP/BIPAP mask, please bring it with you the day of surgery. If you have sleep apnea and have a CPAP/BIPAP mask, please bring it with you the day of surgery.Pt does not report any of the following: Ascites Fluid restriction: CHF, ESRD, Eloy's, Insulin pump for blood glucose control difficulty swallowing Neurological disease NPO due to alternative nutrition or IV nutrition Achalasia Severe gastroparesis Hiatal Hernia Severe GERD Partial or Total gastrectomy Gastric resection History of whipple procedure requiring jejunostomy tube placement Pt is a candidate for carb loading drink process. 3-8 oz Boost bottles given with instructions [id number] Note* Pre-Procedure Instructions - Annel Montalvo RN - 04/26/2023 10:12 AM EDT Preoperative Medication Instructions In preparation for surgery please continue all of your current medications with the following changes: Active Home Medications Medication Sig Take Last Dose On Take Morning of Surgery Comment(s) acetaminophen (TYLENOL) 325 MG tablet Take 2 (two) tablets (650 mg total) by mouth every 6 (six) hours as needed for pain . AMLODIPINE BENZOATE ORAL Take by mouth . aspirin 81 mg chewable tablet Chew and Swallow 1 (one) tablet (81 mg total) daily . atorvastatin (LIPITOR) 40 MG tablet Take 1 (one) tablet (40 mg total) by mouth daily . baclofen (LIORESAL) 20 MG tablet Take 1 (one) tablet (20 mg total) by mouth 3 (three) times a day . carvediloL (COREG) 25 MG tablet Take 1 (one) tablet (25 mg total) by mouth 2 (two) times a day . FINASTERIDE ORAL Take by mouth . FLUTICASONE FUROATE NASL Instill into each nostril . fluticasone propion-salmeteroL (ADVAIR DISKUS) 250-50 mcg/dose diskus inhaler Inhale 1 (one) puff 2(two) times a day . furosemide (LASIX) 20 MG tablet Take 1 (one) tablet (20 mg total) by mouth 2 (two) times a day . gabapentin (NEURONTIN) 400 MG capsule Take 1 (one) capsule (400 mg total) by mouth 3 (three) times a day . hydrOXYzine (ATARAX) 10 MG tablet Take 1 (one) tablet (10 mg total) by mouth 3 (three) times a day as needed for itching . insulin glargine (LANTUS SOLOSTAR/BASAGLAR KWIKPEN) 100 unit/mL (3 mL) InPn Inject 30 (thirty) Units under the skin every morning 30 units in am and 10 units pm . isosorbide mononitrate (IMDUR) 120 MG 24 hr tablet Take 1 (one) tablet (120 mg total) by mouth daily . lidocaine (LIDODERM) 5 % patch Place 1 (one) patch on the skin daily Remove & Discard patch within 12 hours or as directed by MD . lidocaine (LMX) 4 % cream Apply topically as needed . LISINOPRIL, BULK, MISC by Miscellaneous route . nitroGLYCERIN (NITROSTAT) 0.[address] 1 (one) tablet (0.4 mg total) under the tongue every 5 (five) minutes as needed for chest pain , if no relief after 3 doses call 911 . nortriptyline HCl (NORTRIPTYLINE ORAL) Take by mouth . OMEPRAZOLE ORAL Take by mouth . pseudoePHEDrine (SUDAFED) 30 MG tablet Take 1 (one) tablet (30 mg total) by mouth every 4 (four) hours as needed for congestion . rivaroxaban (XARELTO) 10 mg tablet Take 2.5 mg by mouth 2 (two) times a day . rOPINIRole (REQUIP) 1 MG tablet Take 1 (one) tablet (1 mg total) by mouth 3 (three) times a day . salsalate (DISALCID) 750 MG tablet Take 1 (one) tablet (750 mg total) by mouth 2 (two) times a day . simethicone (MYLICON) 80 MG chewable tablet Chew and Swallow 1 (one) tablet (80 mg total) every 6 (six) hours as needed for flatulence . tamsulosin (FLOMAX) 0.4 mg capsule Take 1 (one) capsule (0.4 mg total) by mouth daily . traMADol (ULTRAM) 50 mg tablet Take 1 (one) tablet (50 mg total) by mouth every 4 (four) hours as needed for pain . STOP ( medications that contain aspirin, such as Savi [place], Pepto-Bismol, Anacin), antiinflammatory medications such as Advil, Motrin, Ibuprofen, Naproxen, Aleve, Savi [place], Pepto-Bismol, Anacin, Diclofenac, Voltaren, Daypro, Etodolac, Ketoprofen, Piroxicam, Relafen, Nabumetone, etc. Also disc ontinue Vitamin C, Vitamin E, [place]-3 Fatty Acid, Fish Oil or Lovaza, and all herbal medications ASDIRECTED BY SURGEON. Tylenol (acetaminophen) is acceptable(unless you have an allergy to this medication ), but be careful to follow the label directions and do not use with other pain medications. On the morning of surgery, with as little water as possible, ONLY take the medications listed abovein the column Take the morning of surgery. If you are using Eye Drops or Inhalers, please bring them to the hospital. Patient Instructions for [facility]: Prior to surgery: Surgeon's office will contact you with the scheduled time of your surgery. You may use the [employer] parking available at the Main Entrance One family member may accompany you back into the Pre-Op Area. Do not eat or drink anything after midnight or as directed, including gum, mints, and cough drops. No smoking after midnight. No chewing tobacco after midnight. No alcohol 24 hours prior to your surgery. Please take any medications you have been instructed to take the morning of your surgery with smallsips of water. Please be sure to wear comfortable, appropriate clothing. Please remove all jewelry and piercing's, including wedding rings. Leave all valuable items at home. Shower using anti-bacterial soap or as advised by your Surgeon's office Do not apply any makeup or lotions. Remove all nail haitian for surgeries involving extremities. Please remember to bring both your insurance card and a photo ID with you on the day of surgery. After your surgery: If you are having outpatient surgery - you must have a licensed local city driver to take you home. The expectation is that this local city driver will remain at the hospital for the duration of your procedure. You are advised to have a family member with you for at least 24 hours after being under Anesthesia. If you have sleep apnea and have a CPAP/BIPAP mask, please bring it with you the day of surgery. If you have sleep apnea and have a CPAP/BIPAP mask, please bring it with you the day of surgery.Pt does not report any of the following: Ascites Fluid restriction: CHF, ESRD, [place]ell's, Insulin pump for blood glucose control difficulty swallowing Neurological disease NPO due to alternative nutrition or IV nutrition Achalasia Severe gastroparesis Hiatal Hernia Severe GERD Partial or Total gastrectomy Gastric resection History of whipple procedure requiring jejunostomy tube placement Pt is a candidate for carb loading drink process. 3-8 oz Boost bottles given with instructions [id number] Note* Pre-Procedure Instructions - Annel Montalvo RN - 04/26/2023 10:12 AM EDT Preoperative Medication Instructions In preparation for surgery please continue all of your current medications with the following changes: Active Home Medications Medication Sig Take Last Dose On Take Morning of Surgery Comment(s) acetaminophen (TYLENOL) 325 MG tablet Take 2 (two) tablets (650 mg total) by mouth every 6 (six) hours as needed for pain . AMLODIPINE BENZOATE ORAL Take by mouth . aspirin 81 mg chewable tablet Chew and Swallow 1 (one) tablet (81 mg total) daily . atorvastatin (LIPITOR) 40 MG tablet Take 1 (one) tablet (40 mg total) by mouth daily . baclofen (LIORESAL) 20 MG tablet Take 1 (one) tablet (20 mg total) by mouth 3 (three) times a day . carvediloL (COREG) 25 MG tablet Take 1 (one) tablet (25 mg total) by mouth 2 (two) times a day . FINASTERIDE ORAL Take by mouth . FLUTICASONE FUROATE NASL Instill into each nostril . fluticasone propion-salmeteroL (ADVAIR DISKUS) 250-50 mcg/dose diskus inhaler Inhale 1 (one) puff 2(two) times a day . furosemide (LASIX) 20 MG tablet Take 1 (one) tablet (20 mg total) by mouth 2 (two) times a day . gabapentin (NEURONTIN) 400 MG capsule Take 1 (one) capsule (400 mg total) by mouth 3 (three) times a day . hydrOXYzine (ATARAX) 10 MG tablet Take 1 (one) tablet (10 mg total) by mouth 3 (three) times a day as needed for itching . insulin glargine (LANTUS SOLOSTAR/BASAGLAR KWIKPEN) 100 unit/mL (3 mL) InPn Inject 30 (thirty) Units under the skin every morning 30 units in am and 10 units pm . isosorbide mononitrate (IMDUR) 120 MG 24 hr tablet Take 1 (one) tablet (120 mg total) by mouth daily . lidocaine (LIDODERM) 5 % patch Place 1 (one) patch on the skin daily Remove & Discard patch within 12 hours or as directed by MD . lidocaine (LMX) 4 % cream Apply topically as needed . LISINOPRIL, BULK, MISC by Miscellaneous route . nitroGLYCERIN (NITROSTAT) 0.[address] 1 (one) tablet (0.4 mg total) under the tongue every 5 (five) minutes as needed for chest pain , if no relief after 3 doses call 911 . nortriptyline HCl (NORTRIPTYLINE ORAL) Take by mouth . OMEPRAZOLE ORAL Take by mouth . pseudoePHEDrine (SUDAFED) 30 MG tablet Take 1 (one) tablet (30 mg total) by mouth every 4 (four) hours as needed for congestion . rivaroxaban (XARELTO) 10 mg tablet Take 2.5 mg by mouth 2 (two) times a day . rOPINIRole (REQUIP) 1 MG tablet Take 1 (one) tablet (1 mg total) by mouth 3 (three) times a day . salsalate (DISALCID) 750 MG tablet Take 1 (one) tablet (750 mg total) by mouth 2 (two) times a day . simethicone (MYLICON) 80 MG chewable tablet Chew and Swallow 1 (one) tablet (80 mg total) every 6 (six) hours as needed for flatulence . tamsulosin (FLOMAX) 0.4 mg capsule Take 1 (one) capsule (0.4 mg total) by mouth daily . traMADol (ULTRAM) 50 mg tablet Take 1 (one) tablet (50 mg total) by mouth every 4 (four) hours as needed for pain . STOP ( medications that contain aspirin, such as Savi [place], Pepto-Bismol, Anacin), antiinflammatory medications such as Advil, Motrin, Ibuprofen, Naproxen, Aleve, Savi [place], Pepto-Bismol, Anacin, Diclofenac, Voltaren, Daypro, Etodolac, Ketoprofen, Piroxicam, Relafen, Nabumetone, etc. Also disc ontinue Vitamin C, Vitamin E, [place]-3 Fatty Acid, Fish Oil or Lovaza, and all herbal medications ASDIRECTED BY SURGEON. Tylenol (acetaminophen) is acceptable(unless you have an allergy to this medication ), but be careful to follow the label directions and do not use with other pain medications. On the morning of surgery, with as little water as possible, ONLY take the medications listed abovein the column Take the morning of surgery. If you are using Eye Drops or Inhalers, please bring them to the hospital. Patient Instructions for [facility]: Prior to surgery: Surgeon's office will contact you with the scheduled time of your surgery. You may use the [employer] parking available at the Main Entrance One family member may accompany you back into the Pre-Op Area. Do not eat or drink anything after midnight or as directed, including gum, mints, and cough drops. No smoking after midnight. No chewing tobacco after midnight. No alcohol 24 hours prior to your surgery. Please take any medications you have been instructed to take the morning of your surgery with smallsips of water. Please be sure to wear comfortable, appropriate clothing. Please remove all jewelry and piercing's, including wedding rings. Leave all valuable items at home. Shower using anti-bacterial soap or as advised by your Surgeon's office Do not apply any makeup or lotions. Remove all nail haitian for surgeries involving extremities. Please remember to bring both your insurance card and a photo ID with you on the day of surgery. After your surgery: If you are having outpatient surgery - you must have a licensed local city driver to take you home. The expectation is that this local city driver will remain at the hospital for the duration of your procedure. You are advised to have a family member with you for at least 24 hours after being under Anesthesia. If you have sleep apnea and have a CPAP/BIPAP mask, please bring it with you the day of surgery. If you have sleep apnea and have a CPAP/BIPAP mask, please bring it with you the day of surgery.Pt does not report any of the following: Ascites Fluid restriction: CHF, ESRD, Eloy's, Insulin pump for blood glucose control difficulty swallowing Neurological disease NPO due to alternative nutrition or IV nutrition Achalasia Severe gastroparesis Hiatal Hernia Severe GERD Partial or Total gastrectomy Gastric resection History of whipple procedure requiring jejunostomy tube placement Pt is a candidate for carb loading drink process. 3-8 oz Boost bottles given with instructions [id number] History of Present illness Narrative* Valerie Chan PTA - 04/26/2023 9:44 AM EDT Patient completed the Home Safety Assessment on date of [place], with all questions answered. A copy of the Home Safety Assessment and surveys were provided. * Felicia Hinds LISW-S - 04/26/2023 9:33 AM EDT Care Management Consult Note Date: 04/26/2023 Time: 9:33 AM Patient Name: Piter Moss Date of : 1955 Reason for Consult: Discharge Plan: Discharging Transportation Plan: Discharge Plan Status: Met with Piter Moss during [employer] [place] on 04/26/2023. The patient is scheduled to have left Hip replacement surgery with Dr Collins on 05/14/2023. He lives with his , Kimberly, in a Trailer home with 4 steps and a handrail on the right to enter. She will assist the patient after surgery. The bedroom, bathroom, and laundry are all on the first floor. The bathroom has a tub/shower with aseat. The commode is standard height. Piter Moss [facility]. A referral will be made. The patient will need a wheeled walker after surgery. [facility]. Order initiated in the system. The patient has a long shoe horn and a cane. Verified Piter Moss address and phone number. Piter Moss feels safe at home. Piter Moss does have prescription coverage by [facility] and denies any financial concerns. Home Care Follow Up: Called the [facility] in [place], , and left a message for Magaly Riddle RN, the nursefor Maria Mcfadden NP, requesting a call back, a wheeled walker, and 2 weeks of home health carewith their preference of provider for his [place] address. 04/27/23 0930: Received a message from Magaly at [facility]. She indicated that they were sending a rollator walker tothe patient's home and that she needed clarification for the shelter needs for home health care. Called her back [phone], extension [phone]. Informed her that the request was for a 2 wheeled walker not a rollator walker and clarified why the doctor wanted shelter. WEN [place] Assessment and Background Information: Living Arrangements: Spouse/significant other Support Systems: Spouse/significant other Type of Residence: Private residence Prior to Admission Home Care Services: No documented in this [id number] History of Present illness Narrative* Valerie Chan PTA - 04/26/2023 9:44 AM EDT Patient completed the Home Safety Assessment on date of [place], with all questions answered. A copy of the Home Safety Assessment and surveys were provided. * Felicia Hinds LISW-S - 04/26/2023 9:33 AM EDT Care Management Consult Note Date: 04/26/2023 Time: 9:33 AM Patient Name: Piter Moss Date of : 1955 Reason for Consult: Discharge Plan: Discharging Transportation Plan: Discharge Plan Status: Met with Piter Moss during [employer] [place] on 04/26/2023. The patient is scheduled to have left Hip replacement surgery with Dr Collins on 05/14/2023. He lives with his , Kimberly, in a Trailer home with 4 steps and a handrail on the right to enter. She will assist the patient after surgery. The bedroom, bathroom, and laundry are all on the first floor. The bathroom has a tub/shower with aseat. The commode is standard height. Piter Moss wants to have whatever home health care the [facility] will cover. A referral will be made. The patient will need a wheeled walker after surgery. [facility] our preferred [facility]. Order initiated in the system. The patient has a long shoe horn and a cane. Verified Piter Moss address and phone number. Piter Moss feels safe at home. Piter Moss does have prescription coverage by [facility] and denies any financial concerns. Home Care Follow Up: Called the [facility] in [place], , and left a message for Magaly Riddle RN, the nursefor Maria Mcfadden NP, requesting a call back, a wheeled walker, and 2 weeks of home health carewith their preference of provider for his [place] address. 04/27/23 0930: Received a message from Magaly at [facility]. She indicated that they were sending a rollator walker tothe patient's home and that she needed clarification for the shelter needs for home health care. Called her back [phone], extension [phone]. Informed her that the request was for a 2 wheeled walker not a rollator walker and clarified why the doctor wanted shelter. 04/30/23 1420: Received a call from Magaly at the [facility]. She indicated that the patient need to come in to their clinic to be measured and taught how to properly use the 2 wheeled walker. She will call the patientand inform him of this. Also, she has a new allocation for services as his current allocation with [facility] was set to on June 16. She indicated that this will cover his follow up appointments. They have initiated for the home care for shelter and the therapy. WEN [place] Assessment and Background Information: Living Arrangements: Spouse/significant other Support Systems: Spouse/significant other Type of Residence: Private residence Prior to Admission Home Care Services: No documented in this [id number] History of Present illness Narrative* Yue Tanner MD - 04/18/2023 9:56 AM EDT OFFICE CONSULTATION NOTE [facility] [address] [facility] [address] [facility] [id number] Physicians: Paramjit Mcfadden, OLIVER (Family); Melchor Collins,* (Referring) Subjective: Piter Moss is a 67 y.o. male seen in the office today for Pre-op Exam (No cardiac concerns today) . HPI 67-year-old white male comes in for preoperative evaluation for left and then right hip surgeryprior to his pain he was physically active could walk with unlimited degree could climb steps. His medications include carvedilol and lisinopril he is also on isosorbide however there is no history supporting coronary ischemic disease. Further he is on rivaroxaban without any history of having atrial fibrillation by name or symptoms nor having blood clots in his legs he is seen at the [facility] usually Assessment/Plan Patient is a reasonable risk for hip surgery he should stop his rivaroxaban or Xarelto 3 days priorto surgery and resume it thereafter No problem-specific Assessment & Plan notes found for this encounter. Follow Up Ordered: No follow-ups on file. Patient's Medications New Prescriptions No medications on file Previous Medications ACETAMINOPHEN (TYLENOL) 325 MG TABLET Take 2 (two) tablets (650 mg total) by mouth every 6 (six) hours as needed for pain . AMLODIPINE BENZOATE ORAL Take by mouth . ASPIRIN 81 MG CHEWABLE TABLET Chew and Swallow 1 (one) tablet (81 mg total) daily . ATORVASTATIN (LIPITOR) 40 MG TABLET Take 1 (one) tablet (40 mg total) by mouth daily . BACLOFEN (LIORESAL) 20 MG TABLET Take 1 (one) tablet (20 mg total) by mouth 3 (three) times a day . CARVEDILOL (COREG) 25 MG TABLET Take 1 (one) tablet (25 mg total) by mouth 2 (two) times a day . FINASTERIDE ORAL Take by mouth . FLUTICASONE FUROATE NASL Instill into each nostril . FLUTICASONE PROPION-SALMETEROL (ADVAIR DISKUS) 250-50 MCG/DOSE DISKUS INHALER Inhale 1 (one) puff 2(two) times a day . FUROSEMIDE (LASIX) 20 MG TABLET Take 1 (one) tablet (20 mg total) by mouth 2 (two) times a day . GABAPENTIN (NEURONTIN) 400 MG CAPSULE Take 1 (one) capsule (400 mg total) by mouth 3 (three) times a day . HYDROXYZINE (ATARAX) 10 MG TABLET Take 1 (one) tablet (10 mg total) by mouth 3 (three) times a day as needed for itching . INSULIN GLARGINE (LANTUS SOLOSTAR/BASAGLAR KWIKPEN) 100 UNIT/ML (3 ML) INPN Inject under the skin nightly . ISOSORBIDE MONONITRATE (IMDUR) 120 MG 24 HR TABLET Take 1 (one) tablet (120 mg total) by mouth daily . LIDOCAINE (LIDODERM) 5 % PATCH Place 1 (one) patch on the skin daily Remove & Discard patch within 12 hours or as directed by MD . LIDOCAINE (LMX) 4 % CREAM Apply topically as needed . LISINOPRIL, BULK, MISC by Miscellaneous route . NITROGLYCERIN (NITROSTAT) 0.[address] 1 (one) tablet (0.4 mg total) under the tongue every 5 (five) minutes as needed for chest pain , if no relief after 3 doses call 911 . NORTRIPTYLINE HCL (NORTRIPTYLINE ORAL) Take by mouth . OMEPRAZOLE ORAL Take by mouth . PSEUDOEPHEDRINE (SUDAFED) 30 MG TABLET Take 1 (one) tablet (30 mg total) by mouth every 4 (four) hours as needed for congestion . RIVAROXABAN (XARELTO) 10 MG TABLET Take 2.5 mg by mouth 2 (two) times a day . ROPINIROLE (REQUIP) 1 MG TABLET Take 1 (one) tablet (1 mg total) by mouth 3 (three) times a day . SALSALATE (DISALCID) 750 MG TABLET Take 1 (one) tablet (750 mg total) by mouth 2 (two) times a day . SIMETHICONE (MYLICON) 80 MG CHEWABLE TABLET Chew and Swallow 1 (one) tablet (80 mg total) every 6 (six) hours as needed for flatulence . TAMSULOSIN (FLOMAX) 0.4 MG CAPSULE Take 1 (one) capsule (0.4 mg total) by mouth daily . Modified Medications No medications on file Discontinued Medications ALBUTEROL (PROVENTIL) 2.5 MG /3 ML (0.083 %) NEBULIZER SOLUTION Take 3 mL (2.5 mg total) by nebulization every 6 (six) hours as needed for wheezing . ALBUTEROL 90 MCG/ACTUATION INHALER Inhale 2 (two) puffs every 6 (six) hours as needed for wheezing . Histories: Past Medical History: Diagnosis Date Anxiety Chest pain COPD (chronic obstructive pulmonary disease) (HCC) GERD (gastroesophageal reflux disease) High cholesterol Hypertension Incontinence Neuropathy Prostate disease Restless legs Past Surgical History: Procedure Laterality Date heart stent leg stents ( per patient) History reviewed. No pertinent family history. Social History Tobacco Use Smoking status: Never Smokeless tobacco: Current Vaping Use Vaping Use: Never used Substance Use Topics Alcohol use: Not Currently Drug use: Yes Types: Marijuana Comment: sometimes No Known Allergies Review of Systems Constitutional: Negative. HENT: Negative. Eyes: Negative. Cardiovascular: Negative for palpitations. Respiratory: Negative. Endocrine: Negative. Skin: Negative. Musculoskeletal: Negative. Gastrointestinal: Negative. Genitourinary: Negative. Neurological: Negative. Psychiatric/Behavioral: Negative. All other systems reviewed and are negative. Overview of Problems Addressed: No problems updated. Objective: Vitals: BP 118/67 (BP Location: Left arm, Patient Position: Sitting, BP Cuff Size: X- large Adult) Pulse 65 Ht 5' 10 Wt 82.6 kg (182 lb) SpO2 92% BMI 26.11 kg/m Physical Exam Constitutional: Appearance: Normal appearance. HENT: Head: Normocephalic and atraumatic. Nose: Nose normal. Eyes: Extraocular Movements: Extraocular movements intact. Pupils: Pupils are equal, round, and reactive to light. Cardiovascular: Rate and Rhythm: Normal rate and regular rhythm. Pulses: Normal pulses. Heart sounds: Normal heart sounds. Pulmonary: Effort: Pulmonary effort is normal. Breath sounds: Normal breath sounds. Abdominal: General: Abdomen is flat. Bowel sounds are normal. Palpations: Abdomen is soft. Musculoskeletal: General: Normal range of motion. Cervical back: Normal range of motion and neck supple. Skin: General: Skin is warm and dry. Neurological: General: No focal deficit present. Mental Status: He is alert and oriented to person, place, and time. Mental status is at baseline. 1. Pre-operative cardiovascular examination 2. Osteoarthritis of left hip, unspecified osteoarthritis type Yue Tanner MD 04/18/2023 documented in this [id number] Instructions* Patient Instructions* Aimee Mayen RN - 04/18/2023 7:55 AM EDT How to contact your Care Team: Provider: Yue Tanner MD In case of an emergency please call 911. REFILLS: When in need for refills please call your care team or the office at [phone]. Please include medication name, pharmacy name, and specify 30-day or 90-day supply. Please check with your pharmacy within 24 hours of request for your refill. You must follow up as directed to continue current refills. Thank you! documented in this [id number] Note. MICRO - Microbiology PROCEDURE: Blood Culture (bacterial) [*1] SOURCE: Blood BODY SITE: COLLECTED DATE/TIME: 03/26/2023 22:05 EDT RECEIVED DATE/TIME: 03/27/2023 15:17 EDT START DATE/TIME: 03/27/2023 15:17 EDT FREE TEXT SOURCE: FINAL REPORTS Final Report [] Verified Date/Time/Personnel: 04/01/2023 15:59 EDT Blood Culture: No Growth at 5 days. PRELIMINARY REPORTS Preliminary Report [] Verified Date/Time/Personnel: 03/27/2023 15:59 EDT Culture has been received in lab and is no growth to date. Routine cultures are held for 5 days. Performing Locations *1: This test was performed at: [address], [address] [place], [place] [id number] Note. MICRO - Microbiology PROCEDURE: Blood Culture (bacterial) [*1] SOURCE: Blood BODY SITE: COLLECTED DATE/TIME: 03/26/2023 21:50 EDT RECEIVED DATE/TIME: 03/27/2023 15:17 EDT START DATE/TIME: 03/27/2023 15:17 EDT FREE TEXT SOURCE: FINAL REPORTS Final Report [] Verified Date/Time/Personnel: 04/01/2023 15:59 EDT Blood Culture: No Growth at 5 days. PRELIMINARY REPORTS Preliminary Report [] Verified Date/Time/Personnel: 03/27/2023 15:59 EDT Culture has been received in lab and is no growth to date. Routine cultures are held for 5 days. Performing Locations *1: This test was performed at: [address], [address] [place] [address])11-09-2021 History of Present illness Narrative* Tamiko Houston, [employer] F[employer]ICATOR - 11/09/2021 3:58 PM EST Piter Moss 1955 CC: 66 y.o. is a he with left hip pain. Chief Complaint Patient presents with Left Hip - Pain Pain Poor historian, did not provide medication list. . HPI: Hip Pain patient presents to the office today with complaints of left hip pain. He is accompanied here today by his . Unfortunately he did not provide us with any type of good medical history nor did he provide us with a medication list today. [facility] He had had imaging performed of the lower back as well as the hips this past spring 2020 and reports that it showed severe arthritis in the hip. He reports today that it is becoming increasingly difficult to walk because of the left hip. He reports he has pain down toward the buttock area in the groin and down the front of his thigh. He finds it much more difficult to raise the leg to get in and out of a vehicle. He also has difficulty with putting socks and shoes on, having to use the pant leg to pull his foot up. He states that Tylenol does not do any thing for his pain therefore he does not take anything. He denies any numbness or tingling into the left foot. He denies any pain that radiates down past the knee down the leg. He reports that it has become increasingly difficult to do the things that he would like to do as well as the things that he needs to do because of the left hip pain. The patient's past medical history, surgical history, social history, family history, medications and allergies were reviewed with the patient today and are available in the chart for further review. PMH: No Known Allergies Current Outpatient Medications: acetaminophen (TYLENOL) 325 MG tablet, Take 650 mg by mouth every 6 (six) hours as needed for pain ., Disp: , Rfl: albuterol (PROVENTIL) 2.5 mg /3 mL (0.083 %) nebulizer solution, Take 2.5 mg by nebulization every 6 (six) hours as needed for wheezing ., Disp: , Rfl: albuterol 90 mcg/actuation inhaler, Inhale 2 puffs every 6 (six) hours as needed for wheezing ., Disp: , Rfl: AMLODIPINE BENZOATE ORAL, Take by mouth ., Disp: , Rfl: aspirin 81 mg chewable tablet, Chew and Swallow 81 mg daily ., Disp: , Rfl: atorvastatin (LIPITOR) 40 MG tablet, Take 40 mg by mouth daily ., Disp: , Rfl: baclofen (LIORESAL) 20 MG tablet, Take 20 mg by mouth 3 (three) times a day ., Disp: , Rfl: carvediloL (COREG) 25 MG tablet, Take 25 mg by mouth 2 (two) times a day ., Disp: , Rfl: diclofenac sodium 1 % Gel, Apply topically ., Disp: , Rfl: FINASTERIDE ORAL, Take by mouth ., Disp: , Rfl: FLUTICASONE FUROATE NASL, Instill into each nostril ., Disp: , Rfl: fluticasone propion-salmeteroL (ADVAIR DISKUS) 250-50 mcg/dose diskus inhaler, Inhale 1 puff 2 (two) times a day ., Disp: , Rfl: furosemide (LASIX) 20 MG tablet, Take 20 mg by mouth 2 (two) times a day ., Disp: , Rfl: gabapentin (NEURONTIN) 400 MG capsule, Take 400 mg by mouth 3 (three) times a day ., Disp: , Rfl: hydrOXYzine (ATARAX) 10 MG tablet, Take 10 mg by mouth 3 (three) times a day as needed for itching ., Disp: , Rfl: isosorbide mononitrate (IMDUR) 120 MG 24 hr tablet, Take 120 mg by mouth daily ., Disp: , Rfl: lidocaine (LIDODERM) 5 % patch, Place 1 patch on the skin daily Remove & Discard patch within 12 hours or as directed by MD ., Disp: , Rfl: lidocaine (LMX) 4 % cream, Apply topically as needed ., Disp: , Rfl: LISINOPRIL, BULK, MISC, by Miscellaneous route ., Disp: , Rfl: nitroGLYCERIN (NITROSTAT) 0.4 MG SL tablet, Place 0.4 mg under the tongue every 5 (five) minutes asneeded for chest pain , if no relief after 3 doses call 911 ., Disp: , Rfl: nortriptyline HCl (NORTRIPTYLINE ORAL), Take by mouth ., Disp: , Rfl: OMEPRAZOLE ORAL, Take by mouth ., Disp: , Rfl: pseudoePHEDrine (SUDAFED) 30 MG tablet, Take 30 mg by mouth every 4 (four) hours as needed for congestion ., Disp: , Rfl: rivaroxaban (XARELTO) 10 mg tablet, Take 2.5 mg by mouth 2 (two) times a day ., Disp: , Rfl: rOPINIRole (REQUIP) 1 MG tablet, Take 1 mg by mouth 3 (three) times a day ., Disp: , Rfl: salsalate (DISALCID) 750 MG tablet, Take 750 mg by mouth 2 (two) times a day ., Disp: , Rfl: simethicone (MYLICON) 80 MG chewable tablet, Chew and Swallow 80 mg every 6 (six) hours as needed for flatulence ., Disp: , Rfl: tamsulosin (FLOMAX) 0.4 mg capsule, Take 0.4 mg by mouth daily ., Disp: , Rfl: Past Medical History: Diagnosis Date Anxiety Chest pain COPD (chronic obstructive pulmonary disease) (HCC) GERD (gastroesophageal reflux disease) High cholesterol Hypertension Incontinence Neuropathy Prostate disease Restless legs Past Surgical History: Procedure Laterality Date heart stent leg stents ( per patient) Social History Socioeconomic History Marital status: Tobacco Use Smoking status: Never Smoker Smokeless tobacco: Current User Substance and Sexual Activity Alcohol use: Not Currently Drug use: Not Currently ROS: Review of Systems Constitutional: Negative for activity change and fatigue. HENT: Negative for congestion, hearing loss and trouble swallowing. Eyes: Negative for visual disturbance. Respiratory: Negative for chest tightness and shortness of breath. Cardiovascular: Negative for chest pain and palpitations. Gastrointestinal: Negative for abdominal pain, diarrhea, nausea and vomiting. Endocrine: Negative for polydipsia, polyphagia and polyuria. Genitourinary: Positive for difficulty urinating. Negative for decreased urine volume and hematuria. Musculoskeletal: Positive for arthralgias, gait problem and myalgias. Negative for joint swelling. Skin: Negative for color change, rash and wound. Allergic/Immunologic: Negative for immunocompromised state. Neurological: Negative for dizziness, weakness, light-headedness and numbness. Hematological: Does not bruise/bleed easily. Psychiatric/Behavioral: Negative for confusion and sleep disturbance. The patient is not nervous/anxious. PE: Physical Exam Constitutional: Appearance: He is well-developed and well-nourished. HENT: Head: Normocephalic. Eyes: Pupils: Pupils are equal, round, and reactive to light. Cardiovascular: Rate and Rhythm: Normal rate and regular rhythm. Pulmonary: Effort: Pulmonary effort is normal. Breath sounds: Normal breath sounds. Abdominal: General: Bowel sounds are normal. Palpations: Abdomen is soft. Musculoskeletal: General: Tenderness present. Cervical back: Normal range of motion and neck supple. Left hip: Tenderness present. No deformity. Decreased range of motion. Normal strength. Skin: General: Skin is warm and dry. Neurological: Mental Status: He is alert and oriented to person, place, and time. ORTHO: Left Hip Exam Tenderness The patient is experiencing tenderness in the lateral, anterior and posterior. Range of Motion External rotation: 30 Internal rotation: 20 Muscle Strength The patient has normal left hip strength. 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 Assessment/Plan: After examination and reviewing of the patient x-ray images we discussed treatmentoptions for the left hip. I did inform him that he would benefit from a total left hip replacement.There is debate on whether or not the patient is diabetic or not. He reports that at one time he was diabetic but not anymore. We did discuss that his hemoglobin A1c would need to be at the most 7.5,more optimally at 7.0 in order to proceed with the hip replacement. I will request the most recent lab work as well as the most recent medication list from the [facility]. I will start him in outpatient physical therapy for the left hip. I am also sending him with a prescription to have a [id number] drawn now to see where that is at. Once I receive the results, I will have the office contact him to schedule the surgery if his A1c is in acceptable range. He does verbalize understanding and isin agreement with this treatment plan. Diagnosis: Problem List Items Addressed This Visit None Visit Diagnoses Osteoarthritis of left hip, unspecified osteoarthritis type - Primary Relevant Orders Ambulatory Ref to [facility] (PT/OT/ST) Elevated hemoglobin A1c Relevant Orders Hemoglobin A1c Follow Up: [facility] Diagnosis Osteoarthritis of left hip, unspecified osteoarthritis type- Primary Elevated hemoglobin A1c Other abnormal blood chemistry [facility] information availableW[facility] Work Phone: Evaluation note* Diagnosis Osteoarthritis of left hip- Primary Pre-operative cardiovascular examination- Primary Osteoarthritis of left hip, unspecified osteoarthritis type Osteoarthritis of left hip, unspecified osteoarthritis type [facility] Diagnosis Osteoarthritis of left hip- Primary Osteoarthritis of left hip, unspecified osteoarthritis type Hypertension, unspecified type Type 2 diabetes mellitus without complication, unspecified whether superintendent container terminal insulin use (HCC) Hx of superintendent container terminal use of blood thinners Encounter for long-term (current) use of anticoagulants Osteoarthritis of left hip, unspecified osteoarthritis type [facility]* Diagnosis Osteoarthritis of left hip- Primary Osteoarthritis of left hip, unspecified osteoarthritis type- Primary Osteoarthritis of left hip, unspecified osteoarthritis type [facility]* Diagnosis Osteoarthritis of left hip- Primary Osteoarthritis of left hip, unspecified osteoarthritis type Hypertension, unspecified type Type 2 diabetes mellitus without complication, unspecified whether halfway insulin use (HCC) Hx of superintendent container terminal use of blood thinners Encounter for long-term (current) use of anticoagulants Osteoarthritis of left hip, unspecified osteoarthritis type [facility] Diagnosis Osteoarthritis of left hip, unspecified osteoarthritis type Hypertension, unspecified type Type 2 diabetes mellitus without complication, unspecified whether halfway insulin use (HCC) Hx of superintendent container terminal use of blood thinners Encounter for long-term (current) use of anticoagulants [facility]* Diagnosis Nausea- Primary Nausea alone [facility]* Diagnosis Status post total replacement of left hip- Primary [facility] Diagnosis Status post total replacement of left hip- Primary [facility]* Diagnosis Status post total replacement of left hip- Primary [facility]* Diagnosis Status post total replacement of left hip- Primary [facility] Diagnosis Status post left hip replacement- Primary [facility] Diagnosis Status post total replacement of left hip- Primary [facility]* Diagnosis Status post total replacement of left hip- Primary [facility]* Diagnosis Osteoarthritis of left hip, unspecified osteoarthritis type- Primary [facility] (narr[facility])No reason for referral information availableWRegency Hospital Company Work Phone: Summary Purpose Family History No Family History Records FoundNo Family History Records FoundNo Family History Records FoundNo Family History Records FoundNo Family History Records FoundNo Family History Records FoundNo Family History Records FoundNo Family History Records Found Advance Directives No Advanced Directives Records FoundDocuments on File Type Date 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 Advance Directives and Living Will Advance Directive Response Recorded Date/ Time Name of Medical Power of Elevator Starter Liz () March 17, 2023 4:20pm Living Will Yes March 17, 2023 4 :20pm Power of Elevator Starter Yes March 17, 2023 4:20pm Latest Code Status on File Code Status Date Activated Date Inactivated Comments Full Code 05/14/2023 9:49 AM 05/14/2023 9:44 PM Latest Code Status on File Code Status Date Activated Date Inactivated Comments Full Code 05/14/2023 9:49 AM 05/14/2023 9:44 PM Advance Directive Response Recorded Date/ Time Advance Directives on File No April 15, 2025 2:09pm Living Will Yes April 15, 2025 2:27pm Do you have a Healthcare Power of Elevator Starter? Yes April 15, 2025 2:27pm Reason for Referral Specialty Diagnoses / Procedures Referred By Contac t Referred To Contact Physical Therapy Diagnoses Osteoarthritis of left hip, unspecified osteoarthritis type Tamiko Houston, SOFIA [address] [id number] Referral ID Status Reason Start Date Expiration Date Visits Requested Visits Authorized [id number] Pending Review Patient Preference 11/09/2021 11/09/2022 1 1 Specialty Diagnoses / Procedures Referred By Contac t Referred To Contact Physical Therapy Diagnoses Osteoarthritis of left hip, unspecified osteoarthritis type Tamiko Houston, SOFIA [address] [place] [address] OF SERVICE NOT IN SYSTEM Referral ID Status Reason Start Date Expiration Date Visits Requested Visits Authorized [id number] Closed Patient Preference 12/18/2022 12/18/2023 1 1 Chief Complaint and Reason for Visit Chief Complaint LT CAROTID STENOSIS Chief Complaint Chest pain CHEST PAIN CHEST PAIN Chief Complaint Admit Date Peripheral vascular angioplasty status w moy implan March 20, 2025 4:14pm Chief Complaint Admit Date Peripheral vascular angioplasty status w moy implan March 20, 2025 4:14pm COPD April 15, 2025 1:32 pm COPD May 18, 2025 1:00 pm Chief Complaint Admit Date Peripheral vascular angioplasty status w moy implan March 20, 2025 4:14pm COPD April 15, 2025 1:32 pm COPD May 18, 2025 1:00 pm COPD May 22, 2025 9:4 0am COLONOSCOPY May 25, 2025 9:0 5am Reason for Visit Admit Date Personal history of colonic polyps Augus t 2024 9:05am Chief Complaint Admit Date COPD April 15, 2025 1:32 pm COPD May 18, 2025 1:00 pm COPD May 22, 2025 9:4 0am COLONOSCOPY May 25, 2025 9:0 5am COPD June 24, 2025 8:50am Additional Source Comments (unrecognized sect ion and content) No Status Records FoundNo Status Records FoundNo Status Records FoundNo Status Records FoundNo Status Records FoundNo Status Records FoundNo Status Records FoundNo Status Records Found INFORMATION SOURCE (unrecogn ized section and content) DATE CREATED AUTHOR 01/02/2021 [facility] DATE CREATED AUTHOR AUTHOR'S ORGANIZ ATION 11/10/2021 [facility] DATE CREATED AUTHOR AUTHOR'S ORGANIZ ATION 05/31/2023 [facility] DATE CREATED AUTHOR AUTHOR'S ORGANIZ ATION 06/17/2023 [facility] ([place] DATE CREATED AUTHOR AUTHOR'S ORGANIZ ATION 07/25/2023 [facility] DATE CREATED AUTHOR AUTHOR'S ORGANIZ ATION 03/20/2025 [facility] DATE CREATED AUTHOR AUTHOR'S ORGANIZ ATION 06/15/2025 [facility] DATE CREATED AUTHOR AUTHOR'S ORGANIZ ATION 07/27/2025 [facility] Reason for Visit (unrecogniz ed section and content) Reason Comments Pain Pain Poor historian, did not provide medication list. Reason Comments Pre-op Exam No cardiac concerns today Specialty Diagnoses / Procedures Referred By Contac t Referred To Contact Cardiology Diagnoses Osteoarthritis of left hip, unspecified osteoarthritis type Melchor Collins MD [address] [place] [id number] [facility] [address] [facility] [place] [address] Referral ID Status Reason Start Date Expiration Date V isits Requested Visits Authorized [id number] Closed Specialty Services Required/Ray ent's Best Interest 04/10/2023 04/09/2024 1 1 Reason Comments Pre-op Exam Left hip Reason Onset Date Comments Medication Refill 05/21/2023 Reason Onset Date Comments Medication Refill 05/28/2023 Reason Comments Follow-up Suture / Staple Removal Wound Check Reason Onset Date Comments Medication Refill 06/05/2023 Reason Onset Date Comments Medication Refill 05/25/2023 Reason Onset Date Comments Medication Refill 06/28/2023 Reason Comments Follow-up Care Teams (unrecognized sec tion and content) Team Status: Active Member Role Status Dates [facility] Primary Care Provider Active Team Status: Inactive Member Role Status Dates [facility] Primary Care Provider Active Start: March 20, 2025 End: March 20, 2025 ELADIO AGUILAR Attending Provider Active S tart: March 20, 2025 End: March 20, 2025 ELADIO AGUILAR Referring Provider Active S tart: March 20, 2025 End: March 20, 2025 Team Status: Active Member Role Status Dates [facility] Primary Care Provider Active Dr. Pedro Gallardo DO Referring Provider, Other Provi simran Active Dr. Ronny Felton MD Attending Provider Active Team Status: Inactive Member Role Status Dates [facility] Primary Care Provider Active Dr. Pedro Gallardo DO Attending Provider, Emergency P romary alice Active Team Status: Inactive Member Role Status Dates [facility] Primary Care Provider Active Dr. Pedro Gallardo DO Attending Provider, Referring P rovider Active Can Marker Relationship Specialty Start Date End Date Paramjit Mcfadden, OLIVER [address] [place] [address] PCP - General Podiatry 11/09/21 Team Status: Inactive Member Role Status Dates [facility] Primary Care Provider Active ANASTASIIA SCHERER Attending Provider, Referring Provider Active Can Marker Relationship Specialty Start Date End Date Paramjit Mcfadden DPM [address] [place] [address] PCP - General Podiatry 11/09/21 Can Marker Relationship Specialty Start Date End Date Paramjit Mcfadden DPM [address] [place], [place] [id number] PCP - General Podiatry 11/09/21 Can Marker Relationship Specialty Start Date End Date Paramjit Mcfadden DPM [address] [place] [id number] PCP - General Podiatry 11/09/21 Can Marker Relationship Specialty Start Date End Date Paramjit Mcfadden DPM [address] [place] [address] PCP - General Podiatry 11/09/21 Can Marker Relationship Specialty Start Date End Date Paramjit Mcfadden DPM [address] [place] [address] PCP - General Podiatry 11/09/21 Can Marker Relationship Specialty Start Date End Date Paramjit Mcfadden DPM [address] [place] [address] PCP - General Podiatry 11/09/21 Can Marker Relationship Specialty Start Date End Date Paramjit Mcfadden DPM [address] [place] [address] PCP - General Podiatry 11/09/21 Can Marker Relationship Specialty Start Date End Date Paramjit Mcfadden DPM [address] [place] [address] PCP - General Podiatry 11/09/21 Can Marker Relationship Specialty Start Date End Date Paramjit Mcfadden DPM [address] [place] [address] PCP - General Podiatry 11/09/21 Can Marker Relationship Specialty Start Date End Date Paramjit Mcfadden DPM [address] [place] [address] PCP - General Podiatry 11/09/21 Team Status: Active Member Role/Relationship Status Dates [facility] Primary Care Provider Active Team Status: Inactive Member Role/Relationship Status Dates [facility] Primary Care Provider Active Start: March 20, 2025 End: March 20, 2025 ELADIO AGUILAR Attending Provider Active S tart: March 20, 2025 End: March 20, 2025 ELADIO AGUILAR Referring Provider Active S tart: March 20, 2025 End: March 20, 2025 Team Status: Active Member Role/Relationship Status Dates [facility] Primary Care Provider Active Start: April 15, 2025 JUDSON ANDERSON Attending Provider Active Start: April 15, 2025 JUDSON ANDERSON Referring Provider Active Start: April 15, 2025 Team Status: Inactive Member Role/Relationship Status Dates [facility] Primary Care Provider Active Start: May 18, 2025 End: May 21, 2025 JUDSON ANDERSON Attending Provider Active Start: May 18, 2025 End: May 21, 2025 JUDSON ANDERSON Referring Provider Active Start: May 18, 2025 End: May 21, 2025 Team Status: Active Member Role/Relationship Status Dates [facility] Primary Care Provider Active Start: May 22, 2025 JUDSON ANDERSON Attending Provider Active Start: May 22, 2025 JUDSON ANDERSON Referring Provider Active Start: May 22, 2025 Team Status: Inactive Member Role/Relationship Status Dates [facility] Primary Care Provider Active Start: May 25, 2025 End: May 25, 2025 [facility] Referring Provider Active Start: 2024 End: May 25, 2025 Dr. Robin De La Garza MD Attending Provider Active Start: May 25, 2025 End: May 25, 2025 Team Status: Inactive Member Role/Relationship Status Dates [facility] Primary Care Provider Active Start: May 22, 2025 End: June 21, 2025 JUDSON ANDERSON Attending Provider Active Start: May 22, 2025 End: June 21, 2025 JUDSON ANDERSON Referring Provider Active Start: May 22, 2025 End: June 21, 2025 Team Status: Active Member Role/Relationship Status Dates [facility] Primary care physician Active Team Status: Active Member Role/Relationship Status Dates [facility] Primary care physician Active Start : April 15, 2025 JUDSON ANDERSON Attending physician Active Start: April 15, 2025 JUDSON ANDERSON Referring Provider Active Start: April 15, 2025 Team Status: Inactive Member Role/Relationship Status Dates [facility] Primary care physician Active Start : May 18, 2025 End: May 21, 2025 JUDSON ANDERSON Attending physician Active Start: May 18, 2025 End: May 21, 2025 JUDSON ANDERSON Referring Provider Active Start: May 18, 2025 End: May 21, 2025 Team Status: Inactive Member Role/Relationship Status Dates [facility] Primary care physician Active Start : May 22, 2025 End: June 21, 2025 JUDSON ANDERSON Attending physician Active Start: May 22, 2025 End: June 21, 2025 JUDSON ANDERSON Referring Provider Active Start: May 22, 2025 End: June 21, 2025 Team Status: Inactive Member Role/Relationship Status Dates [facility] Primary care physician Active Start : May 25, 2025 End: May 25, 2025 [facility] Referring Provider Active Start: 2024 End: May 25, 2025 Dr. Robin De La Garza MD Attending physician Active Start: May 25, 2025 End: May 25, 2025 Team Status: Inactive Member Role/Relationship Status Dates [facility] Primary care physician Active Start : June 24, 2025 End: July 21, 2025 JUDSON ANDERSON Attending physician Active Start: June 24, 2025 End: July 21, 2025 JUDSON ANDERSON Referring Provider Active Start: June 24, 2025 End: July 21, 2025 Goals (unrecognized section and content) Goals may be documented in a n alternate sectionGoals may be documented in an alternate sectionGoals may be documented in an alternate sectionGoals may be documented in an alternate sectionGoals may be documented in an alternate sectionGoals may be documented in an alternate sectionGoals may be documented in an alternate sectionGoals may be documented in an alternate section FOR RECORDS PERTAINING TO PATIENTS WHO ARE OR HAVE BEEN ENROLLED IN A CHEMICAL DEPENDENCY/SUBSTANCEABUSE PROGRAM, SOME INFORMATION MAY BE OMITTED. This clinical summary was aggregated from multiple sources. Caution should be exercised in using it in the provision of clinical care. This summary normalizes information from multiple sources, and as a consequence, information in this document may materially change the coding, format and clinical context of patient data. In addition, data may be omitted in some cases. CLINICAL DECISIONS SHOULD BE BASED ON THE PRIMARY CLINICAL RECORDS. [employer] [facility]. provides no warranty or guarantee of the accuracy or completeness of information in this document.
[2025-10-18 20:37] LABS: Anion Gap 10 (7-18); BUN 11 mg/dL (4-19); BUN/Creat Ratio 15.9 RATIO (10-20); Calcium,Total 9.0 mg/dL (7.6-11.0); Carbon Dioxide 24.4 mmol/L (20.0-29.0); Chloride 103 mmol/L (96-106); D-Dimer Quantitative (DVT/PE) 0.47 FEU/ug/m (0.27-0.49); Estimated Creatinine Clearance 87.38 ml/min (50-250); Glucose 124 mg/dL (70-99); Potassium 4.1 mmol/L (3.5-5.1); Troponin T High Sensitivity 9 ng/L (<=22)
[2025-10-18 20:54] LABS: Differential Comment SCANNED
[2025-10-18 21:00] VITALS: BP 139/80; PULSE 54; RESP 18; O2SAT 100
[2025-10-18 22:00] VITALS: BP 140/85; PULSE 54; RESP 16; O2SAT 94
[2025-10-18 22:10] LABS: Troponin T High Sens 2 HR 8 ng/L (<=22)
[2025-10-18 22:47] VITALS: BP 148/83; PULSE 55; RESP 17; TEMP 36.7; O2SAT 97
== END 2025-10-18 22:47 | disposition home or self-care (01) ==
PROVIDERS: Emergency Provider Emergency Medicine; Visit Provider Emergency Medicine
DX: R07.9 Chest pain, unspecified (principal); J44.9 Chronic obstructive pulmonary disease, unspecified; E11.9 Type 2 diabetes mellitus without complications; E78.00 Pure hypercholesterolemia, unspecified; Z87.891 Personal history of nicotine dependence; I10 Essential (primary) hypertension; I25.10 Atherosclerotic heart disease of native coronary artery without angina pectoris; R06.02 Shortness of breath
CPT/HCPCS: 71046; 80048; 84484; 85025; 85379; 93005; 99284; A4216